=== PATIENT | female | born 1955 | race Caucasian/White ===

== ENCOUNTER 2017-05-19 14:12 | Inpatient (IN) | payer BC ==
[2017-05-19] MEDS ORDERED: Lactated Ringers 1,000 ML IV SCH ×2 (15:00→15:45)
[2017-05-19] MEDS ORDERED: Ondansetron 4 MG Tab.DIS PO PRN (15:18)
[2017-05-19] MEDS ORDERED: Glucose Gel 15 GM in 37.5 GM Tube PO PRN (15:44)
[2017-05-19] MEDS ORDERED: 50% Dextrose in Water 50 ML Syringe IV PRN (15:44)
[2017-05-19] MEDS ORDERED: Acetaminophen/oxyCODONE 325-5 MG Tab PO PRN (15:44)
--- NOTE | 2017-05-19 15:53 | PCM.HP ---
H&P History of Present Illness - General Date of Service: 05/19/17 Source of Information: Patient, Old Records, Provider, RN Notes Reviewed History Limitations: Reports: No Limitations - History of Present Illness Initial Comments - Free Text/Narative: Ms. Dumont is a 61-year-old woman who is admitted as a direct admission from urgent care and Dr. Ross with hypoxia and cough secondary to bilateral pneumonia. She has not felt well over the past 5-6 days in has developed progressive cough, shortness of breath, weakness, and anorexia. She was seen and evaluated in the urgent care clinic today, white blood cell count was modestly elevated, oxygen saturation was low at 85. Chest x-ray shows evidence of bilateral pulmonary infiltrates consistent with pneumonia. Because of respiratory compromise she is referred for hospital admission with further evaluation and management - Related Data Allergies/Adverse Reactions: Allergies Allergy/AdvReac Type Severity Reaction Status Date / Time sulfamethoxazole Allergy Severe Renal Verified 07/19/16 15:13 [From Bactrim] Insufficiency trimethoprim [From Bactrim] Allergy Severe Rash Verified 06/28/16 10:20 Gadolinium-Containing Allergy Itching Verified 06/25/16 04:25 Contrast Medi Home Medications: Home Meds Calcium Carbonate/Vitamin D3 [Calcium 600 + Vit D 200] 1 each PO DAILY 02/10/16 [History] Cholecalciferol (Vitamin D3) [Vitamin D3] 2,000 unit PO DAILY 02/10/16 [History] Furosemide 40 mg PO DAILY 02/10/16 [History] Gabapentin 300 mg PO BEDTIME 02/10/16 [History] Lisinopril 10 mg PO DAILY 02/10/16 [History] Multivitamin [Multi-Vitamin Daily] 1 each PO DAILY 02/10/16 [History] Warfarin [Coumadin] 5 mg PO SUTUWETHSA 02/10/16 [History] Warfarin [Coumadin] 7.5 mg PO MOFR 03/17/16 [History] Acetaminophen/oxyCODONE [Percocet 325-5 MG] 1 - 2 tab PO Q6HR #120 tablet [Rx] Diazepam [Valium] 5 mg PO TID PRN #15 tablet 06/28/16 [Rx] Insulin Aspart [NovoLOG] 0 units SUBCUT TID 10/25/16 [History] Insulin Degludec [Tresiba Flextouch U-100] 78 units SQ DAILY 04/28/17 [History] Past Medical History HEENT History: Reports: Cataract, Impaired Vision Cardiovascular History: Reports: Blood Clots/VTE/DVT, Hypertension Respiratory History: Reports: PE Gastrointestinal History: Reports: Cholelithiasis, Colon Polyp Genitourinary History: Reports: None [employer] History: Reports: Other OB/BYN History: Stillborn Musculoskeletal History: Reports: Arthritis, Fracture Endocrine/Metabolic History: Reports: Diabetes, Type II, Obesity/BMI 30+ Hematologic History: Reports: B12 Deficiency Oncologic (Cancer) History: Reports: Other (See Below) Other Oncologic History: endometrial cancer x2 - Infectious Disease History Infectious Disease History: Reports: Chicken Pox, Measles, Mumps - Past Surgical History HEENT Surgical History: Reports: Cataract Surgery, Tonsillectomy Respiratory Surgical History: Reports: None Female Surgical History: Reports: Section, Hysterectomy Musculoskeletal Surgical History: Reports: Knee Replacement Social & Family History - Family History Family Medical History: Noncontributory - Tobacco Use Smoking Status *Q: Never Smoker Second Hand Smoke Exposure: No - Caffeine Use Caffeine Use: Reports: Soda, Tea - Alcohol Use Days Per Week of Alcohol Use: 0 - Recreational Drug Use Recreational Drug Use: No H&P Review of Systems - Review of Systems: Review Of Systems: See Below General: Reports: Fever, Chills, Weakness HEENT: Reports: No Symptoms Pulmonary: Reports: Shortness of Breath, Cough, Sputum. Denies: Wheezing, Hemoptysis Cardiovascular: Reports: Dyspnea on Exertion. Denies: Chest Pain, Palpitations , Orthopnea, PND, Edema Gastrointestinal: Reports: No Symptoms Genitourinary: Reports: No Symptoms Musculoskeletal: Reports: No Symptoms Skin: Reports: No Symptoms Psychiatric: Reports: No Symptoms Neurological: Reports: No Symptoms Hematologic/Lymphatic: Reports: No Symptoms Immunologic: Reports: No Symptoms Exam - Exam Exam: See Below - Vital Signs Vital Signs: Last Vital Signs Temp 101.6 F H 05/19/17 14:24 Pulse 100 05/19/17 14:24 Resp 20 05/19/17 14:24 BP 149/59 H 05/19/17 14:24 Pulse Ox 85 L 05/19/17 14:24 Weight: 302 lb 7.587 oz - Exam Quality Assessment: Supplemental Oxygen, DVT Prophylaxis General: Alert, Oriented, Cooperative, Mild Distress HEENT: Conjunctiva Clear, Hearing Intact, Mucosa Moist & [place], Normal Nasal Septum, Posterior Pharynx Clear, Pupils Equal Neck: Supple, Trachea Midline, +2 Carotid Pulse wo Bruit Lungs: Rales, Rhonchi. No: Crackles, Wheezing Cardiovascular: Regular Rate, Regular Rhythm, Normal S1, Normal S2. No: Systolic Murmur, Diastolic Murmur GI/Abdominal Exam: Soft, Non-Tender, No Organomegaly, No Distention Back Exam: Normal Inspection Extremities: Non-Tender, No Pedal Edema Skin: Warm, Dry, Intact Neuro Extensive - Mental Status: Alert, Oriented x3, Normal Mood/Affect, Normal Cognition, Memory Intact - Patient Data Lab Results Last 24 hrs: Laboratory Results - last 24 hr 05/19/17 05/19/17 Range/Units 15:05 15:07 Puncture Site Lt radial ABG pH 7.434 (7.350-7.450) ABG pCO2 37.6 (35.0-42.0) mmHg ABG pO2 60.5 L (75.0-100.0) mmHg ABG HCO3 24.8 (22.0-26.0) mmol/L ABG Total CO2 22.1 (21.0-25.0) mmol/L ABG O2 Saturation 91.2 L (95.0-98.0) % ABG O2 Content 15.7 (15.0-23.0) %vol ABG Base Excess 1.2 mm/L ABG Hemoglobin 12.5 (12.0-16.0) g/dL ABG Oxyhemoglobin 89.4 % ABG Carboxyhemoglobin 1.5 (0.0-1.6) % ABG Methemoglobin 0.5 % Jean Test Pass O2 Delivery Device Nasal cannula Oxygen Flow Rate 2 L Lactic Acid 0.8 (0.4-2.0) mmol/L *Q Meaningful Use (ADM) - VTE *Q VTE Criteria *Q: VTE Pharmacological Contraindications *Q: High INR Value - VTE Risk Assess *Q Each Risk Factor Represents 1 Point: Obesity ( BMI > 25 kg/m2), Serious lung disease including pneumonia Total Score 1 Point Risk Factors: 2 Each Risk Factor Represents 2 Points: Age 60 - 74 Years Total Score 2 Point Risk Factors: 2 Each Risk Factor Represents 3 Points: None Total Score 3 Point Risk Factors: 0 Each Risk Factor Represents 5 Points: None Total Score 5 Point Risk Factors: 0 Venous Thromboembolism Risk Factor Score *Q: 4 - Stroke *Q Stroke Criteria *Q: - AMI *Q AMI Criteria *Q: Problem List Initiated/Reviewed/Updated: Yes Orders Last 24hrs: Active Orders 24 hr Category Date Time Status CULTURE BLOOD [BC] Stat Lab 05/19/17 14:50 Received CULTURE BLOOD [BC] Stat Lab 05/19/17 15:05 Received INFLUENZA A+B AG SCREEN [RM] Routine Lab 05/19/17 15:50 Ordered Lactated Ringers [Ringers, Lactated] 1,000 ml Med 05/19/17 15:00 Active IV ASDIRECTED Blood Culture x2 Reflex Set [OM.PC] Urgent Oth 05/19/17 14:48 Ordered Medication Orders Lactated Ringer's (Ringers, Lactated) 1,000 mls @ 1,000 mls/hr IV ASDIRECTED LADONNA Stop: 05/19/17 16:01 Last Admin: 05/19/17 15:48 Dose: 1,000 mls/hr Assessment/Plan Comment:: ASSESSMENT AND PLAN BILATERAL PNEUMONIA-modest elevation in white blood cell count and low-grade temperature elevation. Evidence of bilateral pulmonary infiltrates identified on chest x-ray. -Blood and sputum cultures pending -IV fluids for hydration -IV antibiotic therapy; azithromycin and ceftriaxone HYPOXIC RESPIRATORY FAILURE-likely secondary to current pneumonia -Continuous pulse oximetry -Supplemental oxygen as needed -Nebulized albuterol as needed TYPE 2 DIABETES MELLITUS -Continue usual dose of long-acting insulins -Hold NovoLog at mealtime until appetite improves -High-dose sliding scale NovoLog -4 times a day glucometers ACUTE ON CHRONIC KIDNEY DISEASE-creatinine is elevated from baseline with corresponding decrease in GFR. At baseline she has chronic kidney disease stage III, current acute kidney injury likely secondary to underlying infection and probable intravascular volume depletion. -IV fluids for hydration -Closely monitor urine output and renal function MAINTENANCE ISSUES -DVT prophylaxis; current therapy with warfarin should provide adequate DVT prophylaxis -GI prophylaxis; not indicated -August catheter; not indicated -Nutrition; consistent carb diet -Nicotine dependence; not required CODE STATUS-FULL CODE ADMISSION STATUS-patient will be admitted to inpatient status, expect at least a 2 night hospital stay for evaluation and management of problems as outlined above. At the time of this admission I do not reasonably expected evaluation and management of this problem will require more than a 96 hour hospital stay. DISPOSITION-anticipate discharge to home after the hospital stay. PRIMARY CARE PROVIDER-Dr. Merritt
[2017-05-19] MEDS ORDERED: Diazepam 5 MG Tab PO PRN (16:29)
--- NOTE | 2017-05-19 16:52 | PCM.HP ---
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 These symptoms have progressively gotten worse, despite using Tylenol and codeine to suppress her fever and cough. She has been unable to sleep well and experiences some abdominal pain while coughing. Several of her family members have experienced similar symptoms, but not as severe as hers. She does not have any history of cardiac or respiratory disease and has not had anything similar to this set of symptoms in the past. She denies nausea, vomiting, constipation, headaches out of the ordinary, chest pain, and light headedness. She did receive her flu shot this year. She has not been hospitalized recently, has not taken antibiotics recently, has not been on steroids recently. Onset of Symptoms: Reports: Gradual (Began Sat (6 days ago)) Duration of Symptoms: Reports: Getting Worse Location: Reports: Chest Quality: Reports: Other (Short of breath) Severity: Moderate Improves with: Reports: None Worsens with: Reports: None Context: Reports: Sick Contact, Exertion Associated Symptoms: Reports: Cough, Fever/Chills, Headaches, Loss of Appetite, Malaise, Shortness of Breath - Related Data Allergies/Adverse Reactions: Allergies Allergy/AdvReac Type Severity Reaction Status Date / Time sulfamethoxazole Allergy Severe Renal Verified 07/19/16 15:13 [From Bactrim] Insufficiency trimethoprim [From Bactrim] Allergy Severe Rash Verified 06/28/16 10:20 Gadolinium-Containing Allergy Itching Verified 06/25/16 04:25 Contrast Medi Home Medications: Home Meds Calcium Carbonate/Vitamin D3 [Calcium 600 + Vit D 200] 1 each PO DAILY 02/10/16 [History] Cholecalciferol (Vitamin D3) [Vitamin D3] 2,000 unit PO DAILY 02/10/16 [History] Furosemide 40 mg PO DAILY 02/10/16 [History] Gabapentin 300 mg PO BEDTIME 02/10/16 [History] Lisinopril 10 mg PO DAILY 02/10/16 [History] Multivitamin [Multi-Vitamin Daily] 1 each PO DAILY 02/10/16 [History] Warfarin [Coumadin] 5 mg PO SUTUWETHSA 02/10/16 [History] Warfarin [Coumadin] 7.5 mg PO MOFR 03/17/16 [History] Acetaminophen/oxyCODONE [Percocet 325-5 MG] 1 - 2 tab PO Q6HR #120 tablet [Rx] Diazepam [Valium] 5 mg PO TID PRN #15 tablet 06/28/16 [Rx] Insulin Aspart [NovoLOG] 0 units SUBCUT TID 10/25/16 [History] Insulin Degludec [Tresiba Flextouch U-100] 78 units SQ DAILY 04/28/17 [History] Past Medical History HEENT History: Reports: Cataract, Impaired Vision Cardiovascular History: Reports: Blood Clots/VTE/DVT, Hypertension Respiratory History: Reports: PE Gastrointestinal History: Reports: Cholelithiasis, Colon Polyp Genitourinary History: Reports: None CAT HOOKER History: Reports: Other OB/BYN History: [place] Musculoskeletal History: Reports: Arthritis, Fracture Endocrine/Metabolic History: Reports: Diabetes, Type II, Obesity/BMI 30+ Hematologic History: Reports: B12 Deficiency Oncologic (Cancer) History: Reports: Other (See Below) Other Oncologic History: endometrial cancer x2 - Infectious Disease History Infectious Disease History: Reports: Chicken Pox, Measles, Mumps - Past Surgical History HEENT Surgical History: Reports: Cataract Surgery, Tonsillectomy Respiratory Surgical History: Reports: None Female Surgical History: Reports: Section, Hysterectomy Musculoskeletal Surgical History: Reports: Knee Replacement Social & Family History - Family History Family Medical History: Noncontributory - Tobacco Use Smoking Status *Q: Never Smoker Second Hand Smoke Exposure: No - Caffeine Use Caffeine Use: Reports: Soda, Tea - Alcohol Use Days Per Week of Alcohol Use: 0 - Recreational Drug Use Recreational Drug Use: No H&P Review of Systems - Review of Systems: Review Of Systems: See Below General: Reports: Fever, Chills, Malaise, Decreased Appetite HEENT: Reports: Headaches, Post Nasal Drip Pulmonary: Reports: Shortness of Breath, Cough, Sputum. Denies: Pleuritic Chest Pain Cardiovascular: Reports: Dyspnea on Exertion. Denies: Chest Pain, Palpitations , Lightheadedness Gastrointestinal: Reports: No Symptoms Genitourinary: Reports: Incontinence (Stress urinary incontinence exacerbated by coughing) Musculoskeletal: Reports: No Symptoms Skin: Reports: No Symptoms Psychiatric: Reports: No Symptoms Neurological: Reports: No Symptoms Hematologic/Lymphatic: Reports: No Symptoms Immunologic: Reports: No Symptoms Exam - Exam Exam: See Below - Vital Signs Vital Signs: Last Vital Signs Temp 101.6 F H 05/19/17 14:24 Pulse 100 05/19/17 14:24 Resp 20 05/19/17 14:24 BP 149/59 H 05/19/17 14:24 Pulse Ox 85 L 05/19/17 14:24 Weight: 302 lb 7.587 oz - Exam Quality Assessment: Supplemental Oxygen (2LNC) General: Alert, Oriented, Cooperative HEENT: EOMI, Mucosa Moist & [place] Neck: Supple, Trachea Midline Lungs: Normal Respiratory Effort, Crackles (LLL), Rhonchi (RUL, RAQUEL) Cardiovascular: Regular Rhythm, Tachycardia GI/Abdominal Exam: Normal Bowel Sounds, Soft, Non-Tender, No Organomegaly, No Distention, No Abnormal Bruit, No Mass, Pelvis Stable Extremities: Pedal Edema (chronic lymphedema) Skin: Warm, Dry, Intact Psychiatric: Alert, Normal Affect - Patient Data Lab Results Last 24 hrs: Laboratory Results - last 24 hr 05/19/17 05/19/17 Range/Units 15:05 15:07 Puncture Site Lt radial ABG pH 7.434 (7.350-7.450) ABG pCO2 37.6 (35.0-42.0) mmHg ABG pO2 60.5 L (75.0-100.0) mmHg ABG HCO3 24.8 (22.0-26.0) mmol/L ABG Total CO2 22.1 (21.0-25.0) mmol/L ABG O2 Saturation 91.2 L (95.0-98.0) % ABG O2 Content 15.7 (15.0-23.0) %vol ABG Base Excess 1.2 mm/L ABG Hemoglobin 12.5 (12.0-16.0) g/dL ABG Oxyhemoglobin 89.4 % ABG Carboxyhemoglobin 1.5 (0.0-1.6) % ABG Methemoglobin 0.5 % Jean Test Pass O2 Delivery Device Nasal cannula Oxygen Flow Rate 2 L Lactic Acid 0.8 (0.4-2.0) mmol/L Johnson Results Last 24 hrs: Microbiology 05/19/17 15:50 Influenza Type A Antigen Screen - Final Nasopharyngeal Swab - Nare, Right NEGATIVE INFLUENZA A VIRUS AG Influenza Type B Antigen Screen - Final NEGATIVE INFLUENZA B VIRUS AG *Q Meaningful Use (ADM) - VTE *Q VTE Criteria *Q: VTE Pharmacological Contraindications *Q: High INR Value - Stroke *Q Stroke Criteria *Q: - AMI *Q AMI Criteria *Q: - Problem List (1) Pneumonia SNOMED Code(s): 670804787 ICD Code: J18.9 - PNEUMONIA, UNSPECIFIED ORGANISM Status: Acute Current Visit: Yes Qualifiers: Pneumonia type: due to unspecified organism Laterality: bilateral Lung location: unspecified part of lung Qualified Code(s): J18.9 - Pneumonia, unspecified organism (2) Chronic renal insufficiency, stage III (moderate) SNOMED Code(s): 150204842 ICD Code: N18.3 - CHRONIC KIDNEY DISEASE, STAGE 3 (MODERATE) Status: Chronic Current Visit: No (3) Diabetes mellitus SNOMED Code(s): 68387239 ICD Code: E11.9 - TYPE 2 DIABETES MELLITUS WITHOUT COMPLICATIONS Status: Chronic Current Visit: No Qualifiers: Diabetes mellitus type: type 2 Diabetes mellitus complication status: with kidney complications Diabetes mellitus complication detail: with chronic kidney disease Diabetes mellitus mcfp insulin use: with termite exterminator helper use Chronic kidney disease stage: stage 3 (moderate) Qualified Code(s): E11.22 - Type 2 diabetes mellitus with diabetic chronic kidney disease; N18.3 - Chronic kidney disease, stage 3 (moderate); N18.3 - Chronic kidney disease, stage 3 ( moderate); Z79.4 - snf (current) use of insulin; Z79.4 - termite helper ( current) use of insulin; Z79.4 - termite helper (current) use of insulin; Z79.4 - snf (current) use of insulin Problem List Initiated/Reviewed/Updated: Yes Orders Last 24hrs: Active Orders 24 hr Category Date Time Status Patient Status [ADT] Routine ADT 05/19/17 15:34 Ordered Ambulate [RC] QID Care 05/19/17 15:18 Ordered Blood Glucose Check, Bedside [RC] QIDACANDBED Care 05/19/17 15:44 Ordered Communication Order [RC] ASDIRECTED Care 05/19/17 16:25 Ordered Diabetes Education [RC] Click to Edit Care 05/19/17 15:34 Ordered Height and Weight [RC] DAILY Care 05/19/17 15:44 Ordered Intake and Output [RC] QSHIFT Care 05/19/17 15:58 Ordered Notify Provider [RC] PRN Care 05/19/17 15:50 Ordered Oxygen Therapy [RC] PRN Care 05/19/17 15:34 Ordered Pulse Oximetry [RC] CONTINUOUS Care 05/19/17 15:36 Ordered RT Aerosol Therapy [RC] ASDIRECTED Care 05/19/17 16:17 Ordered Up ad Ese [RC] ASDIRECTED Care 05/19/17 15:18 Ordered Up to Chair [RC] QID Care 05/19/17 15:18 Ordered VTE/DVT Education [RC] Per Unit Routine Care 05/19/17 15:34 Ordered Vital Signs [RC] Q4H Care 05/19/17 15:34 Ordered Consistent Carbohydrate Diet [DIET] Diet 05/19/17 Dinner Ordered BASIC METABOLIC PANEL,BMP [CHEM] AM Lab 05/20/17 05:11 Ordered CBC WITH AUTO DIFF [HEME] AM Lab 05/20/17 05:11 Ordered CULTURE BLOOD [BC] Stat Lab 05/19/17 14:50 Received CULTURE BLOOD [BC] Stat Lab 05/19/17 15:05 Received CULTURE RESPIRATORY + SMEAR [RM] Routine Lab 05/19/17 15:44 Uncollected GLUCOSE POC LAB TO COLLECT [POC] QIDACANDBED Lab 05/19/17 16:30 Ordered GLUCOSE POC LAB TO COLLECT [POC] QIDACANDBED Lab 05/19/17 21:00 Ordered GLUCOSE POC LAB TO COLLECT [POC] QIDACANDBED Lab 05/20/17 07:30 Ordered GLUCOSE POC LAB TO COLLECT [POC] QIDACANDBED Lab 05/20/17 11:30 Ordered GLUCOSE POC LAB TO COLLECT [POC] QIDACANDBED Lab 05/20/17 16:30 Ordered GLUCOSE POC LAB TO COLLECT [POC] QIDACANDBED Lab 05/20/17 21:00 Ordered GLUCOSE POC LAB TO COLLECT [POC] QIDACANDBED Lab 05/21/17 07:30 Ordered GLUCOSE POC LAB TO COLLECT [POC] QIDACANDBED Lab 05/21/17 11:30 Ordered GLUCOSE POC LAB TO COLLECT [POC] QIDACANDBED Lab 05/21/17 16:30 Ordered GLUCOSE POC LAB TO COLLECT [POC] QIDACANDBED Lab 05/21/17 21:00 Ordered GLUCOSE POC LAB TO COLLECT [POC] QIDACANDBED Lab 05/22/17 07:30 Ordered GLUCOSE POC LAB TO COLLECT [POC] QIDACANDBED Lab 05/22/17 11:30 Ordered GLUCOSE POC LAB TO COLLECT [POC] QIDACANDBED Lab 05/22/17 16:30 Ordered GLUCOSE POC LAB TO COLLECT [POC] QIDACANDBED Lab 05/22/17 21:00 Ordered GLUCOSE POC LAB TO COLLECT [POC] QIDACANDBED Lab 05/23/17 07:30 Ordered GLUCOSE POC LAB TO COLLECT [POC] QIDACANDBED Lab 05/23/17 11:30 Ordered GLUCOSE POC LAB TO COLLECT [POC] QIDACANDBED Lab 05/23/17 16:30 Ordered GLUCOSE POC LAB TO COLLECT [POC] QIDACANDBED Lab 05/23/17 21:00 Ordered GLUCOSE POC LAB TO COLLECT [POC] QIDACANDBED Lab 05/24/17 07:30 Ordered GLUCOSE POC LAB TO COLLECT [POC] QIDACANDBED Lab 05/24/17 11:30 Ordered GLUCOSE POC LAB TO COLLECT [POC] QIDACANDBED Lab 05/24/17 16:30 Ordered GLUCOSE POC LAB TO COLLECT [POC] QIDACANDBED Lab 05/24/17 21:00 Ordered GLUCOSE POC LAB TO COLLECT [POC] QIDACANDBED Lab 05/25/17 07:30 Ordered GLUCOSE POC LAB TO COLLECT [POC] QIDACANDBED Lab 05/25/17 11:30 Ordered GLUCOSE POC LAB TO COLLECT [POC] QIDACANDBED Lab 05/25/17 16:30 Ordered GLUCOSE POC LAB TO COLLECT [POC] QIDACANDBED Lab 05/25/17 21:00 Ordered GLUCOSE POC LAB TO COLLECT [POC] QIDACANDBED Lab 05/26/17 07:30 Ordered GLUCOSE POC LAB TO COLLECT [POC] QIDACANDBED Lab 05/26/17 11:30 Ordered GLUCOSE POC LAB TO COLLECT [POC] QIDACANDBED Lab 05/26/17 16:30 Ordered GLUCOSE POC LAB TO COLLECT [POC] QIDACANDBED Lab 05/26/17 21:00 Ordered GLUCOSE POC LAB TO COLLECT [POC] QIDACANDBED Lab 05/27/17 07:30 Ordered GLUCOSE POC LAB TO COLLECT [POC] QIDACANDBED Lab 05/27/17 11:30 Ordered GLUCOSE POC LAB TO COLLECT [POC] QIDACANDBED Lab 05/27/17 16:30 Ordered GLUCOSE POC LAB TO COLLECT [POC] QIDACANDBED Lab 05/27/17 21:00 Ordered GLUCOSE POC LAB TO COLLECT [POC] QIDACANDBED Lab 05/28/17 07:30 Ordered GLUCOSE POC LAB TO COLLECT [POC] QIDACANDBED Lab 05/28/17 11:30 Ordered GLUCOSE POC LAB TO COLLECT [POC] QIDACANDBED Lab 05/28/17 16:30 Ordered GLUCOSE POC LAB TO COLLECT [POC] QIDACANDBED Lab 05/28/17 21:00 Ordered GLUCOSE POC LAB TO COLLECT [POC] QIDACANDBED Lab 05/29/17 07:30 Ordered GLUCOSE POC LAB TO COLLECT [POC] QIDACANDBED Lab 05/29/17 11:30 Ordered GLUCOSE POC LAB TO COLLECT [POC] QIDACANDBED Lab 05/29/17 16:30 Ordered GLUCOSE POC LAB TO COLLECT [POC] QIDACANDBED Lab 05/29/17 21:00 Ordered GLUCOSE POC LAB TO COLLECT [POC] QIDACANDBED Lab 05/30/17 07:30 Ordered GLUCOSE POC LAB TO COLLECT [POC] QIDACANDBED Lab 05/30/17 11:30 Ordered GLUCOSE POC LAB TO COLLECT [POC] QIDACANDBED Lab 05/30/17 16:30 Ordered GLUCOSE POC LAB TO COLLECT [POC] QIDACANDBED Lab 05/30/17 21:00 Ordered GLUCOSE POC LAB TO COLLECT [POC] QIDACANDBED Lab 05/31/17 07:30 Ordered GLUCOSE POC LAB TO COLLECT [POC] QIDACANDBED Lab 05/31/17 11:30 Ordered GLUCOSE POC LAB TO COLLECT [POC] QIDACANDBED Lab 05/31/17 16:30 Ordered GLUCOSE POC LAB TO COLLECT [POC] QIDACANDBED Lab 05/31/17 21:00 Ordered GLUCOSE POC LAB TO COLLECT [POC] QIDACANDBED Lab 06/01/17 07:30 Ordered GLUCOSE POC LAB TO COLLECT [POC] QIDACANDBED Lab 06/01/17 11:30 Ordered GLUCOSE POC LAB TO COLLECT [POC] QIDACANDBED Lab 06/01/17 16:30 Ordered GLUCOSE POC LAB TO COLLECT [POC] QIDACANDBED Lab 06/01/17 21:00 Ordered GLUCOSE POC LAB TO COLLECT [POC] QIDACANDBED Lab 06/02/17 07:30 Ordered GLUCOSE POC LAB TO COLLECT [POC] QIDACANDBED Lab 06/02/17 11:30 Ordered GLUCOSE POC LAB TO COLLECT [POC] QIDACANDBED Lab 06/02/17 16:30 Ordered GLUCOSE POC LAB TO COLLECT [POC] QIDACANDBED Lab 06/02/17 21:00 Ordered GLUCOSE POC LAB TO COLLECT [POC] QIDACANDBED Lab 06/03/17 07:30 Ordered GLUCOSE POC LAB TO COLLECT [POC] QIDACANDBED Lab 06/03/17 11:30 Ordered GLUCOSE POC LAB TO COLLECT [POC] QIDACANDBED Lab 06/03/17 16:30 Ordered GLUCOSE POC LAB TO COLLECT [POC] QIDACANDBED Lab 06/03/17 21:00 Ordered GLUCOSE POC LAB TO COLLECT [POC] QIDACANDBED Lab 06/04/17 07:30 Ordered GLUCOSE POC LAB TO COLLECT [POC] QIDACANDBED Lab 06/04/17 11:30 Ordered GLUCOSE POC LAB TO COLLECT [POC] QIDACANDBED Lab 06/04/17 16:30 Ordered GLUCOSE POC LAB TO COLLECT [POC] QIDACANDBED Lab 06/04/17 21:00 Ordered GLUCOSE POC LAB TO COLLECT [POC] QIDACANDBED Lab 06/05/17 07:30 Ordered GLUCOSE POC LAB TO COLLECT [POC] QIDACANDBED Lab 06/05/17 11:30 Ordered GLUCOSE POC LAB TO COLLECT [POC] QIDACANDBED Lab 06/05/17 16:30 Ordered GLUCOSE POC LAB TO COLLECT [POC] QIDACANDBED Lab 06/05/17 21:00 Ordered GLUCOSE POC LAB TO COLLECT [POC] QIDACANDBED Lab 06/06/17 07:30 Ordered GLUCOSE POC LAB TO COLLECT [POC] QIDACANDBED Lab 06/06/17 11:30 Ordered GLUCOSE POC LAB TO COLLECT [POC] QIDACANDBED Lab 06/06/17 16:30 Ordered GLUCOSE POC LAB TO COLLECT [POC] QIDACANDBED Lab 06/06/17 21:00 Ordered GLUCOSE POC LAB TO COLLECT [POC] QIDACANDBED Lab 06/07/17 07:30 Ordered GLUCOSE POC LAB TO COLLECT [POC] QIDACANDBED Lab 06/07/17 11:30 Ordered GLUCOSE POC LAB TO COLLECT [POC] QIDACANDBED Lab 06/07/17 16:30 Ordered GLUCOSE POC LAB TO COLLECT [POC] QIDACANDBED Lab 06/07/17 21:00 Ordered GLUCOSE POC LAB TO COLLECT [POC] QIDACANDBED Lab 06/08/17 07:30 Ordered GLUCOSE POC LAB TO COLLECT [POC] QIDACANDBED Lab 06/08/17 11:30 Ordered GLUCOSE POC LAB TO COLLECT [POC] QIDACANDBED Lab 06/08/17 16:30 Ordered GLUCOSE POC LAB TO COLLECT [POC] QIDACANDBED Lab 06/08/17 21:00 Ordered GLUCOSE POC LAB TO COLLECT [POC] QIDACANDBED Lab 06/09/17 07:30 Ordered GLUCOSE POC LAB TO COLLECT [POC] QIDACANDBED Lab 06/09/17 11:30 Ordered GLUCOSE POC LAB TO COLLECT [POC] QIDACANDBED Lab 06/09/17 16:30 Ordered GLUCOSE POC LAB TO COLLECT [POC] QIDACANDBED Lab 06/09/17 21:00 Ordered GLUCOSE POC LAB TO COLLECT [POC] QIDACANDBED Lab 06/10/17 07:30 Ordered GLUCOSE POC LAB TO COLLECT [POC] QIDACANDBED Lab 06/10/17 11:30 Ordered GLUCOSE POC LAB TO COLLECT [POC] QIDACANDBED Lab 06/10/17 16:30 Ordered GLUCOSE POC LAB TO COLLECT [POC] QIDACANDBED Lab 06/10/17 21:00 Ordered GLUCOSE POC LAB TO COLLECT [POC] QIDACANDBED Lab 06/11/17 07:30 Ordered GLUCOSE POC LAB TO COLLECT [POC] QIDACANDBED Lab 06/11/17 11:30 Ordered GLUCOSE POC LAB TO COLLECT [POC] QIDACANDBED Lab 06/11/17 16:30 Ordered GLUCOSE POC LAB TO COLLECT [POC] QIDACANDBED Lab 06/11/17 21:00 Ordered GLUCOSE POC LAB TO COLLECT [POC] QIDACANDBED Lab 06/12/17 07:30 Ordered GLUCOSE POC LAB TO COLLECT [POC] QIDACANDBED Lab 06/12/17 11:30 Ordered GLUCOSE POC LAB TO COLLECT [POC] QIDACANDBED Lab 06/12/17 16:30 Ordered GLUCOSE POC LAB TO COLLECT [POC] QIDACANDBED Lab 06/12/17 21:00 Ordered GLUCOSE POC LAB TO COLLECT [POC] QIDACANDBED Lab 06/13/17 07:30 Ordered INR,PT,PROTHROMBIN TIME [COAG] DAILY Lab 05/20/17 05:11 Ordered INR,PT,PROTHROMBIN TIME [COAG] DAILY Lab 05/21/17 05:11 Ordered INR,PT,PROTHROMBIN TIME [COAG] DAILY Lab 05/22/17 05:11 Ordered INR,PT,PROTHROMBIN TIME [COAG] DAILY Lab 05/23/17 05:11 Ordered INR,PT,PROTHROMBIN TIME [COAG] DAILY Lab 05/24/17 05:11 Ordered Acetaminophen [Tylenol] Med 05/19/17 15:18 Ordered 650 mg PO Q4H PRN Acetaminophen/oxyCODONE [Percocet 325-5 MG] Med 05/19/17 15:44 Ordered 1 tab PO Q4H PRN Albuterol [Proventil Neb Soln] Med 05/19/17 15:44 Ordered 2.5 mg NEB Q4H PRN Azithromycin [Zithromax] 500 mg Med 05/19/17 16:45 Ordered Sodium Chloride 0.9% [Normal Saline] 250 ml IV Q24H Dextrose 50% in Water Med 05/19/17 15:44 Ordered 50 ml IV ONETIME PRN Dextrose [Glutose 15] Med 05/19/17 15:44 Ordered 15 gm PO ONETIME PRN Diazepam [Valium] Med 05/19/17 16:29 Ordered 5 mg PO TID PRN Furosemide [Lasix] Med 05/20/17 09:00 Ordered 40 mg PO DAILY Gabapentin [Neurontin] Med 05/19/17 21:00 Ordered 300 mg PO BEDTIME Insulin Aspart [NovoLOG] Med 05/19/17 17:00 Ordered See Protocol SUBCUT QIDACANDBED Insulin Detemir [Levemir] Med 05/20/17 09:00 Ordered 78 unit SUBCUT DAILY Lactated Ringers [Ringers, Lactated] 1,000 ml Med 05/19/17 15:45 Ordered IV ASDIRECTED Lisinopril [Prinivil] Med 05/20/17 09:00 Ordered 10 mg PO DAILY Ondansetron [Zofran ODT] Med 05/19/17 15:18 Ordered 4 mg PO Q6H PRN cefTRIAXone [Rocephin] 1 gm Med 05/19/17 16:45 Ordered Sodium Chloride 0.9% [Normal Saline] 50 ml IV Q24H Blood Culture x2 Reflex Set [OM.PC] Urgent Oth 05/19/17 14:48 Ordered Glucose Management Sub Q Reflex [OM.PC] Click to Edit Oth 05/19/17 15:18 Ordered VTE Pharmacological Contraindications [AST] Per Unit Oth 05/19/17 15:44 Ordered Routine Resuscitation Status Routine Resus Stat 05/19/17 15:18 Ordered Medication Orders Acetaminophen (Tylenol) 650 mg PO Q4H PRN PRN Reason: Pain (Mild 1-3)/fever Albuterol (Proventil Neb Soln) 2.5 mg NEB Q4H PRN PRN Reason: Shortness Of Breath/wheezing Dextrose (Glutose 15) 15 gm PO ONETIME PRN PRN Reason: Hypoglycemia Dextrose/Water (Dextrose 50% In Water) 50 ml IV ONETIME PRN PRN Reason: Hypoglycemia Diazepam (Valium.) 5 mg PO TID PRN PRN Reason: Pain Furosemide (Lasix) 40 mg PO DAILY LADONNA Gabapentin (Neurontin) 300 mg PO BEDTIME LADONNA Lactated Ringer's (Ringers, Lactated) 1,000 mls @ 125 mls/hr IV ASDIRECTED LADONNA Azithromycin 500 mg/ Sodium (Chloride) 250 mls @ 250 mls/hr IV Q24H LADONNA Ceftriaxone Sodium 1 gm/ (Sodium Chloride) 50 mls @ 100 mls/hr IV Q24H LADONNA Insulin Aspart (Novolog) 0 unit SUBCUT QIDACANDBED LADONNA PRN Reason: Protocol Insulin Detemir (Levemir) 78 unit SUBCUT DAILY LADONNA Lisinopril (Prinivil) 10 mg PO DAILY LADONNA Ondansetron HCl (Zofran Odt) 4 mg PO Q6H PRN PRN Reason: Nausea able to take PO Oxycodone/Acetaminophen (Percocet 325-5 Mg) 1 tab PO Q4H PRN PRN Reason: Pain (moderate 4-6) Assessment/Plan Comment:: COMMUNITY ACQUIRED PNEUMONIA--consistent with bilateral interstitial infiltrates seen on CXR, moderate elevation of WBC to 11.2, and increased CRP to 34; pt currently stable and satting well on 2LNC without increased respiratory effort -supplemental oxygen as needed -ceftriaxone and azithromycin -blood cultures pending -sputum culture pending -influenza A and B antigens pending -q4h vitals -continuous pulse oximetry -nebulized albuterol q4h PRN TYPE 2 DIABETES MELLITUS, COMPLICATED BY STAGE 3 CHRONIC KIDNEY DISEASE, with evidence for acute on chronic kidney injury given increase in Cr from 1.3 (Jan, 2017) to 1.95 (Apr, 2017) -d/c home insulin deglidec and aspart -78 units levemir per day -LDSSI protocol -qid glucose checks -carb consistent diet -Lactated ringers--1L bolus followed by 125ml/hr maintenance -10mg lisinopril daily HISTORY OF PE, anticoagulated with warfarin, currently slightly subtherapeutic at 1.9 -5mg PO warfarin 05/20 -modify as needed DVT Prophylaxis: on warfarin Diet: carb consistent GI prophylaxis: none Code status: full code Dispo: home pending clinical improvement Reema Marinelli, MS3
[2017-05-19] MEDS: Azithromycin 500 MG in Sodium Chloride 0.9% 250 ML IV SCH (17:18)
[2017-05-19] MEDS: Insulin Aspart 100 Units/ML 3 ML Pen SUBCUT SCH ×2 (17:22→21:13)
[2017-05-19] MEDS ORDERED: Warfarin 5 MG Tab PO ONE (17:24)
[2017-05-19] MEDS ORDERED: cefTRIAXone 1 GM in Sodium Chloride 0.9% 50 ML IV SCH (18:00)
[2017-05-19] MEDS: Acetaminophen 325 MG Tab PO PRN (18:35)
[2017-05-19] MEDS: cefTRIAXone 1 GM in Sodium Chloride 0.9% 100 ML IV SCH (18:36)
[2017-05-19] MEDS: Albuterol 0.083% 2.5 MG/3 ML Neb Soln NEB PRN (20:01)
[2017-05-19] MEDS: Gabapentin 300 MG Cap PO SCH (20:42)
[2017-05-19] MEDS: Insulin Detemir 100 Units/ML 3 ML Pen SUBCUT SCH (21:52)
[2017-05-20] MEDS: Albuterol 0.083% 2.5 MG/3 ML Neb Soln NEB PRN (00:35)
[2017-05-20] MEDS: Sodium Chloride 0.9% 1,000 ML IV SCH ×2 (02:52→11:16)
[2017-05-20] MEDS: Insulin Aspart 100 Units/ML 3 ML Pen SUBCUT SCH ×4 (08:02→21:25)
[2017-05-20] MEDS: Lisinopril 10 MG Tab PO SCH (08:15)
[2017-05-20] MEDS: Furosemide 40 MG Tab PO SCH (08:15)
[2017-05-20] MEDS ORDERED: Potassium Chloride 20 MEQ Tab.ER PO ONE (09:30)
[2017-05-20] MEDS ORDERED: Warfarin 2.5 MG Tab PO ONE (17:30)
[2017-05-20] MEDS ORDERED: Warfarin 5 MG Tab PO ONE (17:30)
[2017-05-20] MEDS: Azithromycin 500 MG in Sodium Chloride 0.9% 250 ML IV SCH (17:30)
--- NOTE | 2017-05-20 18:42 | PCM.PN ---
- General Info Date of Service: 05/20/17 Subjective Update: Ms. Dumont has had ongoing difficulty with hypoxia since admission, last night experienced an acute exacerbation that was likely secondary to mucous plug and resolved after she was able to cough up quite a bit of mucus. Vital signs have been stable and she has remained afebrile. - Review of Systems General: Reports: Weakness. Denies: Fever, Chills Pulmonary: Reports: Shortness of Breath, Cough, Sputum, Wheezing. Denies: Pleuritic Chest Pain, Hemoptysis Cardiovascular: Reports: Dyspnea on Exertion. Denies: Chest Pain, Palpitations , Orthopnea, PND, Edema, Lightheadedness Gastrointestinal: Reports: No Symptoms - Patient Data Vitals - Most Recent: Last Vital Signs Temp 98.3 F 05/20/17 15:56 Pulse 80 05/20/17 15:56 Resp 18 05/20/17 15:56 BP 106/47 L 05/20/17 15:56 Pulse Ox 95 05/20/17 15:56 Weight - Most Recent: 310 lb I&O - Last 24 Hours: Intake & Output 05/20/17 05/20/17 05/20/17 06:59 14:59 22:59 Intake Total 1334 420 120 Output Total 250 150 550 Balance 1084 270 -430 Lab Results Last 24 Hours: Laboratory Results - last 24 hr 05/20/17 05/20/17 05/20/17 Range/Units 05:40 05:40 05:40 WBC 10.4 (4.5-11.0) K/uL RBC 3.80 (3.30-5.50) M/uL Hgb 11.3 L (12.0-15.0) g/dL Hct 35.3 L (36.0-48.0) % MCV 93 (80-98) fL MCH 30 (27-31) pg MCHC 32 (32-36) % Plt Count 316 (150-400) K/uL Neut % (Auto) 79 H (36-66) % Lymph % (Auto) 8 L (24-44) % [place] % (Auto) 11 H (2-6) % Eos % (Auto) 2 (2-4) % Baso % (Auto) 0 (0-1) % PT 19.5 H (9.5-12.0) sec INR 1.78 H (0.80-1.20) Sodium 139 L (140-148) mmol/L Potassium 3.5 L (3.6-5.2) mmol/L Chloride 103 (100-108) mmol/L Carbon Dioxide 27 (21-32) mmol/L Anion Gap 12.5 (5.0-14.0) mmol/L BUN 34 H (7-18) mg/dL Creatinine 1.9 H (0.6-1.0) mg/dL Est Cr Clr Drug Dosing 29.85 mL/min Estimated GFR (MDRD) 27 L (>60) Glucose 83 (74-106) mg/dL Calcium 7.9 L (8.5-10.1) mg/dL Johnson Results Last 24 Hours: Microbiology 05/19/17 15:05 Aerobic Blood Culture - Preliminary Blood - Arm, Left NO GROWTH AFTER 1 DAY Anaerobic Blood Culture - Preliminary NO GROWTH AFTER 1 DAY 05/19/17 14:50 Aerobic Blood Culture - Preliminary Blood - Venous NO GROWTH AFTER 1 DAY Anaerobic Blood Culture - Preliminary NO GROWTH AFTER 1 DAY 05/19/17 20:42 Gram Stain - Final Sputum - Expectorated 05/19/17 15:50 Influenza Type A Antigen Screen - Final Nasopharyngeal Swab - Nare, Right NEGATIVE INFLUENZA A VIRUS AG Influenza Type B Antigen Screen - Final NEGATIVE INFLUENZA B VIRUS AG Med Orders - Current: Current Medications Acetaminophen (Tylenol) 650 mg PO Q4H PRN PRN Reason: Pain (Mild 1-3)/fever Last Admin: 05/19/17 18:35 Dose: 650 mg Albuterol (Proventil Neb Soln) 2.5 mg NEB Q4H PRN PRN Reason: Shortness Of Breath/wheezing Last Admin: 05/20/17 00:35 Dose: 2.5 mg Dextrose (Glutose 15) 15 gm PO ONETIME PRN PRN Reason: Hypoglycemia Dextrose/Water (Dextrose 50% In Water) 50 ml IV ONETIME PRN PRN Reason: Hypoglycemia Diazepam (Valium.) 5 mg PO TID PRN PRN Reason: Pain Furosemide (Lasix) 40 mg PO DAILY [facility] Last Admin: 05/20/17 08:15 Dose: 40 mg Gabapentin (Neurontin) 300 mg PO BEDTIME [facility] Last Admin: 05/19/17 20:42 Dose: 300 mg Azithromycin 500 mg/ Sodium (Chloride) 250 mls @ 250 mls/hr IV Q24H [facility] Last Admin: 05/20/17 17:30 Dose: 250 mls/hr Ceftriaxone Sodium 1 gm/ (Sodium Chloride) 100 mls @ 200 mls/hr IV Q24H [facility] Last Admin: 05/19/17 18:36 Dose: 200 mls/hr Insulin Aspart (Novolog) 0 unit SUBCUT QIDACANDBED [facility] PRN Reason: Protocol Last Admin: 05/20/17 17:29 Dose: 9 units Insulin Detemir (Levemir) 78 unit SUBCUT BEDTIME [facility] Last Admin: 05/19/17 21:52 Dose: 78 units Lisinopril (Prinivil) 10 mg PO DAILY [facility] Last Admin: 05/20/17 08:15 Dose: 10 mg Ondansetron HCl (Zofran Odt) 4 mg PO Q6H PRN PRN Reason: Nausea able to take PO Oxycodone/Acetaminophen (Percocet 325-5 Mg) 1 tab PO Q4H PRN PRN Reason: Pain (moderate 4-6) Discontinued Medications Lactated Ringer's (Ringers, Lactated) 1,000 mls @ 1,000 mls/hr IV ASDIRECTED [facility] Stop: 05/19/17 16:01 Last Admin: 05/19/17 15:48 Dose: 1,000 mls/hr Lactated Ringer's (Ringers, Lactated) 1,000 mls @ 125 mls/hr IV ASDIRECTED [facility] Sodium Chloride (Normal Saline) 1,000 mls @ 125 mls/hr IV ASDIRECTED [facility] Last Admin: 05/20/17 11:16 Dose: 125 mls/hr Insulin Detemir (Levemir) 78 unit SUBCUT BEDTIME [facility] Potassium Chloride (Klor-Con M20) 40 meq PO ONETIME ONE Stop: 05/20/17 09:31 Last Admin: 05/20/17 11:21 Dose: 40 meq Warfarin Sodium (Coumadin) 5 mg PO ONETIME ONE Stop: 05/19/17 17:25 Last Admin: 05/19/17 18:35 Dose: 5 mg Warfarin Sodium (Coumadin) 5 mg PO ONETIME ONE Stop: 05/20/17 17:31 Last Admin: 05/20/17 17:31 Dose: 5 mg Warfarin Sodium (Coumadin) 2.5 mg PO ONETIME ONE Stop: 05/20/17 17:31 Last Admin: 05/20/17 17:31 Dose: 2.5 mg - Exam Quality Assessment: Supplemental Oxygen, DVT Prophylaxis General: Alert, Oriented, Cooperative, Mild Distress Lungs: Normal Respiratory Effort, Rhonchi Cardiovascular: Regular Rate, Regular Rhythm, No Murmurs GI/Abdominal Exam: Soft, Non-Tender, No Organomegaly, No Distention Extremities: Non-Tender, No Pedal Edema Skin: Warm, Dry, Intact - Problem List Review Problem List Initiated/Reviewed/Updated: Yes - My Orders Last 24 Hours: My Active Orders 05/19/17 21:30 Insulin Detemir [Levemir] 78 unit SUBCUT BEDTIME 05/20/17 18:39 Convert IV to Saline Lock [OM.PC] Routine 05/21/17 05:00 BASIC METABOLIC PANEL,BMP [CHEM] Timed - Plan Plan:: Assessment/Plan Comment:: ASSESSMENT AND PLAN BILATERAL PNEUMONIA- stable since admission, cultures negative thus far, she has been afebrile and hemodynamically stable -Blood and sputum cultures pending -Saline lock IV -IV antibiotic therapy; azithromycin and ceftriaxone HYPOXIC RESPIRATORY FAILURE-likely secondary to current pneumonia. Is continued to experience hypoxia since admission, oxygen saturation adequate with supplemental oxygen. Increased hypoxia last night likely secondary to mucous plug and resolved with coughing and nebulizer therapy. -Continuous pulse oximetry -Supplemental oxygen as needed -Nebulized albuterol as needed TYPE 2 DIABETES MELLITUS -Continue usual dose of long-acting insulins -Hold NovoLog at mealtime until appetite improves -High-dose sliding scale NovoLog -4 times a day glucometers ACUTE ON CHRONIC KIDNEY DISEASE-creatinine creatinine remains elevated from baseline -Saline lock IV -Closely monitor urine output and renal function MAINTENANCE ISSUES -DVT prophylaxis; current therapy with warfarin should provide adequate DVT prophylaxis -GI prophylaxis; not indicated -August catheter; not indicated -Nutrition; consistent carb diet -Nicotine dependence; not required CODE STATUS-FULL CODE ADMISSION STATUS-patient will be admitted to inpatient status, expect at least a 2 night hospital stay for evaluation and management of problems as outlined above. At the time of this admission I do not reasonably expected evaluation and management of this problem will require more than a 96 hour hospital stay. DISPOSITION-anticipate discharge to home after the hospital stay. PRIMARY CARE PROVIDER-Dr. Merritt
[2017-05-20] MEDS: cefTRIAXone 1 GM in Sodium Chloride 0.9% 100 ML IV SCH (19:24)
[2017-05-20] MEDS: Gabapentin 300 MG Cap PO SCH (20:34)
[2017-05-20] MEDS ORDERED: Insulin Detemir 100 Units/ML 3 ML Pen SUBCUT SCH (21:00)
[2017-05-20] MEDS: Insulin Detemir 100 Units/ML 3 ML Pen SUBCUT SCH (21:24)
[2017-05-21] MEDS: Insulin Aspart 100 Units/ML 3 ML Pen SUBCUT SCH ×4 (08:33→21:17)
[2017-05-21] MEDS: Lisinopril 10 MG Tab PO SCH (08:40)
[2017-05-21] MEDS: Furosemide 40 MG Tab PO SCH (08:40)
--- NOTE | 2017-05-21 09:55 | PCM.PN ---
- General Info Date of Service: 05/21/17 Subjective Update: Ms. Dumont has been stable over the past 24 hours. Cough remains fairly dry with no significant sputum production. Oxygenation has improved and she is tolerating a decreased level of supplemental oxygen. Vital signs have been stable and she has remained afebrile, white blood cell count modestly elevated. Functional Status: Reports: Tolerating Diet, Urinating - Review of Systems General: Reports: Weakness. Denies: Fever, Chills Pulmonary: Reports: Shortness of Breath, Cough. Denies: Sputum, Wheezing Cardiovascular: Reports: Dyspnea on Exertion. Denies: Chest Pain, Palpitations , Orthopnea, PND, Edema Gastrointestinal: Reports: No Symptoms - Patient Data Vitals - Most Recent: Last Vital Signs Temp 97 F 05/21/17 07:01 Pulse 72 05/21/17 07:01 Resp 19 05/21/17 07:01 BP 132/68 05/21/17 08:40 Pulse Ox 92 L 05/21/17 08:00 Weight - Most Recent: 310 lb I&O - Last 24 Hours: Intake & Output 05/20/17 05/21/17 05/21/17 22:59 06:59 14:59 Intake Total 620 860 Output Total 850 700 Balance -230 160 Lab Results Last 24 Hours: Laboratory Results - last 24 hr 05/21/17 05/21/17 05/21/17 Range/Units 05:49 05:49 05:49 WBC 11.9 H (4.5-11.0) K/uL RBC 3.94 (3.30-5.50) M/uL Hgb 11.7 L (12.0-15.0) g/dL Hct 37.3 (36.0-48.0) % MCV 95 (80-98) fL MCH 30 (27-31) pg MCHC 31 L (32-36) % Plt Count 332 (150-400) K/uL PT 19.9 H (9.5-12.0) sec INR 1.81 H (0.80-1.20) Sodium 140 (140-148) mmol/L Potassium 4.0 (3.6-5.2) mmol/L Chloride 105 (100-108) mmol/L Carbon Dioxide 26 (21-32) mmol/L Anion Gap 8.6 (5.0-14.0) mmol/L BUN 32 H (7-18) mg/dL Creatinine 1.6 H (0.6-1.0) mg/dL Est Cr Clr Drug Dosing 35.36 mL/min Estimated GFR (MDRD) 33 L (>60) Glucose 98 (74-106) mg/dL Calcium 8.2 L (8.5-10.1) mg/dL Johnson Results Last 24 Hours: Microbiology 05/19/17 15:05 Aerobic Blood Culture - Preliminary Blood - Arm, Left NO GROWTH AFTER 1 DAY Anaerobic Blood Culture - Preliminary NO GROWTH AFTER 1 DAY 05/19/17 14:50 Aerobic Blood Culture - Preliminary Blood - Venous NO GROWTH AFTER 1 DAY Anaerobic Blood Culture - Preliminary NO GROWTH AFTER 1 DAY Med Orders - Current: Current Medications Acetaminophen (Tylenol) 650 mg PO Q4H PRN PRN Reason: Pain (Mild 1-3)/fever Last Admin: 05/19/17 18:35 Dose: 650 mg Albuterol (Proventil Neb Soln) 2.5 mg NEB Q4H PRN PRN Reason: Shortness Of Breath/wheezing Last Admin: 05/20/17 00:35 Dose: 2.5 mg Dextrose (Glutose 15) 15 gm PO ONETIME PRN PRN Reason: Hypoglycemia Dextrose/Water (Dextrose 50% In Water) 50 ml IV ONETIME PRN PRN Reason: Hypoglycemia Diazepam (Valium.) 5 mg PO TID PRN PRN Reason: Pain Furosemide (Lasix) 40 mg PO DAILY [facility] Last Admin: 05/21/17 08:40 Dose: 40 mg Gabapentin (Neurontin) 300 mg PO BEDTIME [facility] Last Admin: 05/20/17 20:34 Dose: 300 mg Azithromycin 500 mg/ Sodium (Chloride) 250 mls @ 250 mls/hr IV Q24H [facility] Last Admin: 05/20/17 17:30 Dose: 250 mls/hr Ceftriaxone Sodium 1 gm/ (Sodium Chloride) 100 mls @ 200 mls/hr IV Q24H [facility] Last Admin: 05/20/17 19:24 Dose: 200 mls/hr Insulin Aspart (Novolog) 0 unit SUBCUT QIDACANDBED [facility] PRN Reason: Protocol Last Admin: 05/21/17 08:33 Dose: Not Given Insulin Detemir (Levemir) 60 unit SUBCUT BEDTIME [facility] Lisinopril (Prinivil) 10 mg PO DAILY [facility] Last Admin: 05/21/17 08:40 Dose: 10 mg Ondansetron HCl (Zofran Odt) 4 mg PO Q6H PRN PRN Reason: Nausea able to take PO Oxycodone/Acetaminophen (Percocet 325-5 Mg) 1 tab PO Q4H PRN PRN Reason: Pain (moderate 4-6) Last Admin: 05/20/17 22:23 Dose: 1 tab Warfarin Sodium (Coumadin) 7.5 mg PO ONETIME ONE Stop: 05/21/17 09:50 Discontinued Medications Lactated Ringer's (Ringers, Lactated) 1,000 mls @ 1,000 mls/hr IV ASDIRECTED [facility] Stop: 05/19/17 16:01 Last Admin: 05/19/17 15:48 Dose: 1,000 mls/hr Lactated Ringer's (Ringers, Lactated) 1,000 mls @ 125 mls/hr IV ASDIRECTED [facility] Sodium Chloride (Normal Saline) 1,000 mls @ 125 mls/hr IV ASDIRECTED [facility] Last Admin: 05/20/17 11:16 Dose: 125 mls/hr Insulin Detemir (Levemir) 78 unit SUBCUT BEDTIME [facility] Insulin Detemir (Levemir) 78 unit SUBCUT BEDTIME [facility] Last Admin: 05/20/17 21:24 Dose: 78 units Potassium Chloride (Klor-Con M20) 40 meq PO ONETIME ONE Stop: 05/20/17 09:31 Last Admin: 05/20/17 11:21 Dose: 40 meq Warfarin Sodium (Coumadin) 5 mg PO ONETIME ONE Stop: 05/19/17 17:25 Last Admin: 05/19/17 18:35 Dose: 5 mg Warfarin Sodium (Coumadin) 5 mg PO ONETIME ONE Stop: 05/20/17 17:31 Last Admin: 05/20/17 17:31 Dose: 5 mg Warfarin Sodium (Coumadin) 2.5 mg PO ONETIME ONE Stop: 05/20/17 17:31 Last Admin: 05/20/17 17:31 Dose: 2.5 mg - Exam Quality Assessment: Supplemental Oxygen, DVT Prophylaxis General: Alert, Oriented, Cooperative, Mild Distress Lungs: Normal Respiratory Effort, Rales, Rhonchi. No: Rub, Stridor, Wheezing Cardiovascular: Regular Rate, Regular Rhythm, No Murmurs GI/Abdominal Exam: Soft, Non-Tender, No Organomegaly, No Distention Extremities: Non-Tender, No Pedal Edema Skin: Warm, Dry - Problem List Review Problem List Initiated/Reviewed/Updated: Yes - My Orders Last 24 Hours: My Active Orders 05/20/17 18:39 Convert IV to Saline Lock [OM.PC] Routine 05/21/17 09:49 Warfarin [Coumadin] 7.5 mg PO ONETIME ONE 05/21/17 09:51 Insulin Detemir [Levemir] 60 unit SUBCUT BEDTIME 05/22/17 05:00 BASIC METABOLIC PANEL,BMP [CHEM] Timed CBC WITH AUTO DIFF [HEME] Timed - Plan Plan:: Assessment/Plan Comment:: ASSESSMENT AND PLAN BILATERAL PNEUMONIA- stable since admission, she has been afebrile and hemodynamically stable -Blood and sputum cultures negative thus far -Saline lock IV -IV antibiotic therapy; azithromycin and ceftriaxone HYPOXIC RESPIRATORY FAILURE-likely secondary to current pneumonia. Is continued to experience hypoxia since admission, oxygen saturation adequate with supplemental oxygen. Increased hypoxia last night likely secondary to mucous plug and resolved with coughing and nebulizer therapy. -Continuous pulse oximetry -Supplemental oxygen as needed -Nebulized albuterol as needed TYPE 2 DIABETES MELLITUS-she did experience hypoglycemia this morning and we'll plan to decrease insulin dosing -Decrease Levemir to 60 units subcutaneous daily at bedtime -Hold NovoLog at mealtime until appetite improves -High-dose sliding scale NovoLog -4 times a day glucometers ACUTE ON CHRONIC KIDNEY DISEASE-creatinine has improved from admission -Saline lock IV -Closely monitor urine output and renal function MAINTENANCE ISSUES -DVT prophylaxis; current therapy with warfarin should provide adequate DVT prophylaxis -GI prophylaxis; not indicated -Auguts catheter; not indicated -Nutrition; consistent carb diet -Nicotine dependence; not required CODE STATUS-FULL CODE ADMISSION STATUS-patient will be admitted to inpatient status, expect at least a 2 night hospital stay for evaluation and management of problems as outlined above. At the time of this admission I do not reasonably expected evaluation and management of this problem will require more than a 96 hour hospital stay. DISPOSITION-anticipate discharge to home after the hospital stay. PRIMARY CARE PROVIDER-Dr. Merritt
[2017-05-21] MEDS ORDERED: Warfarin 2.5 MG Tab PO ONE (13:00)
[2017-05-21] MEDS: Azithromycin 500 MG in Sodium Chloride 0.9% 250 ML IV SCH (16:27)
[2017-05-21] MEDS: cefTRIAXone 1 GM in Sodium Chloride 0.9% 100 ML IV SCH (17:51)
[2017-05-21] MEDS: Gabapentin 300 MG Cap PO SCH (21:15)
[2017-05-21] MEDS: Insulin Detemir 100 Units/ML 3 ML Pen SUBCUT SCH (21:16)
[2017-05-22] MEDS: Insulin Aspart 100 Units/ML 3 ML Pen SUBCUT SCH ×4 (08:16→21:03)
[2017-05-22] MEDS: Furosemide 40 MG Tab PO SCH (08:16)
[2017-05-22] MEDS: Lisinopril 10 MG Tab PO SCH (08:16)
[2017-05-22] MEDS: Albuterol 0.083% 2.5 MG/3 ML Neb Soln NEB PRN (09:26)
[2017-05-22] MEDS: Codeine/guaiFENesin 100mg-10 MG/5 ML Syrup 10 ML Cup PO PRN ×3 (09:42→20:30)
--- NOTE | 2017-05-22 14:43 | PCM.PN ---
- General Info Date of Service: 05/22/17 Subjective Update: Ms. Dumont has done well since yesterday, noting further improvement in shortness of breath, cough seems to be worse with some increase in sputum production. Vital signs have been stable and she has remained afebrile. Oxygenation continues to slowly improve but she continues to require at least a small amount of supplemental oxygen. Functional Status: Reports: Tolerating Diet, Urinating - Review of Systems General: Reports: Weakness. Denies: Fever, Chills Pulmonary: Reports: Shortness of Breath, Cough, Sputum. Denies: Pleuritic Chest Pain, Hemoptysis, Wheezing Cardiovascular: Reports: Dyspnea on Exertion. Denies: Chest Pain, Palpitations , Orthopnea, PND, Edema Gastrointestinal: Reports: No Symptoms - Patient Data Vitals - Most Recent: Last Vital Signs Temp 96.8 F 05/22/17 11:07 Pulse 83 05/22/17 11:07 Resp 18 05/22/17 11:07 BP 171/69 H 05/22/17 14:27 Pulse Ox 90 L 05/22/17 13:50 Weight - Most Recent: 310 lb 9.6 oz I&O - Last 24 Hours: Intake & Output 05/21/17 05/22/17 05/22/17 22:59 06:59 14:59 Intake Total 1325 1000 1240 Output Total 1450 1500 300 Balance -125 -500 940 Lab Results Last 24 Hours: Laboratory Results - last 24 hr 05/22/17 05/22/17 05/22/17 Range/Units 06:09 06:09 06:09 WBC 10.8 (4.5-11.0) K/uL RBC 3.95 (3.30-5.50) M/uL Hgb 11.6 L (12.0-15.0) g/dL Hct 36.8 (36.0-48.0) % MCV 93 (80-98) fL MCH 29 (27-31) pg MCHC 32 (32-36) % Plt Count 346 (150-400) K/uL Neut % (Auto) 74 H (36-66) % Lymph % (Auto) 12 L (24-44) % [place] % (Auto) 10 H (2-6) % Eos % (Auto) 3 (2-4) % Baso % (Auto) 1 (0-1) % PT 23.5 H (9.5-12.0) sec INR 2.13 H (0.80-1.20) Sodium 142 (140-148) mmol/L Potassium 3.9 (3.6-5.2) mmol/L Chloride 107 (100-108) mmol/L Carbon Dioxide 27 (21-32) mmol/L Anion Gap 7.6 (5.0-14.0) mmol/L BUN 24 H (7-18) mg/dL Creatinine 1.3 H (0.6-1.0) mg/dL Est Cr Clr Drug Dosing 43.52 mL/min Estimated GFR (MDRD) 42 L (>60) Glucose 78 (74-106) mg/dL Calcium 8.4 L (8.5-10.1) mg/dL Johnson Results Last 24 Hours: Microbiology 05/19/17 20:42 Gram Stain - Final Sputum - Expectorated Respiratory Culture - Final Haemophilus Influenzae Iii 05/19/17 15:05 Aerobic Blood Culture - Preliminary Blood - Arm, Left NO GROWTH AFTER 2 DAYS Anaerobic Blood Culture - Preliminary NO GROWTH AFTER 2 DAYS 05/19/17 14:50 Aerobic Blood Culture - Preliminary Blood - Venous NO GROWTH AFTER 2 DAYS Anaerobic Blood Culture - Preliminary NO GROWTH AFTER 2 DAYS Med Orders - Current: Current Medications Acetaminophen (Tylenol) 650 mg PO Q4H PRN PRN Reason: Pain (Mild 1-3)/fever Last Admin: 05/19/17 18:35 Dose: 650 mg Albuterol (Proventil Neb Soln) 2.5 mg NEB Q4H PRN PRN Reason: Shortness Of Breath/wheezing Last Admin: 05/22/17 09:26 Dose: 2.5 mg Dextrose (Glutose 15) 15 gm PO ONETIME PRN PRN Reason: Hypoglycemia Dextrose/Water (Dextrose 50% In Water) 50 ml IV ONETIME PRN PRN Reason: Hypoglycemia Diazepam (Valium.) 5 mg PO TID PRN PRN Reason: Pain Last Admin: 05/22/17 01:32 Dose: 5 mg Furosemide (Lasix) 40 mg PO DAILY [facility] Last Admin: 05/22/17 08:16 Dose: 40 mg Gabapentin (Neurontin) 300 mg PO BEDTIME [facility] Last Admin: 05/21/17 21:15 Dose: 300 mg Guaifenesin/Codeine Phosphate (Robitussin Ac) 10 ml PO Q4H PRN PRN Reason: Cough Last Admin: 05/22/17 14:10 Dose: 10 ml Ceftriaxone Sodium 1 gm/ (Sodium Chloride) 100 mls @ 200 mls/hr IV Q24H [facility] Last Admin: 05/21/17 17:51 Dose: 200 mls/hr Insulin Aspart (Novolog) 0 unit SUBCUT QIDACANDBED [facility] PRN Reason: Protocol Last Admin: 05/22/17 14:04 Dose: 3 units Insulin Detemir (Levemir) 60 unit SUBCUT BEDTIME [facility] Last Admin: 05/21/17 21:16 Dose: 60 units Lisinopril (Prinivil) 10 mg PO DAILY [facility] Last Admin: 05/22/17 08:16 Dose: 10 mg Ondansetron HCl (Zofran Odt) 4 mg PO Q6H PRN PRN Reason: Nausea able to take PO Oxycodone/Acetaminophen (Percocet 325-5 Mg) 1 tab PO Q4H PRN PRN Reason: Pain (moderate 4-6) Last Admin: 05/20/17 22:23 Dose: 1 tab Warfarin Sodium (Coumadin) 5 mg PO ONETIME ONE Stop: 05/22/17 15:01 Discontinued Medications Lactated Ringer's (Ringers, Lactated) 1,000 mls @ 1,000 mls/hr IV ASDIRECTED [facility] Stop: 05/19/17 16:01 Last Admin: 05/19/17 15:48 Dose: 1,000 mls/hr Lactated Ringer's (Ringers, Lactated) 1,000 mls @ 125 mls/hr IV ASDIRECTED [facility] Azithromycin 500 mg/ Sodium (Chloride) 250 mls @ 250 mls/hr IV Q24H [facility] Last Admin: 05/21/17 16:27 Dose: 250 mls/hr Sodium Chloride (Normal Saline) 1,000 mls @ 125 mls/hr IV ASDIRECTED [facility] Last Admin: 05/20/17 11:16 Dose: 125 mls/hr Insulin Detemir (Levemir) 78 unit SUBCUT BEDTIME [facility] Insulin Detemir (Levemir) 78 unit SUBCUT BEDTIME [facility] Last Admin: 05/20/17 21:24 Dose: 78 units Potassium Chloride (Klor-Con M20) 40 meq PO ONETIME ONE Stop: 05/20/17 09:31 Last Admin: 05/20/17 11:21 Dose: 40 meq Warfarin Sodium (Coumadin) 5 mg PO ONETIME ONE Stop: 05/19/17 17:25 Last Admin: 05/19/17 18:35 Dose: 5 mg Warfarin Sodium (Coumadin) 5 mg PO ONETIME ONE Stop: 05/20/17 17:31 Last Admin: 05/20/17 17:31 Dose: 5 mg Warfarin Sodium (Coumadin) 2.5 mg PO ONETIME ONE Stop: 05/20/17 17:31 Last Admin: 05/20/17 17:31 Dose: 2.5 mg Warfarin Sodium (Coumadin) 7.5 mg PO ONETIME ONE Stop: 05/21/17 13:01 Last Admin: 05/21/17 12:32 Dose: 7.5 mg - Exam Quality Assessment: Supplemental Oxygen, DVT Prophylaxis General: Alert, Oriented, Cooperative, Mild Distress Lungs: Normal Respiratory Effort, Rales, Rhonchi Cardiovascular: Regular Rate, Regular Rhythm, No Murmurs GI/Abdominal Exam: Soft, Non-Tender, No Organomegaly, No Distention, No Mass Extremities: Non-Tender, No Pedal Edema Skin: Warm, Dry - Problem List Review Problem List Initiated/Reviewed/Updated: Yes - My Orders Last 24 Hours: My Active Orders 05/21/17 21:00 Insulin Detemir [Levemir] 60 unit SUBCUT BEDTIME 05/22/17 09:16 Codeine/guaiFENesin [Robitussin AC] 10 ml PO Q4H PRN 05/22/17 14:26 Warfarin [Coumadin] 5 mg PO ONETIME ONE 05/23/17 05:00 BASIC METABOLIC PANEL,BMP [CHEM] Timed CBC WITH AUTO DIFF [HEME] Timed - Plan Plan:: Assessment/Plan Comment:: ASSESSMENT AND PLAN BILATERAL PNEUMONIA- stable since admission, she has been afebrile and hemodynamically stable. Blood cultures have remained negative, sputum culture growing Haemophilus influenza -Saline lock IV -Continue IV ceftriaxone -Discontinue azithromycin HYPOXIC RESPIRATORY FAILURE-l oxygenation has improved but she continues to require low level of supplemental oxygen area -Supplemental oxygen as needed -Nebulized albuterol as needed TYPE 2 DIABETES MELLITUS -Levemir to 60 units subcutaneous daily at bedtime -Hold NovoLog at mealtime until appetite improves -High-dose sliding scale NovoLog -4 times a day glucometers ACUTE ON CHRONIC KIDNEY DISEASE-creatinine has improved from admission -Saline lock IV -Closely monitor urine output and renal function MAINTENANCE ISSUES -DVT prophylaxis; current therapy with warfarin should provide adequate DVT prophylaxis -GI prophylaxis; not indicated -August catheter; not indicated -Nutrition; consistent carb diet -Nicotine dependence; not required CODE STATUS-FULL CODE ADMISSION STATUS-patient will be admitted to inpatient status, expect at least a 2 night hospital stay for evaluation and management of problems as outlined above. At the time of this admission I do not reasonably expected evaluation and management of this problem will require more than a 96 hour hospital stay. DISPOSITION-anticipate discharge to home after the hospital stay. PRIMARY CARE PROVIDER-Dr. Merritt
[2017-05-22] MEDS ORDERED: Warfarin 5 MG Tab PO ONE (15:00)
[2017-05-22] MEDS: cefTRIAXone 1 GM in Sodium Chloride 0.9% 100 ML IV SCH (17:05)
[2017-05-22] MEDS: Acetaminophen 325 MG Tab PO PRN (20:29)
[2017-05-22] MEDS: Gabapentin 300 MG Cap PO SCH (20:30)
[2017-05-22] MEDS: Insulin Detemir 100 Units/ML 3 ML Pen SUBCUT SCH (21:05)
[2017-05-23] MEDS: Insulin Aspart 100 Units/ML 3 ML Pen SUBCUT SCH ×4 (07:27→21:23)
[2017-05-23] MEDS: Lisinopril 10 MG Tab PO SCH (08:02)
[2017-05-23] MEDS: Furosemide 40 MG Tab PO SCH (08:02)
--- NOTE | 2017-05-23 11:59 | PCM.PN ---
- General Info Date of Service: 05/23/17 Functional Status: Reports: Pain Controlled, Tolerating Diet - Review of Systems General: Reports: Weakness. Denies: Fever Pulmonary: Reports: Shortness of Breath, Cough Systems Review Comment:: No acute events overnight. Feels weak and fatigued but otherwise feels well. She does continue to require supplemental oxygen. She has not had much of a cough. Appetite and energy have been improving. Blood sugar control has been acceptable. No fevers. - Patient Data Vitals - Most Recent: Last Vital Signs Temp 36.3 C 05/23/17 11:35 Pulse 81 05/23/17 11:35 Resp 16 05/23/17 11:35 BP 110/81 05/23/17 11:35 Pulse Ox 94 L 05/23/17 11:35 Weight - Most Recent: 141.249 kg I&O - Last 24 Hours: Intake & Output 05/22/17 05/23/17 05/23/17 22:59 06:59 14:59 Intake Total 220 1000 660 Output Total 1600 1250 Balance -1380 -250 660 Lab Results Last 24 Hours: Laboratory Results - last 24 hr 05/23/17 05/23/17 05/23/17 Range/Units 05:45 05:45 05:45 WBC 10.0 (4.5-11.0) K/uL RBC 3.84 (3.30-5.50) M/uL Hgb 11.2 L (12.0-15.0) g/dL Hct 35.9 L (36.0-48.0) % MCV 94 (80-98) fL MCH 29 (27-31) pg MCHC 31 L (32-36) % Plt Count 356 (150-400) K/uL Add Manual Diff Yes Neutrophils % (Manual) 71 H (36-66) % Band Neutrophils % 5 (5-11) % Lymphocytes % (Manual) 11 L (24-44) % Monocytes % (Manual) 9 H (2-6) % Eosinophils % (Manual) 4 (2-4) % PT 24.9 H (9.5-12.0) sec INR 2.25 H (0.80-1.20) Sodium 139 L (140-148) mmol/L Potassium 3.7 (3.6-5.2) mmol/L Chloride 104 (100-108) mmol/L Carbon Dioxide 30 (21-32) mmol/L Anion Gap 8.7 (5.0-14.0) mmol/L BUN 20 H (7-18) mg/dL Creatinine 1.4 H (0.6-1.0) mg/dL Est Cr Clr Drug Dosing 40.41 mL/min Estimated GFR (MDRD) 38 L (>60) Glucose 147 H (74-106) mg/dL Calcium 8.2 L (8.5-10.1) mg/dL Johnson Results Last 24 Hours: Microbiology 05/19/17 15:05 Aerobic Blood Culture - Preliminary Blood - Arm, Left NO GROWTH AFTER 3 DAYS Anaerobic Blood Culture - Preliminary NO GROWTH AFTER 3 DAYS 05/19/17 14:50 Aerobic Blood Culture - Preliminary Blood - Venous NO GROWTH AFTER 3 DAYS Anaerobic Blood Culture - Preliminary NO GROWTH AFTER 3 DAYS 05/19/17 20:42 Gram Stain - Final Sputum - Expectorated Respiratory Culture - Final Haemophilus Influenzae Iii Med Orders - Current: Current Medications Acetaminophen (Tylenol) 650 mg PO Q4H PRN PRN Reason: Pain (Mild 1-3)/fever Last Admin: 05/22/17 20:29 Dose: 650 mg Albuterol (Proventil Neb Soln) 2.5 mg NEB Q4H PRN PRN Reason: Shortness Of Breath/wheezing Last Admin: 05/22/17 09:26 Dose: 2.5 mg Dextrose (Glutose 15) 15 gm PO ONETIME PRN PRN Reason: Hypoglycemia Dextrose/Water (Dextrose 50% In Water) 50 ml IV ONETIME PRN PRN Reason: Hypoglycemia Diazepam (Valium.) 5 mg PO TID PRN PRN Reason: Pain Last Admin: 05/22/17 01:32 Dose: 5 mg Furosemide (Lasix) 40 mg PO DAILY [facility] Last Admin: 05/23/17 08:02 Dose: 40 mg Gabapentin (Neurontin) 300 mg PO BEDTIME [facility] Last Admin: 05/22/17 20:30 Dose: 300 mg Guaifenesin/Codeine Phosphate (Robitussin Ac) 10 ml PO Q4H PRN PRN Reason: Cough Last Admin: 05/22/17 20:30 Dose: 10 ml Ceftriaxone Sodium 1 gm/ (Sodium Chloride) 100 mls @ 200 mls/hr IV Q24H [facility] Last Admin: 05/22/17 17:05 Dose: 200 mls/hr Insulin Aspart (Novolog) 0 unit SUBCUT QIDACANDBED [facility] PRN Reason: Protocol Last Admin: 05/23/17 11:48 Dose: 6 units Insulin Detemir (Levemir) 60 unit SUBCUT BEDTIME [facility] Last Admin: 05/22/17 21:05 Dose: 60 units Lisinopril (Prinivil) 10 mg PO DAILY [facility] Last Admin: 05/23/17 08:02 Dose: 10 mg Ondansetron HCl (Zofran Odt) 4 mg PO Q6H PRN PRN Reason: Nausea able to take PO Oxycodone/Acetaminophen (Percocet 325-5 Mg) 1 tab PO Q4H PRN PRN Reason: Pain (moderate 4-6) Last Admin: 05/20/17 22:23 Dose: 1 tab Discontinued Medications Lactated Ringer's (Ringers, Lactated) 1,000 mls @ 1,000 mls/hr IV ASDIRECTED [facility] Stop: 05/19/17 16:01 Last Admin: 05/19/17 15:48 Dose: 1,000 mls/hr Lactated Ringer's (Ringers, Lactated) 1,000 mls @ 125 mls/hr IV ASDIRECTED [facility] Azithromycin 500 mg/ Sodium (Chloride) 250 mls @ 250 mls/hr IV Q24H [facility] Last Admin: 05/21/17 16:27 Dose: 250 mls/hr Sodium Chloride (Normal Saline) 1,000 mls @ 125 mls/hr IV ASDIRECTED [facility] Last Admin: 05/20/17 11:16 Dose: 125 mls/hr Insulin Detemir (Levemir) 78 unit SUBCUT BEDTIME [facility] Insulin Detemir (Levemir) 78 unit SUBCUT BEDTIME [facility] Last Admin: 05/20/17 21:24 Dose: 78 units Potassium Chloride (Klor-Con M20) 40 meq PO ONETIME ONE Stop: 05/20/17 09:31 Last Admin: 05/20/17 11:21 Dose: 40 meq Warfarin Sodium (Coumadin) 5 mg PO ONETIME ONE Stop: 05/19/17 17:25 Last Admin: 05/19/17 18:35 Dose: 5 mg Warfarin Sodium (Coumadin) 5 mg PO ONETIME ONE Stop: 05/20/17 17:31 Last Admin: 05/20/17 17:31 Dose: 5 mg Warfarin Sodium (Coumadin) 2.5 mg PO ONETIME ONE Stop: 05/20/17 17:31 Last Admin: 05/20/17 17:31 Dose: 2.5 mg Warfarin Sodium (Coumadin) 7.5 mg PO ONETIME ONE Stop: 05/21/17 13:01 Last Admin: 05/21/17 12:32 Dose: 7.5 mg Warfarin Sodium (Coumadin) 5 mg PO ONETIME ONE Stop: 05/22/17 15:01 Last Admin: 05/22/17 15:49 Dose: 5 mg - Exam Quality Assessment: Supplemental Oxygen General: Alert, Oriented, Cooperative, No Acute Distress Neck: Supple Lungs: Normal Respiratory Effort, Crackles (moderate left lung base) Cardiovascular: Regular Rate, Regular Rhythm GI/Abdominal Exam: Soft, No Distention Extremities: Pedal Edema (bilatera lower legs around the ankle) Psy/Mental Status: Alert, Normal Affect - Problem List Review Problem List Initiated/Reviewed/Updated: Yes - My Orders Last 24 Hours: My Active Orders 05/23/17 13:00 Warfarin [Coumadin] 7.5 mg PO ONETIME ONE 05/23/17 21:00 Cefdinir [Omnicef] 300 mg PO BID 05/24/17 05:11 CBC W/O DIFF,HEMOGRAM [HEME] AM - Plan Plan:: Assessment/Plan Comment:: ASSESSMENT AND PLAN BILATERAL PNEUMONIA - stable since admission. Blood cultures have remained negative, sputum culture growing Haemophilus influenza. -Saline lock IV -Change antibiotics to cefdinir HYPOXIC RESPIRATORY FAILURE - oxygenation has improved but still requiring supplemental oxygen. Hopefully we can wean her off in the next 24 hours. -Supplemental oxygen as needed -Nebulized albuterol as needed TYPE 2 DIABETES MELLITUS - sugars have been acceptable. -Levemir to 60 units subcutaneous daily at bedtime -Hold NovoLog at mealtime until appetite improves -High-dose sliding scale NovoLog -4 times a day glucometers ACUTE ON CHRONIC KIDNEY DISEASE - creatinine has improved from admission and has remained stable. -Saline lock IV -Closely monitor urine output and renal function MAINTENANCE ISSUES -DVT prophylaxis; current therapy with warfarin should provide adequate DVT prophylaxis -GI prophylaxis; not indicated -August catheter; not indicated -Nutrition; consistent carb diet DISPOSITION - anticipate discharge to home after the hospital stay, hopefully in the next day or 2 Rodriguez Edwards M.D.
[2017-05-23] MEDS ORDERED: Warfarin 2.5 MG Tab PO ONE (13:00)
[2017-05-23] MEDS ORDERED: Sodium Chloride 0.65% Nasal Spray 45 ML Bottle NAS PRN (19:39)
[2017-05-23] MEDS: Cefdinir 300 MG Cap PO SCH (21:23)
[2017-05-23] MEDS: Gabapentin 300 MG Cap PO SCH (21:23)
[2017-05-23] MEDS: Insulin Detemir 100 Units/ML 3 ML Pen SUBCUT SCH (21:25)
[2017-05-23] MEDS: Codeine/guaiFENesin 100mg-10 MG/5 ML Syrup 10 ML Cup PO PRN (21:42)
[2017-05-24] MEDS: Insulin Aspart 100 Units/ML 3 ML Pen SUBCUT SCH ×4 (07:45→21:24)
[2017-05-24] MEDS: Cefdinir 300 MG Cap PO SCH ×2 (08:01→21:23)
[2017-05-24] MEDS: Furosemide 40 MG Tab PO SCH (08:01)
[2017-05-24] MEDS: Lisinopril 10 MG Tab PO SCH (08:01)
--- NOTE | 2017-05-24 13:50 | PCM.PN ---
- General Info Date of Service: 05/24/17 Functional Status: Reports: Pain Controlled, Tolerating Diet, Ambulating - Review of Systems General: Reports: Weakness Pulmonary: Reports: Shortness of Breath, Cough Systems Review Comment:: No acute events overnight. She did have a slight increase in her supplemental oxygen requirement and is now on 2 L/m. She feels less short of breath and her energy has been improving. She was able to ambulate down the [place] but did require oxygen with activity. Appetite has been good. Blood sugars have been fairly well controlled. Vital signs have been otherwise stable. - Patient Data Vitals - Most Recent: Last Vital Signs Temp 36.5 C 05/24/17 11:00 Pulse 77 05/24/17 11:00 Resp 18 05/24/17 11:00 BP 132/54 L 05/24/17 11:00 Pulse Ox 95 05/24/17 11:00 Weight - Most Recent: 140.886 kg I&O - Last 24 Hours: Intake & Output 05/23/17 05/24/17 05/24/17 22:59 06:59 14:59 Intake Total 1600 740 Output Total 1000 1450 350 Balance -1000 150 390 Lab Results Last 24 Hours: Laboratory Results - last 24 hr 05/24/17 05/24/17 Range/Units 04:40 04:40 WBC 9.4 (4.5-11.0) K/uL RBC 3.75 (3.30-5.50) M/uL Hgb 11.2 L (12.0-15.0) g/dL Hct 35.1 L (36.0-48.0) % MCV 94 (80-98) fL MCH 30 (27-31) pg MCHC 32 (32-36) % Plt Count 369 (150-400) K/uL PT 25.5 H (9.5-12.0) sec INR 2.30 H (0.80-1.20) Johnson Results Last 24 Hours: Microbiology 05/19/17 15:05 Aerobic Blood Culture - Preliminary Blood - Arm, Left NO GROWTH AFTER 4 DAYS Anaerobic Blood Culture - Preliminary NO GROWTH AFTER 4 DAYS 05/19/17 14:50 Aerobic Blood Culture - Preliminary Blood - Venous NO GROWTH AFTER 4 DAYS Anaerobic Blood Culture - Preliminary NO GROWTH AFTER 4 DAYS Med Orders - Current: Current Medications Acetaminophen (Tylenol) 650 mg PO Q4H PRN PRN Reason: Pain (Mild 1-3)/fever Last Admin: 05/22/17 20:29 Dose: 650 mg Albuterol (Proventil Neb Soln) 2.5 mg NEB Q4H PRN PRN Reason: Shortness Of Breath/wheezing Last Admin: 05/22/17 09:26 Dose: 2.5 mg Cefdinir (Omnicef) 300 mg PO BID [facility] Last Admin: 05/24/17 08:01 Dose: 300 mg Dextrose (Glutose 15) 15 gm PO ONETIME PRN PRN Reason: Hypoglycemia Dextrose/Water (Dextrose 50% In Water) 50 ml IV ONETIME PRN PRN Reason: Hypoglycemia Diazepam (Valium.) 5 mg PO TID PRN PRN Reason: Pain Last Admin: 05/22/17 01:32 Dose: 5 mg Furosemide (Lasix) 40 mg PO DAILY [facility] Last Admin: 05/24/17 08:01 Dose: 40 mg Gabapentin (Neurontin) 300 mg PO BEDTIME [facility] Last Admin: 05/23/17 21:23 Dose: 300 mg Guaifenesin/Codeine Phosphate (Robitussin Ac) 10 ml PO Q4H PRN PRN Reason: Cough Last Admin: 05/23/17 21:42 Dose: 10 ml Insulin Aspart (Novolog) 0 unit SUBCUT QIDACANDBED [facility] PRN Reason: Protocol Last Admin: 05/24/17 11:45 Dose: 6 units Insulin Detemir (Levemir) 60 unit SUBCUT BEDTIME [facility] Last Admin: 05/23/17 21:25 Dose: 60 units Lisinopril (Prinivil) 10 mg PO DAILY [facility] Last Admin: 05/24/17 08:01 Dose: 10 mg Ondansetron HCl (Zofran Odt) 4 mg PO Q6H PRN PRN Reason: Nausea able to take PO Oxycodone/Acetaminophen (Percocet 325-5 Mg) 1 tab PO Q4H PRN PRN Reason: Pain (moderate 4-6) Last Admin: 05/20/17 22:23 Dose: 1 tab Sodium Chloride (Dulac Nasal [place]) 0 ml ALDA Q2H PRN PRN Reason: Dryness Last Admin: 05/23/17 21:38 Dose: 1 squirt Discontinued Medications Lactated Ringer's (Ringers, Lactated) 1,000 mls @ 1,000 mls/hr IV ASDIRECTED [facility] Stop: 05/19/17 16:01 Last Admin: 05/19/17 15:48 Dose: 1,000 mls/hr Lactated Ringer's (Ringers, Lactated) 1,000 mls @ 125 mls/hr IV ASDIRECTED [facility] Azithromycin 500 mg/ Sodium (Chloride) 250 mls @ 250 mls/hr IV Q24H [facility] Last Admin: 05/21/17 16:27 Dose: 250 mls/hr Ceftriaxone Sodium 1 gm/ (Sodium Chloride) 100 mls @ 200 mls/hr IV Q24H [facility] Last Admin: 05/22/17 17:05 Dose: 200 mls/hr Sodium Chloride (Normal Saline) 1,000 mls @ 125 mls/hr IV ASDIRECTED [facility] Last Admin: 05/20/17 11:16 Dose: 125 mls/hr Insulin Detemir (Levemir) 78 unit SUBCUT BEDTIME [facility] Insulin Detemir (Levemir) 78 unit SUBCUT BEDTIME [facility] Last Admin: 05/20/17 21:24 Dose: 78 units Potassium Chloride (Klor-Con M20) 40 meq PO ONETIME ONE Stop: 05/20/17 09:31 Last Admin: 05/20/17 11:21 Dose: 40 meq Warfarin Sodium (Coumadin) 5 mg PO ONETIME ONE Stop: 05/19/17 17:25 Last Admin: 05/19/17 18:35 Dose: 5 mg Warfarin Sodium (Coumadin) 5 mg PO ONETIME ONE Stop: 05/20/17 17:31 Last Admin: 05/20/17 17:31 Dose: 5 mg Warfarin Sodium (Coumadin) 2.5 mg PO ONETIME ONE Stop: 05/20/17 17:31 Last Admin: 05/20/17 17:31 Dose: 2.5 mg Warfarin Sodium (Coumadin) 7.5 mg PO ONETIME ONE Stop: 05/21/17 13:01 Last Admin: 05/21/17 12:32 Dose: 7.5 mg Warfarin Sodium (Coumadin) 5 mg PO ONETIME ONE Stop: 05/22/17 15:01 Last Admin: 05/22/17 15:49 Dose: 5 mg Warfarin Sodium (Coumadin) 7.5 mg PO ONETIME ONE Stop: 05/23/17 13:01 Last Admin: 05/23/17 13:29 Dose: 7.5 mg - Exam Quality Assessment: Supplemental Oxygen General: Alert, Oriented, Cooperative, No Acute Distress Lungs: Normal Respiratory Effort, Crackles (few both bases) Cardiovascular: Regular Rate, Regular Rhythm Extremities: Pedal Edema Psy/Mental Status: Alert, Normal Affect - Problem List Review Problem List Initiated/Reviewed/Updated: Yes - My Orders Last 24 Hours: My Active Orders 05/23/17 19:39 Sodium Chloride 0.65% [Dulac Nasal [place]] See Dose Instructions ALDA Q2H PRN 05/23/17 21:00 Cefdinir [Omnicef] 300 mg PO BID 05/24/17 13:08 CXR [Chest 2V] [CR] Routine 05/24/17 13:49 Furosemide [Lasix] 40 mg IVPUSH ONETIME ONE 05/25/17 05:00 BASIC METABOLIC PANEL,BMP [CHEM] Timed CBC W/O DIFF,HEMOGRAM [HEME] Timed (1) INR,PT,PROTHROMBIN TIME [COAG] Timed - Plan Plan:: ASSESSMENT AND PLAN - BILATERAL PNEUMONIA - stable since admission. Blood cultures have remained negative, sputum culture growing Haemophilus influenza. Repeat chest x-ray shows stable findings of infection. -Saline lock IV -Continue cefdinir HYPOXIC RESPIRATORY FAILURE - oxygenation has improved but still requiring supplemental oxygen. Repeat chest x-ray today shows stable findings for infection but does appear to have prominent pulmonary vasculature concerning for some extra fluid. -Trial of furosemide -Supplemental oxygen as needed -Nebulized albuterol as needed TYPE 2 DIABETES MELLITUS - sugars have been acceptable. -Levemir to 60 units subcutaneous daily at bedtime -High-dose sliding scale NovoLog -4 times a day glucometers ACUTE ON CHRONIC KIDNEY DISEASE - creatinine has improved from admission and has remained stable. -Saline lock IV -Closely monitor urine output and renal function MAINTENANCE ISSUES -DVT prophylaxis; current therapy with warfarin should provide adequate DVT prophylaxis -GI prophylaxis; not indicated -August catheter; not indicated -Nutrition; consistent carb diet DISPOSITION - anticipate discharge to home after the hospital stay, hopefully in the next day or 2 Rodriguez Edwards M.D.
--- NOTE | 2017-05-24 13:53 | CR ---
Chest 2V INDICATION: hypoxia, f/u pneumonia COMPARISON: 05/19/2017 FINDINGS: 3 views. Heart size normal. Patchy infiltrates in the mid lower lung zones bilaterally again noted. Slight clearing at the right lung base. Otherwise unchanged bilaterally. No pleural effusions.
[2017-05-24] MEDS ORDERED: Furosemide 40 MG/4 ML VIAL IVPUSH ONE (14:30)
[2017-05-24] MEDS: Gabapentin 300 MG Cap PO SCH (21:23)
[2017-05-24] MEDS: Insulin Detemir 100 Units/ML 3 ML Pen SUBCUT SCH (21:25)
[2017-05-25] MEDS: Codeine/guaiFENesin 100mg-10 MG/5 ML Syrup 10 ML Cup PO PRN (03:00)
[2017-05-25 08:01] VITALS: BP 125/43
[2017-05-25] MEDS: Insulin Aspart 100 Units/ML 3 ML Pen SUBCUT SCH ×2 (08:05→12:04)
[2017-05-25] MEDS: Cefdinir 300 MG Cap PO SCH (08:06)
[2017-05-25] MEDS: Furosemide 40 MG Tab PO SCH (08:06)
[2017-05-25] MEDS: Lisinopril 10 MG Tab PO SCH (08:06)
[2017-05-25] MEDS ORDERED: Potassium Chloride 20 MEQ Tab.ER PO ONE (09:00)
[2017-05-25] MEDS ORDERED: Insulin Aspart 100 Units/ML 3 ML Pen SUBCUT SCH (12:00)
--- NOTE | 2017-05-25 12:48 | PCM.DCSUM1 ---
Discharge Summary - Hospital Course Brief History: 61-year-old female with history of diabetes mellitus and class II obesity who presented with fever cough and shortness of breath. She was admitted from the clinic for management of bilateral pneumonia. - Discharge Data Discharge Date: 05/25/17 Discharge Disposition: Home, Self-Care 01 Condition: Good - Discharge Diagnosis/Problem(s) (1) Pneumonia due to Haemophilus influenzae Status: Acute Current Visit: Yes Qualifiers: Laterality: bilateral Lung location: unspecified part of lung Qualified Code(s): J14 - Pneumonia due to Hemophilus influenzae (2) Chronic renal insufficiency, stage III (moderate) SNOMED Code(s): 198469173 ICD Code: N18.3 - CHRONIC KIDNEY DISEASE, STAGE 3 (MODERATE) Status: Chronic Current Visit: No (3) Type 2 diabetes mellitus SNOMED Code(s): 46742206 ICD Code: E11.9 - TYPE 2 DIABETES MELLITUS WITHOUT COMPLICATIONS Status: Chronic Current Visit: No Qualifiers: Diabetes mellitus complication status: with unspecified complications Diabetes mellitus penitentiary insulin use: with predatory animal exterminator use Qualified Code(s) : E11.8 - Type 2 diabetes mellitus with unspecified complications; Z79.4 - FDC (current) use of insulin; Z79.4 - predatory animal exterminator (current) use of insulin; Z79.4 - predatory animal exterminator (current) use of insulin; Z79.4 - predatory animal exterminator (current) use of insulin (4) Anticoagulated with warfarin SNOMED Code(s): 81816042 ICD Code: Z51.81 - ENCOUNTER FOR THERAPEUTIC DRUG LEVEL MONITORING; Z79.01 - MARKETING OPERATIONS COORDINATOR (CURRENT) USE OF ANTICOAGULANTS Status: Chronic Current Visit: No (5) Hx pulmonary embolism SNOMED Code(s): 455423833 ICD Code: Z86.711 - PERSONAL HISTORY OF PULMONARY EMBOLISM Status: Chronic Current Visit: No (6) Morbid obesity with BMI of 45.0-49.9, adult SNOMED Code(s): 876576399 ICD Code: E66.01 - MORBID (SEVERE) OBESITY DUE TO EXCESS CALORIES; Z68.42 - BODY MASS INDEX (BMI) 45.0-49.9, ADULT Status: Chronic Current Visit: No - Patient Summary/Data Hospital Course: Mora initially presented to the clinic with several days of fever, cough and shortness of breath. Workup in the clinic was concerning for bilateral pneumonia and she was hypoxic so she was sent over for direct admission. At the time of admission she was started on ceftriaxone and azithromycin. Cultures were obtained. Over the next few days she's showed slow but steady improvement in her respiratory status. She did require supplemental oxygen throughout the duration of her hospital stay and we were finally able to wean it off on the day of discharge. Her cultures did return positive for Haemophilus influenza and antibiotics were adjusted to just ceftriaxone and then to oral cefdinir. During the last 2 days of the hospitalization we did provide some extra diuresis and this seemed to help improve her respiratory status even further. I believe she may have had some mild volume overload related to initial volume resuscitation. She has not been having any fevers. Her white blood cell count has been normal. Her kidney function has been stable. We did have some difficulties with hyperglycemia but these seem to improve once her home regimen of insulin got restarted. She will be receiving antibiotics for 4 more days. I recommend that she not return to work until next Tuesday, 5 days from now. She will continue with the Coumadin clinic as previously scheduled. - Patient Instructions Diet: Diabetic Diet Activity: As Tolerated Showering/Bathing: May Shower Notify Provider of: Fever, Increased Pain, Nausea and/or Vomiting Other/Special Instructions: 1. You were in the hospital for management of bilateral pneumonia caused by Haemophilus influenzae. I recommend for additional days of antibiotic therapy with cefdinir 300 mg capsules. You should take one capsule twice daily with food. Your next dose is due tonight. 2. Because of the acute infection your strength and endurance are decreased from baseline. You should slowly return to your normal activities as tolerated by your body. If you become fatigued or short of breath you should take a break until your breathing and strength recover. You may return to work next week as tolerated. 3. Please continue your other medications as previously prescribed. 4. You should follow-up with the Coumadin clinic based on your usual schedule. 5. Please seek medical attention if you develop fever greater than 101, have sudden worsening of your shortness of breath or if you develop chest pain/pressure. - Discharge Plan Prescriptions/Med Rec: Cefdinir [IJD: Cefdinir] 300 mg PO BID #8 capsule Home Medications: Home Meds Calcium Carbonate/Vitamin D3 [Calcium 600 + Vit D 200] 1 each PO DAILY 02/10/16 [History] Cholecalciferol (Vitamin D3) [Vitamin D3] 2,000 unit PO DAILY 02/10/16 [History] Furosemide 40 mg PO DAILY 02/10/16 [History] Gabapentin 300 mg PO BEDTIME 02/10/16 [History] Lisinopril 10 mg PO DAILY 02/10/16 [History] Multivitamin [Multi-Vitamin Daily] 1 each PO DAILY 02/10/16 [History] Warfarin [Coumadin] 5 mg PO DAILY 02/10/16 [History] Warfarin [Coumadin] 7.5 mg PO DAILY 03/17/16 [History] Acetaminophen/oxyCODONE [Percocet 325-5 MG] 1 - 2 tab PO Q6HR #120 tablet [Rx] Diazepam [Valium] 5 mg PO TID PRN #15 tablet 06/28/16 [Rx] Insulin Aspart [NovoLOG] 0 units SUBCUT TID 10/25/16 [History] Insulin Degludec [Tresiba Flextouch U-100] 78 units SQ DAILY 04/28/17 [History] Cefdinir [IJD: Cefdinir] 300 mg PO BID #8 capsule 05/25/17 [Rx] Patient Handouts: Cefdinir capsules, Community-Acquired Pneumonia, Adult Referrals: Manuel Merritt MD [Primary Care Provider] - (1-2 weeks - follow-up hospital stay for pneumonia) - Discharge Summary/Plan Comment DC Time >30 min.: No (25) - Patient Data Vitals - Most Recent: Last Vital Signs Temp 36 C 05/25/17 07:57 Pulse 79 05/25/17 07:57 Resp 16 05/25/17 07:57 BP 125/43 L 05/25/17 08:06 Pulse Ox 91 L 05/25/17 10:43 Weight - Most Recent: 140.251 kg I&O - Last 24 hours: Intake & Output 05/24/17 05/25/17 05/25/17 22:59 06:59 14:59 Intake Total 1220 1500 1980 Output Total 2900 1900 200 Balance -1680 -400 1780 Lab Results - Last 24 hrs: Laboratory Results - last 24 hr 05/25/17 05/25/17 05/25/17 Range/Units 06:07 06:07 06:07 WBC 10.9 (4.5-11.0) K/uL RBC 4.05 (3.30-5.50) M/uL Hgb 12.0 (12.0-15.0) g/dL Hct 37.7 (36.0-48.0) % MCV 93 (80-98) fL MCH 30 (27-31) pg MCHC 32 (32-36) % Plt Count 399 (150-400) K/uL PT 23.1 H (9.5-12.0) sec INR 2.09 H (0.80-1.20) Sodium 141 (140-148) mmol/L Potassium 3.6 (3.6-5.2) mmol/L Chloride 103 (100-108) mmol/L Carbon Dioxide 32 (21-32) mmol/L Anion Gap 6.0 (5.0-14.0) mmol/L BUN 20 H (7-18) mg/dL Creatinine 1.4 H (0.6-1.0) mg/dL Est Cr Clr Drug Dosing 40.41 mL/min Estimated GFR (MDRD) 38 L (>60) Glucose 132 H (74-106) mg/dL Calcium 8.0 L (8.5-10.1) mg/dL GUY Results - Last 24 hrs: Microbiology 05/19/17 15:05 Aerobic Blood Culture - Final Blood - Arm, Left NO GROWTH AFTER 5 DAYS Anaerobic Blood Culture - Final NO GROWTH AFTER 5 DAYS 05/19/17 14:50 Aerobic Blood Culture - Final Blood - Venous NO GROWTH AFTER 5 DAYS Anaerobic Blood Culture - Final NO GROWTH AFTER 5 DAYS Med Orders - Current: Current Medications Acetaminophen (Tylenol) 650 mg PO Q4H PRN PRN Reason: Pain (Mild 1-3)/fever Last Admin: 05/22/17 20:29 Dose: 650 mg Albuterol (Proventil Neb Soln) 2.5 mg NEB Q4H PRN PRN Reason: Shortness Of Breath/wheezing Last Admin: 05/22/17 09:26 Dose: 2.5 mg Cefdinir (Omnicef) 300 mg PO BID LADONNA Last Admin: 05/25/17 08:06 Dose: 300 mg Dextrose (Glutose 15) 15 gm PO ONETIME PRN PRN Reason: Hypoglycemia Dextrose/Water (Dextrose 50% In Water) 50 ml IV ONETIME PRN PRN Reason: Hypoglycemia Diazepam (Valium.) 5 mg PO TID PRN PRN Reason: Pain Last Admin: 05/22/17 01:32 Dose: 5 mg Furosemide (Lasix) 40 mg PO DAILY [facility] Last Admin: 05/25/17 08:06 Dose: 40 mg Gabapentin (Neurontin) 300 mg PO BEDTIME [facility] Last Admin: 05/24/17 21:23 Dose: 300 mg Guaifenesin/Codeine Phosphate (Robitussin Ac) 10 ml PO Q4H PRN PRN Reason: Cough Last Admin: 05/25/17 03:00 Dose: 10 ml Insulin Aspart (Novolog) 0 unit SUBCUT QIDACANDBED [facility] PRN Reason: Protocol Last Admin: 05/25/17 12:04 Dose: 6 units Insulin Aspart (Novolog) 3 unit SUBCUT TIDMEALS [facility] Last Admin: 05/25/17 12:03 Dose: 3 units Insulin Detemir (Levemir) 60 unit SUBCUT BEDTIME [facility] Last Admin: 05/24/17 21:25 Dose: 60 units Lisinopril (Prinivil) 10 mg PO DAILY [facility] Last Admin: 05/25/17 08:06 Dose: 10 mg Ondansetron HCl (Zofran Odt) 4 mg PO Q6H PRN PRN Reason: Nausea able to take PO Oxycodone/Acetaminophen (Percocet 325-5 Mg) 1 tab PO Q4H PRN PRN Reason: Pain (moderate 4-6) Last Admin: 05/20/17 22:23 Dose: 1 tab Sodium Chloride ([place] Nasal [place]) 0 ml ALDA Q2H PRN PRN Reason: Dryness Last Admin: 05/23/17 21:38 Dose: 1 squirt Warfarin Sodium (Coumadin) 7.5 mg PO ONETIME ONE Stop: 05/25/17 13:01 Discontinued Medications Furosemide (Lasix) 40 mg IVPUSH ONETIME ONE Stop: 05/24/17 14:31 Last Admin: 05/24/17 15:53 Dose: 40 mg Lactated Ringer's (Ringers, Lactated) 1,000 mls @ 1,000 mls/hr IV ASDIRECTED [facility] Stop: 05/19/17 16:01 Last Admin: 05/19/17 15:48 Dose: 1,000 mls/hr Lactated Ringer's (Ringers, Lactated) 1,000 mls @ 125 mls/hr IV ASDIRECTED [facility] Azithromycin 500 mg/ Sodium (Chloride) 250 mls @ 250 mls/hr IV Q24H [facility] Last Admin: 05/21/17 16:27 Dose: 250 mls/hr Ceftriaxone Sodium 1 gm/ (Sodium Chloride) 100 mls @ 200 mls/hr IV Q24H [facility] Last Admin: 05/22/17 17:05 Dose: 200 mls/hr Sodium Chloride (Normal Saline) 1,000 mls @ 125 mls/hr IV ASDIRECTED [facility] Last Admin: 05/20/17 11:16 Dose: 125 mls/hr Insulin Detemir (Levemir) 78 unit SUBCUT BEDTIME [facility] Insulin Detemir (Levemir) 78 unit SUBCUT BEDTIME [facility] Last Admin: 05/20/17 21:24 Dose: 78 units Potassium Chloride (Klor-Con M20) 40 meq PO ONETIME ONE Stop: 05/20/17 09:31 Last Admin: 05/20/17 11:21 Dose: 40 meq Potassium Chloride (Klor-Con M20) 40 meq PO ONETIME ONE Stop: 05/25/17 09:01 Last Admin: 05/25/17 10:37 Dose: 40 meq Warfarin Sodium (Coumadin) 5 mg PO ONETIME ONE Stop: 05/19/17 17:25 Last Admin: 05/19/17 18:35 Dose: 5 mg Warfarin Sodium (Coumadin) 5 mg PO ONETIME ONE Stop: 05/20/17 17:31 Last Admin: 05/20/17 17:31 Dose: 5 mg Warfarin Sodium (Coumadin) 2.5 mg PO ONETIME ONE Stop: 05/20/17 17:31 Last Admin: 05/20/17 17:31 Dose: 2.5 mg Warfarin Sodium (Coumadin) 7.5 mg PO ONETIME ONE Stop: 05/21/17 13:01 Last Admin: 05/21/17 12:32 Dose: 7.5 mg Warfarin Sodium (Coumadin) 5 mg PO ONETIME ONE Stop: 05/22/17 15:01 Last Admin: 05/22/17 15:49 Dose: 5 mg Warfarin Sodium (Coumadin) 7.5 mg PO ONETIME ONE Stop: 05/23/17 13:01 Last Admin: 05/23/17 13:29 Dose: 7.5 mg - Exam Quality Assessment: Denies: Supplemental Oxygen General: Reports: Alert, Oriented, Cooperative, No Acute Distress Neck: Reports: Supple Lungs: Reports: Normal Respiratory Effort, Crackles (both bases). Denies: Wheezing Cardiovascular: Reports: Regular Rate, Regular Rhythm Extremities: Pedal Edema (mild edema both lower legs to near the knee) Skin: Reports: Warm, Dry. Denies: Rash Psy/Mental Status: Reports: Alert, Normal Affect *Q Meaningful Use (DIS) - VTE *Q VTE Criteria *Q: VTE Pharmacological Contraindications *Q: High INR Value - Stroke *Q Stroke Criteria *Q: - AMI *Q AMI Criteria *Q:
[2017-05-25] MEDS ORDERED: Warfarin 5 MG Tab PO ONE (13:00)
== END 2017-05-25 14:22 | disposition home or self-care (01) | DRG 137 ==
LOC: JP.MS 14:12
PROVIDERS: ADMIT Hospitalist; ATTEND Internal Medicine
DX: J14 Pneumonia due to Hemophilus influenzae (principal); J96.01 Acute respiratory failure with hypoxia; E11.21 Type 2 diabetes mellitus with diabetic nephropathy; E11.22 Type 2 diabetes mellitus with diabetic chronic kidney disease; I12.9 Hypertensive chronic kidney disease with stage 1 through stage 4 chronic kidney disease, or unspecified chronic kidney disease; N18.3 Chronic kidney disease, stage 3 (moderate); N17.9 Acute kidney failure, unspecified; Z79.4 Long term (current) use of insulin; Z86.711 Personal history of pulmonary embolism; Z86.718 Personal history of other venous thrombosis and embolism; M19.90 Unspecified osteoarthritis, unspecified site; Z85.89 Personal history of malignant neoplasm of other organs and systems; Z96.659 Presence of unspecified artificial knee joint; H54.7 Unspecified visual loss; Z51.81 Encounter for therapeutic drug level monitoring; Z79.899 Other long term (current) drug therapy; Z79.01 Long term (current) use of anticoagulants; Z88.1 Allergy status to other antibiotic agents; Z91.041 Radiographic dye allergy status; E66.01 Morbid (severe) obesity due to excess calories; Z68.42 Body mass index [BMI] 45.0-49.9, adult
CPT/HCPCS: 36415; 36600; 71020; 71020-26; 80048; 82803; 82962; 83605; 85025; 85027; 85610; 87040; 87070; 87077; 87205; 87804; 94640; 94762; A9270-GY; J0456; J0696; J1940; J7030; J7040; J7050; J7120

== ENCOUNTER 2017-09-04 19:31 | Inpatient (IN) | payer BC ==
[2017-09-04] MEDS ORDERED: Sodium Chloride 0.9% 10 ML Syringe FLUSH PRN (20:53)
[2017-09-04] MEDS ORDERED: Lactated Ringers 1,000 ML IV SCH (21:00)
[2017-09-04] MEDS ORDERED: Acetaminophen 500 MG Tab PO ONE (21:06)
--- NOTE | 2017-09-04 21:14 | EDM.PDOC ---
ED HPI GENERAL MEDICAL PROBLEM - General Chief Complaint: Skin Complaint Stated Complaint: INFECTION Time Seen by Provider: 09/04/17 20:48 Source of Information: Reports: Patient, Family History Limitations: Reports: No Limitations - History of Present Illness INITIAL COMMENTS - FREE TEXT/NARRATIVE: Caitie presents today with complaints of left thigh pain, redness and warmth with fever and chills. She states she developed chills starting this past (3 days ago) with a fever and boil Tuesday night. She states she has been taking acetaminophen for her fever. She denies any recent wounds or injuries to the area. Severity: Moderate Improves with: Reports: None Worsens with: Reports: Movement Associated Symptoms: Reports: Fever/Chills. Denies: Malaise, Nausea/Vomiting, Weakness Treatments FILTER TIP INSPECTOR: Reports: Acetaminophen left groin Pain Score (Numeric/FACES): 6 - Related Data Allergies Allergy/AdvReac Type Severity Reaction Status Date / Time sulfamethoxazole Allergy Severe Renal Verified 09/04/17 20:07 [From Bactrim] Insufficiency trimethoprim [From Bactrim] Allergy Severe Rash Verified 09/04/17 20:07 Gadolinium-Containing Allergy Itching Verified 09/04/17 20:07 Contrast Medi Home Meds: Home Meds Calcium Carbonate/Vitamin D3 [Calcium 600 + Vit D 200] 1 each PO DAILY 02/10/16 [History] Cholecalciferol (Vitamin D3) [Vitamin D3] 2,000 unit PO DAILY 02/10/16 [History] Furosemide 40 mg PO DAILY 02/10/16 [History] Gabapentin 300 mg PO BEDTIME 02/10/16 [History] Lisinopril 10 mg PO DAILY 02/10/16 [History] Multivitamin [Multi-Vitamin Daily] 1 each PO DAILY 02/10/16 [History] Warfarin [Coumadin] 5 mg PO DAILY 02/10/16 [History] Warfarin [Coumadin] 7.5 mg PO DAILY 03/17/16 [History] Acetaminophen/oxyCODONE [Percocet 325-5 MG] 1 - 2 tab PO Q6HR #120 tablet [Rx] Diazepam [Valium] 5 mg PO TID PRN #15 tablet 06/28/16 [Rx] Insulin Aspart [NovoLOG] 0 units SUBCUT TID 10/25/16 [History] Insulin Degludec [Tresiba Flextouch U-100] 78 units SQ DAILY 04/28/17 [History] Past Medical History HEENT History: Reports: Cataract, Impaired Vision Cardiovascular History: Reports: Blood Clots/VTE/DVT, Hypertension Respiratory History: Reports: PE Gastrointestinal History: Reports: Cholelithiasis, Colon Polyp Genitourinary History: Reports: None WRAPPER OFF History: Reports: Other OB/BYN History: Still[place] Musculoskeletal History: Reports: Arthritis, Fracture Endocrine/Metabolic History: Reports: Diabetes, Type II, Obesity/BMI 30+ Hematologic History: Reports: B12 Deficiency Oncologic (Cancer) History: Reports: Other (See Below) Other Oncologic History: endometrial cancer x2 - Infectious Disease History Infectious Disease History: Reports: Chicken Pox, Measles, Mumps - Past Surgical History HEENT Surgical History: Reports: Cataract Surgery, Tonsillectomy Respiratory Surgical History: Reports: None Female Surgical History: Reports: Section, Hysterectomy Musculoskeletal Surgical History: Reports: Knee Replacement Social & Family History - Family History Family Medical History: Noncontributory - Tobacco Use Smoking Status *Q: Never Smoker Second Hand Smoke Exposure: No - Caffeine Use Caffeine Use: Reports: Soda, Tea - Alcohol Use Days Per Week of Alcohol Use: 0 - Recreational Drug Use Recreational Drug Use: No ED ROS GENERAL - Review of Systems Review Of Systems: See Below Constitutional: Reports: Fever, Chills. Denies: Malaise, Weakness, Diaphoresis HEENT: Reports: No Symptoms Respiratory: Denies: Shortness of Breath, Wheezing, Cough, Sputum, Hemoptysis Cardiovascular: Denies: Chest Pain, Dyspnea on Exertion, Edema, Palpitations, PND, Syncope Endocrine: Reports: No Symptoms GI/Abdominal: Denies: Abdominal Pain, Constipation, Diarrhea, Nausea, Vomiting : Denies: Dysuria, Frequency, Hematuria, Pain, Urgency Musculoskeletal: Reports: Leg Pain, Other (left leg pain with worsening for 3 days. ). Denies: Back Pain, Joint Pain, Joint Swelling Skin: Reports: Erythema, Change in Color, Other (redness, firmness to left upper inner thigh) Neurological: Denies: Confusion, Dizziness, Headache, Numbness, Tingling, Weakness Psychiatric: Reports: No Symptoms Hematologic/Lymphatic: Reports: No Symptoms Immunologic: Reports: No Symptoms ED EXAM, SKIN/RASH Exam: See Below Text/Narrative:: Caitie is an alert, oriented and pleasant 62 year old female presenting for increase of redness, warmth and tenderness of left medial thigh for 3 days. She reports the area started like a boil under the skin and has become larger. Caitie's did look at the area and did not find a wound or pimple. Exam Limited By: No Limitations General Appearance: Alert, Moderate Distress, Other (pain to left leg, difficult for patient to become comfortable, having to rest on her right side. ) Eye Exam: Bilateral Eye: EOMI, PERRL Nose: Normal Inspection, Normal Mucosa Throat/Mouth: Normal Inspection, Normal Lips, Normal Oropharynx, Normal Voice, No Airway Compromise Head: Atraumatic, Normocephalic Neck: Normal Inspection, Supple, Non-Tender, Full Range of Motion. No: Lymphadenopathy (R), Lymphadenopathy (L) Respiratory/Chest: No Respiratory Distress, Lungs Clear, Normal Breath Sounds, No Accessory Muscle Use, Chest Non-Tender Cardiovascular: Normal Peripheral Pulses, Regular Rate, Rhythm, No Edema, No Murmur, No Rub Peripheral Pulses: 1+: Dorsalis Pedis (L), Dorsalis Pedis (R), 2+: Radial (L), Radial (R) GI/Abdominal: Normal Bowel Sounds, Soft, Non-Tender (Female) Exam: Other (No redness or erythema to labia. ). No: Vaginal Bleeding, Vaginal Discharge Rectal (Female) Exam: No: Mass, Perirectal Abscess, Tenderness Back Exam: Normal Inspection, Full Range of Motion. No: CVA Tenderness (R), CVA Tenderness (L) Extremities: Normal Inspection, Normal Range of Motion, Non-Tender, No Pedal Edema, Normal Capillary Refill Neurological: Alert, Oriented, CN II-XII Intact, Normal Cognition, Normal Gait, No Motor/Sensory Deficits Psychiatric: Normal Affect, Normal Mood Skin: Erythema, Increased Warmth Location, Skin: Lower Extremity, Left, Other (large area of erythema, tenderness and significant firmness to left medial thigh up to groin without including labia/vagina or rectum. Area firm with central firmness to more posterior left thigh. Small amount of fluctuance more central, however area is very firm and tender. ) Associated features: Tenderness, Swelling Lymphatic: No Adenopathy Course - Vital Signs Last Recorded V/S: Last Vital Signs Temp 38.1 C 09/04/17 20:17 Pulse 91 09/04/17 20:17 Resp 16 09/04/17 20:17 BP 142/60 H 09/04/17 20:17 Pulse Ox 96 09/04/17 20:17 - Orders/Labs/Meds Orders: Active Orders 24 hr Category Date Time Status Extremity Non Vascular Lt [US] Stat Exams 09/04/17 20:56 Ordered UA W/MICROSCOPIC [URIN] Stat Lab 09/04/17 20:52 Ordered Lactated Ringers [Ringers, Lactated] 1,000 ml Med 09/04/17 21:00 Active IV ASDIRECTED Sodium Chloride 0.9% [Saline Flush] Med 09/04/17 20:53 Active 10 ml FLUSH ASDIRECTED PRN Blood Culture x2 Reflex Set [OM.PC] Urgent Oth 09/04/17 20:55 Ordered Saline Lock Insert [OM.PC] Routine Oth 09/04/17 20:53 Ordered Medication Orders Lactated Ringer's (Ringers, Lactated) 1,000 mls @ 500 mls/hr IV ASDIRECTED LADONNA Last Admin: 09/04/17 21:25 Dose: 500 mls/hr Sodium Chloride (Saline Flush) 10 ml FLUSH ASDIRECTED PRN PRN Reason: Keep Vein Open Last Admin: 09/04/17 21:25 Dose: 10 ml Labs: Laboratory Tests 09/04/17 09/04/17 09/04/17 Range/Units 21:06 21:06 21:06 WBC 15.0 H (4.5-11.0) K/uL RBC 4.43 (3.30-5.50) M/uL Hgb 13.5 (12.0-15.0) g/dL Hct 40.5 (36.0-48.0) % MCV 91 (80-98) fL MCH 31 (27-31) pg MCHC 33 (32-36) % Plt Count 248 (150-400) K/uL Neut % (Auto) 84 H (36-66) % Lymph % (Auto) 5 L (24-44) % [place] % (Auto) 11 H (2-6) % Eos % (Auto) 0 L (2-4) % Baso % (Auto) 0 (0-1) % PT (9.5-12.0) sec INR (0.80-1.20) APTT (27.0-36.0) sec Sodium 137 L (140-148) mmol/L Potassium 5.1 (3.6-5.2) mmol/L Chloride 100 (100-108) mmol/L Carbon Dioxide 28 (21-32) mmol/L Anion Gap 14.1 H (5.0-14.0) mmol/L BUN 23 H (7-18) mg/dL Creatinine 1.9 H (0.6-1.0) mg/dL Est Cr Clr Drug Dosing 30.30 mL/min Estimated GFR (MDRD) 27 L (>60) Glucose 328 H (74-106) mg/dL Lactic Acid 1.3 (0.4-2.0) mmol/L Calcium 8.3 L (8.5-10.1) mg/dL Total Bilirubin 0.8 (0.2-1.0) mg/dL AST 27 D (15-37) U/L ALT 39 (12-78) U/L Alkaline Phosphatase 122 H (46-116) U/L C-Reactive Protein 35.68 H (0.0-0.3) mg/dL Total Protein 7.0 (6.4-8.2) g/dL Albumin 2.6 L (3.4-5.0) g/dL Globulin 4.4 H (2.3-3.5) g/dL Albumin/Globulin Ratio 0.6 L (1.2-2.2) 03/18/18 Range/Units 21:10 WBC (4.5-11.0) K/uL RBC (3.30-5.50) M/uL Hgb (12.0-15.0) g/dL Hct (36.0-48.0) % MCV (80-98) fL MCH (27-31) pg MCHC (32-36) % Plt Count (150-400) K/uL Neut % (Auto) (36-66) % Lymph % (Auto) (24-44) % [place] % (Auto) (2-6) % Eos % (Auto) (2-4) % Baso % (Auto) (0-1) % PT 16.5 H (9.5-12.0) sec INR 1.52 H (0.80-1.20) APTT 39.3 H (27.0-36.0) sec Sodium (140-148) mmol/L Potassium (3.6-5.2) mmol/L Chloride (100-108) mmol/L Carbon Dioxide (21-32) mmol/L Anion Gap (5.0-14.0) mmol/L BUN (7-18) mg/dL Creatinine (0.6-1.0) mg/dL Est Cr Clr Drug Dosing mL/min Estimated GFR (MDRD) (>60) Glucose (74-106) mg/dL Lactic Acid (0.4-2.0) mmol/L Calcium (8.5-10.1) mg/dL Total Bilirubin (0.2-1.0) mg/dL AST (15-37) U/L ALT (12-78) U/L Alkaline Phosphatase (46-116) U/L C-Reactive Protein (0.0-0.3) mg/dL Total Protein (6.4-8.2) g/dL Albumin (3.4-5.0) g/dL Globulin (2.3-3.5) g/dL Albumin/Globulin Ratio (1.2-2.2) Patient lab work reviewed with patient and her , all their questions answered. She will be admitted for cellulitis per Dr. Marino Meds: Medications Generic Name Dose Route Start Last Admin Trade Name Freq PRN Reason Stop Dose Admin Lactated Ringer's 1,000 mls @ 500 mls/hr 09/04/17 21:00 09/04/17 21:25 Ringers, Lactated IV 500 mls/hr ASDIRECTED LADONNA Administration Sodium Chloride 10 ml 09/04/17 20:53 09/04/17 21:25 Saline Flush FLUSH 10 ml ASDIRECTED PRN Administration Keep Vein Open Discontinued Medications Generic Name Dose Route Start Last Admin Trade Name Freq PRN Reason Stop Dose Admin Acetaminophen 1,000 mg 09/04/17 21:06 09/04/17 21:31 Tylenol Extra Strength PO 09/04/17 21:07 1,000 mg ONETIME ONE Administration Hydromorphone HCl 0.5 mg 09/04/17 22:11 09/04/17 22:16 Dilaudid IVPUSH 09/04/17 22:12 0.5 mg ONETIME ONE Administration Hydromorphone HCl 0.5 mg 09/04/17 22:11 Dilaudid IVPUSH 09/04/17 22:12 ONETIME ONE - Radiology Interpretation Free Text/Narrative:: US completed of Left medial thigh, small amount of fluid 2ml or less noted. - Re-Assessments/Exams Free Text/Narrative Re-Assessment/Exam: 09/04/17 22:15 Dr. Marino notified of patient assessment, lab work and US. He agrees to hospital admission for left upper thigh cellulitis, decreased renal function with history of warfarin use due to past DVT. Departure - Departure Time of Disposition: 22:25 Disposition: Admitted As Inpatient 65 Condition: Fair Clinical Impression: Cellulitis, History of DVT (deep vein thrombosis), Decreased renal function - Discharge Information Referrals: Manuel Merritt MD [Primary Care Provider] - Forms: ED Department Discharge - My Orders Last 24 Hours: My Active Orders 09/04/17 20:52 UA W/MICROSCOPIC [URIN] Stat 09/04/17 20:53 Sodium Chloride 0.9% [Saline Flush] 10 ml FLUSH ASDIRECTED PRN Saline Lock Insert [OM.PC] Routine 09/04/17 20:55 Blood Culture x2 Reflex Set [OM.PC] Urgent 09/04/17 20:56 Extremity Non Vascular Lt [US] Stat 09/04/17 21:00 Lactated Ringers [Ringers, Lactated] 1,000 ml IV ASDIRECTED - Assessment/Plan Last 24 Hours: My Active Orders 09/04/17 20:52 UA W/MICROSCOPIC [URIN] Stat 09/04/17 20:53 Sodium Chloride 0.9% [Saline Flush] 10 ml FLUSH ASDIRECTED PRN Saline Lock Insert [OM.PC] Routine 09/04/17 20:55 Blood Culture x2 Reflex Set [OM.PC] Urgent 09/04/17 20:56 Extremity Non Vascular Lt [US] Stat 09/04/17 21:00 Lactated Ringers [Ringers, Lactated] 1,000 ml IV ASDIRECTED Assessment:: Cellulitis left upper thigh Decreased renal function History of DVT with anticoagulation currently taking warfarin Plan: Patient will be admitted per Dr. Marino, Dr. Corral notified, she is in agreement with plan.
[2017-09-04] MEDS ORDERED: HYDROmorphone 0.5 MG/0.5 ML Syringe IVPUSH ONE ×2 (22:11)
[2017-09-04] MEDS ORDERED: ceFAZolin 1 GM in Premix Bag 1 BAG IV SCH (23:00)
[2017-09-04] MEDS ORDERED: Diazepam 5 MG Tab PO PRN (23:13)
[2017-09-04] MEDS ORDERED: ceFAZolin 1 GM Vial ONE (23:41)
[2017-09-04] MEDS ORDERED: Sodium Chloride 0.9% 50 ML ONE (23:41)
[2017-09-05] MEDS: Lactated Ringers 1,000 ML IV SCH ×2 (00:07→08:48)
[2017-09-05] MEDS ORDERED: Insulin Aspart 100 Units/ML 3 ML Pen SUBCUT ONE ×2 (01:10→09:00)
[2017-09-05] MEDS ORDERED: Acetaminophen/oxyCODONE 325-5 MG Tab PO PRN ×2 (01:21→08:00)
[2017-09-05] MEDS: Acetaminophen 325 MG Tab PO PRN ×2 (02:03→08:17)
[2017-09-05] MEDS ORDERED: Acetaminophen/oxyCODONE 325-5 MG Tab PO SCH (04:00)
[2017-09-05] MEDS ORDERED: Ondansetron 4 MG/2 ML SDV IVPUSH PRN (08:37)
[2017-09-05] MEDS: ceFAZolin 1 GM in Premix Bag 1 BAG IV SCH (08:47)
[2017-09-05] MEDS: Insulin Detemir 100 Units/ML 3 ML Pen SUBCUT SCH ×2 (08:50→21:05)
[2017-09-05] MEDS: Lisinopril 10 MG Tab PO SCH (08:51)
--- NOTE | 2017-09-05 08:58 | US ---
Ultrasound left medial thigh There is skin thickening. There is subcutaneous edema. There is a small fluid collection measuring 1. 2 x 0.8 x 2.4 cm. Impression: 1. Small fluid collection suggestive of abscess in the setting of overlying cellulitis.
[2017-09-05] MEDS ORDERED: Furosemide 40 MG Tab PO SCH (09:00)
[2017-09-05] MEDS ORDERED: Calcium Carbonate/Vitamin D3 1500 MG-400 Units Tab PO SCH (09:00)
[2017-09-05] MEDS ORDERED: Cholecalciferol (Vitamin D3) 1,000 Unit Tab PO SCH (09:00)
[2017-09-05] MEDS ORDERED: Insulin Aspart 100 Units/ML 3 ML Pen SUBCUT SCH (09:00)
[2017-09-05] MEDS ORDERED: Multivitamins with Iron/Calcium/Folic Acid/Minerals Tab PO SCH (09:00)
[2017-09-05] MEDS ORDERED: Beta-Carotene (Vitamin A) w/Vitamin C & E plus Minerals Tab PO SCH (09:00)
--- NOTE | 2017-09-05 11:56 | HP ---
CHIEF COMPLAINT: Left thigh pain. HISTORY OF PRESENT ILLNESS: A 62-year-old, who states that three days ago, she felt somewhat achy and just did not feel well. She went home from work. The next day, noticed some redness in her left thigh. She tried applying antibacterial ointment, but it did not help, and it got worse. She was having chills. No definite fever at home, but when she arrived here in the emergency room, she was noted to have a painful and erythematous left thigh consistent with cellulitis. I was asked to admit the patient for further evaluation and treatment. The patient otherwise denies any other specific complaints. PAST MEDICAL AND SURGICAL HISTORY: 1. She had endometrial carcinoma, and with treatment of this, had pulmonary embolism and a year later, had another pulmonary embolism and is on chronic anticoagulation. 2. She does have type 2 diabetes mellitus. 3. She has had left knee replacement, and she was given sulfa at that time, it looks like, and developed significant renal insufficiency, but it sounds like it has been fairly stable since then. CURRENT MEDICATIONS: 1. Percocet 5/325, 1 to 2 every six hours as needed for pain. 2. Calcium with vitamin D. 3. Diazepam 5 mg t.i.d. p.r.n. 4. Furosemide 40 mg daily. 5. Gabapentin 300 mg at bedtime. 6. NovoLog insulin t.i.d. 7. Tresiba 78 units daily. 8. Lisinopril 10 mg daily. 9. Multivitamin one daily. 10.Warfarin 5 mg along with 7.5 mg. ALLERGIES: TRIMETHOPRIM SULFA AND GADOLINIUM CONTAINING CONTRAST MATERIAL. SOCIAL HISTORY: She is a non-smoker and no alcohol use. . FAMILY HISTORY: Significant for heart disease and diabetes. REVIEW OF SYSTEMS: CONSTITUTIONAL: Fever and chills. HEENT: She denies any headaches, vision changes, or upper respiratory symptoms. CARDIORESPIRATORY: No chest pain, shortness of breath, or cough. GASTROINTESTINAL: No nausea, vomiting, diarrhea, or constipation. GENITOURINARY: No urinary problems were reported. EXTREMITIES: She does have some swelling in the proximal left thigh with pain and warmth. NEUROLOGICAL: I believe that she does have some neuropathy in her legs. PHYSICAL EXAMINATION: VITAL SIGNS: Weight is 138 kg. Temperature was 38.1, pulse was 91, blood pressure was 142/60, respirations were 16, and O2 saturation was 96% on room air. THROAT: Pharynx is clear. NECK: Supple. No adenopathy, thyromegaly, JVD, or carotid bruits. LUNGS: Clear. HEART: Regular without murmurs. ABDOMEN: Soft and nontender. No masses or organomegaly was palpated. EXTREMITIES: She does have some swelling in the left proximal thigh with erythema and discomfort with increased warmth. There are no open or draining areas. Ultrasound was performed on the area, and just 2 mL of fluid was identified. LABORATORY DATA: White count was 15,000, hemoglobin was 13.5, and platelets were 248,000 with 84% neutrophils. INR was 1.52. Sodium is 137, potassium is 5.1, BUN is 23, creatinine is 1.9, and GFR is 27. Liver functions were normal. C-reactive protein was elevated at 35. ASSESSMENT AND PLAN: Cellulitis of left thigh and underlying diabetes, on chronic anticoagulation for two episodes of pulmonary emboli. We will admit her to the hospital in inpatient status and anticipate greater than two midnight stays. Will start her on IV Ancef. Continue to monitor blood sugars with her diabetes and her INR with her anticoagulation. Transfer care to the Hospitalist Service in the morning. Blood cultures have been obtained by the Emergency Room staff. Nicolas Marino MD /[id number]
[2017-09-05] MEDS ORDERED: Naloxone 0.4 MG/ML SDV IV PRN (12:01)
[2017-09-05] MEDS ORDERED: Morphine PF 150 MG/30 ML PCA Syringe IV PRN (12:01)
[2017-09-05] MEDS ORDERED: Warfarin 5 MG Tab PO SCH (13:00)
[2017-09-05] MEDS ORDERED: Warfarin 2.5 MG, Warfarin 5 MG PO SCH ×2 (13:00)
--- NOTE | 2017-09-05 13:02 | PCM.PN ---
- General Info Date of Service: 09/05/17 Subjective Update: Ms. Dumont is a 62-year-old woman who was admitted through the emergency department last night by Dr. Marino. She developed an area of cellulitis on the inner aspect of her left thigh. Ultrasound obtained in the emergency department did documented. Fluid collection which is likely secondary to abscess. Since admission. Of cellulitis has improved but there is an indurated area on the inferior aspect of the medial thigh that does feel to be consistent with abscess formation. - Review of Systems General: Reports: Fever, Weakness, Chills Pulmonary: Reports: No Symptoms Cardiovascular: Reports: No Symptoms Gastrointestinal: Reports: No Symptoms Skin: Reports: Other (Area of cellulitis inner aspect of the left thigh with underlying abscess) - Patient Data Vitals - Most Recent: Last Vital Signs Temp 98.6 F 09/05/17 11:00 Pulse 92 09/05/17 11:00 Resp 18 09/05/17 11:00 BP 123/56 L 09/05/17 11:00 Pulse Ox 91 L 09/05/17 11:00 Weight - Most Recent: 310 lb 3.046 oz I&O - Last 24 Hours: Intake & Output 09/04/17 09/05/17 09/05/17 22:59 06:59 14:59 Intake Total 1000 290 Output Total 100 Balance 900 290 Lab Results Last 24 Hours: Laboratory Results - last 24 hr 09/05/17 09/05/17 09/05/17 Range/Units 04:20 04:20 04:20 WBC 15.3 H (4.5-11.0) K/uL RBC 4.03 (3.30-5.50) M/uL Hgb 12.2 (12.0-15.0) g/dL Hct 37.2 (36.0-48.0) % MCV 92 (80-98) fL MCH 30 (27-31) pg MCHC 33 (32-36) % Plt Count 237 (150-400) K/uL Neut % (Auto) 85 H (36-66) % Lymph % (Auto) 5 L (24-44) % [place] % (Auto) 10 H (2-6) % Eos % (Auto) 0 L (2-4) % Baso % (Auto) 0 (0-1) % PT 14.9 H (9.5-12.0) sec INR 1.37 H (0.80-1.20) Sodium 139 L (140-148) mmol/L Potassium 4.5 (3.6-5.2) mmol/L Chloride 103 (100-108) mmol/L Carbon Dioxide 28 (21-32) mmol/L Anion Gap 12.5 (5.0-14.0) mmol/L BUN 23 H (7-18) mg/dL Creatinine 1.9 H (0.6-1.0) mg/dL Est Cr Clr Drug Dosing 29.47 mL/min Estimated GFR (MDRD) 27 L (>60) Glucose 167 H (74-106) mg/dL Calcium 8.2 L (8.5-10.1) mg/dL Med Orders - Current: Current Medications Acetaminophen (Tylenol) 650 mg PO Q4H PRN PRN Reason: Pain (Mild 1-3)/fever Last Admin: 09/05/17 08:17 Dose: 650 mg Calcium Carbonate (Caltrate 600+D 1500 Mg-400 Units) 1 tab PO DAILY [facility] Last Admin: 09/05/17 08:51 Dose: 1 tab Cholecalciferol (Vitamin D3) 2,000 units PO DAILY [facility] Last Admin: 09/05/17 08:53 Dose: 2,000 units Diazepam (Valium.) 5 mg PO TID PRN PRN Reason: Pain Furosemide (Lasix) 40 mg PO DAILY [facility] Last Admin: 09/05/17 08:51 Dose: 40 mg Gabapentin (Neurontin) 300 mg PO BEDTIME [facility] Lactated Ringer's (Ringers, Lactated) 1,000 mls @ 125 mls/hr IV ASDIRECTED [facility] Last Admin: 09/05/17 08:48 Dose: 125 mls/hr Cefazolin Sodium/Dextrose 1 gm (/ Premix) 50 mls @ 100 mls/hr IV Q8H [facility] Last Admin: 09/05/17 08:47 Dose: 100 mls/hr Meropenem 500 mg/ Sodium (Chloride) 50 mls @ 100 mls/hr IV ONCALL ONE Stop: 09/05/17 14:29 Insulin Aspart (Novolog) 0 unit SUBCUT TID [facility] Insulin Detemir (Levemir) 39 unit SUBCUT BID [facility] Last Admin: 09/05/17 08:50 Dose: Not Given Lisinopril (Prinivil) 10 mg PO DAILY [facility] Last Admin: 09/05/17 08:51 Dose: 10 mg Morphine Sulfate (Morphine [employer] 150 Mg In 30 Ml) 0 mg IV ASDIRECTED PRN; Protocol PRN Reason: PAIN Last Admin: 09/05/17 12:34 Dose: 150 mg Multivitamins/Minerals (Thera M Plus) 1 tab PO DAILY [facility] Last Admin: 09/05/17 08:52 Dose: 1 tab Naloxone HCl (Narcan) 0.1 mg IV ASDIRECTED PRN PRN Reason: DECREASED RESPIRATIONS Ondansetron HCl (Zofran) 4 mg IVPUSH Q4H PRN PRN Reason: Nausea/Vomiting Last Admin: 09/05/17 09:16 Dose: 4 mg Oxycodone/Acetaminophen (Percocet 325-5 Mg) 1 - 2 tab PO Q6H PRN PRN Reason: Pain Warfarin Sodium (Coumadin) 5 mg PO [id number]@1300 [facility] Warfarin Sodium 2.5 mg/ (Warfarin Sodium 5 mg) 7.5 mg PO MoWeFr@1300 [facility] Discontinued Medications Acetaminophen (Tylenol Extra Strength) 1,000 mg PO ONETIME ONE Stop: 09/04/17 21:07 Last Admin: 09/04/17 21:31 Dose: 1,000 mg Cefazolin Sodium (Ancef) Confirm Administered Dose 1 gm .ROUTE .STK-MED ONE Stop: 09/04/17 23:42 Last Admin: 09/05/17 00:11 Dose: 1 gm Hydromorphone HCl (Dilaudid) 0.5 mg IVPUSH ONETIME ONE Stop: 09/04/17 22:12 Last Admin: 09/04/17 22:16 Dose: 0.5 mg Hydromorphone HCl (Dilaudid) 0.5 mg IVPUSH ONETIME ONE Stop: 09/04/17 22:12 Last Admin: 09/05/17 00:08 Dose: 0.5 mg Lactated Ringer's (Ringers, Lactated) 1,000 mls @ 500 mls/hr IV ASDIRECTED [facility] Last Admin: 09/04/17 21:25 Dose: 500 mls/hr Cefazolin Sodium/Dextrose 1 gm (/ Premix) 50 mls @ 100 mls/hr IV Q8H [facility] Last Admin: 09/05/17 00:12 Dose: Not Given Sodium Chloride (Normal Saline) Confirm Administered Dose 50 mls @ as directed .ROUTE .STK-MED ONE Stop: 09/04/17 23:42 Last Admin: 09/05/17 00:11 Dose: 50 ml Insulin Aspart (Novolog) 35 unit SUBCUT ONETIME ONE Stop: 09/05/17 01:11 Last Admin: 09/05/17 01:23 Dose: 35 units Insulin Aspart (Novolog) 35 unit SUBCUT ONETIME ONE Stop: 09/05/17 09:01 Last Admin: 09/05/17 08:49 Dose: 35 units Oxycodone/Acetaminophen (Percocet 325-5 Mg) 1 - 2 tab PO Q6HR [place] Oxycodone/Acetaminophen (Percocet 325-5 Mg) 1 - 2 tab PO Q6HR PRN PRN Reason: Pain Last Admin: 09/05/17 02:02 Dose: 1 tab Sodium Chloride (Saline Flush) 10 ml FLUSH ASDIRECTED PRN PRN Reason: Keep Vein Open Last Admin: 09/04/17 21:25 Dose: 10 ml - Exam Quality Assessment: DVT Prophylaxis General: Alert, Oriented, Cooperative, Moderate Distress Lungs: Clear to Auscultation, Normal Respiratory Effort Cardiovascular: Regular Rate, Regular Rhythm, No Murmurs GI/Abdominal Exam: Soft, Non-Tender, No Organomegaly, No Distention Extremities: Non-Tender, No Pedal Edema Skin: Other (Area of erythema has receded from yesterday but there is a area of marked induration in the inner thigh consistent with abscess formation) - Problem List Review Problem List Initiated/Reviewed/Updated: Yes - My Orders Last 24 Hours: My Active Orders 09/05/17 08:37 Ondansetron [Zofran] 4 mg IVPUSH Q4H PRN 09/05/17 12:55 Consult to Physician [CONS] Urgent 09/05/17 12:56 Notify Provider Consults [RC] ASDIRECTED 09/05/17 Lunch NPO Now [Nothing per Oral Now Diet] [DIET] 09/06/17 05:00 BASIC METABOLIC PANEL,BMP [CHEM] Timed CBC WITH AUTO DIFF [HEME] Timed INR,PT,PROTHROMBIN TIME [COAG] Timed - Plan Plan:: ASSESSMENT AND PLAN ABSCESS AND CELLULITIS LEFT THIGH-cellulitis is improved since admission on current antibiotic therapy but there is an obvious area of induration that feels to be consistent with abscess. Ultrasound obtained in the emergency department also shows area of probable abscess formation. -Continue IV antibiotic therapy with cefazolin -Meropenem as added by Dr. Madrid -Continue IV fluids -Consult Dr. Madrid for surgical opinion and management of abscess TYPE 2 DIABETES MELLITUS -4 times a day glucometers -Continue outpatient management CHRONIC KIDNEY DISEASE STAGE III -Closely monitor urine output and renal function HISTORY OF DVT AND PULMONARY EMBOLISM-on long-term oral anticoagulation with warfarin, INR subtherapeutic today -Continue outpatient dosing of warfarin -Reassess INR in a.m. MAINTENANCE ISSUES -DVT prophylaxis; current therapy with warfarin should provide adequate DVT prophylaxis -GI prophylaxis; not indicated -August catheter; not indicated -Nutrition; nothing by mouth until abscess has been drained -Nicotine dependence; not required CODE STATUS-FULL CODE ADMISSION STATUS-patient will be admitted to inpatient status, expect at least a 2 night hospital stay for evaluation and management of problems as outlined above. At the time of this admission I do not reasonably expected evaluation and management of this problem will require more than a 96 hour hospital stay. DISPOSITION-anticipate discharge to home after the hospital stay. PRIMARY CARE PROVIDER-Dr. Merritt
[2017-09-05] MEDS ORDERED: Bupivacaine 0.5% 50 ML MDV ONE (13:09)
[2017-09-05] MEDS ORDERED: Lidocaine 1% with EPINEPHrine 1:100,000 50 ML MDV ONE (13:09)
[2017-09-05] MEDS: Meropenem 500 MG in Sodium Chloride 0.9% 50 ML IV ONE ×2 (14:55→15:32)
[2017-09-05] MEDS ORDERED: Propofol 200 MG/20 ML SDV ONE (14:56)
[2017-09-05] MEDS ORDERED: Dexamethasone 4 MG/ML SDV ONE (14:56)
[2017-09-05] MEDS ORDERED: Rocuronium 50 MG/5 ML Vial ONE (14:56)
[2017-09-05] MEDS ORDERED: Succinylcholine 200 MG/10 ML MDV ONE (14:56)
[2017-09-05] MEDS ORDERED: fentaNYL 250 MCG/5 ML SDV ONE (14:56)
[2017-09-05] MEDS ORDERED: Glycopyrrolate 0.2 MG/ML 5 ML MDV ONE (14:56)
[2017-09-05] MEDS ORDERED: Ondansetron 4 MG/2 ML SDV ONE (14:56)
[2017-09-05] MEDS ORDERED: Neostigmine Methylsulfate 1 MG/ML 5 ML Syringe ONE (14:56)
[2017-09-05] MEDS ORDERED: Linezolid 600 MG in Premix Bag 1 BAG IV ONE (15:55)
[2017-09-05] MEDS ORDERED: fentaNYL 100 MCG/2 ML SDV ONE (15:59)
[2017-09-05] MEDS ORDERED: Albuterol/Ipratropium 3.0-0.5 MG/3 ML Neb Soln NEB ONE (16:45)
[2017-09-05] MEDS ORDERED: Aztreonam/Dextrose-Water 1 GM in Premix Bag 1 BAG IV ONE (17:00)
[2017-09-05] MEDS ORDERED: 50% Dextrose in Water 50 ML Syringe IV PRN (17:37)
[2017-09-05] MEDS ORDERED: Glucose Gel 15 GM in 37.5 GM Tube PO PRN (17:37)
--- NOTE | 2017-09-05 17:41 | PCM.SN ---
- Free Text/Narrative Note: Ms. Dumont was taken to the operating room this afternoon by Dr. Madrid for debridement of presumed abscess. On evaluation was found to have evidence of necrotizing fasciitis, during the procedure was hypotensive and did receive extra IV fluids. She was somewhat hypoxic prior to the procedure, this improved with supplemental oxygen. In the PAR after surgery was found to be hypoxic again and currently is on 6 L of oxygen via mask. Saturations have been adequate , she denies significant shortness of breath. On physical exam she does have bilateral scattered expiratory wheezes, no rales or rhonchi. On cardiac exam she has regular rate and rhythm S1-S2 normal no murmurs S3 or S4, no jugular venous distention. Likely that hypoxia secondary to hypoventilation related to pain medications. She will be monitored in the intensive care unit overnight. Chest x-ray, arterial blood gases, CBC, and BMP are pending.
[2017-09-05] MEDS ORDERED: Albuterol/Ipratropium 3.0-0.5 MG/3 ML Neb Soln INH PRN (17:42)
[2017-09-05] MEDS ORDERED: Meropenem 1 GM in Sodium Chloride 0.9% 100 ML IV SCH (17:45)
[2017-09-05] MEDS ORDERED: Dextrose 5%-Lactated Ringers 1,000 ML IV SCH (17:45)
[2017-09-05] MEDS: Acetaminophen 325 MG Tab PO SCH ×2 (18:18→23:33)
[2017-09-05] MEDS: Pantoprazole 40 MG Vial IV SCH (18:19)
[2017-09-05] MEDS ORDERED: Lactated Ringers 1,000 ML IV SCH (19:00)
[2017-09-05] MEDS: Insulin Aspart 100 Units/ML 3 ML Pen SUBCUT SCH (21:04)
[2017-09-05] MEDS: Albuterol/Ipratropium 3.0-0.5 MG/3 ML Neb Soln INH SCH (21:05)
[2017-09-05] MEDS: Meropenem 500 MG in Sodium Chloride 0.9% 50 ML IV SCH (21:05)
[2017-09-05] MEDS: Gabapentin 300 MG Cap PO SCH (21:29)
[2017-09-06] MEDS: Aztreonam/Dextrose-Water 1 GM in Premix Bag 1 BAG IV SCH ×3 (00:56→17:32)
[2017-09-06] MEDS: Linezolid 600 MG in Premix Bag 1 BAG IV SCH ×2 (01:46→14:14)
[2017-09-06] MEDS: Meropenem 500 MG in Sodium Chloride 0.9% 50 ML IV SCH ×3 (03:39→20:53)
[2017-09-06] MEDS: Acetaminophen 325 MG Tab PO SCH ×4 (06:03→23:02)
[2017-09-06] MEDS: Albuterol/Ipratropium 3.0-0.5 MG/3 ML Neb Soln INH SCH ×4 (06:41→21:14)
[2017-09-06] MEDS: Insulin Aspart 100 Units/ML 3 ML Pen SUBCUT SCH ×4 (06:45→21:04)
[2017-09-06] MEDS ORDERED: Lidocaine 1% with EPINEPHrine 1:100,000 50 ML MDV ONE (06:54)
[2017-09-06] MEDS ORDERED: Bupivacaine 0.5% 50 ML MDV ONE (06:54)
[2017-09-06] MEDS ORDERED: Ondansetron 4 MG/2 ML SDV ONE (07:01)
[2017-09-06] MEDS ORDERED: Rocuronium 50 MG/5 ML Vial ONE (07:01)
[2017-09-06] MEDS ORDERED: Dexamethasone 4 MG/ML SDV ONE (07:01)
[2017-09-06] MEDS ORDERED: Succinylcholine 200 MG/10 ML MDV ONE (07:01)
[2017-09-06] MEDS ORDERED: Propofol 200 MG/20 ML SDV ONE (07:01)
[2017-09-06] MEDS ORDERED: fentaNYL 250 MCG/5 ML SDV ONE (07:01)
[2017-09-06] MEDS ORDERED: Lactated Ringers 1,000 ML ONE (07:11)
--- NOTE | 2017-09-06 09:08 | CR ---
Portable chest Comparison: 24 May 2017. There is borderline cardiac enlargement. There is mild vascular engorgement. There is mild prominence of the interstitial markings. There are no significant effusions. Impression: 1. Findings most consistent with CHF with mild interstitial edema. Clinical correlation recommended.
[2017-09-06] MEDS ORDERED: Dextrose 5%-Lactated Ringers 1,000 ML IV SCH (09:15)
[2017-09-06] MEDS: Furosemide 40 MG Tab PO SCH (09:22)
[2017-09-06] MEDS ORDERED: Enoxaparin 60 MG/0.6 ML Syringe SUBCUT SCH (10:00)
--- NOTE | 2017-09-06 10:07 | PCM.PN ---
- General Info Date of Service: 09/06/17 Subjective Update: Ms. Dumont has been stable since surgery yesterday and has already been back to the operating room this morning for further debridement. Oxygenation has improved, she still requires supplemental oxygen. Overall blood pressures have been more stable and urine output has been adequate. White blood cell count has improved from yesterday. - Review of Systems General: Reports: Weakness. Denies: Fever, Chills Pulmonary: Reports: No Symptoms Cardiovascular: Reports: No Symptoms Gastrointestinal: Reports: No Symptoms Skin: Reports: Other ([address]) - Patient Data Vitals - Most Recent: Last Vital Signs Temp 96.6 F 09/06/17 08:14 Pulse 77 09/06/17 08:14 Resp 23 H 09/06/17 08:14 BP 98/37 L 09/06/17 08:14 Pulse Ox 96 09/06/17 08:14 Weight - Most Recent: 310 lb 3.046 oz I&O - Last 24 Hours: Intake & Output 09/05/17 09/06/17 09/06/17 22:59 06:59 14:59 Intake Total 3300 Output Total 325 305 Balance -325 2995 Lab Results Last 24 Hours: Laboratory Results - last 24 hr 09/05/17 09/05/17 09/05/17 Range/Units 17:55 17:55 17:55 WBC 16.6 H (4.5-11.0) K/uL RBC 4.11 (3.30-5.50) M/uL Hgb 12.3 (12.0-15.0) g/dL Hct 37.8 (36.0-48.0) % MCV 92 (80-98) fL MCH 30 (27-31) pg MCHC 33 (32-36) % Plt Count 267 (150-400) K/uL Neut % (Auto) 91 H (36-66) % Lymph % (Auto) 3 L (24-44) % Addison % (Auto) 7 H (2-6) % Eos % (Auto) 0 L (2-4) % Baso % (Auto) 0 (0-1) % PT (9.5-12.0) sec INR (0.80-1.20) Puncture Site Rt radial ABG pH 7.374 (7.350-7.450) ABG pCO2 44.4 H (35.0-42.0) mmHg ABG pO2 82.7 (75.0-100.0) mmHg ABG HCO3 25.3 (22.0-26.0) mmol/L ABG Total CO2 23.0 (21.0-25.0) mmol/L ABG O2 Saturation 96.2 (95.0-98.0) % ABG O2 Content 16.0 (15.0-23.0) %vol ABG Base Excess 0.4 mm/L ABG Hemoglobin 12.1 (12.0-16.0) g/dL ABG Oxyhemoglobin 94.1 % ABG Carboxyhemoglobin 1.7 H (0.0-1.6) % ABG Methemoglobin 0.5 % Jean Test Pass O2 Delivery Device Nasal cannula Oxygen Flow Rate 6 L Sodium 137 L (140-148) mmol/L Potassium 4.4 (3.6-5.2) mmol/L Chloride 101 (100-108) mmol/L Carbon Dioxide 26 (21-32) mmol/L Anion Gap 14.4 H (5.0-14.0) mmol/L BUN 25 H (7-18) mg/dL Creatinine 2.1 H (0.6-1.0) mg/dL Est Cr Clr Drug Dosing 26.59 mL/min Estimated GFR (MDRD) 24 L (>60) Glucose 218 H (74-106) mg/dL Calcium 8.0 L (8.5-10.1) mg/dL Phosphorus (2.5-4.9) mg/dL Magnesium (1.8-2.4) mg/dL Total Bilirubin (0.2-1.0) mg/dL AST (15-37) U/L ALT (12-78) U/L Alkaline Phosphatase (46-116) U/L Total Protein (6.4-8.2) g/dL Albumin (3.4-5.0) g/dL Globulin (2.3-3.5) g/dL Albumin/Globulin Ratio (1.2-2.2) 09/06/17 09/06/17 09/06/17 Range/Units 05:02 05:02 05:02 WBC 13.8 H (4.5-11.0) K/uL RBC 3.68 (3.30-5.50) M/uL Hgb 10.9 L (12.0-15.0) g/dL Hct 34.5 L (36.0-48.0) % MCV 94 (80-98) fL MCH 30 (27-31) pg MCHC 32 (32-36) % Plt Count 260 (150-400) K/uL Neut % (Auto) 89 H (36-66) % Lymph % (Auto) 4 L (24-44) % Addison % (Auto) 7 H (2-6) % Eos % (Auto) 0 L (2-4) % Baso % (Auto) 0 (0-1) % PT 13.2 H (9.5-12.0) sec INR 1.22 H (0.80-1.20) Puncture Site ABG pH (7.350-7.450) ABG pCO2 (35.0-42.0) mmHg ABG pO2 (75.0-100.0) mmHg ABG HCO3 (22.0-26.0) mmol/L ABG Total CO2 (21.0-25.0) mmol/L ABG O2 Saturation (95.0-98.0) % ABG O2 Content (15.0-23.0) %vol ABG Base Excess mm/L ABG Hemoglobin (12.0-16.0) g/dL ABG Oxyhemoglobin % ABG Carboxyhemoglobin (0.0-1.6) % ABG Methemoglobin % Jean Test O2 Delivery Device Oxygen Flow Rate L Sodium 137 L (140-148) mmol/L Potassium 4.9 (3.6-5.2) mmol/L Chloride 102 (100-108) mmol/L Carbon Dioxide 27 (21-32) mmol/L Anion Gap 12.9 (5.0-14.0) mmol/L BUN 31 H (7-18) mg/dL Creatinine 2.3 H (0.6-1.0) mg/dL Est Cr Clr Drug Dosing 24.28 mL/min Estimated GFR (MDRD) 21 L (>60) Glucose 375 H (74-106) mg/dL Calcium 7.8 L (8.5-10.1) mg/dL Phosphorus 4.8 (2.5-4.9) mg/dL Magnesium 1.9 (1.8-2.4) mg/dL Total Bilirubin 0.3 D (0.2-1.0) mg/dL AST 26 (15-37) U/L ALT 37 (12-78) U/L Alkaline Phosphatase 140 H (46-116) U/L Total Protein 6.0 L (6.4-8.2) g/dL Albumin 1.9 L (3.4-5.0) g/dL Globulin 4.1 H (2.3-3.5) g/dL Albumin/Globulin Ratio 0.5 L (1.2-2.2) Johnson Results Last 24 Hours: Microbiology 09/05/17 15:29 Gram Stain - Final Perineum 09/05/17 15:34 Gram Stain - Final Perineum Med Orders - Current: Current Medications Acetaminophen (Tylenol) 650 mg PO Q6H [facility] Last Admin: 09/06/17 06:03 Dose: Not Given Albuterol/Ipratropium (Duoneb 3.0-0.5 Mg/3 Ml) 3 ml INH QIDRT [facility] Last Admin: 09/06/17 06:41 Dose: 3 ml Albuterol/Ipratropium (Duoneb 3.0-0.5 Mg/3 Ml) 3 ml INH ASDIRECTED PRN PRN Reason: * Dextrose (Glutose 15) 15 gm PO ONETIME PRN PRN Reason: Hypoglycemia Dextrose/Water (Dextrose 50% In Water) 50 ml IV ONETIME PRN PRN Reason: Hypoglycemia Diazepam (Valium.) 5 mg PO TID PRN PRN Reason: Pain Enoxaparin Sodium (Lovenox) 60 mg SUBCUT Q24H [facility] Furosemide (Lasix) 40 mg PO DAILY [facility] Last Admin: 09/06/17 09:22 Dose: 40 mg Gabapentin (Neurontin) 300 mg PO BEDTIME [facility] Last Admin: 09/05/17 21:29 Dose: 300 mg Aztreonam/Dextrose 1 gm/ (Premix) 50 mls @ 100 mls/hr IV Q8H [facility] Last Admin: 09/06/17 09:26 Dose: 100 mls/hr Linezolid 600 mg/ Premix 300 mls @ 300 mls/hr IV Q12H [facility] Last Admin: 09/06/17 01:46 Dose: 300 mls/hr Meropenem 500 mg/ Sodium (Chloride) 50 mls @ 100 mls/hr IV Q12H [facility] Dextrose/Lactated Ringer's (Dextrose 5%-Lactated Ringers) 1,000 mls @ 100 mls/ hr IV ASDIRECTED [facility] Insulin Aspart (Novolog) 0 unit SUBCUT QIDACANDBED [facility] PRN Reason: Protocol Last Admin: 09/06/17 06:45 Dose: 15 units Insulin Detemir (Levemir) 39 unit SUBCUT BID [facility] Last Admin: 09/05/17 21:05 Dose: 39 units Lisinopril (Prinivil) 10 mg PO DAILY [facility] Last Admin: 09/05/17 08:51 Dose: 10 mg Morphine Sulfate (Morphine Button Tacker 150 Mg In 30 Ml) 0 mg IV ASDIRECTED PRN; Protocol PRN Reason: PAIN Last Admin: 09/05/17 12:34 Dose: 150 mg Naloxone HCl (Narcan) 0.1 mg IV ASDIRECTED PRN PRN Reason: DECREASED RESPIRATIONS Ondansetron HCl (Zofran) 4 mg IVPUSH Q4H PRN PRN Reason: Nausea/Vomiting Last Admin: 09/05/17 09:16 Dose: 4 mg Pantoprazole Sodium (Protonix Iv) 40 mg IV Q24H [facility] Last Admin: 09/05/17 18:19 Dose: 40 mg Discontinued Medications Acetaminophen (Tylenol Extra Strength) 1,000 mg PO ONETIME ONE Stop: 09/04/17 21:07 Last Admin: 09/04/17 21:31 Dose: 1,000 mg Acetaminophen (Tylenol) 650 mg PO Q4H PRN PRN Reason: Pain (Mild 1-3)/fever Last Admin: 09/05/17 08:17 Dose: 650 mg Albuterol/Ipratropium (Duoneb 3.0-0.5 Mg/3 Ml) 3 ml NEB ONETIME ONE Stop: 09/05/17 16:46 Last Admin: 09/05/17 16:42 Dose: 3 ml Bupivacaine HCl (Marcaine 0.5%) Confirm Administered Dose 50 ml .ROUTE .STK-MED ONE Stop: 09/05/17 13:10 Last Admin: 09/05/17 16:18 Dose: 50 ml Bupivacaine HCl (Marcaine 0.5%) Confirm Administered Dose 50 ml .ROUTE .STK-MED ONE Stop: 09/06/17 06:55 Calcium Carbonate (Caltrate 600+D 1500 Mg-400 Units) 1 tab PO DAILY [facility] Last Admin: 09/05/17 08:51 Dose: 1 tab Cefazolin Sodium (Ancef) Confirm Administered Dose 1 gm .ROUTE .STK-MED ONE Stop: 09/04/17 23:42 Last Admin: 09/05/17 00:11 Dose: 1 gm Cholecalciferol (Vitamin D3) 2,000 units PO DAILY [facility] Last Admin: 09/05/17 08:53 Dose: 2,000 units Dexamethasone (Dexamethasone) Confirm Administered Dose 4 mg .ROUTE .STK-MED ONE Stop: 09/05/17 14:57 Dexamethasone (Dexamethasone) Confirm Administered Dose 4 mg .ROUTE .STK-MED ONE Stop: 09/06/17 07:02 Fentanyl (Sublimaze) Confirm Administered Dose 250 mcg .ROUTE .STK-MED ONE Stop: 09/05/17 14:57 Fentanyl (Sublimaze) Confirm Administered Dose 100 mcg .ROUTE .STK-MED ONE Stop: 09/05/17 16:00 Fentanyl (Sublimaze) Confirm Administered Dose 250 mcg .ROUTE .STK-MED ONE Stop: 09/06/17 07:02 Furosemide (Lasix) 40 mg PO DAILY [facility] Last Admin: 09/05/17 08:51 Dose: 40 mg Glycopyrrolate (Robinul) Confirm Administered Dose 1 mg .ROUTE .STK-MED ONE Stop: 09/05/17 14:57 Hydromorphone HCl (Dilaudid) 0.5 mg IVPUSH ONETIME ONE Stop: 09/04/17 22:12 Last Admin: 09/04/17 22:16 Dose: 0.5 mg Hydromorphone HCl (Dilaudid) 0.5 mg IVPUSH ONETIME ONE Stop: 09/04/17 22:12 Last Admin: 09/05/17 00:08 Dose: 0.5 mg Lactated Ringer's (Ringers, Lactated) 1,000 mls @ 500 mls/hr IV ASDIRECTED [facility] Last Admin: 09/04/17 21:25 Dose: 500 mls/hr Lactated Ringer's (Ringers, Lactated) 1,000 mls @ 125 mls/hr IV ASDIRECTED [facility] Last Admin: 09/05/17 08:48 Dose: 125 mls/hr Cefazolin Sodium/Dextrose 1 gm (/ Premix) 50 mls @ 100 mls/hr IV Q8H [facility] Last Admin: 09/05/17 00:12 Dose: Not Given Sodium Chloride (Normal Saline) Confirm Administered Dose 50 mls @ as directed .ROUTE .STK-MED ONE Stop: 09/04/17 23:42 Last Admin: 09/05/17 00:11 Dose: 50 ml Cefazolin Sodium/Dextrose 1 gm (/ Premix) 50 mls @ 100 mls/hr IV Q8H [facility] Last Admin: 09/05/17 08:47 Dose: 100 mls/hr Meropenem 500 mg/ Sodium (Chloride) 50 mls @ 100 mls/hr IV ONCALL ONE Stop: 09/05/17 14:29 Last Admin: 09/05/17 15:32 Dose: Not Given Linezolid 600 mg/ Premix 300 mls @ 300 mls/hr IV ONETIME ONE Stop: 09/05/17 16:54 Last Admin: 09/05/17 15:55 Dose: 300 mls/hr Aztreonam/Dextrose 1 gm/ (Premix) 50 mls @ 100 mls/hr IV ONETIME ONE Stop: 09/05/17 17:29 Last Admin: 09/05/17 16:58 Dose: 100 mls/hr Meropenem 500 mg/ Sodium (Chloride) 50 mls @ 100 mls/hr IV Q6H [facility] Last Admin: 09/06/17 08:43 Dose: 100 mls/hr Dextrose/Lactated Ringer's (Dextrose 5%-Lactated Ringers) 1,000 mls @ 150 mls/ hr IV ASDIRECTED [facility] Last Admin: 09/05/17 23:43 Dose: 150 mls/hr Lactated Ringer's (Ringers, Lactated) 1,000 mls @ 250 mls/hr IV ASDIRECTED [facility] Stop: 09/05/17 23:01 Lactated Ringer's (Ringers, Lactated) Confirm Administered Dose 1,000 mls @ as directed .ROUTE .STK-MED ONE Stop: 09/06/17 07:12 Insulin Aspart (Novolog) 35 unit SUBCUT ONETIME ONE Stop: 09/05/17 01:11 Last Admin: 09/05/17 01:23 Dose: 35 units Insulin Aspart (Novolog) 35 unit SUBCUT ONETIME ONE Stop: 09/05/17 09:01 Last Admin: 09/05/17 08:49 Dose: 35 units Lidocaine/Epinephrine (Xylocaine 1% With Epinephrine 1:100,000) Confirm Administered Dose 50 ml .ROUTE .STK-MED ONE Stop: 09/05/17 13:10 Last Admin: 09/05/17 16:18 Dose: 50 ml Lidocaine/Epinephrine (Xylocaine 1% With Epinephrine 1:100,000) Confirm Administered Dose 50 ml .ROUTE .STK-MED ONE Stop: 09/06/17 06:55 Multivitamins/Minerals (Thera M Plus) 1 tab PO DAILY [facility] Last Admin: 09/05/17 08:52 Dose: 1 tab Neostigmine Methylsulfate (Neostigmine) Confirm Administered Dose 5 mg .ROUTE .STK-MED ONE Stop: 09/05/17 14:57 Ondansetron HCl (Zofran) Confirm Administered Dose 4 mg .ROUTE .STK-MED ONE Stop: 09/05/17 14:57 Ondansetron HCl (Zofran) Confirm Administered Dose 4 mg .ROUTE .STK-MED ONE Stop: 09/06/17 07:02 Oxycodone/Acetaminophen (Percocet 325-5 Mg) 1 - 2 tab PO Q6HR [facility] Oxycodone/Acetaminophen (Percocet 325-5 Mg) 1 - 2 tab PO Q6HR PRN PRN Reason: Pain Last Admin: 09/05/17 02:02 Dose: 1 tab Oxycodone/Acetaminophen (Percocet 325-5 Mg) 1 - 2 tab PO Q6H PRN PRN Reason: Pain Propofol (Diprivan 20 Ml) Confirm Administered Dose 200 mg .ROUTE .STK-MED ONE Stop: 09/05/17 14:57 Propofol (Diprivan 20 Ml) Confirm Administered Dose 200 mg .ROUTE .STK-MED ONE Stop: 09/06/17 07:02 Rocuronium [place] (Zemuron) Confirm Administered Dose 50 mg .ROUTE .STK-MED ONE Stop: 09/05/17 14:57 Rocuronium [place] (Zemuron) Confirm Administered Dose 50 mg .ROUTE .STK-MED ONE Stop: 09/06/17 07:02 Sodium Chloride (Saline Flush) 10 ml FLUSH ASDIRECTED PRN PRN Reason: Keep Vein Open Last Admin: 09/04/17 21:25 Dose: 10 ml Succinylcholine Chloride (Quelicin) Confirm Administered Dose 200 mg .ROUTE .STK -MED ONE Stop: 09/05/17 14:57 Succinylcholine Chloride (Quelicin) Confirm Administered Dose 200 mg .ROUTE .STK -MED ONE Stop: 09/06/17 07:02 Warfarin Sodium (Coumadin) 5 mg PO SuTuThSa@1300 [facility] Warfarin Sodium 2.5 mg/ (Warfarin Sodium 5 mg) 7.5 mg PO MoWeFr@1300 [facility] Last Admin: 09/05/17 15:33 Dose: Not Given - Exam Quality Assessment: Supplemental Oxygen, Urine Catheter, DVT Prophylaxis General: Alert, Oriented, Cooperative, Mild Distress Lungs: Clear to Auscultation, Normal Respiratory Effort Cardiovascular: Regular Rate, Regular Rhythm, No Murmurs GI/Abdominal Exam: Soft, Non-Tender, No Organomegaly, No Distention Extremities: Non-Tender, Pedal Edema Skin: Warm, Dry - Problem List Review Problem List Initiated/Reviewed/Updated: Yes - My Orders Last 24 Hours: My Active Orders 09/05/17 12:55 Consult to Physician [CONS] Urgent 09/05/17 12:56 Notify Provider Consults [RC] ASDIRECTED 09/05/17 17:37 Communication Order [RC] ASDIRECTED Dextrose 50% in Water 50 ml IV ONETIME PRN Dextrose [Glutose 15] 15 gm PO ONETIME PRN 09/05/17 20:00 Insulin Aspart [NovoLOG] See Protocol SUBCUT QIDACANDBED 09/07/17 05:00 BASIC METABOLIC PANEL,BMP [CHEM] Timed CBC WITH AUTO DIFF [HEME] Timed INR,PT,PROTHROMBIN TIME [COAG] Timed - Plan Plan:: ASSESSMENT AND PLAN NECROTIZING FASCIITIS AND CELLULITIS LEFT THIGH WITH SEPSIS-on surgical exploration yesterday found to have necrotizing fasciitis, stable status post debridement now 2 -Continue current antibiotic therapy with Zyvox, meropenem, and Azactam, pending culture results -Continue IV fluids -Surgical follow-up per Dr. Madrid TYPE 2 DIABETES MELLITUS -4 times a day glucometers -Continue outpatient management HYPOXIA-likely multifactorial related to hypoventilation secondary to medication effect -Continue supplemental oxygen CHRONIC KIDNEY DISEASE STAGE III-renal function has worsened since admission likely secondary to sepsis with intravascular volume depletion, blood pressures have been better over the past 12 hours. -Closely monitor urine output and renal function HISTORY OF DVT AND PULMONARY warfarin has been held and reversed -Continue Lovenox as ordered by Dr. Madrid -Reassess INR in a.m. MAINTENANCE ISSUES -DVT prophylaxis; current therapy with warfarin should provide adequate DVT prophylaxis -GI prophylaxis; not indicated -August catheter; not indicated -Nutrition; nothing by mouth until abscess has been drained -Nicotine dependence; not required CODE STATUS-FULL CODE ADMISSION STATUS-patient will be admitted to inpatient status, expect at least a 2 night hospital stay for evaluation and management of problems as outlined above. At the time of this admission I do not reasonably expected evaluation and management of this problem will require more than a 96 hour hospital stay. DISPOSITION-anticipate discharge to home after the hospital stay. PRIMARY CARE PROVIDER-Dr. Merritt
[2017-09-06] MEDS: Lisinopril 10 MG Tab PO SCH (10:09)
[2017-09-06] MEDS: Enoxaparin 60 MG/0.6 ML Syringe SUBCUT SCH (10:09)
[2017-09-06] MEDS: Insulin Detemir 100 Units/ML 3 ML Pen SUBCUT SCH (10:15)
[2017-09-06] MEDS ORDERED: Warfarin 5 MG Tab PO SCH (13:00)
[2017-09-06] MEDS ORDERED: Lactated Ringers 1,000 ML IV SCH (15:45)
[2017-09-06] MEDS ORDERED: Insulin Aspart 100 Units/ML 3 ML Pen SUBCUT ONE (17:19)
[2017-09-06] MEDS: Pantoprazole 40 MG Vial IV SCH (17:34)
[2017-09-06] MEDS: TRESIBA 200 UNIT/ML SUBCUT SCH (20:56)
[2017-09-06] MEDS: Gabapentin 300 MG Cap PO SCH (21:12)
[2017-09-07] MEDS: Aztreonam/Dextrose-Water 1 GM in Premix Bag 1 BAG IV SCH ×3 (00:15→16:55)
[2017-09-07] MEDS: Linezolid 600 MG in Premix Bag 1 BAG IV SCH ×2 (01:24→13:24)
[2017-09-07] MEDS: Acetaminophen 325 MG Tab PO SCH ×3 (05:18→15:16)
[2017-09-07] MEDS: Albuterol/Ipratropium 3.0-0.5 MG/3 ML Neb Soln INH SCH ×4 (06:35→21:04)
[2017-09-07] MEDS: Insulin Aspart 100 Units/ML 3 ML Pen SUBCUT SCH ×6 (07:40→21:05)
[2017-09-07] MEDS ORDERED: fentaNYL 250 MCG/5 ML SDV ONE (07:41)
[2017-09-07] MEDS ORDERED: Ondansetron 4 MG/2 ML SDV ONE (07:41)
[2017-09-07] MEDS ORDERED: Dexamethasone 4 MG/ML SDV ONE (07:41)
[2017-09-07] MEDS ORDERED: Rocuronium 50 MG/5 ML Vial ONE (07:41)
[2017-09-07] MEDS ORDERED: Propofol 200 MG/20 ML SDV ONE (07:41)
[2017-09-07] MEDS ORDERED: Midazolam 1 MG/ML 2 ML SDV ONE (07:41)
[2017-09-07] MEDS ORDERED: Succinylcholine 200 MG/10 ML MDV ONE (07:41)
[2017-09-07] MEDS ORDERED: Lactated Ringers 1,000 ML ONE (08:07)
[2017-09-07] MEDS: Meropenem 500 MG in Sodium Chloride 0.9% 50 ML IV SCH ×2 (09:18→21:24)
[2017-09-07] MEDS: Lisinopril 10 MG Tab PO SCH (09:55)
[2017-09-07] MEDS: Furosemide 40 MG Tab PO SCH (09:55)
--- NOTE | 2017-09-07 09:55 | PCM.PN ---
- General Info Date of Service: 09/07/17 Subjective Update: Ms. Dumont has been stable over the past 24 hours, no significant temperature elevations and vital signs have been within the desired range. She was back to the operating room again this morning for further debridement. Cultures have remained negative thus far and there has been further improvement in white blood cell count. Blood sugars have been running high, will plan to be more aggressive with supplemental insulin. - Review of Systems General: Reports: Weakness. Denies: Fever, Chills Pulmonary: Reports: No Symptoms Cardiovascular: Reports: No Symptoms Gastrointestinal: Reports: No Symptoms - Patient Data Vitals - Most Recent: Last Vital Signs Temp 96.4 F 09/07/17 09:15 Pulse 71 09/07/17 09:15 Resp 24 H 09/07/17 09:15 BP 138/79 09/07/17 09:15 Pulse Ox 95 09/07/17 09:15 Weight - Most Recent: 310 lb 3.046 oz I&O - Last 24 Hours: Intake & Output 09/06/17 09/07/17 09/07/17 22:59 06:59 14:59 Intake Total 1800 1492 Output Total 650 635 Balance 1150 857 Lab Results Last 24 Hours: Laboratory Results - last 24 hr 09/07/17 09/07/17 09/07/17 Range/Units 04:29 04:29 04:29 WBC 12.6 H (4.5-11.0) K/uL RBC 3.64 (3.30-5.50) M/uL Hgb 10.9 L (12.0-15.0) g/dL Hct 33.8 L (36.0-48.0) % MCV 93 (80-98) fL MCH 30 (27-31) pg MCHC 32 (32-36) % Plt Count 274 (150-400) K/uL Neut % (Auto) 87 H (36-66) % Lymph % (Auto) 6 L (24-44) % [place] % (Auto) 7 H (2-6) % Eos % (Auto) 0 L (2-4) % Baso % (Auto) 0 (0-1) % PT 13.3 H (9.5-12.0) sec INR 1.23 H (0.80-1.20) Sodium 136 L (140-148) mmol/L Potassium 4.6 (3.6-5.2) mmol/L Chloride 101 (100-108) mmol/L Carbon Dioxide 27 (21-32) mmol/L Anion Gap 12.6 (5.0-14.0) mmol/L BUN 38 H (7-18) mg/dL Creatinine 2.2 H (0.6-1.0) mg/dL Est Cr Clr Drug Dosing 25.39 mL/min Estimated GFR (MDRD) 23 L (>60) Glucose 364 H (74-106) mg/dL Calcium 7.9 L (8.5-10.1) mg/dL Johnson Results Last 24 Hours: Microbiology 09/05/17 15:29 Gram Stain - Final Perineum Wound Culture - Preliminary Gram Positive Rods Anaerobic Culture - Preliminary NO GROWTH AFTER 1 DAY 09/05/17 15:34 Gram Stain - Final Perineum Wound Culture - Preliminary Gram Positive Rods Anaerobic Culture - Preliminary NO GROWTH AFTER 1 DAY Med Orders - Current: Current Medications Acetaminophen (Tylenol) 650 mg PO Q6H [facility] Last Admin: 09/07/17 05:18 Dose: Not Given Albuterol/Ipratropium (Duoneb 3.0-0.5 Mg/3 Ml) 3 ml INH QIDRT [facility] Last Admin: 09/07/17 06:35 Dose: 3 ml Albuterol/Ipratropium (Duoneb 3.0-0.5 Mg/3 Ml) 3 ml INH ASDIRECTED PRN PRN Reason: * Dextrose (Glutose 15) 15 gm PO ONETIME PRN PRN Reason: Hypoglycemia Dextrose/Water (Dextrose 50% In Water) 50 ml IV ONETIME PRN PRN Reason: Hypoglycemia Diazepam (Valium.) 5 mg PO TID PRN PRN Reason: Pain Enoxaparin Sodium (Lovenox) 60 mg SUBCUT Q24H [facility] Last Admin: 09/06/17 10:09 Dose: 60 mg Furosemide (Lasix) 40 mg PO DAILY [facility] Last Admin: 09/06/17 09:22 Dose: 40 mg Gabapentin (Neurontin) 300 mg PO BEDTIME [facility] Last Admin: 09/06/17 21:12 Dose: 300 mg Aztreonam/Dextrose 1 gm/ (Premix) 50 mls @ 100 mls/hr IV Q8H [facility] Last Admin: 09/07/17 00:15 Dose: 100 mls/hr Linezolid 600 mg/ Premix 300 mls @ 300 mls/hr IV Q12H [facility] Last Admin: 09/07/17 01:24 Dose: 300 mls/hr Meropenem 500 mg/ Sodium (Chloride) 50 mls @ 100 mls/hr IV Q12H [facility] Last Admin: 09/07/17 09:18 Dose: 100 mls/hr Insulin Aspart (Novolog) 0 unit SUBCUT QIDACANDBED [facility] PRN Reason: Protocol Last Admin: 09/07/17 07:40 Dose: 15 units Lisinopril (Prinivil) 10 mg PO DAILY [facility] Last Admin: 09/06/17 10:09 Dose: 10 mg Morphine Sulfate (Morphine Accelerator Technician 150 Mg In 30 Ml) 0 mg IV ASDIRECTED PRN; Protocol PRN Reason: PAIN Last Admin: 09/05/17 12:34 Dose: 150 mg Naloxone HCl (Narcan) 0.1 mg IV ASDIRECTED PRN PRN Reason: DECREASED RESPIRATIONS Ondansetron HCl (Zofran) 4 mg IVPUSH Q4H PRN PRN Reason: Nausea/Vomiting Last Admin: 09/05/17 09:16 Dose: 4 mg Pantoprazole Sodium (Protonix Iv) 40 mg IV Q24H [facility] Last Admin: 09/06/17 17:34 Dose: 40 mg Tresiba Pen 200 (Units/Ml (Ptom)) 0 each SUBCUT Q24H [facility] Last Admin: 09/06/17 20:56 Dose: 1 each Discontinued Medications Acetaminophen (Tylenol Extra Strength) 1,000 mg PO ONETIME ONE Stop: 09/04/17 21:07 Last Admin: 09/04/17 21:31 Dose: 1,000 mg Acetaminophen (Tylenol) 650 mg PO Q4H PRN PRN Reason: Pain (Mild 1-3)/fever Last Admin: 09/05/17 08:17 Dose: 650 mg Albuterol/Ipratropium (Duoneb 3.0-0.5 Mg/3 Ml) 3 ml NEB ONETIME ONE Stop: 09/05/17 16:46 Last Admin: 09/05/17 16:42 Dose: 3 ml Bupivacaine HCl (Marcaine 0.5%) Confirm Administered Dose 50 ml .ROUTE .STK-MED ONE Stop: 09/05/17 13:10 Last Admin: 09/05/17 16:18 Dose: 50 ml Bupivacaine HCl (Marcaine 0.5%) Confirm Administered Dose 50 ml .ROUTE .STK-MED ONE Stop: 09/06/17 06:55 Calcium Carbonate (Caltrate 600+D 1500 Mg-400 Units) 1 tab PO DAILY [facility] Last Admin: 09/05/17 08:51 Dose: 1 tab Cefazolin Sodium (Ancef) Confirm Administered Dose 1 gm .ROUTE .STK-MED ONE Stop: 09/04/17 23:42 Last Admin: 09/05/17 00:11 Dose: 1 gm Cholecalciferol (Vitamin D3) 2,000 units PO DAILY [facility] Last Admin: 09/05/17 08:53 Dose: 2,000 units Dexamethasone (Dexamethasone) Confirm Administered Dose 4 mg .ROUTE .STK-MED ONE Stop: 09/05/17 14:57 Dexamethasone (Dexamethasone) Confirm Administered Dose 4 mg .ROUTE .ST-MED ONE Stop: 09/06/17 07:02 Dexamethasone (Dexamethasone) Confirm Administered Dose 4 mg .ROUTE .ST-MED ONE Stop: 09/07/17 07:42 Fentanyl (Sublimaze) Confirm Administered Dose 250 mcg .ROUTE .STK-MED ONE Stop: 09/05/17 14:57 Fentanyl (Sublimaze) Confirm Administered Dose 100 mcg .ROUTE .STK-MED ONE Stop: 09/05/17 16:00 Fentanyl (Sublimaze) Confirm Administered Dose 250 mcg .ROUTE .STK-MED ONE Stop: 09/06/17 07:02 Fentanyl (Sublimaze) Confirm Administered Dose 250 mcg .ROUTE .STK-MED ONE Stop: 09/07/17 07:42 Furosemide (Lasix) 40 mg PO DAILY [facility] Last Admin: 09/05/17 08:51 Dose: 40 mg Glycopyrrolate (Robinul) Confirm Administered Dose 1 mg .ROUTE .STK-MED ONE Stop: 09/05/17 14:57 Hydromorphone HCl (Dilaudid) 0.5 mg IVPUSH ONETIME ONE Stop: 09/04/17 22:12 Last Admin: 09/04/17 22:16 Dose: 0.5 mg Hydromorphone HCl (Dilaudid) 0.5 mg IVPUSH ONETIME ONE Stop: 09/04/17 22:12 Last Admin: 09/05/17 00:08 Dose: 0.5 mg Lactated Ringer's (Ringers, Lactated) 1,000 mls @ 500 mls/hr IV ASDIRECTED [facility] Last Admin: 09/04/17 21:25 Dose: 500 mls/hr Lactated Ringer's (Ringers, Lactated) 1,000 mls @ 125 mls/hr IV ASDIRECTED [facility] Last Admin: 09/05/17 08:48 Dose: 125 mls/hr Cefazolin Sodium/Dextrose 1 gm (/ Premix) 50 mls @ 100 mls/hr IV Q8H [facility] Last Admin: 09/05/17 00:12 Dose: Not Given Sodium Chloride (Normal Saline) Confirm Administered Dose 50 mls @ as directed .ROUTE .[facility]-MED ONE Stop: 09/04/17 23:42 Last Admin: 09/05/17 00:11 Dose: 50 ml Cefazolin Sodium/Dextrose 1 gm (/ Premix) 50 mls @ 100 mls/hr IV Q8H [facility] Last Admin: 09/05/17 08:47 Dose: 100 mls/hr Meropenem 500 mg/ Sodium (Chloride) 50 mls @ 100 mls/hr IV ONCALL ONE Stop: 09/05/17 14:29 Last Admin: 09/05/17 15:32 Dose: Not Given Linezolid 600 mg/ Premix 300 mls @ 300 mls/hr IV ONETIME ONE Stop: 09/05/17 16:54 Last Admin: 09/05/17 15:55 Dose: 300 mls/hr Aztreonam/Dextrose 1 gm/ (Premix) 50 mls @ 100 mls/hr IV ONETIME ONE Stop: 09/05/17 17:29 Last Admin: 09/05/17 16:58 Dose: 100 mls/hr Meropenem 500 mg/ Sodium (Chloride) 50 mls @ 100 mls/hr IV Q6H [facility] Last Admin: 09/06/17 08:43 Dose: 100 mls/hr Dextrose/Lactated Ringer's (Dextrose 5%-Lactated Ringers) 1,000 mls @ 150 mls/ hr IV ASDIRECTED [facility] Last Admin: 09/05/17 23:43 Dose: 150 mls/hr Lactated Ringer's (Ringers, Lactated) 1,000 mls @ 250 mls/hr IV ASDIRECTED [facility] Stop: 09/05/17 23:01 Lactated Ringer's (Ringers, Lactated) Confirm Administered Dose 1,000 mls @ as directed .ROUTE .STK-MED ONE Stop: 09/06/17 07:12 Dextrose/Lactated Ringer's (Dextrose 5%-Lactated Ringers) 1,000 mls @ 100 mls/ hr IV ASDIRECTED [place] Lactated Ringer's (Ringers, Lactated) 1,000 mls @ 50 mls/hr IV ASDIRECTED [facility] Last Admin: 09/06/17 15:40 Dose: 50 mls/hr Lactated Ringer's (Ringers, Lactated) Confirm Administered Dose 1,000 mls @ as directed .ROUTE .STK-MED ONE Stop: 09/07/17 08:08 Insulin Aspart (Novolog) 35 unit SUBCUT ONETIME ONE Stop: 09/05/17 01:11 Last Admin: 09/05/17 01:23 Dose: 35 units Insulin Aspart (Novolog) 35 unit SUBCUT ONETIME ONE Stop: 09/05/17 09:01 Last Admin: 09/05/17 08:49 Dose: 35 units Insulin Aspart (Novolog) 20 unit SUBCUT ONETIME ONE Stop: 09/06/17 17:20 Last Admin: 09/06/17 17:32 Dose: 20 unit Insulin Detemir (Levemir) 39 unit SUBCUT BID [facility] Stop: 09/06/17 12:00 Last Admin: 09/06/17 10:15 Dose: 39 units Lidocaine/Epinephrine (Xylocaine 1% With Epinephrine 1:100,000) Confirm Administered Dose 50 ml .ROUTE .STK-MED ONE Stop: 09/05/17 13:10 Last Admin: 09/05/17 16:18 Dose: 50 ml Lidocaine/Epinephrine (Xylocaine 1% With Epinephrine 1:100,000) Confirm Administered Dose 50 ml .ROUTE .STK-MED ONE Stop: 09/06/17 06:55 Midazolam HCl (Versed 1 Mg/Ml) Confirm Administered Dose 2 mg .ROUTE .STK-MED ONE Stop: 09/07/17 07:42 Multivitamins/Minerals (Thera M Plus) 1 tab PO DAILY [facility] Last Admin: 09/05/17 08:52 Dose: 1 tab Neostigmine Methylsulfate (Neostigmine) Confirm Administered Dose 5 mg .ROUTE .STK-MED ONE Stop: 09/05/17 14:57 Ondansetron HCl (Zofran) Confirm Administered Dose 4 mg .ROUTE .STK-MED ONE Stop: 09/05/17 14:57 Ondansetron HCl (Zofran) Confirm Administered Dose 4 mg .ROUTE .STK-MED ONE Stop: 09/06/17 07:02 Ondansetron HCl (Zofran) Confirm Administered Dose 4 mg .ROUTE .STK-MED ONE Stop: 09/07/17 07:42 Oxycodone/Acetaminophen (Percocet 325-5 Mg) 1 - 2 tab PO Q6HR [facility] Oxycodone/Acetaminophen (Percocet 325-5 Mg) 1 - 2 tab PO Q6HR PRN PRN Reason: Pain Last Admin: 09/05/17 02:02 Dose: 1 tab Oxycodone/Acetaminophen (Percocet 325-5 Mg) 1 - 2 tab PO Q6H PRN PRN Reason: Pain Propofol (Diprivan 20 Ml) Confirm Administered Dose 200 mg .ROUTE .STK-MED ONE Stop: 09/05/17 14:57 Propofol (Diprivan 20 Ml) Confirm Administered Dose 200 mg .ROUTE .STK-MED ONE Stop: 09/06/17 07:02 Propofol (Diprivan 20 Ml) Confirm Administered Dose 200 mg .ROUTE .STK-MED ONE Stop: 09/07/17 07:42 Rocuronium [place] (Zemuron) Confirm Administered Dose 50 mg .ROUTE .STK-MED ONE Stop: 09/05/17 14:57 Rocuronium [place] (Zemuron) Confirm Administered Dose 50 mg .ROUTE .STK-MED ONE Stop: 09/06/17 07:02 Rocuronium [place] (Zemuron) Confirm Administered Dose 50 mg .ROUTE .STK-MED ONE Stop: 09/07/17 07:42 Sodium Chloride (Saline Flush) 10 ml FLUSH ASDIRECTED PRN PRN Reason: Keep Vein Open Last Admin: 09/04/17 21:25 Dose: 10 ml Succinylcholine Chloride (Quelicin) Confirm Administered Dose 200 mg .ROUTE .STK -MED ONE Stop: 09/05/17 14:57 Succinylcholine Chloride (Quelicin) Confirm Administered Dose 200 mg .ROUTE .STK -MED ONE Stop: 09/06/17 07:02 Succinylcholine Chloride (Quelicin) Confirm Administered Dose 200 mg .ROUTE .STK -MED ONE Stop: 09/07/17 07:42 Warfarin Sodium (Coumadin) 5 mg PO SuTuThSa@1300 [place] Warfarin Sodium 2.5 mg/ (Warfarin Sodium 5 mg) 7.5 mg PO MoWeFr@1300 [place] Last Admin: 09/05/17 15:33 Dose: Not Given - Exam Quality Assessment: DVT Prophylaxis General: Alert, Oriented, Cooperative Lungs: Clear to Auscultation, Normal Respiratory Effort Cardiovascular: Regular Rate, Regular Rhythm, No Murmurs GI/Abdominal Exam: Soft, Non-Tender, No Organomegaly, No Distention Extremities: Non-Tender, Pedal Edema - Problem List Review Problem List Initiated/Reviewed/Updated: Yes - My Orders Last 24 Hours: My Active Orders 09/07/17 09:50 Convert IV to Saline Lock [OM.PC] Routine 09/08/17 05:00 BASIC METABOLIC PANEL,BMP [CHEM] Timed CBC WITH AUTO DIFF [HEME] Timed MAGNESIUM [CHEM] Timed - Plan Plan:: ASSESSMENT AND PLAN NECROTIZING FASCIITIS AND CELLULITIS LEFT THIGH WITH SEPSIS-stable and doing well, cultures remain negative -Continue current antibiotic therapy with Zyvox, meropenem, and Azactam, pending culture results -Saline lock IV -Surgical follow-up per Dr. Madrid TYPE 2 DIABETES MELLITUS -4 times a day glucometers -Continue outpatient management, including patient's usual sliding scale HYPOXIA-resolved -Continue supplemental oxygen as needed CHRONIC KIDNEY DISEASE STAGE III-renal function stable over the past 24 hours with improved urine output -Closely monitor urine output and renal function HISTORY OF DVT AND PULMONARY EMBOLI- warfarin has been held and reversed -Continue Lovenox as ordered by Dr. Madrid -Reassess INR in a.m. MAINTENANCE ISSUES -DVT prophylaxis; current therapy with warfarin should provide adequate DVT prophylaxis -GI prophylaxis; not indicated -August catheter; not indicated -Nutrition; nothing by mouth until abscess has been drained -Nicotine dependence; not required CODE STATUS-FULL CODE ADMISSION STATUS-patient will be admitted to inpatient status, expect at least a 2 night hospital stay for evaluation and management of problems as outlined above. At the time of this admission I do not reasonably expected evaluation and management of this problem will require more than a 96 hour hospital stay. DISPOSITION-anticipate discharge to home after the hospital stay. PRIMARY CARE PROVIDER-Dr. Merritt
[2017-09-07] MEDS: Enoxaparin 60 MG/0.6 ML Syringe SUBCUT SCH (10:46)
[2017-09-07] MEDS: Acetaminophen/oxyCODONE 325-5 MG Tab PO PRN (15:16)
[2017-09-07] MEDS ORDERED: Acetaminophen 325 MG Tab PO PRN (15:35)
[2017-09-07] MEDS: Pantoprazole 40 MG Vial IV SCH (17:44)
[2017-09-07] MEDS: TRESIBA 200 UNIT/ML SUBCUT SCH (21:01)
[2017-09-07] MEDS: Melatonin 3 MG Tab PO SCH (21:07)
[2017-09-07] MEDS: Gabapentin 300 MG Cap PO SCH (21:07)
[2017-09-07] MEDS: ceFAZolin 1 GM in Premix Bag 1 BAG IV SCH (22:10)
[2017-09-08] MEDS: Aztreonam/Dextrose-Water 1 GM in Premix Bag 1 BAG IV SCH ×2 (01:11→08:31)
[2017-09-08] MEDS: Linezolid 600 MG in Premix Bag 1 BAG IV SCH ×2 (01:44→14:22)
[2017-09-08] MEDS: Albuterol/Ipratropium 3.0-0.5 MG/3 ML Neb Soln INH SCH ×4 (07:09→20:15)
[2017-09-08] MEDS: Insulin Aspart 100 Units/ML 3 ML Pen SUBCUT SCH ×4 (07:41→20:15)
--- NOTE | 2017-09-08 08:06 | OR ---
DATE OF PROCEDURE: 09/04/2017 PREOPERATIVE DIAGNOSIS: Necrotizing fasciitis, left peroneal area. POSTOPERATIVE DIAGNOSIS: Necrotizing fasciitis, left peroneal area. OPERATIVE PROCEDURE: Debridement of necrotizing fasciitis, left peroneal area (43990). ANESTHESIA: General. INDICATION FOR PROCEDURE: The patient once again to undergo an inspection and ensure treatment of the necrotizing fasciitis involving the left peroneal area. Plan is to proceed with a general anesthetic with inspection of wound and debridement as necessary. Potential risks including bleeding and further infection were reviewed, and the patient wishes to proceed. DETAILS OF PROCEDURE: The patient was taken to the operating room and placed in a supine position. After general endotracheal anesthesia was induced, she was converted to a lithotomy position and a dressing taken down. The wound inspected and was found to only have a small amount of area of additional necrotic subcutaneous tissue at this point, as well as tiny rim of necrotic muscle. At this point, was clearly no additional spreading infection. Those areas were debrided and packing placed. The patient was taken to the recovery room in satisfactory condition. At this point, we will begin dressing changes at the bedside tomorrow. Adam Madrid MD /[id number]
[2017-09-08] MEDS: Furosemide 40 MG Tab PO SCH (08:32)
[2017-09-08] MEDS: Lisinopril 10 MG Tab PO SCH (08:32)
--- NOTE | 2017-09-08 09:16 | PN ---
DATE OF SERVICE: 09/08/2017 SUBJECTIVE: Caitie is postop day #3, her pain has been managed. She has been up ambulating. Hemoglobin this morning was 10.9, INR was 1.23, creatinine 1.9, GFR 27. REVIEW OF SYSTEMS: Remainder of review of systems is negative for any pertinent positives and negatives. OBJECTIVE: GENERAL: Caitie Dumont is a 62-year-old female. She is alert and orientated, color pale. VITAL SIGNS: TPR, 96.2, 63, 18, blood pressure 125/75. HEENT: Negative. NECK: Supple. HEART: Regular rate and rhythm. LUNGS: Clear. ABDOMEN: Soft and nontender. EXTREMITIES: SCDs are on. Incision examined by Adam Madrid M.D. ASSESSMENT: Necrotizing fasciitis, left perineal area, and debridement of necrotizing fasciitis. Date of procedure 09/05/2017. PLAN: Continue to check blood sugars. DC August catheter. Dressing change with 4x4's and perineal pads, to be changed q.12 hours, one time after on shower. Coumadin 10 mg one time today. To have communication order written to have incision intact and ready for Dr. Madrid to examine the wound at the time of rounds on 09/09/2017 at 0630 hours. Good pulmonary toilet. We will evaluate p.r.n. or in a.m. Kimmy Tran PA-C /[id number]
[2017-09-08] MEDS: Meropenem 500 MG in Sodium Chloride 0.9% 50 ML IV SCH ×2 (09:20→20:24)
[2017-09-08] MEDS: Enoxaparin 60 MG/0.6 ML Syringe SUBCUT SCH (10:00)
--- NOTE | 2017-09-08 10:44 | PCM.PN ---
- General Info Date of Service: 09/08/17 Subjective Update: Ms. Dumont has been stable since yesterday, urine output has remained good and renal function has shown further improvement. Blood sugars are under better control and she has remained afebrile with good vital signs. Pain seems to be improved and she has been able to move about somewhat more freely. Functional Status: Reports: Pain Controlled, Tolerating Diet, Ambulating - Review of Systems General: Denies: Fever, Chills Pulmonary: Reports: No Symptoms Cardiovascular: Reports: No Symptoms Gastrointestinal: Reports: No Symptoms - Patient Data Vitals - Most Recent: Last Vital Signs Temp 96.1 F 09/08/17 10:38 Pulse 69 09/08/17 10:38 Resp 18 09/08/17 10:38 BP 125/75 09/08/17 08:32 Pulse Ox 95 09/08/17 10:38 Weight - Most Recent: 310 lb 3.046 oz I&O - Last 24 Hours: Intake & Output 09/07/17 09/08/17 09/08/17 22:59 06:59 14:59 Intake Total 1890 1250 Output Total 1950 1450 725 Balance -60 -200 -725 Lab Results Last 24 Hours: Laboratory Results - last 24 hr 09/08/17 09/08/17 09/08/17 Range/Units 05:00 05:00 05:00 WBC 9.5 (4.5-11.0) K/uL RBC 3.70 (3.30-5.50) M/uL Hgb 10.9 L (12.0-15.0) g/dL Hct 34.5 L (36.0-48.0) % MCV 93 (80-98) fL MCH 30 (27-31) pg MCHC 32 (32-36) % Plt Count 296 (150-400) K/uL Neut % (Auto) 84 H (36-66) % Lymph % (Auto) 9 L (24-44) % [place] % (Auto) 7 H (2-6) % Eos % (Auto) 1 L (2-4) % Baso % (Auto) 0 (0-1) % PT 13.3 H (9.5-12.0) sec INR 1.23 H (0.80-1.20) Sodium 141 (140-148) mmol/L Potassium 4.0 (3.6-5.2) mmol/L Chloride 105 (100-108) mmol/L Carbon Dioxide 27 (21-32) mmol/L Anion Gap 9.4 (5.0-14.0) mmol/L BUN 38 H (7-18) mg/dL Creatinine 1.9 H (0.6-1.0) mg/dL Est Cr Clr Drug Dosing 29.39 mL/min Estimated GFR (MDRD) 27 L (>60) Glucose 198 H (74-106) mg/dL Calcium 7.6 L (8.5-10.1) mg/dL Magnesium 1.8 (1.8-2.4) mg/dL Johnson Results Last 24 Hours: Microbiology 09/05/17 15:34 Gram Stain - Final Perineum Wound Culture - Final Gram Positive Rods Anaerobic Culture - Preliminary NO GROWTH AFTER 2 DAYS 09/05/17 15:29 Gram Stain - Final Perineum Wound Culture - Final Gram Positive Rods Anaerobic Culture - Preliminary NO GROWTH AFTER 2 DAYS Med Orders - Current: Current Medications Acetaminophen (Tylenol) 325 - 650 mg PO Q4H PRN PRN Reason: Pain Albuterol/Ipratropium (Duoneb 3.0-0.5 Mg/3 Ml) 3 ml INH QIDRT [facility] Last Admin: 09/08/17 07:09 Dose: 3 ml Albuterol/Ipratropium (Duoneb 3.0-0.5 Mg/3 Ml) 3 ml INH ASDIRECTED PRN PRN Reason: * Dextrose (Glutose 15) 15 gm PO ONETIME PRN PRN Reason: Hypoglycemia Dextrose/Water (Dextrose 50% In Water) 50 ml IV ONETIME PRN PRN Reason: Hypoglycemia Diazepam (Valium.) 5 mg PO TID PRN PRN Reason: Pain Enoxaparin Sodium (Lovenox) 60 mg SUBCUT Q24H [facility] Last Admin: 09/08/17 10:00 Dose: 60 mg Furosemide (Lasix) 40 mg PO DAILY [facility] Last Admin: 09/08/17 08:32 Dose: 40 mg Gabapentin (Neurontin) 300 mg PO BEDTIME [facility] Last Admin: 09/07/17 21:07 Dose: 300 mg Linezolid 600 mg/ Premix 300 mls @ 300 mls/hr IV Q12H [facility] Last Admin: 09/08/17 01:44 Dose: 300 mls/hr Meropenem 500 mg/ Sodium (Chloride) 50 mls @ 100 mls/hr IV Q12H [facility] Last Admin: 09/08/17 09:20 Dose: 100 mls/hr Insulin Aspart (Novolog) 0 unit SUBCUT QIDACANDBED [facility] PRN Reason: Protocol Last Admin: 09/08/17 07:41 Dose: 46 units Lactobacillus Rhamnosus (Culturelle) 2 cap PO BID [facility] Lisinopril (Prinivil) 10 mg PO DAILY [facility] Last Admin: 09/08/17 08:32 Dose: 10 mg Melatonin (Melatonin) 9 mg PO BEDTIME [facility] Last Admin: 09/07/17 21:07 Dose: 9 mg Ondansetron HCl (Zofran) 4 mg IVPUSH Q4H PRN PRN Reason: Nausea/Vomiting Last Admin: 09/05/17 09:16 Dose: 4 mg Oxycodone/Acetaminophen (Percocet 325-5 Mg) 1 - 2 tab PO Q4H PRN PRN Reason: Pain Last Admin: 09/07/17 15:16 Dose: 1 tab Pantoprazole Sodium (Protonix) 40 mg PO Q24H [facility] Tresiba Pen 200 (Units/Ml (Ptom)) 0 each SUBCUT Q24H [facility] Last Admin: 09/07/17 21:01 Dose: 1 each Warfarin Sodium (Coumadin) 10 mg PO ONETIME ONE Stop: 09/08/17 13:01 Discontinued Medications Acetaminophen (Tylenol Extra Strength) 1,000 mg PO ONETIME ONE Stop: 09/04/17 21:07 Last Admin: 09/04/17 21:31 Dose: 1,000 mg Acetaminophen (Tylenol) 650 mg PO Q4H PRN PRN Reason: Pain (Mild 1-3)/fever Last Admin: 09/05/17 08:17 Dose: 650 mg Acetaminophen (Tylenol) 650 mg PO Q6H [facility] Last Admin: 09/07/17 15:16 Dose: 325 mg Albuterol/Ipratropium (Duoneb 3.0-0.5 Mg/3 Ml) 3 ml NEB ONETIME ONE Stop: 09/05/17 16:46 Last Admin: 09/05/17 16:42 Dose: 3 ml Bupivacaine HCl (Marcaine 0.5%) Confirm Administered Dose 50 ml .ROUTE .STK-MED ONE Stop: 09/05/17 13:10 Last Admin: 09/05/17 16:18 Dose: 50 ml Bupivacaine HCl (Marcaine 0.5%) Confirm Administered Dose 50 ml .ROUTE .STK-MED ONE Stop: 09/06/17 06:55 Calcium Carbonate (Caltrate 600+D 1500 Mg-400 Units) 1 tab PO DAILY [facility] Last Admin: 09/05/17 08:51 Dose: 1 tab Cefazolin Sodium (Ancef) Confirm Administered Dose 1 gm .ROUTE .STK-MED ONE Stop: 09/04/17 23:42 Last Admin: 09/05/17 00:11 Dose: 1 gm Cholecalciferol (Vitamin D3) 2,000 units PO DAILY [facility] Last Admin: 09/05/17 08:53 Dose: 2,000 units Dexamethasone (Dexamethasone) Confirm Administered Dose 4 mg .ROUTE .STK-MED ONE Stop: 09/05/17 14:57 Dexamethasone (Dexamethasone) Confirm Administered Dose 4 mg .ROUTE .ST-MED ONE Stop: 09/06/17 07:02 Dexamethasone (Dexamethasone) Confirm Administered Dose 4 mg .ROUTE .ST-MED ONE Stop: 09/07/17 07:42 Fentanyl (Sublimaze) Confirm Administered Dose 250 mcg .ROUTE .ST-MED ONE Stop: 09/05/17 14:57 Fentanyl (Sublimaze) Confirm Administered Dose 100 mcg .ROUTE .STK-MED ONE Stop: 09/05/17 16:00 Fentanyl (Sublimaze) Confirm Administered Dose 250 mcg .ROUTE .STK-MED ONE Stop: 09/06/17 07:02 Fentanyl (Sublimaze) Confirm Administered Dose 250 mcg .ROUTE .STK-MED ONE Stop: 09/07/17 07:42 Furosemide (Lasix) 40 mg PO DAILY [facility] Last Admin: 09/05/17 08:51 Dose: 40 mg Glycopyrrolate (Robinul) Confirm Administered Dose 1 mg .ROUTE .STK-MED ONE Stop: 09/05/17 14:57 Hydromorphone HCl (Dilaudid) 0.5 mg IVPUSH ONETIME ONE Stop: 09/04/17 22:12 Last Admin: 09/04/17 22:16 Dose: 0.5 mg Hydromorphone HCl (Dilaudid) 0.5 mg IVPUSH ONETIME ONE Stop: 09/04/17 22:12 Last Admin: 09/05/17 00:08 Dose: 0.5 mg Lactated Ringer's (Ringers, Lactated) 1,000 mls @ 500 mls/hr IV ASDIRECTED [facility] Last Admin: 09/04/17 21:25 Dose: 500 mls/hr Lactated Ringer's (Ringers, Lactated) 1,000 mls @ 125 mls/hr IV ASDIRECTED [facility] Last Admin: 09/05/17 08:48 Dose: 125 mls/hr Cefazolin Sodium/Dextrose 1 gm (/ Premix) 50 mls @ 100 mls/hr IV Q8H [facility] Last Admin: 09/05/17 00:12 Dose: Not Given Sodium Chloride (Normal Saline) Confirm Administered Dose 50 mls @ as directed .ROUTE .STK-MED ONE Stop: 09/04/17 23:42 Last Admin: 09/05/17 00:11 Dose: 50 ml Cefazolin Sodium/Dextrose 1 gm (/ Premix) 50 mls @ 100 mls/hr IV Q8H [facility] Last Admin: 09/07/17 22:10 Dose: Not Given Meropenem 500 mg/ Sodium (Chloride) 50 mls @ 100 mls/hr IV ONCALL ONE Stop: 09/05/17 14:29 Last Admin: 09/05/17 15:32 Dose: Not Given Linezolid 600 mg/ Premix 300 mls @ 300 mls/hr IV ONETIME ONE Stop: 09/05/17 16:54 Last Admin: 09/05/17 15:55 Dose: 300 mls/hr Aztreonam/Dextrose 1 gm/ (Premix) 50 mls @ 100 mls/hr IV ONETIME ONE Stop: 09/05/17 17:29 Last Admin: 09/05/17 16:58 Dose: 100 mls/hr Meropenem 500 mg/ Sodium (Chloride) 50 mls @ 100 mls/hr IV Q6H [facility] Last Admin: 09/06/17 08:43 Dose: 100 mls/hr Aztreonam/Dextrose 1 gm/ (Premix) 50 mls @ 100 mls/hr IV Q8H [facility] Last Admin: 09/08/17 08:31 Dose: 100 mls/hr Dextrose/Lactated Ringer's (Dextrose 5%-Lactated Ringers) 1,000 mls @ 150 mls/ hr IV ASDIRECTED [facility] Last Admin: 09/05/17 23:43 Dose: 150 mls/hr Lactated Ringer's (Ringers, Lactated) 1,000 mls @ 250 mls/hr IV ASDIRECTED [facility] Stop: 09/05/17 23:01 Lactated Ringer's (Ringers, Lactated) Confirm Administered Dose 1,000 mls @ as directed .ROUTE .STK-MED ONE Stop: 09/06/17 07:12 Dextrose/Lactated Ringer's (Dextrose 5%-Lactated Ringers) 1,000 mls @ 100 mls/ hr IV ASDIRECTED [place] Lactated Ringer's (Ringers, Lactated) 1,000 mls @ 50 mls/hr IV ASDIRECTED [facility] Last Admin: 09/06/17 15:40 Dose: 50 mls/hr Lactated Ringer's (Ringers, Lactated) Confirm Administered Dose 1,000 mls @ as directed .ROUTE .STK-MED ONE Stop: 09/07/17 08:08 Insulin Aspart (Novolog) 35 unit SUBCUT ONETIME ONE Stop: 09/05/17 01:11 Last Admin: 09/05/17 01:23 Dose: 35 units Insulin Aspart (Novolog) 35 unit SUBCUT ONETIME ONE Stop: 09/05/17 09:01 Last Admin: 09/05/17 08:49 Dose: 35 units Insulin Aspart (Novolog) 20 unit SUBCUT ONETIME ONE Stop: 09/06/17 17:20 Last Admin: 09/06/17 17:32 Dose: 20 unit Insulin Detemir (Levemir) 39 unit SUBCUT BID [facility] Stop: 09/06/17 12:00 Last Admin: 09/06/17 10:15 Dose: 39 units Lidocaine/Epinephrine (Xylocaine 1% With Epinephrine 1:100,000) Confirm Administered Dose 50 ml .ROUTE .STK-MED ONE Stop: 09/05/17 13:10 Last Admin: 09/05/17 16:18 Dose: 50 ml Lidocaine/Epinephrine (Xylocaine 1% With Epinephrine 1:100,000) Confirm Administered Dose 50 ml .ROUTE .STK-MED ONE Stop: 09/06/17 06:55 Midazolam HCl (Versed 1 Mg/Ml) Confirm Administered Dose 2 mg .ROUTE .STK-MED ONE Stop: 09/07/17 07:42 Morphine Sulfate (Morphine Microphone Boom Operator 150 Mg In 30 Ml) 0 mg IV ASDIRECTED PRN; Protocol PRN Reason: PAIN Last Admin: 09/05/17 12:34 Dose: 150 mg Multivitamins/Minerals (Thera M Plus) 1 tab PO DAILY [facility] Last Admin: 09/05/17 08:52 Dose: 1 tab Naloxone HCl (Narcan) 0.1 mg IV ASDIRECTED PRN PRN Reason: DECREASED RESPIRATIONS Neostigmine Methylsulfate (Neostigmine) Confirm Administered Dose 5 mg .ROUTE .STK-MED ONE Stop: 09/05/17 14:57 Ondansetron HCl (Zofran) Confirm Administered Dose 4 mg .ROUTE .STK-MED ONE Stop: 09/05/17 14:57 Ondansetron HCl (Zofran) Confirm Administered Dose 4 mg .ROUTE .STK-MED ONE Stop: 09/06/17 07:02 Ondansetron HCl (Zofran) Confirm Administered Dose 4 mg .ROUTE .STK-MED ONE Stop: 09/07/17 07:42 Oxycodone/Acetaminophen (Percocet 325-5 Mg) 1 - 2 tab PO Q6HR [facility] Oxycodone/Acetaminophen (Percocet 325-5 Mg) 1 - 2 tab PO Q6HR PRN PRN Reason: Pain Last Admin: 09/05/17 02:02 Dose: 1 tab Oxycodone/Acetaminophen (Percocet 325-5 Mg) 1 - 2 tab PO Q6H PRN PRN Reason: Pain Pantoprazole Sodium (Protonix Iv) 40 mg IV Q24H [facility] Last Admin: 09/07/17 17:44 Dose: 40 mg Propofol (Diprivan 20 Ml) Confirm Administered Dose 200 mg .ROUTE .STK-MED ONE Stop: 09/05/17 14:57 Propofol (Diprivan 20 Ml) Confirm Administered Dose 200 mg .ROUTE .STK-MED ONE Stop: 09/06/17 07:02 Propofol (Diprivan 20 Ml) Confirm Administered Dose 200 mg .ROUTE .STK-MED ONE Stop: 09/07/17 07:42 Rocuronium [place] (Zemuron) Confirm Administered Dose 50 mg .ROUTE .STK-MED ONE Stop: 09/05/17 14:57 Rocuronium [place] (Zemuron) Confirm Administered Dose 50 mg .ROUTE .STK-MED ONE Stop: 09/06/17 07:02 Rocuronium [place] (Zemuron) Confirm Administered Dose 50 mg .ROUTE .STK-MED ONE Stop: 09/07/17 07:42 Sodium Chloride (Saline Flush) 10 ml FLUSH ASDIRECTED PRN PRN Reason: Keep Vein Open Last Admin: 09/04/17 21:25 Dose: 10 ml Succinylcholine Chloride (Quelicin) Confirm Administered Dose 200 mg .ROUTE .STK -MED ONE Stop: 09/05/17 14:57 Succinylcholine Chloride (Quelicin) Confirm Administered Dose 200 mg .ROUTE .STK -MED ONE Stop: 09/06/17 07:02 Succinylcholine Chloride (Quelicin) Confirm Administered Dose 200 mg .ROUTE .STK -MED ONE Stop: 09/07/17 07:42 Warfarin Sodium (Coumadin) 5 mg PO [id number]@1300 [facility] Warfarin Sodium 2.5 mg/ (Warfarin Sodium 5 mg) 7.5 mg PO MoWeFr@1300 [facility] Last Admin: 09/05/17 15:33 Dose: Not Given - Exam Quality Assessment: DVT Prophylaxis General: Alert, Oriented, Cooperative, No Acute Distress Lungs: Clear to Auscultation, Normal Respiratory Effort Cardiovascular: Regular Rate, Regular Rhythm, No Murmurs GI/Abdominal Exam: Soft, Non-Tender, No Organomegaly, No Distention Extremities: Non-Tender, Pedal Edema Skin: Warm, Dry - Problem List Review Problem List Initiated/Reviewed/Updated: Yes - My Orders Last 24 Hours: My Active Orders 09/07/17 09:50 Convert IV to Saline Lock [OM.PC] Routine 09/07/17 11:49 Acetaminophen/oxyCODONE [Percocet 325-5 MG] 1 - 2 tab PO Q4H PRN 09/07/17 15:35 Acetaminophen [Tylenol] 325 - 650 mg PO Q4H PRN 09/07/17 21:00 Melatonin 9 mg PO BEDTIME 09/08/17 10:45 Lactobacillus Rhamnosus GG [Culturelle] 2 cap PO BID 09/09/17 05:00 BASIC METABOLIC PANEL,BMP [CHEM] Timed INR,PT,PROTHROMBIN TIME [COAG] Timed MAGNESIUM [CHEM] Timed - Plan Plan:: ASSESSMENT AND PLAN NECROTIZING FASCIITIS AND CELLULITIS LEFT THIGH WITH SEPSIS-stable and doing well, cultures remain negative. Pain well controlled and she has started ambulating. -Discontinue as Azactam -Continue current antibiotic therapy with Zyvox, and meropenem, pending culture results -Saline lock IV -Surgical follow-up per Dr. Madrid TYPE 2 DIABETES MELLITUS -4 times a day glucometers -Continue outpatient management, including patient's usual sliding scale HYPOXIA-resolved -Continue supplemental oxygen as needed CHRONIC KIDNEY DISEASE STAGE III-renal function improved over the past few days , urine output has been good -Closely monitor urine output and renal function HISTORY OF DVT AND PULMONARY EMBOLI -Continue Lovenox as ordered by Dr. Madrid -Resume warfarin therapy as ordered by Dr. Madrid -Reassess INR in a.m. MAINTENANCE ISSUES -DVT prophylaxis; current therapy with warfarin should provide adequate DVT prophylaxis -GI prophylaxis; not indicated -August catheter; not indicated -Nutrition; nothing by mouth until abscess has been drained -Nicotine dependence; not required CODE STATUS-FULL CODE ADMISSION STATUS-patient will be admitted to inpatient status, expect at least a 2 night hospital stay for evaluation and management of problems as outlined above. At the time of this admission I do not reasonably expected evaluation and management of this problem will require more than a 96 hour hospital stay. DISPOSITION-anticipate discharge to home after the hospital stay. PRIMARY CARE PROVIDER-Dr. Merritt
--- NOTE | 2017-09-08 11:07 | PN ---
DATE OF SERVICE: 09/06/2017 The patient has been clinically stable overnight. Respiratory status seemed to have improved quite a bit. She is having some chills once in a while and some sweating, but no overt fever. The cultures are still pending meropenem, Azactam, and Zyvox. I think it should be fairly well covered. At the time of debridement today, she did have a small amount of additional necrotic material. We will debride it once again tomorrow. I suspect, after that, we will be able to begin dressing changes at the bedside. With her history of DVT, we will give her some Lovenox 60 mg subcu q.12 hours, as I do not think we will run into significant bleeding problems with this, but certainly would like to avoid risk of recurrent DVT and pulmonary embolism. The patient would like to switch to her own Tresiba as this gives her a little bit more stable blood sugar coverage, and we will therefore discontinue the Levemir. Adam Madrid MD /[id number]
--- NOTE | 2017-09-08 11:37 | PN ---
DATE OF SERVICE: 09/07/2017 The patient has been afebrile with stable vital signs. Blood sugar has been quite elevated, and Dr. Duval is addressing that issue. Otherwise, clinically, she appears to be stabilized. Her wound had only small amount of necrotic tissue without any evidence of having additional infection at this point, after the debridement today. We will begin dressing changes at the bedside likely tomorrow. Otherwise, continue with the present antibiotics. The amount of cellulitis in appears to gradually be decreasing. The culture and sensitivities are not yet available on the organisms. So, we will continue the present antibiotics. Adam Madrid MD /[id number]
[2017-09-08] MEDS: Lactobacillus Rhamnosus GG (Probiotic) Cap PO SCH ×2 (12:53→20:15)
[2017-09-08] MEDS: Acetaminophen/oxyCODONE 325-5 MG Tab PO PRN ×2 (12:53→20:23)
[2017-09-08] MEDS ORDERED: Warfarin 5 MG Tab PO ONE (13:00)
[2017-09-08] MEDS: Pantoprazole 40 MG Tab.CR PO SCH (16:32)
[2017-09-08] MEDS: TRESIBA 200 UNIT/ML SUBCUT SCH (20:13)
[2017-09-08] MEDS: Melatonin 3 MG Tab PO SCH (20:18)
[2017-09-08] MEDS: Gabapentin 300 MG Cap PO SCH (20:19)
[2017-09-09] MEDS: Acetaminophen/oxyCODONE 325-5 MG Tab PO PRN (00:36)
[2017-09-09] MEDS: Linezolid 600 MG in Premix Bag 1 BAG IV SCH ×2 (01:31→14:50)
[2017-09-09] MEDS: Albuterol/Ipratropium 3.0-0.5 MG/3 ML Neb Soln INH SCH ×4 (07:19→21:45)
[2017-09-09] MEDS: Lactobacillus Rhamnosus GG (Probiotic) Cap PO SCH ×2 (08:19→21:40)
[2017-09-09] MEDS: Insulin Aspart 100 Units/ML 3 ML Pen SUBCUT SCH ×4 (08:22→21:41)
[2017-09-09] MEDS: Furosemide 40 MG Tab PO SCH (08:25)
[2017-09-09] MEDS: Lisinopril 10 MG Tab PO SCH (08:27)
--- NOTE | 2017-09-09 08:56 | PN ---
DATE OF SERVICE: 09/09/2017 SUBJECTIVE: Caitie's open wound was examined this morning by Adam Madrid MD. She is having frequent loose stools. Sensitivity report is not back yet. Blood sugars have been running, this morning she had a 63. Prior to that was 192, 171 and 139. REVIEW OF SYSTEMS: Remainder of review of systems negative for any pertinent positives and negatives. OBJECTIVE: GENERAL: Caitie Dumont is a 62-year-old female. She is alert and oriented. Color pale. VITAL SIGNS: TPR 96.1, 75, 18. Blood pressure 134/55. HEENT: Negative. NECK: Supple. HEART: Regular rate and rhythm. LUNGS: Clear. ABDOMEN: Soft, nontender. Left perineal wound is healing, quite large and deep. EXTREMITIES: Without peripheral edema. ASSESSMENT: Necrotizing fasciitis left perineal area and debridement of necrotizing fasciitis. Date of surgery, 09/05/2017. PLAN: Teach how to pack wound b.i.d. Discharge consult to discuss home care. When sensitivity report is back to bring to Dr. Madrid in OR and to call with results of C difficile. We will evaluate p.r.n. or in a.. Kimmy Tran PA-C /[id number]
[2017-09-09] MEDS: Meropenem 500 MG in Sodium Chloride 0.9% 50 ML IV SCH ×2 (09:40→21:46)
[2017-09-09] MEDS: Enoxaparin 60 MG/0.6 ML Syringe SUBCUT SCH (09:58)
--- NOTE | 2017-09-09 12:11 | PCM.PN ---
- General Info Date of Service: 09/09/17 Subjective Update: Mr. Dumont has been stable since yesterday, no significant temperature elevation and vital signs have been stable. She reports of current pain control has been adequate. Tolerating current diet and becoming somewhat more active. Functional Status: Reports: Pain Controlled, Tolerating Diet, Urinating - Review of Systems General: Reports: Weakness. Denies: Fever, Chills Cardiovascular: Reports: No Symptoms Gastrointestinal: Reports: No Symptoms Genitourinary: Reports: No Symptoms - Patient Data Vitals - Most Recent: Last Vital Signs Temp 96.1 F 09/09/17 07:00 Pulse 78 09/09/17 10:53 Resp 18 09/09/17 07:00 BP 141/56 H 09/09/17 08:27 Pulse Ox 95 09/09/17 07:00 Weight - Most Recent: 310 lb 3.046 oz I&O - Last 24 Hours: Intake & Output 09/08/17 09/09/17 09/09/17 22:59 06:59 14:59 Intake Total 350 1050 Output Total 700 1300 Balance -350 -250 Lab Results Last 24 Hours: Laboratory Results - last 24 hr 09/09/17 09/09/17 Range/Units 04:50 04:50 PT 13.6 H (9.5-12.0) sec INR 1.26 H (0.80-1.20) Sodium 140 (140-148) mmol/L Potassium 3.8 (3.6-5.2) mmol/L Chloride 106 (100-108) mmol/L Carbon Dioxide 30 (21-32) mmol/L Anion Gap 3.9 L (5.0-14.0) mmol/L BUN 37 H (7-18) mg/dL Creatinine 1.7 H (0.6-1.0) mg/dL Est Cr Clr Drug Dosing 32.85 mL/min Estimated GFR (MDRD) 30 L (>60) Glucose 58 L (74-106) mg/dL Calcium 7.6 L (8.5-10.1) mg/dL Magnesium 1.7 L (1.8-2.4) mg/dL Johnson Results Last 24 Hours: Microbiology 09/05/17 15:34 Gram Stain - Final Perineum Wound Culture - Final Gram Positive Rods Anaerobic Culture - Final NO GROWTH AFTER 3 DAYS 09/05/17 15:29 Gram Stain - Final Perineum Wound Culture - Final Gram Positive Rods Anaerobic Culture - Final NO GROWTH AFTER 3 DAYS Med Orders - Current: Current Medications Acetaminophen (Tylenol) 325 - 650 mg PO Q4H PRN PRN Reason: Pain Albuterol/Ipratropium (Duoneb 3.0-0.5 Mg/3 Ml) 3 ml INH QIDRT [facility] Last Admin: 09/09/17 10:54 Dose: 3 ml Albuterol/Ipratropium (Duoneb 3.0-0.5 Mg/3 Ml) 3 ml INH ASDIRECTED PRN PRN Reason: * Dextrose (Glutose 15) 15 gm PO ONETIME PRN PRN Reason: Hypoglycemia Dextrose/Water (Dextrose 50% In Water) 50 ml IV ONETIME PRN PRN Reason: Hypoglycemia Diazepam (Valium.) 5 mg PO TID PRN PRN Reason: Pain Enoxaparin Sodium (Lovenox) 60 mg SUBCUT Q24H [facility] Last Admin: 09/09/17 09:58 Dose: 60 mg Furosemide (Lasix) 40 mg PO DAILY [facility] Last Admin: 09/09/17 08:25 Dose: 40 mg Gabapentin (Neurontin) 300 mg PO BEDTIME [facility] Last Admin: 09/08/17 20:19 Dose: 300 mg Linezolid 600 mg/ Premix 300 mls @ 300 mls/hr IV Q12H [facility] Last Admin: 09/09/17 01:31 Dose: 300 mls/hr Meropenem 500 mg/ Sodium (Chloride) 50 mls @ 100 mls/hr IV Q12H [facility] Last Admin: 09/09/17 09:40 Dose: 100 mls/hr Insulin Aspart (Novolog) 0 unit SUBCUT QIDACANDBED [facility] PRN Reason: Protocol Last Admin: 09/09/17 08:22 Dose: 38 units Lactobacillus Rhamnosus (Culturelle) 2 cap PO BID [facility] Last Admin: 09/09/17 08:19 Dose: 2 cap Lisinopril (Prinivil) 10 mg PO DAILY [facility] Last Admin: 09/09/17 08:27 Dose: 10 mg Melatonin (Melatonin) 9 mg PO BEDTIME [facility] Last Admin: 09/08/17 20:18 Dose: Not Given Ondansetron HCl (Zofran) 4 mg IVPUSH Q4H PRN PRN Reason: Nausea/Vomiting Last Admin: 09/05/17 09:16 Dose: 4 mg Oxycodone/Acetaminophen (Percocet 325-5 Mg) 1 - 2 tab PO Q4H PRN PRN Reason: Pain Last Admin: 09/09/17 00:36 Dose: 1 tab Pantoprazole Sodium (Protonix) 40 mg PO Q24H [facility] Last Admin: 09/08/17 16:32 Dose: 40 mg Tresiba Pen 200 (Units/Ml (Ptom)) 0 each SUBCUT Q24H [facility] Last Admin: 09/08/17 20:13 Dose: 1 each Warfarin Sodium (Coumadin) 10 mg PO ONETIME ONE Stop: 09/09/17 12:08 Discontinued Medications Acetaminophen (Tylenol Extra Strength) 1,000 mg PO ONETIME ONE Stop: 09/04/17 21:07 Last Admin: 09/04/17 21:31 Dose: 1,000 mg Acetaminophen (Tylenol) 650 mg PO Q4H PRN PRN Reason: Pain (Mild 1-3)/fever Last Admin: 09/05/17 08:17 Dose: 650 mg Acetaminophen (Tylenol) 650 mg PO Q6H [facility] Last Admin: 09/07/17 15:16 Dose: 325 mg Albuterol/Ipratropium (Duoneb 3.0-0.5 Mg/3 Ml) 3 ml NEB ONETIME ONE Stop: 09/05/17 16:46 Last Admin: 09/05/17 16:42 Dose: 3 ml Bupivacaine HCl (Marcaine 0.5%) Confirm Administered Dose 50 ml .ROUTE .STK-MED ONE Stop: 09/05/17 13:10 Last Admin: 09/05/17 16:18 Dose: 50 ml Bupivacaine HCl (Marcaine 0.5%) Confirm Administered Dose 50 ml .ROUTE .STK-MED ONE Stop: 09/06/17 06:55 Calcium Carbonate (Caltrate 600+D 1500 Mg-400 Units) 1 tab PO DAILY [facility] Last Admin: 09/05/17 08:51 Dose: 1 tab Cefazolin Sodium (Ancef) Confirm Administered Dose 1 gm .ROUTE .STK-MED ONE Stop: 09/04/17 23:42 Last Admin: 09/05/17 00:11 Dose: 1 gm Cholecalciferol (Vitamin D3) 2,000 units PO DAILY [facility] Last Admin: 09/05/17 08:53 Dose: 2,000 units Dexamethasone (Dexamethasone) Confirm Administered Dose 4 mg .ROUTE .STK-MED ONE Stop: 09/05/17 14:57 Dexamethasone (Dexamethasone) Confirm Administered Dose 4 mg .ROUTE .STK-MED ONE Stop: 09/06/17 07:02 Dexamethasone (Dexamethasone) Confirm Administered Dose 4 mg .ROUTE .STK-MED ONE Stop: 09/07/17 07:42 Fentanyl (Sublimaze) Confirm Administered Dose 250 mcg .ROUTE .STK-MED ONE Stop: 09/05/17 14:57 Fentanyl (Sublimaze) Confirm Administered Dose 100 mcg .ROUTE .STK-MED ONE Stop: 09/05/17 16:00 Fentanyl (Sublimaze) Confirm Administered Dose 250 mcg .ROUTE .STK-MED ONE Stop: 09/06/17 07:02 Fentanyl (Sublimaze) Confirm Administered Dose 250 mcg .ROUTE .STK-MED ONE Stop: 09/07/17 07:42 Furosemide (Lasix) 40 mg PO DAILY [facility] Last Admin: 09/05/17 08:51 Dose: 40 mg Glycopyrrolate (Robinul) Confirm Administered Dose 1 mg .ROUTE .STK-MED ONE Stop: 09/05/17 14:57 Hydromorphone HCl (Dilaudid) 0.5 mg IVPUSH ONETIME ONE Stop: 09/04/17 22:12 Last Admin: 09/04/17 22:16 Dose: 0.5 mg Hydromorphone HCl (Dilaudid) 0.5 mg IVPUSH ONETIME ONE Stop: 09/04/17 22:12 Last Admin: 09/05/17 00:08 Dose: 0.5 mg Lactated Ringer's (Ringers, Lactated) 1,000 mls @ 500 mls/hr IV ASDIRECTED [facility] Last Admin: 09/04/17 21:25 Dose: 500 mls/hr Lactated Ringer's (Ringers, Lactated) 1,000 mls @ 125 mls/hr IV ASDIRECTED [facility] Last Admin: 09/05/17 08:48 Dose: 125 mls/hr Cefazolin Sodium/Dextrose 1 gm (/ Premix) 50 mls @ 100 mls/hr IV Q8H [facility] Last Admin: 09/05/17 00:12 Dose: Not Given Sodium Chloride (Normal Saline) Confirm Administered Dose 50 mls @ as directed .ROUTE .[facility] ONE Stop: 09/04/17 23:42 Last Admin: 09/05/17 00:11 Dose: 50 ml Cefazolin Sodium/Dextrose 1 gm (/ Premix) 50 mls @ 100 mls/hr IV Q8H [facility] Last Admin: 09/07/17 22:10 Dose: Not Given Meropenem 500 mg/ Sodium (Chloride) 50 mls @ 100 mls/hr IV ONCALL ONE Stop: 09/05/17 14:29 Last Admin: 09/05/17 15:32 Dose: Not Given Linezolid 600 mg/ Premix 300 mls @ 300 mls/hr IV ONETIME ONE Stop: 09/05/17 16:54 Last Admin: 09/05/17 15:55 Dose: 300 mls/hr Aztreonam/Dextrose 1 gm/ (Premix) 50 mls @ 100 mls/hr IV ONETIME ONE Stop: 09/05/17 17:29 Last Admin: 09/05/17 16:58 Dose: 100 mls/hr Meropenem 500 mg/ Sodium (Chloride) 50 mls @ 100 mls/hr IV Q6H [facility] Last Admin: 09/06/17 08:43 Dose: 100 mls/hr Aztreonam/Dextrose 1 gm/ (Premix) 50 mls @ 100 mls/hr IV Q8H [facility] Last Admin: 09/08/17 08:31 Dose: 100 mls/hr Dextrose/Lactated Ringer's (Dextrose 5%-Lactated Ringers) 1,000 mls @ 150 mls/ hr IV ASDIRECTED [facility] Last Admin: 09/05/17 23:43 Dose: 150 mls/hr Lactated Ringer's (Ringers, Lactated) 1,000 mls @ 250 mls/hr IV ASDIRECTED [facility] Stop: 09/05/17 23:01 Lactated Ringer's (Ringers, Lactated) Confirm Administered Dose 1,000 mls @ as directed .ROUTE .K-MED ONE Stop: 09/06/17 07:12 Dextrose/Lactated Ringer's (Dextrose 5%-Lactated Ringers) 1,000 mls @ 100 mls/ hr IV ASDIRECTED [facility] Lactated Ringer's (Ringers, Lactated) 1,000 mls @ 50 mls/hr IV ASDIRECTED [facility] Last Admin: 09/06/17 15:40 Dose: 50 mls/hr Lactated Ringer's (Ringers, Lactated) Confirm Administered Dose 1,000 mls @ as directed .ROUTE .STK-MED ONE Stop: 09/07/17 08:08 Insulin Aspart (Novolog) 35 unit SUBCUT ONETIME ONE Stop: 09/05/17 01:11 Last Admin: 09/05/17 01:23 Dose: 35 units Insulin Aspart (Novolog) 35 unit SUBCUT ONETIME ONE Stop: 09/05/17 09:01 Last Admin: 09/05/17 08:49 Dose: 35 units Insulin Aspart (Novolog) 20 unit SUBCUT ONETIME ONE Stop: 09/06/17 17:20 Last Admin: 09/06/17 17:32 Dose: 20 unit Insulin Detemir (Levemir) 39 unit SUBCUT BID [facility] Stop: 09/06/17 12:00 Last Admin: 09/06/17 10:15 Dose: 39 units Lidocaine/Epinephrine (Xylocaine 1% With Epinephrine 1:100,000) Confirm Administered Dose 50 ml .ROUTE .STK-MED ONE Stop: 09/05/17 13:10 Last Admin: 09/05/17 16:18 Dose: 50 ml Lidocaine/Epinephrine (Xylocaine 1% With Epinephrine 1:100,000) Confirm Administered Dose 50 ml .ROUTE .STK-MED ONE Stop: 09/06/17 06:55 Midazolam HCl (Versed 1 Mg/Ml) Confirm Administered Dose 2 mg .ROUTE .STK-MED ONE Stop: 09/07/17 07:42 Morphine Sulfate (Morphine Medical Authorization Specialist 150 Mg In 30 Ml) 0 mg IV ASDIRECTED PRN; Protocol PRN Reason: PAIN Last Admin: 09/05/17 12:34 Dose: 150 mg Multivitamins/Minerals (Thera M Plus) 1 tab PO DAILY [facility] Last Admin: 09/05/17 08:52 Dose: 1 tab Naloxone HCl (Narcan) 0.1 mg IV ASDIRECTED PRN PRN Reason: DECREASED RESPIRATIONS Neostigmine Methylsulfate (Neostigmine) Confirm Administered Dose 5 mg .ROUTE .STK-MED ONE Stop: 09/05/17 14:57 Ondansetron HCl (Zofran) Confirm Administered Dose 4 mg .ROUTE .STK-MED ONE Stop: 09/05/17 14:57 Ondansetron HCl (Zofran) Confirm Administered Dose 4 mg .ROUTE .STK-MED ONE Stop: 09/06/17 07:02 Ondansetron HCl (Zofran) Confirm Administered Dose 4 mg .ROUTE .STK-MED ONE Stop: 09/07/17 07:42 Oxycodone/Acetaminophen (Percocet 325-5 Mg) 1 - 2 tab PO Q6HR [facility] Oxycodone/Acetaminophen (Percocet 325-5 Mg) 1 - 2 tab PO Q6HR PRN PRN Reason: Pain Last Admin: 09/05/17 02:02 Dose: 1 tab Oxycodone/Acetaminophen (Percocet 325-5 Mg) 1 - 2 tab PO Q6H PRN PRN Reason: Pain Pantoprazole Sodium (Protonix Iv) 40 mg IV Q24H [facility] Last Admin: 09/07/17 17:44 Dose: 40 mg Propofol (Diprivan 20 Ml) Confirm Administered Dose 200 mg .ROUTE .STK-MED ONE Stop: 09/05/17 14:57 Propofol (Diprivan 20 Ml) Confirm Administered Dose 200 mg .ROUTE .STK-MED ONE Stop: 09/06/17 07:02 Propofol (Diprivan 20 Ml) Confirm Administered Dose 200 mg .ROUTE .STK-MED ONE Stop: 09/07/17 07:42 Rocuronium [place]berg (Zemuron) Confirm Administered Dose 50 mg .ROUTE .STK-MED ONE Stop: 09/05/17 14:57 Rocuronium [place] (Zemuron) Confirm Administered Dose 50 mg .ROUTE .STK-MED ONE Stop: 09/06/17 07:02 Rocuronium [place] (Zemuron) Confirm Administered Dose 50 mg .ROUTE .STK-MED ONE Stop: 09/07/17 07:42 Sodium Chloride (Saline Flush) 10 ml FLUSH ASDIRECTED PRN PRN Reason: Keep Vein Open Last Admin: 09/04/17 21:25 Dose: 10 ml Succinylcholine Chloride (Quelicin) Confirm Administered Dose 200 mg .ROUTE .STK -MED ONE Stop: 09/05/17 14:57 Succinylcholine Chloride (Quelicin) Confirm Administered Dose 200 mg .ROUTE .STK -MED ONE Stop: 09/06/17 07:02 Succinylcholine Chloride (Quelicin) Confirm Administered Dose 200 mg .ROUTE .STK -MED ONE Stop: 09/07/17 07:42 Warfarin Sodium (Coumadin) 5 mg PO SuTuThSa@1300 [facility] Warfarin Sodium 2.5 mg/ (Warfarin Sodium 5 mg) 7.5 mg PO MoWeFr@1300 [facility] Last Admin: 09/05/17 15:33 Dose: Not Given Warfarin Sodium (Coumadin) 10 mg PO ONETIME ONE Stop: 09/08/17 13:01 Last Admin: 09/08/17 12:53 Dose: 10 mg - Exam Quality Assessment: DVT Prophylaxis General: Alert, Oriented, Cooperative Lungs: Clear to Auscultation, Normal Respiratory Effort Cardiovascular: Regular Rate, Regular Rhythm, No Murmurs GI/Abdominal Exam: Soft, Non-Tender, No Organomegaly, No Distention Extremities: Non-Tender, No Pedal Edema Skin: Warm, Dry - Problem List Review Problem List Initiated/Reviewed/Updated: Yes - My Orders Last 24 Hours: My Active Orders 09/09/17 12:07 Warfarin [Coumadin] 10 mg PO ONETIME ONE 09/09/17 12:08 Magnesium Sulfate/Water [Magnesium Sulfate 2 GM in Water 50 ML] 2 gm Premix Bag 1 bag IV ONETIME 09/09/17 12:15 INR,PT,PROTHROMBIN TIME [COAG] DAILY Magnesium Oxide 400 mg PO BID 09/10/17 12:15 INR,PT,PROTHROMBIN TIME [COAG] DAILY 09/11/17 12:15 INR,PT,PROTHROMBIN TIME [COAG] DAILY 09/12/17 12:15 INR,PT,PROTHROMBIN TIME [COAG] DAILY - Plan Plan:: ASSESSMENT AND PLAN NECROTIZING FASCIITIS AND CELLULITIS LEFT THIGH WITH SEPSIS-stable and doing well, cultures remain negative. Pain well controlled and she has started ambulating, tolerating current diet -Continue current antibiotic therapy with Zyvox, and meropenem, pending culture results -Saline lock IV -Surgical follow-up per Dr. Madrid TYPE 2 DIABETES MELLITUS -4 times a day glucometers -Continue outpatient management, including patient's usual sliding scale HYPOXIA-resolved -Continue supplemental oxygen as needed CHRONIC KIDNEY DISEASE STAGE III-renal function improved over the past few days , urine output has been good -Closely monitor urine output and renal function HISTORY OF DVT AND PULMONARY EMBOLI -Continue Lovenox as ordered by Dr. Madrid -Warfarin 10 mg by mouth today -Reassess INR in a.m. MAINTENANCE ISSUES -DVT prophylaxis; current therapy with warfarin should provide adequate DVT prophylaxis -GI prophylaxis; not indicated -August catheter; not indicated -Nutrition; nothing by mouth until abscess has been drained -Nicotine dependence; not required CODE STATUS-FULL CODE ADMISSION STATUS-patient will be admitted to inpatient status, expect at least a 2 night hospital stay for evaluation and management of problems as outlined above. At the time of this admission I do not reasonably expected evaluation and management of this problem will require more than a 96 hour hospital stay. DISPOSITION-anticipate discharge to home after the hospital stay. PRIMARY CARE PROVIDER-Dr. Merritt
[2017-09-09] MEDS: Magnesium Oxide 400 MG Tab PO SCH ×2 (12:27→21:42)
[2017-09-09] MEDS ORDERED: Magnesium Sulfate/Water 2 GM in Premix Bag 1 BAG IV ONE (13:00)
[2017-09-09] MEDS ORDERED: Warfarin 5 MG Tab PO ONE (13:00)
[2017-09-09] MEDS: Pantoprazole 40 MG Tab.CR PO SCH (15:55)
[2017-09-09] MEDS: TRESIBA 200 UNIT/ML SUBCUT SCH ×2 (21:41→22:41)
[2017-09-09] MEDS: Melatonin 3 MG Tab PO SCH (21:42)
[2017-09-09] MEDS: Gabapentin 300 MG Cap PO SCH (21:43)
[2017-09-10] MEDS: Linezolid 600 MG in Premix Bag 1 BAG IV SCH ×2 (02:21→13:06)
[2017-09-10] MEDS: Albuterol/Ipratropium 3.0-0.5 MG/3 ML Neb Soln INH SCH ×4 (07:25→20:36)
[2017-09-10] MEDS: Insulin Aspart 100 Units/ML 3 ML Pen SUBCUT SCH ×4 (07:51→20:43)
[2017-09-10] MEDS: Magnesium Oxide 400 MG Tab PO SCH ×2 (09:30→20:45)
[2017-09-10] MEDS: Meropenem 500 MG in Sodium Chloride 0.9% 50 ML IV SCH ×2 (09:30→20:59)
[2017-09-10] MEDS: Furosemide 40 MG Tab PO SCH (09:30)
[2017-09-10] MEDS: Lactobacillus Rhamnosus GG (Probiotic) Cap PO SCH ×2 (09:30→20:44)
[2017-09-10] MEDS: Lisinopril 10 MG Tab PO SCH (09:30)
[2017-09-10] MEDS: Enoxaparin 60 MG/0.6 ML Syringe SUBCUT SCH (09:31)
--- NOTE | 2017-09-10 12:24 | PCM.PN ---
- General Info Date of Service: 09/10/17 Subjective Update: Ms. Dumont has done well since yesterday, vital signs have been stable and she has remained afebrile. Denies significant pain and she has been able to be somewhat more active. Functional Status: Reports: Tolerating Diet, Ambulating, Urinating - Review of Systems General: Denies: Fever, Chills Cardiovascular: Reports: No Symptoms Gastrointestinal: Reports: No Symptoms Genitourinary: Reports: No Symptoms - Patient Data Vitals - Most Recent: Last Vital Signs Temp 97.1 F 09/10/17 10:20 Pulse 78 09/10/17 10:38 Resp 18 09/10/17 10:20 BP 165/50 H 09/10/17 10:20 Pulse Ox 93 L 09/10/17 10:20 Weight - Most Recent: 310 lb 3.046 oz I&O - Last 24 Hours: Intake & Output 09/09/17 09/10/17 09/10/17 22:59 06:59 14:59 Intake Total 1400 700 Output Total 800 800 Balance -800 600 700 Lab Results Last 24 Hours: Laboratory Results - last 24 hr 09/10/17 Range/Units 05:55 PT 16.7 H (9.5-12.0) sec INR 1.53 H (0.80-1.20) Med Orders - Current: Current Medications Acetaminophen (Tylenol) 325 - 650 mg PO Q4H PRN PRN Reason: Pain Albuterol/Ipratropium (Duoneb 3.0-0.5 Mg/3 Ml) 3 ml INH QIDRT [facility] Last Admin: 09/10/17 10:37 Dose: 3 ml Albuterol/Ipratropium (Duoneb 3.0-0.5 Mg/3 Ml) 3 ml INH ASDIRECTED PRN PRN Reason: * Dextrose (Glutose 15) 15 gm PO ONETIME PRN PRN Reason: Hypoglycemia Dextrose/Water (Dextrose 50% In Water) 50 ml IV ONETIME PRN PRN Reason: Hypoglycemia Diazepam (Valium.) 5 mg PO TID PRN PRN Reason: Pain Enoxaparin Sodium (Lovenox) 60 mg SUBCUT Q24H [facility] Last Admin: 09/10/17 09:31 Dose: 60 mg Furosemide (Lasix) 40 mg PO DAILY [facility] Last Admin: 09/10/17 09:30 Dose: 40 mg Gabapentin (Neurontin) 300 mg PO BEDTIME [facility] Last Admin: 09/09/17 21:43 Dose: 300 mg Linezolid 600 mg/ Premix 300 mls @ 300 mls/hr IV Q12H [facility] Last Admin: 09/10/17 02:21 Dose: 300 mls/hr Meropenem 500 mg/ Sodium (Chloride) 50 mls @ 100 mls/hr IV Q12H [facility] Last Admin: 09/10/17 09:30 Dose: 100 mls/hr Insulin Aspart (Novolog) 0 unit SUBCUT QIDACANDBED [facility] PRN Reason: Protocol Last Admin: 09/10/17 07:51 Dose: 38 units Lactobacillus Rhamnosus (Culturelle) 2 cap PO BID [facility] Last Admin: 09/10/17 09:30 Dose: 2 cap Lisinopril (Prinivil) 10 mg PO DAILY [facility] Last Admin: 09/10/17 09:30 Dose: 10 mg Magnesium Oxide (Magnesium Oxide) 400 mg PO BID [facility] Last Admin: 09/10/17 09:30 Dose: 400 mg Melatonin (Melatonin) 9 mg PO BEDTIME [facility] Last Admin: 09/09/17 21:42 Dose: 9 mg Ondansetron HCl (Zofran) 4 mg IVPUSH Q4H PRN PRN Reason: Nausea/Vomiting Last Admin: 09/05/17 09:16 Dose: 4 mg Oxycodone/Acetaminophen (Percocet 325-5 Mg) 1 - 2 tab PO Q4H PRN PRN Reason: Pain Last Admin: 09/09/17 00:36 Dose: 1 tab Pantoprazole Sodium (Protonix) 40 mg PO Q24H [facility] Last Admin: 09/09/17 15:55 Dose: 40 mg Tresiba Pen 200 (Units/Ml (Ptom)) 0 each SUBCUT Q24H [facility] Last Admin: 09/09/17 22:41 Dose: 76 each Discontinued Medications Acetaminophen (Tylenol Extra Strength) 1,000 mg PO ONETIME ONE Stop: 09/04/17 21:07 Last Admin: 09/04/17 21:31 Dose: 1,000 mg Acetaminophen (Tylenol) 650 mg PO Q4H PRN PRN Reason: Pain (Mild 1-3)/fever Last Admin: 09/05/17 08:17 Dose: 650 mg Acetaminophen (Tylenol) 650 mg PO Q6H [facility] Last Admin: 09/07/17 15:16 Dose: 325 mg Albuterol/Ipratropium (Duoneb 3.0-0.5 Mg/3 Ml) 3 ml NEB ONETIME ONE Stop: 09/05/17 16:46 Last Admin: 09/05/17 16:42 Dose: 3 ml Bupivacaine HCl (Marcaine 0.5%) Confirm Administered Dose 50 ml .ROUTE .STK-MED ONE Stop: 09/05/17 13:10 Last Admin: 09/05/17 16:18 Dose: 50 ml Bupivacaine HCl (Marcaine 0.5%) Confirm Administered Dose 50 ml .ROUTE .STK-MED ONE Stop: 09/06/17 06:55 Calcium Carbonate (Caltrate 600+D 1500 Mg-400 Units) 1 tab PO DAILY [facility] Last Admin: 09/05/17 08:51 Dose: 1 tab Cefazolin Sodium (Ancef) Confirm Administered Dose 1 gm .ROUTE .STK-MED ONE Stop: 09/04/17 23:42 Last Admin: 09/05/17 00:11 Dose: 1 gm Cholecalciferol (Vitamin D3) 2,000 units PO DAILY [facility] Last Admin: 09/05/17 08:53 Dose: 2,000 units Dexamethasone (Dexamethasone) Confirm Administered Dose 4 mg .ROUTE .STK-MED ONE Stop: 09/05/17 14:57 Dexamethasone (Dexamethasone) Confirm Administered Dose 4 mg .ROUTE .STK-MED ONE Stop: 09/06/17 07:02 Dexamethasone (Dexamethasone) Confirm Administered Dose 4 mg .ROUTE .STK-MED ONE Stop: 09/07/17 07:42 Fentanyl (Sublimaze) Confirm Administered Dose 250 mcg .ROUTE .STK-MED ONE Stop: 09/05/17 14:57 Fentanyl (Sublimaze) Confirm Administered Dose 100 mcg .ROUTE .STK-MED ONE Stop: 09/05/17 16:00 Fentanyl (Sublimaze) Confirm Administered Dose 250 mcg .ROUTE .STK-MED ONE Stop: 09/06/17 07:02 Fentanyl (Sublimaze) Confirm Administered Dose 250 mcg .ROUTE .STK-MED ONE Stop: 09/07/17 07:42 Furosemide (Lasix) 40 mg PO DAILY [facility] Last Admin: 09/05/17 08:51 Dose: 40 mg Glycopyrrolate (Robinul) Confirm Administered Dose 1 mg .ROUTE .STK-MED ONE Stop: 09/05/17 14:57 Hydromorphone HCl (Dilaudid) 0.5 mg IVPUSH ONETIME ONE Stop: 09/04/17 22:12 Last Admin: 09/04/17 22:16 Dose: 0.5 mg Hydromorphone HCl (Dilaudid) 0.5 mg IVPUSH ONETIME ONE Stop: 09/04/17 22:12 Last Admin: 09/05/17 00:08 Dose: 0.5 mg Lactated Ringer's (Ringers, Lactated) 1,000 mls @ 500 mls/hr IV ASDIRECTED [facility] Last Admin: 09/04/17 21:25 Dose: 500 mls/hr Lactated Ringer's (Ringers, Lactated) 1,000 mls @ 125 mls/hr IV ASDIRECTED [facility] Last Admin: 09/05/17 08:48 Dose: 125 mls/hr Cefazolin Sodium/Dextrose 1 gm (/ Premix) 50 mls @ 100 mls/hr IV Q8H [facility] Last Admin: 09/05/17 00:12 Dose: Not Given Sodium Chloride (Normal Saline) Confirm Administered Dose 50 mls @ as directed .ROUTE .K-MED ONE Stop: 09/04/17 23:42 Last Admin: 09/05/17 00:11 Dose: 50 ml Cefazolin Sodium/Dextrose 1 gm (/ Premix) 50 mls @ 100 mls/hr IV Q8H [facility] Last Admin: 09/07/17 22:10 Dose: Not Given Meropenem 500 mg/ Sodium (Chloride) 50 mls @ 100 mls/hr IV ONCALL ONE Stop: 09/05/17 14:29 Last Admin: 09/05/17 15:32 Dose: Not Given Linezolid 600 mg/ Premix 300 mls @ 300 mls/hr IV ONETIME ONE Stop: 09/05/17 16:54 Last Admin: 09/05/17 15:55 Dose: 300 mls/hr Aztreonam/Dextrose 1 gm/ (Premix) 50 mls @ 100 mls/hr IV ONETIME ONE Stop: 09/05/17 17:29 Last Admin: 09/05/17 16:58 Dose: 100 mls/hr Meropenem 500 mg/ Sodium (Chloride) 50 mls @ 100 mls/hr IV Q6H [facility] Last Admin: 09/06/17 08:43 Dose: 100 mls/hr Aztreonam/Dextrose 1 gm/ (Premix) 50 mls @ 100 mls/hr IV Q8H [facility] Last Admin: 09/08/17 08:31 Dose: 100 mls/hr Dextrose/Lactated Ringer's (Dextrose 5%-Lactated Ringers) 1,000 mls @ 150 mls/ hr IV ASDIRECTED [facility] Last Admin: 09/05/17 23:43 Dose: 150 mls/hr Lactated Ringer's (Ringers, Lactated) 1,000 mls @ 250 mls/hr IV ASDIRECTED [facility] Stop: 09/05/17 23:01 Lactated Ringer's (Ringers, Lactated) Confirm Administered Dose 1,000 mls @ as directed .ROUTE .STK-MED ONE Stop: 09/06/17 07:12 Dextrose/Lactated Ringer's (Dextrose 5%-Lactated Ringers) 1,000 mls @ 100 mls/ hr IV ASDIRECTED [facility] Lactated Ringer's (Ringers, Lactated) 1,000 mls @ 50 mls/hr IV ASDIRECTED [facility] Last Admin: 09/06/17 15:40 Dose: 50 mls/hr Lactated Ringer's (Ringers, Lactated) Confirm Administered Dose 1,000 mls @ as directed .ROUTE .STK-MED ONE Stop: 09/07/17 08:08 Magnesium Sulfate 2 gm/ Premix 50 mls @ 25 mls/hr IV ONETIME ONE Stop: 09/09/17 14:59 Last Admin: 09/09/17 12:40 Dose: 25 mls/hr Insulin Aspart (Novolog) 35 unit SUBCUT ONETIME ONE Stop: 09/05/17 01:11 Last Admin: 09/05/17 01:23 Dose: 35 units Insulin Aspart (Novolog) 35 unit SUBCUT ONETIME ONE Stop: 09/05/17 09:01 Last Admin: 09/05/17 08:49 Dose: 35 units Insulin Aspart (Novolog) 20 unit SUBCUT ONETIME ONE Stop: 09/06/17 17:20 Last Admin: 09/06/17 17:32 Dose: 20 unit Insulin Detemir (Levemir) 39 unit SUBCUT BID [facility] Stop: 09/06/17 12:00 Last Admin: 09/06/17 10:15 Dose: 39 units Lidocaine/Epinephrine (Xylocaine 1% With Epinephrine 1:100,000) Confirm Administered Dose 50 ml .ROUTE .STK-MED ONE Stop: 09/05/17 13:10 Last Admin: 09/05/17 16:18 Dose: 50 ml Lidocaine/Epinephrine (Xylocaine 1% With Epinephrine 1:100,000) Confirm Administered Dose 50 ml .ROUTE .STK-MED ONE Stop: 09/06/17 06:55 Midazolam HCl (Versed 1 Mg/Ml) Confirm Administered Dose 2 mg .ROUTE .STK-MED ONE Stop: 09/07/17 07:42 Morphine Sulfate (Morphine Finished Yarn Examiner 150 Mg In 30 Ml) 0 mg IV ASDIRECTED PRN; Protocol PRN Reason: PAIN Last Admin: 09/05/17 12:34 Dose: 150 mg Multivitamins/Minerals (Thera M Plus) 1 tab PO DAILY [facility] Last Admin: 09/05/17 08:52 Dose: 1 tab Naloxone HCl (Narcan) 0.1 mg IV ASDIRECTED PRN PRN Reason: DECREASED RESPIRATIONS Neostigmine Methylsulfate (Neostigmine) Confirm Administered Dose 5 mg .ROUTE .STK-MED ONE Stop: 09/05/17 14:57 Ondansetron HCl (Zofran) Confirm Administered Dose 4 mg .ROUTE .STK-MED ONE Stop: 09/05/17 14:57 Ondansetron HCl (Zofran) Confirm Administered Dose 4 mg .ROUTE .STK-MED ONE Stop: 09/06/17 07:02 Ondansetron HCl (Zofran) Confirm Administered Dose 4 mg .ROUTE .STK-MED ONE Stop: 09/07/17 07:42 Oxycodone/Acetaminophen (Percocet 325-5 Mg) 1 - 2 tab PO Q6HR [facility] Oxycodone/Acetaminophen (Percocet 325-5 Mg) 1 - 2 tab PO Q6HR PRN PRN Reason: Pain Last Admin: 09/05/17 02:02 Dose: 1 tab Oxycodone/Acetaminophen (Percocet 325-5 Mg) 1 - 2 tab PO Q6H PRN PRN Reason: Pain Pantoprazole Sodium (Protonix Iv) 40 mg IV Q24H [facility] Last Admin: 09/07/17 17:44 Dose: 40 mg Propofol (Diprivan 20 Ml) Confirm Administered Dose 200 mg .ROUTE .STK-MED ONE Stop: 09/05/17 14:57 Propofol (Diprivan 20 Ml) Confirm Administered Dose 200 mg .ROUTE .STK-MED ONE Stop: 09/06/17 07:02 Propofol (Diprivan 20 Ml) Confirm Administered Dose 200 mg .ROUTE .STK-MED ONE Stop: 09/07/17 07:42 Rocuronium [place] (Zemuron) Confirm Administered Dose 50 mg .ROUTE .STK-MED ONE Stop: 09/05/17 14:57 Rocuronium [place] (Zemuron) Confirm Administered Dose 50 mg .ROUTE .STK-MED ONE Stop: 09/06/17 07:02 Rocuronium [place] (Zemuron) Confirm Administered Dose 50 mg .ROUTE .STK-MED ONE Stop: 09/07/17 07:42 Sodium Chloride (Saline Flush) 10 ml FLUSH ASDIRECTED PRN PRN Reason: Keep Vein Open Last Admin: 09/04/17 21:25 Dose: 10 ml Succinylcholine Chloride (Quelicin) Confirm Administered Dose 200 mg .ROUTE .STK -MED ONE Stop: 09/05/17 14:57 Succinylcholine Chloride (Quelicin) Confirm Administered Dose 200 mg .ROUTE .STK -MED ONE Stop: 09/06/17 07:02 Succinylcholine Chloride (Quelicin) Confirm Administered Dose 200 mg .ROUTE .STK -MED ONE Stop: 09/07/17 07:42 Warfarin Sodium (Coumadin) 5 mg PO [id number] [facility] Warfarin Sodium 2.5 mg/ (Warfarin Sodium 5 mg) 7.5 mg PO [id number] [facility] Last Admin: 09/05/17 15:33 Dose: Not Given Warfarin Sodium (Coumadin) 10 mg PO ONETIME ONE Stop: 09/08/17 13:01 Last Admin: 09/08/17 12:53 Dose: 10 mg Warfarin Sodium (Coumadin) 10 mg PO ONETIME ONE Stop: 09/09/17 13:01 Last Admin: 09/09/17 12:28 Dose: 10 mg - Exam Quality Assessment: DVT Prophylaxis General: Alert, Oriented, Cooperative, No Acute Distress Lungs: Clear to Auscultation, Normal Respiratory Effort Cardiovascular: Regular Rate, Regular Rhythm, No Murmurs GI/Abdominal Exam: Soft, Non-Tender, No Organomegaly, No Distention Extremities: Non-Tender, No Pedal Edema - Problem List Review Problem List Initiated/Reviewed/Updated: Yes - My Orders Last 24 Hours: My Active Orders 09/09/17 12:15 Magnesium Oxide 400 mg PO BID 09/10/17 12:22 Warfarin [Coumadin] 10 mg PO ONETIME ONE 09/11/17 05:00 INR,PT,PROTHROMBIN TIME [COAG] DAILY 09/12/17 05:00 INR,PT,PROTHROMBIN TIME [COAG] DAILY - Plan Plan:: ASSESSMENT AND PLAN NECROTIZING FASCIITIS AND CELLULITIS LEFT THIGH WITH SEPSIS-stable and doing well, cultures remain negative. Pain well controlled and she has started ambulating, tolerating current diet -Continue current antibiotic therapy with Zyvox, and meropenem, pending culture results -Saline lock IV -Surgical follow-up per Dr. Madrid TYPE 2 DIABETES MELLITUS -4 times a day glucometers -Continue outpatient management, including patient's usual sliding scale HYPOXIA-resolved -Continue supplemental oxygen as needed CHRONIC KIDNEY DISEASE STAGE III-renal function improved over the past few days , urine output has been good -Closely monitor urine output and renal function HISTORY OF DVT AND PULMONARY EMBOLI -Continue Lovenox as ordered by Dr. Madrid -Warfarin 10 mg by mouth today -Reassess INR in a.m. MAINTENANCE ISSUES -DVT prophylaxis; current therapy with warfarin should provide adequate DVT prophylaxis -GI prophylaxis; not indicated -August catheter; not indicated -Nutrition; nothing by mouth until abscess has been drained -Nicotine dependence; not required CODE STATUS-FULL CODE ADMISSION STATUS-patient will be admitted to inpatient status, expect at least a 2 night hospital stay for evaluation and management of problems as outlined above. At the time of this admission I do not reasonably expected evaluation and management of this problem will require more than a 96 hour hospital stay. DISPOSITION-anticipate discharge to home after the hospital stay. PRIMARY CARE PROVIDER-Dr. Merritt
[2017-09-10] MEDS ORDERED: Warfarin 5 MG Tab PO ONE (13:00)
[2017-09-10] MEDS: Pantoprazole 40 MG Tab.CR PO SCH (15:53)
[2017-09-10] MEDS: TRESIBA 200 UNIT/ML SUBCUT SCH (20:42)
[2017-09-10] MEDS: Gabapentin 300 MG Cap PO SCH (20:46)
[2017-09-10] MEDS: Acetaminophen/oxyCODONE 325-5 MG Tab PO PRN (20:49)
--- NOTE | 2017-09-10 21:46 | OR ---
DATE OF PROCEDURE: 09/05/2017 PREOPERATIVE DIAGNOSIS: Cellulitis and probable abscess, left perineal area. POSTOPERATIVE DIAGNOSIS: Necrotizing fasciitis involving subcutaneous tissue, fascia, and muscle of left perineal area. PROCEDURE PERFORMED: Debridement of necrotizing fasciitis involving subcutaneous tissue, fascia and muscular layer of left perineal area ([id number]). ANESTHESIA: General. INDICATION FOR PROCEDURE: This is a 62-year-old female admitted over the weekend with cellulites in the left thigh and perineal area. Ultrasound obtained yesterday showed what appeared to be fluid collection. Plan is to proceed with drainage and debridement of this area. Potential risks including bleeding and infection as well as possibility of cardiopulmonary, septic, or hemorrhagic complications leading to were all discussed, and the patient wishes to proceed. DETAILS OF PROCEDURE: The patient was taken to the operating room and placed in a supine position. After general endotracheal anesthesia was induced, she was converted to a lithotomy position and at the end of the procedure, August catheter was also inserted. The firm indurated area on the medial aspect of the area of cellulitis was then incised and upon entering the subcutaneous tissue, it became evident that this was more of a necrotizing fasciitis and extensive debridement of the skin and subcutaneous tissue and fascia and underlying muscle was then undertaken. This included a roughly a baseball sized area of tissue being removed and this was taken down to a point where there appeared to be viable tissue in all directions and at that point, the wound was packed with iodoform gauze and a dressing applied. The patient was taken to the recovery room in satisfactory condition. Multiple cultures were obtained and initial Gram stain showed a mixed braxton in addition with a typical large perineal area of necrotizing fasciitis. The patient was taken to the recovery room in satisfactory condition. Plan will be to proceed with inspection of the wound early tomorrow morning and additional debridement as necessary. Adam Madrid MD /[id number]
--- NOTE | 2017-09-10 21:51 | OR ---
DATE OF PROCEDURE: 09/06/2017 PREOPERATIVE DIAGNOSIS: Necrotizing fasciitis, left peroneal area. POSTOPERATIVE DIAGNOSIS: Necrotizing fasciitis, left peroneal area. OPERATIVE PROCEDURE: Debridement of necrotizing fasciitis, left peroneal area ([id number]). ANESTHESIA: General. INDICATION FOR PROCEDURE: The patient is status post debridement of a large area of necrotizing fasciitis involving the left peroneal area last evening. She is to undergo reinspection and debridement as necessary at this time. Potential risks including bleeding and infection were reviewed, and the patient wishes to proceed. DETAILS OF PROCEDURE: The patient was taken to the operating room and placed in a supine position. After general endotracheal anesthesia was induced, she was converted to a lithotomy position, and the area of debridement was then exposed with removal of the packing. There was noted, after being prepped and draped, to be some limited areas of additional necrosis, and this involved the subcutaneous tissue, some skin as well as underlying fascia and muscle. These were all debrided and, at that point, all areas appeared to be viable. The procedure concluded with a packing once again placed. The plan will be to reinspect this wound tomorrow morning once again and debridement as indicated. The patient was taken to the recovery room in a satisfactory condition. Adam Madrid MD /[id number]
[2017-09-10] MEDS: Melatonin 3 MG Tab PO SCH (22:36)
[2017-09-11] MEDS: Linezolid 600 MG in Premix Bag 1 BAG IV SCH (01:40)
[2017-09-11] MEDS: Melatonin 3 MG Tab PO SCH (05:37)
[2017-09-11] MEDS: Insulin Aspart 100 Units/ML 3 ML Pen SUBCUT SCH ×2 (07:20→11:09)
[2017-09-11] MEDS: Albuterol/Ipratropium 3.0-0.5 MG/3 ML Neb Soln INH SCH ×2 (07:35→10:37)
[2017-09-11] MEDS: Lactobacillus Rhamnosus GG (Probiotic) Cap PO SCH (08:04)
[2017-09-11] MEDS: Magnesium Oxide 400 MG Tab PO SCH (08:04)
[2017-09-11] MEDS: Furosemide 40 MG Tab PO SCH (08:04)
[2017-09-11] MEDS: Acetaminophen/oxyCODONE 325-5 MG Tab PO PRN (08:06)
[2017-09-11] MEDS: Lisinopril 10 MG Tab PO SCH (08:08)
[2017-09-11 08:09] VITALS: BP 184/63
[2017-09-11] MEDS: Meropenem 500 MG in Sodium Chloride 0.9% 50 ML IV SCH (08:09)
[2017-09-11] MEDS: Enoxaparin 60 MG/0.6 ML Syringe SUBCUT SCH (10:41)
--- NOTE | 2017-09-12 10:36 | PN ---
DATE OF SERVICE: 09/10/2017 The patient has been afebrile with stable vital signs. Her wound is stable. Cellulitis continues to decrease. We will continue the IV antibiotics today, teaching her how to take care of the dressing, and the patient will likely be discharged home tomorrow with/without home care. Adam Madrid MD /[id number]
--- NOTE | 2017-09-12 11:06 | DISCH ---
FINAL DIAGNOSIS: Necrotizing fasciitis involving left peroneal area. SECONDARY DIAGNOSES: 1. History of deep vein thrombosis. 2. History of renal insufficiency. 3. Status post left knee replacement. 4. Type 2 diabetes mellitus. 5. Hyperlipidemia. 6. Obesity. OPERATIVE PROCEDURE: Debridement of necrotizing fasciitis on 09/05/2017, 09/06/2017, and 09/07/2017. HOSPITAL COURSE: This is a 62-year-old presenting with an area of cellulitis involving the left thigh. Initially, this was treated with antibiotics, but it appeared to be developing in an abscess-type picture. At the time of exploration, the patient was noted to have necrotizing fasciitis involving the skin and subcutaneous tissue, fascia and muscle in the right peroneal area. This was debrided on 3 sequential days. At this point, the wounds are clean. She is having twice-a-day dressing changes. The Gram stain showed mixed braxton, but only anaerobe rule out. She will be discharged home on doxycycline 100 mg p.o. b.i.d. x10 days and then Percocet 5/325 mg 1 to 2 tabs q.4 hours p.r.n. pain, #40. She will resume her usual Coumadin dose. Her pro-time today is therapeutic. The plan will be to follow up with Dr. Madrid along with a gas station cashier on 09/14/2017. She is to make sure to bring the list of blood sugars from previous few days to address diabetic management with gas station cashier. , at this point, feels comfortable with the dressing changes, and these will be done twice a day with his assistance. We will check a pro-time at the time of followup appointment on Tuesday.
== END 2017-09-11 11:05 | disposition home or self-care (01) | DRG 364 ==
LOC: JP.ED 19:31 → JP.MS 23:16 → JP.ICU 09-05 17:53 → JP.2SS 09-07 15:26
PROVIDERS: ADMIT Family Medicine; ATTEND Hospitalist
PROC: 0HD9XZZ Extraction of Perineum Skin, External Approach (ICD-10-PCS; principal; 2017-09-04)
PROC: 0KBM0ZZ Excision of Perineum Muscle, Open Approach (ICD-10-PCS; 2017-09-05)
PROC: 0KDM0ZZ Extraction of Perineum Muscle, Open Approach (ICD-10-PCS; 2017-09-06)
DX: L03.116 Cellulitis of left lower limb (principal); M72.6 Necrotizing fasciitis; L03.315 Cellulitis of perineum; L02.818 Cutaneous abscess of other sites; I12.9 Hypertensive chronic kidney disease with stage 1 through stage 4 chronic kidney disease, or unspecified chronic kidney disease; E11.22 Type 2 diabetes mellitus with diabetic chronic kidney disease; N18.3 Chronic kidney disease, stage 3 (moderate); Z79.4 Long term (current) use of insulin; Z86.718 Personal history of other venous thrombosis and embolism; Z86.711 Personal history of pulmonary embolism; M19.90 Unspecified osteoarthritis, unspecified site; Z85.89 Personal history of malignant neoplasm of other organs and systems; Z96.652 Presence of left artificial knee joint; H54.7 Unspecified visual loss; Z79.01 Long term (current) use of anticoagulants; Z88.1 Allergy status to other antibiotic agents; Z91.041 Radiographic dye allergy status; E66.9 Obesity, unspecified; Z68.42 Body mass index [BMI] 45.0-49.9, adult; R09.02 Hypoxemia; Z79.2 Long term (current) use of antibiotics; Z79.899 Other long term (current) drug therapy; Z51.81 Encounter for therapeutic drug level monitoring; E78.5 Hyperlipidemia, unspecified
CPT/HCPCS: 36415; 36600; 71045; 71045-26; 76881-26; 76881-LT; 80048; 80053; 81001; 82803; 82962; 83605; 83735; 84100; 85025; 85610; 85730; 86140; 87070; 87075; 87077; 87205; 88304; 94640; 94762; 96361; 96374; 99285-25; A9270-GY; C9113; J0330; J0690; J1100; J1170; J1650; J2020; J2185; J2250; J2270; J2405; J2704; J2710; J3010; J3475; J3490; J7042; J7050; J7120; J7620

== ENCOUNTER 2017-09-11 13:02 | Emergency (ER) | payer BC ==
[2017-09-11] MEDS ORDERED: HYDROmorphone 0.5 MG/0.5 ML Syringe IVPUSH ONE (14:31)
--- NOTE | 2017-09-11 14:35 | EDM.PDOC ---
ED HPI GENERAL MEDICAL PROBLEM - General Chief Complaint: General Stated Complaint: BACK PAIN Time Seen by Provider: 09/11/17 14:21 Source of Information: Reports: Patient, Family, Old Records, RN Notes Reviewed History Limitations: Reports: No Limitations - History of Present Illness INITIAL COMMENTS - FREE TEXT/NARRATIVE: 62-year-old female presents to the emergency department today complaint of abdominal pain, she was just recently released from the hospital this morning prescription written for antibiotics and Percocet she was in the hospital for local incision and drainage with cellulitis. She states she has filled the antibiotics but did not fill the narcotic pain medication as the pharmacy that she usually goes to is out. back Pain Score (Numeric/FACES): 10 - Related Data Allergies Allergy/AdvReac Type Severity Reaction Status Date / Time sulfamethoxazole Allergy Severe Renal Verified 09/11/17 13:45 [From Bactrim] Insufficiency trimethoprim [From Bactrim] Allergy Severe Rash Verified 09/11/17 13:45 Gadolinium-Containing Allergy Itching Verified 09/11/17 13:45 Contrast Medi Home Meds: Home Meds Calcium Carbonate/Vitamin D3 [Calcium 600 + Vit D 200] 1 each PO DAILY 02/10/16 [History] Cholecalciferol (Vitamin D3) [Vitamin D3] 2,000 unit PO DAILY 02/10/16 [History] Furosemide 40 mg PO DAILY 02/10/16 [History] Gabapentin 300 mg PO BEDTIME 02/10/16 [History] Lisinopril 10 mg PO DAILY 02/10/16 [History] Multivitamin [Multi-Vitamin Daily] 1 each PO DAILY 02/10/16 [History] Warfarin [Coumadin] 5 mg PO DAILY 02/10/16 [History] Warfarin [Coumadin] 7.5 mg PO DAILY 03/17/16 [History] Acetaminophen/oxyCODONE [Percocet 325-5 MG] 1 - 2 tab PO Q6HR #120 tablet [Rx] Diazepam [Valium] 5 mg PO TID PRN #15 tablet 06/28/16 [Rx] Insulin Aspart [NovoLOG] 0 units SUBCUT TID 10/25/16 [History] Insulin Degludec [Tresiba Flextouch U-100] 78 units SQ DAILY 04/28/17 [History] Doxycycline [Vibramycin] 100 mg PO BID #20 cap 09/11/17 [Rx] oxyCODONE HCl/Acetaminophen [Percocet 5-325 mg Tablet] 1 - 2 tab PO Q4H PRN #40 tablet 09/11/17 [Rx] Past Medical History HEENT History: Reports: Cataract, Impaired Vision Cardiovascular History: Reports: Blood Clots/VTE/DVT, Hypertension Respiratory History: Reports: PE Gastrointestinal History: Reports: Cholelithiasis, Colon Polyp 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 OB/BYN History: Stillborn Musculoskeletal History: Reports: Arthritis, Fracture Endocrine/Metabolic History: Reports: Diabetes, Type II, Obesity/BMI 30+ Hematologic History: Reports: B12 Deficiency Oncologic (Cancer) History: Reports: Other (See Below) Other Oncologic History: endometrial cancer x2 Dermatologic History: Reports: Cellulitis - Infectious Disease History Infectious Disease History: Reports: Chicken Pox, Measles, Mumps - Past Surgical History HEENT Surgical History: Reports: Cataract Surgery, Tonsillectomy Cardiovascular Surgical History: Reports: None Respiratory Surgical History: Reports: None GI Surgical History: Reports: Appendectomy, Cholecystectomy Female Surgical History: Reports: Section, Hysterectomy Endocrine Surgical History: Reports: None Neurological Surgical History: Reports: None Musculoskeletal Surgical History: Reports: Knee Replacement Oncologic Surgical History: Reports: None Dermatological Surgical History: Reports: None Social & Family History - Family History Family Medical History: Noncontributory - Tobacco Use Smoking Status *Q: Never Smoker Second Hand Smoke Exposure: No - Caffeine Use Caffeine Use: Reports: Soda - Alcohol Use Days Per Week of Alcohol Use: 0 - Recreational Drug Use Recreational Drug Use: No ED ROS GENERAL - Review of Systems Review Of Systems: See Below Constitutional: Reports: No Symptoms HEENT: Reports: No Symptoms Respiratory: Reports: No Symptoms Cardiovascular: Reports: No Symptoms GI/Abdominal: Reports: Abdominal Pain, Nausea, Vomiting Musculoskeletal: Reports: Back Pain Skin: Reports: No Symptoms ED EXAM, GENERAL - Physical Exam Exam: See Below Exam Limited By: No Limitations General Appearance: Alert, WD/WN, No Apparent Distress Respiratory/Chest: No Respiratory Distress GI/Abdominal: Soft, Non-Tender, Other (Obese) Course - Vital Signs Last Recorded V/S: Last Vital Signs Temp 96.0 F 09/11/17 13:41 Pulse 58 L 09/11/17 15:14 Resp 15 09/11/17 15:14 BP 191/74 H 09/11/17 15:14 Pulse Ox 95 09/11/17 15:14 - Orders/Labs/Meds Orders: Active Orders 24 hr Category Date Time Status Abdomen 1V Flat [CR] Stat Exams 09/11/17 14:31 Taken Meds: Medications Discontinued Medications Generic Name Dose Route Start Last Admin Trade Name Lashanda PRN Reason Stop Dose Admin Hydromorphone HCl 0.5 mg 09/11/17 14:31 09/11/17 14:37 Dilaudid IVPUSH 09/11/17 14:32 0.5 mg ONETIME ONE Administration Hydromorphone HCl 1 mg 09/11/17 15:34 09/11/17 15:42 Dilaudid IVPUSH 09/11/17 15:35 1 mg ONETIME ONE Administration Simethicone 160 mg 09/11/17 15:34 09/11/17 15:41 Simethicone PO 09/11/17 15:35 160 mg ONETIME ONE Administration Departure - Departure Time of Disposition: 16:13 Disposition: Home, Self-Care 01 Condition: Fair Clinical Impression: Generalized abdominal pain - Discharge Information Referrals: Manuel Merritt MD [Primary Care Provider] - Forms: ED Department Discharge Additional Instructions: Try the second methadone or Gas-X to help breakup gas bubbles, prescription written for Percocet to use for pain control until you can fill your normal prescription, please keep your follow-up appointment with general surgery, call return to the emergency department worsening of symptoms - My Orders Last 24 Hours: My Active Orders 09/11/17 14:31 Abdomen 1V Flat [CR] Stat - Assessment/Plan Last 24 Hours: My Active Orders 09/11/17 14:31 Abdomen 1V Flat [CR] Stat Plan: Assessment Acuity = acute Site and laterality = abdominal pain with large amount of gas Etiology = unclear etiology Manifestations = none Location of injury = Home Lab values = plain film shows large amount of gas in the colon and stomach Plan She was able to have a bowel movement while in the ED was able to belch some which provided some relief she was received Dilaudid and simethicone also provided some relief. Prescription is written for Percocet she continues at home until she can feel her regular prescription also wrote for some Zofran 1 tab by mouth 3 times a day when necessary 4 mg ODT keep her regular follow-up appointment with surgery This note was dictated using [employer] voice recognition software please call with any questions on syntax or erick.
[2017-09-11 15:14] VITALS: BP 191/74
[2017-09-11] MEDS ORDERED: Simethicone 80 MG Tab.Chew PO ONE (15:34)
[2017-09-11] MEDS ORDERED: HYDROmorphone 1 MG/ML Syringe IVPUSH ONE (15:34)
--- NOTE | 2017-09-12 09:54 | CR ---
Air bubble centrally within the abdomen which may be gaseous distention of the stomach. Scattered sma ll bowel loops are nondilated. No dilated loops of colon.
== END 2017-09-11 16:31 | disposition home or self-care (01) ==
LOC: JP.ED 13:02
DX: R10.84 Generalized abdominal pain (principal); I10 Essential (primary) hypertension; E11.9 Type 2 diabetes mellitus without complications; E66.9 Obesity, unspecified; Z90.49 Acquired absence of other specified parts of digestive tract; Z88.2 Allergy status to sulfonamides; Z88.8 Allergy status to other drugs, medicaments and biological substances; Z79.899 Other long term (current) drug therapy; Z79.01 Long term (current) use of anticoagulants; Z79.4 Long term (current) use of insulin; Z68.42 Body mass index [BMI] 45.0-49.9, adult
CPT/HCPCS: 74018; 82962; 96374; 96376; 99284; A9270; J1170

== ENCOUNTER 2017-09-12 20:54 | Inpatient (IN) | payer BC ==
[2017-09-12] MEDS ORDERED: Labetalol 20 MG/4 ML Syringe IVPUSH ONE (21:27)
[2017-09-12] MEDS ORDERED: Acetaminophen 1,000 MG in Premix Bag 1 BAG IV ONE (21:28)
[2017-09-12] MEDS ORDERED: Lactated Ringers 1,000 ML IV ONE (21:32)
[2017-09-12] MEDS ORDERED: Sodium Chloride 0.9% 80 ML IV SCH (22:00)
[2017-09-12] MEDS ORDERED: Iopamidol 612 MG/ML 100 ML Bottle IV SCH (22:00)
[2017-09-12] MEDS: Sodium Chloride 0.9% 10 ML Syringe FLUSH PRN ×2 (22:00→23:25)
--- NOTE | 2017-09-12 22:01 | EDM.PDOC ---
ED HPI GENERAL MEDICAL PROBLEM - General Chief Complaint: Back Pain or Injury Stated Complaint: BACK PAIN CRAMPING IN LEFT LEG Time Seen by Provider: 09/12/17 21:40 Source of Information: Reports: Patient, Old Records, RN History Limitations: Reports: No Limitations - History of Present Illness INITIAL COMMENTS - FREE TEXT/NARRATIVE: 62 yo female here with a complaint of mid back pain. Pain began yesterday and she was seen in the ER then with the determination that it was from a gas bubble that was noted on X-ray. She had recently been in the hospital for a cellulitis of the R thigh that is getting better since she was started on antibiotics. Had a bedolla at one point while in the hospital. Had a BM yesterday , but not today. Denies vomiting. Is not aware of a fever. Denies any injury to her back or prior issues with her back. BP much higher than normal yesterday in the ER, and is higher yet today. Did not miss any of her lisinopril doses. High BP not referenced in her ER note yesterday. During her hospitalization she had an elevated Trop ? presumably from her sepsis. She had some acute renal failure that has since improved. Onset Date: 09/11/17 Duration: Day(s): (1.5 days), Constant Location: Reports: Back (mid back) Quality: Reports: Ache Severity: Moderate Improves with: Reports: Medication (Hasn't taken any of her prescribed opiates, does get some relief from them when taken. ) Worsens with: Reports: Movement Context: Reports: Other (Recent necrotizing fasciitis) Associated Symptoms: Reports: No Other Symptoms Treatments SYSTEMS SOFTWARE SPECIALIST: Reports: Other (see below) (antibiotics only.) - Related Data Allergies Allergy/AdvReac Type Severity Reaction Status Date / Time sulfamethoxazole Allergy Severe Renal Verified 09/11/17 13:45 [From Bactrim] Insufficiency trimethoprim [From Bactrim] Allergy Severe Rash Verified 09/11/17 13:45 Gadolinium-Containing Allergy Itching Verified 09/11/17 13:45 Contrast Medi Home Meds: Home Meds Calcium Carbonate/Vitamin D3 [Calcium 600 + Vit D 200] 1 each PO DAILY 02/10/16 [History] Cholecalciferol (Vitamin D3) [Vitamin D3] 2,000 unit PO DAILY 02/10/16 [History] Furosemide 40 mg PO DAILY 02/10/16 [History] Gabapentin 300 mg PO BEDTIME 02/10/16 [History] Lisinopril 10 mg PO DAILY 02/10/16 [History] Multivitamin [Multi-Vitamin Daily] 1 each PO DAILY 02/10/16 [History] Warfarin [Coumadin] 5 mg PO DAILY 02/10/16 [History] Warfarin [Coumadin] 7.5 mg PO DAILY 03/17/16 [History] Acetaminophen/oxyCODONE [Percocet 325-5 MG] 1 - 2 tab PO Q6HR #120 tablet [Rx] Insulin Aspart [NovoLOG] 0 units SUBCUT TID 10/25/16 [History] Insulin Degludec [Tresiba Flextouch U-100] 78 units SQ DAILY 04/28/17 [History] Doxycycline [Vibramycin] 100 mg PO BID #20 cap 09/11/17 [Rx] oxyCODONE HCl/Acetaminophen [Percocet 5-325 mg Tablet] 1 - 2 tab PO Q4H PRN #40 tablet 09/11/17 [Rx] Past Medical History HEENT History: Reports: Cataract, Impaired Vision Cardiovascular History: Reports: Blood Clots/VTE/DVT, Hypertension Respiratory History: Reports: PE Gastrointestinal History: Reports: Cholelithiasis, Colon Polyp Genitourinary History: Reports: None CLINIC PHYSICIAN DIRECTOR History: Reports: Other OB/BYN History: Stillborn Musculoskeletal History: Reports: Arthritis, Fracture Neurological History: Reports: None Psychiatric History: Reports: None Endocrine/Metabolic History: Reports: Diabetes, Type II, Obesity/BMI 30+ Hematologic History: Reports: B12 Deficiency Oncologic (Cancer) History: Reports: Other (See Below) Other Oncologic History: endometrial cancer x2 Dermatologic History: Reports: Cellulitis - Infectious Disease History Infectious Disease History: Reports: Chicken Pox, Measles, Mumps - Past Surgical History HEENT Surgical History: Reports: Cataract Surgery, Tonsillectomy Cardiovascular Surgical History: Reports: None Respiratory Surgical History: Reports: None GI Surgical History: Reports: Appendectomy, Cholecystectomy Female Surgical History: Reports: Section, Hysterectomy Endocrine Surgical History: Reports: None Neurological Surgical History: Reports: None Musculoskeletal Surgical History: Reports: Knee Replacement Oncologic Surgical History: Reports: None Dermatological Surgical History: Reports: None Social & Family History - Family History Family Medical History: Noncontributory - Tobacco Use Smoking Status *Q: Never Smoker Second Hand Smoke Exposure: No - Caffeine Use Caffeine Use: Reports: Soda - Alcohol Use Days Per Week of Alcohol Use: 0 - Recreational Drug Use Recreational Drug Use: No ED ROS GENERAL - Review of Systems Review Of Systems: See Below Constitutional: Denies: Fever, Chills HEENT: Reports: No Symptoms Respiratory: Reports: No Symptoms Cardiovascular: Reports: No Symptoms Endocrine: Reports: No Symptoms GI/Abdominal: Reports: Constipation (last BM yesterday.). Denies: Abdominal Pain, Black Stool, Bloody Stool, Diarrhea, Hematemesis, Hematochezia, Melena, Nausea, Vomiting : Reports: No Symptoms Musculoskeletal: Reports: No Symptoms Skin: Reports: No Symptoms (Leg redness much better.) Neurological: Reports: No Symptoms Psychiatric: Reports: No Symptoms ED EXAM, UPPER BACK/NECK PAIN - Physical Exam Exam: See Below Exam Limited By: No Limitations General Appearance: Alert, WD/WN, No Apparent Distress, Obese Eye Exam: Bilateral Eye: Normal Inspection Ears Exam: Normal External Exam, Normal Canal, Hearing Grossly Normal, Normal TMs Nose Exam: Normal Inspection, Normal Mucousa, No Blood Throat/Mouth Exam: Normal Inspection, Normal Lips, Normal Oropharynx, Normal Voice, No Airway Compromise Head Exam: Atraumatic, Normocephalic Neck Exam: Non-Tender Cardiovascular/Respiratory: Regular Rate, Rhythm, Normal Breath Sounds, No Respiratory Distress GI/Abdominal: Normal Bowel Sounds, Soft, Non-Tender, No Distention, Other (Obese ) Back Exam: Normal Inspection, Vertebral Tenderness (T12 region, tender with palpation. ). No: CVA Tenderness (R), CVA Tenderness (L), Paraspinal Tenderness Extremities: Other (lymphedema both LE's). No: Limited Range of Motion, Redness Neurologic: personal injury law specialist II-XII nml As Tested, No Motor/Sensory Deficits, Alert, Normal Mood/Affect, Oriented x 3 Psychiatric: Normal Affect, Normal Mood Skin Exam: Normal Color, Warm/Dry Lymphatic: No Adenopathy EKG INTERPRETATION EKG Date: 09/12/17 Time: 22:10 Rhythm: NSR Rate (Beats/Min): 66 [place]: Normal P-Wave: Present QRS: Normal ST-T: Normal QT: Normal Comparison: No Change (Rate reduction from EKG of 06/25/16, otherwise no change.) Course - Vital Signs Text/Narrative:: Labetolol 20 mg IV-BP down to 155, no change in her pain Acetaminophen 1000 mg IV- Last Recorded V/S: Last Vital Signs Temp 36.8 C 09/12/17 21:09 Pulse 71 09/12/17 22:54 Resp 14 09/12/17 22:18 BP 163/67 H 09/12/17 22:54 Pulse Ox 88 L 09/12/17 22:54 - Orders/Labs/Meds Orders: Active Orders 24 hr Category Date Time Status EKG Documentation Completion [RC] ASDIRECTED Care 09/12/17 22:05 Active Ang Chest [CT] Stat Exams 09/12/17 21:33 Taken UA W/MICROSCOPIC [URIN] Stat Lab 09/12/17 21:32 Ordered Iopamidol [Isovue-370 (76%)] Med 09/12/17 23:15 Active 100 ml IV . DIRECTED Lactated Ringers [Ringers, Lactated] 1,000 ml Med 09/12/17 23:15 Active IV ASDIRECTED Sodium Chloride 0.9% [Normal Saline] 80 ml Med 09/12/17 22:00 Active IV ASDIRECTED Sodium Chloride 0.9% [Saline Flush] Med 09/12/17 21:27 Active 10 ml FLUSH ASDIRECTED PRN Saline Lock Insert [OM.PC] Routine Oth 09/12/17 21:27 Ordered EKG 12 Lead [EK] Routine Ther 09/12/17 22:04 Ordered Medication Orders Sodium Chloride (Normal Saline) 80 mls @ 3 mls/sec IV ASDIRECTED [facility] Last Admin: 09/12/17 23:25 Dose: 3 mls/sec Lactated Ringer's (Ringers, Lactated) 1,000 mls @ 75 mls/hr IV ASDIRECTED LADONNA Last Admin: 09/12/17 23:23 Dose: 75 mls/hr Iopamidol (Isovue-370 (76%)) 100 ml IV . DIRECTED [facility] Last Admin: 09/12/17 23:26 Dose: 100 ml Sodium Chloride (Saline Flush) 10 ml FLUSH ASDIRECTED PRN PRN Reason: Keep Vein Open Last Admin: 09/12/17 23:25 Dose: 10 ml Admin: 09/12/17 22:00 Dose: 10 ml Labs: Laboratory Tests 09/12/17 09/12/17 09/12/17 Range/Units 21:40 21:40 22:01 ESR 94 H (0-25) mm/hr D-Dimer, Quantitative (0.0-400.0) ng/mL Sodium 138 L (140-148) mmol/L Potassium 4.5 (3.6-5.2) mmol/L Chloride 101 (100-108) mmol/L Carbon Dioxide 31 (21-32) mmol/L Anion Gap 10.5 (5.0-14.0) mmol/L BUN 21 H (7-18) mg/dL Creatinine 1.4 H (0.6-1.0) mg/dL Est Cr Clr Drug Dosing 41.49 mL/min Estimated GFR (MDRD) 38 L (>60) Glucose 184 H (74-106) mg/dL Calcium 8.4 L (8.5-10.1) mg/dL C-Reactive Protein 9.34 H (0.0-0.3) mg/dL NT-Pro-B Natriuret Pep (5-125) pg/mL 09/12/17 09/12/17 Range/Units 22:24 22:25 ESR (0-25) mm/hr D-Dimer, Quantitative 1400 H (0.0-400.0) ng/mL Sodium (140-148) mmol/L Potassium (3.6-5.2) mmol/L Chloride (100-108) mmol/L Carbon Dioxide (21-32) mmol/L Anion Gap (5.0-14.0) mmol/L BUN (7-18) mg/dL Creatinine (0.6-1.0) mg/dL Est Cr Clr Drug Dosing mL/min Estimated GFR (MDRD) (>60) Glucose (74-106) mg/dL Calcium (8.5-10.1) mg/dL C-Reactive Protein (0.0-0.3) mg/dL NT-Pro-B Natriuret Pep 5428 H (5-125) pg/mL Meds: Medications Generic Name Dose Route Start Last Admin Trade Name Freq PRN Reason Stop Dose Admin Sodium Chloride 80 mls @ 3 mls/sec 09/12/17 22:00 09/12/17 23:25 Normal Saline IV 3 mls/sec ASDIRECTED LADNONA Administration Lactated Ringer's 1,000 mls @ 75 mls/hr 09/12/17 23:15 09/12/17 23:23 Ringers, Lactated IV 75 mls/hr ASDIRECTED LADONNA Administration Iopamidol 100 ml 09/12/17 23:15 09/12/17 23:26 Isovue-370 (76%) IV 100 ml . DIRECTED LADONNA Administration Sodium Chloride 10 ml 09/12/17 21:27 09/12/17 23:25 Saline Flush FLUSH 10 ml ASDIRECTED PRN Administration Keep Vein Open Discontinued Medications Generic Name Dose Route Start Last Admin Trade Name Freq PRN Reason Stop Dose Admin Hydralazine HCl 20 mg 09/12/17 22:57 09/12/17 23:13 Apresoline IVPUSH 09/12/17 22:58 20 mg ONETIME ONE Administration Hydromorphone HCl 0.5 mg 09/12/17 23:08 09/12/17 23:22 Dilaudid IVPUSH 09/12/17 23:09 0.5 mg ONETIME ONE Administration Hydromorphone HCl 1 mg 09/12/17 23:41 09/12/17 23:45 Dilaudid IVPUSH 09/12/17 23:42 1 mg ONETIME ONE Administration Acetaminophen 1,000 mg/ Premix 100 mls @ 400 mls/hr 09/12/17 21:28 09/12/17 22:01 IV 09/12/17 21:42 400 mls/hr NOW ONE Administration Lactated Ringer's 1,000 mls @ 1,000 mls/hr 09/12/17 21:32 09/12/17 22:02 Ringers, Lactated IV 09/12/17 22:31 1,000 mls/hr BOLUS ONE Administration Labetalol HCl 20 mg 09/12/17 21:27 09/12/17 21:42 Normodyne IVPUSH 09/12/17 21:28 20 mg NOW ONE Administration Protocol - Radiology Interpretation Free Text/Narrative:: No PE or other significant findings on Chest CT with PE study. CT Results Date: 09/12/17 CT Results Time: 00:44 Departure - Departure Time of Disposition: 13:20 Disposition: Refer to Observation Condition: Fair Clinical Impression: Back pain Qualifiers: Back pain location: thoracic back pain Chronicity: acute Back pain laterality: midline Qualified Code(s): M54.6 - Pain in thoracic spine HTN (hypertension) Qualifiers: Hypertension type: unspecified Qualified Code(s): I10 - Essential (primary) hypertension CHF (congestive heart failure) Qualifiers: Heart failure type: unspecified Heart failure chronicity: unspecified Qualified Code(s): I50.9 - Heart failure, unspecified - Discharge Information Referrals: Manuel Merritt MD [Primary Care Provider] - Forms: ED Department Discharge - My Orders Last 24 Hours: My Active Orders 09/12/17 21:27 Sodium Chloride 0.9% [Saline Flush] 10 ml FLUSH ASDIRECTED PRN Saline Lock Insert [OM.PC] Routine 09/12/17 21:32 UA W/MICROSCOPIC [URIN] Stat 09/12/17 21:33 Ang Chest [CT] Stat 09/12/17 22:00 Sodium Chloride 0.9% [Normal Saline] 80 ml IV ASDIRECTED 09/12/17 22:04 EKG 12 Lead [EK] Routine 09/12/17 22:05 EKG Documentation Completion [RC] ASDIRECTED 09/12/17 23:15 Iopamidol [Isovue-370 (76%)] 100 ml IV . DIRECTED Lactated Ringers [Ringers, Lactated] 1,000 ml IV ASDIRECTED - Assessment/Plan Last 24 Hours: My Active Orders 09/12/17 21:27 Sodium Chloride 0.9% [Saline Flush] 10 ml FLUSH ASDIRECTED PRN Saline Lock Insert [OM.PC] Routine 09/12/17 21:32 UA W/MICROSCOPIC [URIN] Stat 09/12/17 21:33 Ang Chest [CT] Stat 09/12/17 22:00 Sodium Chloride 0.9% [Normal Saline] 80 ml IV ASDIRECTED 09/12/17 22:04 EKG 12 Lead [EK] Routine 09/12/17 22:05 EKG Documentation Completion [RC] ASDIRECTED 09/12/17 23:15 Iopamidol [Isovue-370 (76%)] 100 ml IV . DIRECTED Lactated Ringers [Ringers, Lactated] 1,000 ml IV ASDIRECTED
[2017-09-12] MEDS ORDERED: hydrALAZINE 20 MG/ML SDV IVPUSH ONE (22:57)
[2017-09-12] MEDS ORDERED: HYDROmorphone 0.5 MG/0.5 ML Syringe IVPUSH ONE (23:08)
[2017-09-12] MEDS ORDERED: Iopamidol 755 Mg/ML 100 ML Bottle IV SCH (23:15)
[2017-09-12] MEDS: Lactated Ringers 1,000 ML IV SCH (23:23)
[2017-09-12] MEDS ORDERED: HYDROmorphone 1 MG/ML Syringe IVPUSH ONE (23:41)
[2017-09-13] MEDS ORDERED: Furosemide 40 MG/4 ML VIAL IVPUSH ONE (00:57)
[2017-09-13] MEDS ORDERED: HYDROmorphone 1 MG/ML Syringe IVPUSH ONE (01:37)
[2017-09-13] MEDS ORDERED: Sodium Chloride 0.9% 10 ML Syringe FLUSH PRN (01:40)
[2017-09-13] MEDS ORDERED: Ondansetron 4 MG/2 ML SDV IV PRN (01:40)
[2017-09-13] MEDS ORDERED: Acetaminophen 325 MG Tab PO PRN (01:40)
[2017-09-13] MEDS ORDERED: Doxycycline 100 MG in Sodium Chloride 0.9% 100 ML IV SCH (02:00)
[2017-09-13] MEDS: HYDROmorphone/Normal Saline 15 MG/30 ML PCA IV SCH (02:47)
[2017-09-13] MEDS ORDERED: Acetaminophen/oxyCODONE 325-5 MG Tab ONE (05:32)
[2017-09-13] MEDS: Lisinopril 10 MG Tab PO SCH (09:00)
[2017-09-13] MEDS: Acetaminophen/oxyCODONE 325-5 MG Tab PO PRN ×3 (09:15→19:32)
[2017-09-13] MEDS ORDERED: Polyethylene Glycol 3350 Powder 17 GM Packet PO PRN (09:54)
[2017-09-13] MEDS ORDERED: INSULIN DEGLUDEC SQ SCH (10:00)
--- NOTE | 2017-09-13 10:01 | PCM.PN ---
- General Info Date of Service: 09/13/17 Functional Status: Reports: Pain Controlled - Review of Systems General: Denies: Fever Gastrointestinal: Reports: Nausea Musculoskeletal: Reports: Back Pain, Leg Pain Systems Review Comment:: no acute events since admission. She has ongoing mild nausea but has not had vomiting. Still complaining of moderately severe mid back pain which is most intense in the midline but does radiate to both paraspinal muscles. She did not have any fevers. She had some spasms in her left proximal thigh but these seem to be getting better. - Patient Data Vitals - Most Recent: Last Vital Signs Temp 36.8 C 09/13/17 02:59 Pulse 76 09/13/17 02:59 Resp 18 09/13/17 02:59 BP 163/69 H 09/13/17 02:59 Pulse Ox 92 L 09/13/17 02:59 Weight - Most Recent: 136.078 kg I&O - Last 24 Hours: Intake & Output 09/12/17 09/13/17 09/13/17 22:59 06:59 14:59 Output Total 300 Balance -300 Lab Results Last 24 Hours: Laboratory Results - last 24 hr 09/12/17 09/12/17 09/12/17 Range/Units 21:40 21:40 22:01 WBC (4.5-11.0) K/uL RBC (3.30-5.50) M/uL Hgb (12.0-15.0) g/dL Hct (36.0-48.0) % MCV (80-98) fL MCH (27-31) pg MCHC (32-36) % Plt Count (150-400) K/uL Neut % (Auto) (36-66) % Lymph % (Auto) (24-44) % Clare % (Auto) (2-6) % Eos % (Auto) (2-4) % Baso % (Auto) (0-1) % ESR 94 H (0-25) mm/hr D-Dimer, Quantitative (0.0-400.0) ng/mL Sodium 138 L (140-148) mmol/L Potassium 4.5 (3.6-5.2) mmol/L Chloride 101 (100-108) mmol/L Carbon Dioxide 31 (21-32) mmol/L Anion Gap 10.5 (5.0-14.0) mmol/L BUN 21 H (7-18) mg/dL Creatinine 1.4 H (0.6-1.0) mg/dL Est Cr Clr Drug Dosing 41.49 mL/min Estimated GFR (MDRD) 38 L (>60) Glucose 184 H (74-106) mg/dL Calcium 8.4 L (8.5-10.1) mg/dL C-Reactive Protein 9.34 H (0.0-0.3) mg/dL NT-Pro-B Natriuret Pep (5-125) pg/mL Urine Color Urine Appearance Urine pH (4.5-8.0) Ur Specific [place] (1.008-1.030) Urine Protein (NEGATIVE) mg/dL Urine Glucose (UA) (NEGATIVE) mg/dL Urine Ketones (NEGATIVE) mg/dL Urine Occult Blood (NEGATIVE) Urine Nitrite (NEGATIVE) Urine Bilirubin (NEGATIVE) Urine Urobilinogen (NORMAL) mg/dL Ur Leukocyte Esterase (NEGATIVE) Urine RBC (0-5) Urine WBC (0-5) Ur Epithelial Cells Amorphous Sediment Urine Bacteria Urine Mucus 09/12/17 09/12/17 09/13/17 Range/Units 22:24 22:25 01:25 WBC (4.5-11.0) K/uL RBC (3.30-5.50) M/uL Hgb (12.0-15.0) g/dL Hct (36.0-48.0) % MCV (80-98) fL MCH (27-31) pg MCHC (32-36) % Plt Count (150-400) K/uL Neut % (Auto) (36-66) % Lymph % (Auto) (24-44) % Clare % (Auto) (2-6) % Eos % (Auto) (2-4) % Baso % (Auto) (0-1) % ESR (0-25) mm/hr D-Dimer, Quantitative 1400 H (0.0-400.0) ng/mL Sodium (140-148) mmol/L Potassium (3.6-5.2) mmol/L Chloride (100-108) mmol/L Carbon Dioxide (21-32) mmol/L Anion Gap (5.0-14.0) mmol/L BUN (7-18) mg/dL Creatinine (0.6-1.0) mg/dL Est Cr Clr Drug Dosing mL/min Estimated GFR (MDRD) (>60) Glucose (74-106) mg/dL Calcium (8.5-10.1) mg/dL C-Reactive Protein (0.0-0.3) mg/dL NT-Pro-B Natriuret Pep 5428 H (5-125) pg/mL Urine Color Yellow Urine Appearance Slightly cloudy Urine pH 6.0 (4.5-8.0) Ur Specific [place] 1.010 (1.008-1.030) Urine Protein 500 H (NEGATIVE) mg/dL Urine Glucose (UA) 50 H (NEGATIVE) mg/dL Urine Ketones Negative (NEGATIVE) mg/dL Urine Occult Blood Moderate (NEGATIVE) Urine Nitrite Negative (NEGATIVE) Urine Bilirubin Negative (NEGATIVE) Urine Urobilinogen Normal (NORMAL) mg/dL Ur Leukocyte Esterase Moderate (NEGATIVE) Urine RBC 10-20 H (0-5) Urine WBC 10-20 H (0-5) Ur Epithelial Cells Many Amorphous Sediment Not seen Urine Bacteria Not seen Urine Mucus Not seen 09/13/17 09/13/17 Range/Units 05:11 05:11 WBC 14.4 H (4.5-11.0) K/uL RBC 4.33 (3.30-5.50) M/uL Hgb 12.5 (12.0-15.0) g/dL Hct 39.8 (36.0-48.0) % MCV 92 (80-98) fL MCH 29 (27-31) pg MCHC 31 L (32-36) % Plt Count 393 (150-400) K/uL Neut % (Auto) 84 H (36-66) % Lymph % (Auto) 5 L (24-44) % Clare % (Auto) 10 H (2-6) % Eos % (Auto) 1 L (2-4) % Baso % (Auto) 0 (0-1) % ESR (0-25) mm/hr D-Dimer, Quantitative (0.0-400.0) ng/mL Sodium 138 L (140-148) mmol/L Potassium 3.9 (3.6-5.2) mmol/L Chloride 98 L (100-108) mmol/L Carbon Dioxide 33 H (21-32) mmol/L Anion Gap 10.9 (5.0-14.0) mmol/L BUN 21 H (7-18) mg/dL Creatinine 1.5 H (0.6-1.0) mg/dL Est Cr Clr Drug Dosing 38.38 mL/min Estimated GFR (MDRD) 35 L (>60) Glucose 168 H (74-106) mg/dL Calcium 8.4 L (8.5-10.1) mg/dL C-Reactive Protein (0.0-0.3) mg/dL NT-Pro-B Natriuret Pep (5-125) pg/mL Urine Color Urine Appearance Urine pH (4.5-8.0) Ur Specific [place] (1.008-1.030) Urine Protein (NEGATIVE) mg/dL Urine Glucose (UA) (NEGATIVE) mg/dL Urine Ketones (NEGATIVE) mg/dL Urine Occult Blood (NEGATIVE) Urine Nitrite (NEGATIVE) Urine Bilirubin (NEGATIVE) Urine Urobilinogen (NORMAL) mg/dL Ur Leukocyte Esterase (NEGATIVE) Urine RBC (0-5) Urine WBC (0-5) Ur Epithelial Cells Amorphous Sediment Urine Bacteria Urine Mucus Med Orders - Current: Current Medications Acetaminophen (Tylenol) 650 mg PO Q4H PRN PRN Reason: Pain (Mild 1-3)/fever Hydromorphone HCl (Dilaudid Packing Floor Worker 15 Mg In Ns 30 Ml) 15 mg IV ASDIRECTED [facility]; Protocol Last Admin: 09/13/17 02:47 Dose: 15 mg Lactated Ringer's (Ringers, Lactated) 1,000 mls @ 75 mls/hr IV ASDIRECTED [facility] Last Admin: 09/12/17 23:23 Dose: 75 mls/hr Lisinopril (Prinivil) 10 mg PO DAILY [facility] Ondansetron HCl (Zofran) 4 mg IV Q4H PRN PRN Reason: Nausea/Vomiting Oxycodone/Acetaminophen (Percocet 325-5 Mg) 1 - 2 tab PO Q4H PRN PRN Reason: Pain Sodium Chloride (Saline Flush) 10 ml FLUSH ASDIRECTED PRN PRN Reason: Keep Vein Open Warfarin Sodium (Coumadin) 5 mg PO SuTuThSa@1300 [facility] Warfarin Sodium (Coumadin) 7.5 mg PO MoWeFr@1300 [facility] Discontinued Medications Doxycycline Hyclate (Vibramycin) 100 mg PO BID [facility] Furosemide (Lasix) 40 mg IVPUSH ONETIME ONE Stop: 09/13/17 00:58 Last Admin: 09/13/17 01:13 Dose: 40 mg Hydralazine HCl (Apresoline) 20 mg IVPUSH ONETIME ONE Stop: 09/12/17 22:58 Last Admin: 09/12/17 23:13 Dose: 20 mg Hydromorphone HCl (Dilaudid) 0.5 mg IVPUSH ONETIME ONE Stop: 09/12/17 23:09 Last Admin: 09/12/17 23:22 Dose: 0.5 mg Hydromorphone HCl (Dilaudid) 1 mg IVPUSH ONETIME ONE Stop: 09/12/17 23:42 Last Admin: 09/12/17 23:45 Dose: 1 mg Hydromorphone HCl (Dilaudid) 1 mg IVPUSH ONETIME ONE Stop: 09/13/17 01:38 Last Admin: 09/13/17 01:41 Dose: 1 mg Acetaminophen 1,000 mg/ Premix 100 mls @ 400 mls/hr IV NOW ONE Stop: 09/12/17 21:42 Last Admin: 09/12/17 22:01 Dose: 400 mls/hr Lactated Ringer's (Ringers, Lactated) 1,000 mls @ 1,000 mls/hr IV BOLUS ONE Stop: 09/12/17 22:31 Last Admin: 09/12/17 22:02 Dose: 1,000 mls/hr Sodium Chloride (Normal Saline) 80 mls @ 3 mls/sec IV ASDIRECTED [facility] Last Admin: 09/12/17 23:25 Dose: 3 mls/sec Doxycycline Hyclate 100 mg/ (Sodium Chloride) 100 mls @ 100 mls/hr IV Q12H [facility] Last Admin: 09/13/17 02:49 Dose: 100 mls/hr Iopamidol (Isovue-370 (76%)) 100 ml IV . DIRECTED [facility] Last Admin: 09/12/17 23:26 Dose: 100 ml Labetalol HCl (Normodyne) 20 mg IVPUSH NOW ONE; Protocol Stop: 09/12/17 21:28 Last Admin: 09/12/17 21:42 Dose: 20 mg Oxycodone/Acetaminophen (Percocet 325-5 Mg) Confirm Administered Dose 2 tab .ROUTE .STK-MED ONE Stop: 09/13/17 05:33 Sodium Chloride (Saline Flush) 10 ml FLUSH ASDIRECTED PRN PRN Reason: Keep Vein Open Last Admin: 09/12/17 23:25 Dose: 10 ml - Exam Quality Assessment: No: Supplemental Oxygen General: Alert, Oriented, Cooperative, No Acute Distress Neck: Supple Lungs: Normal Respiratory Effort Cardiovascular: Regular Rate, Regular Rhythm GI/Abdominal Exam: Soft, No Distention, Tender (mild epigastric pain) Back Exam: Normal Inspection, Muscle Spasm (lumbar and thoracic paraspinal muscles, left greater than right), Vertebral Tenderness (midthoracic spine). No : Full Range of Motion Extremities: No Pedal Edema Skin: Warm, Dry Wound/Incisions: Healing Well (left thigh wound healing well, no erythema) Psy/Mental Status: Alert, Normal Affect - Problem List & Annotations (1) Back pain SNOMED Code(s): 516156306 Code(s): M54.9 - DORSALGIA, UNSPECIFIED Status: Acute Current Visit: Yes Qualifiers: Back pain location: thoracic back pain Chronicity: acute Back pain laterality: midline Qualified Code(s): M54.6 - Pain in thoracic spine (2) Generalized abdominal pain SNOMED Code(s): 847305306 Code(s): R10.84 - GENERALIZED ABDOMINAL PAIN Status: Acute Current Visit : No (3) Cellulitis SNOMED Code(s): 480491680 Code(s): L03.90 - CELLULITIS, UNSPECIFIED Status: Acute Current Visit: No Qualifiers: Site of cellulitis: unspecified site Qualified Code(s): L03.90 - Cellulitis , unspecified Annotation/Comment:: left proximal thigh (4) Type 2 diabetes mellitus SNOMED Code(s): 36996849 Code(s): E11.9 - TYPE 2 DIABETES MELLITUS WITHOUT COMPLICATIONS Status: Chronic Current Visit: No Qualifiers: Diabetes mellitus termite exterminator helper insulin use: with termite exterminator helper use Diabetes mellitus complication status: with unspecified complications Qualified Code(s) : E11.8 - Type 2 diabetes mellitus with unspecified complications; Z79.4 - intermediate manager (current) use of insulin; Z79.4 - intermediate manager (current) use of insulin; Z79.4 - intermediate manager (current) use of insulin; Z79.4 - intermediate manager (current) use of insulin (5) Chronic renal insufficiency, stage III (moderate) SNOMED Code(s): 779507485 Code(s): N18.3 - CHRONIC KIDNEY DISEASE, STAGE 3 (MODERATE) Status: Chronic Current Visit: No (6) Hx pulmonary embolism SNOMED Code(s): 585874744 Code(s): Z86.711 - PERSONAL HISTORY OF PULMONARY EMBOLISM Status: Chronic Current Visit: No - Problem List Review Problem List Initiated/Reviewed/Updated: Yes - My Orders Last 24 Hours: My Active Orders 09/13/17 09:51 LIPASE [CHEM] Routine 09/13/17 09:53 Cooling Warming Measures [RC] ASDIRECTED Heat Therapy [OM.PC] Routine 09/13/17 09:54 Magnesium Hydroxide [Milk of Magnesia] 30 ml PO BID PRN Polyethylene Glycol 3350 [MiraLAX] 17 gm PO DAILY PRN 09/13/17 09:55 Communication Order [RC] PRN Communication Order [RC] PRN Diabetes Education [RC] Click to Edit Notify Provider [RC] PRN 09/13/17 09:56 Trolamine Salicylate/Aloe Vera [Aspercreme 10%] 1 gm TOP Q1H PRN 09/13/17 09:57 tiZANidine [Zanaflex] 2 mg PO Q6H PRN 09/13/17 10:00 Clindamycin HCl [Cleocin] 600 mg PO Q8H Insulin Degludec [Tresiba Flextouch U-100] 78 units SQ DAILY Lactobacillus Rhamnosus GG [Culturelle] 1 cap PO BID 09/13/17 11:00 Insulin Aspart [NovoLOG] See Protocol SUBCUT QIDACANDBED 09/13/17 11:30 GLUCOSE POC LAB TO COLLECT [POC] QIDACANDBED 09/13/17 16:30 GLUCOSE POC LAB TO COLLECT [POC] QIDACANDBED 09/13/17 21:00 GLUCOSE POC LAB TO COLLECT [POC] QIDACANDBED Gabapentin [Neurontin] 300 mg PO BEDTIME 09/13/17 Lunch Consistent Carbohydrate Diet [DIET] 09/14/17 05:00 BASIC METABOLIC PANEL,BMP [CHEM] Timed CBC W/O DIFF,HEMOGRAM [HEME] Timed (1) INR,PT,PROTHROMBIN TIME [COAG] Timed 09/14/17 07:30 GLUCOSE POC LAB TO COLLECT [POC] QIDACANDBED 09/14/17 09:00 Furosemide [Lasix] 40 mg PO DAILY 09/14/17 11:30 GLUCOSE POC LAB TO COLLECT [POC] QIDACANDBED 09/14/17 16:30 GLUCOSE POC LAB TO COLLECT [POC] QIDACANDBED 09/14/17 21:00 GLUCOSE POC LAB TO COLLECT [POC] QIDACANDBED 09/15/17 07:30 GLUCOSE POC LAB TO COLLECT [POC] QIDACANDBED 09/15/17 11:30 GLUCOSE POC LAB TO COLLECT [POC] QIDACANDBED 09/15/17 16:30 GLUCOSE POC LAB TO COLLECT [POC] QIDACANDBED 09/15/17 21:00 GLUCOSE POC LAB TO COLLECT [POC] QIDACANDBED 09/16/17 07:30 GLUCOSE POC LAB TO COLLECT [POC] QIDACANDBED 09/16/17 11:30 GLUCOSE POC LAB TO COLLECT [POC] QIDACANDBED 09/16/17 16:30 GLUCOSE POC LAB TO COLLECT [POC] QIDACANDBED 09/16/17 21:00 GLUCOSE POC LAB TO COLLECT [POC] QIDACANDBED 09/17/17 07:30 GLUCOSE POC LAB TO COLLECT [POC] QIDACANDBED 09/17/17 11:30 GLUCOSE POC LAB TO COLLECT [POC] QIDACANDBED 09/17/17 16:30 GLUCOSE POC LAB TO COLLECT [POC] QIDACANDBED 09/17/17 21:00 GLUCOSE POC LAB TO COLLECT [POC] QIDACANDBED 09/18/17 07:30 GLUCOSE POC LAB TO COLLECT [POC] QIDACANDBED 09/18/17 11:30 GLUCOSE POC LAB TO COLLECT [POC] QIDACANDBED 09/18/17 16:30 GLUCOSE POC LAB TO COLLECT [POC] QIDACANDBED - Plan Plan:: ASSESSMENT AND PLAN - Midthoracic back pain - no abnormalities noted on CT scan. Examination consistent with significant paraspinal muscle spasm. She has not had any fevers or significant red flags to raise significant concern for developing discitis area intra-abdominal pathology is considered but her lipase is normal so pancreatitis can be ruled out. Reaction to doxycycline could be considered if it 's causing gastric irritation. -Pain control with pain meds, Aspercreme, heating pad and muscle relaxers -Discontinue doxycycline as below -Physical therapy -Consider MRI if not improving or if she develops fever Recent left proximal thigh cellulitis/necrotizing fasciitis - clinically area looks well and she's not having fevers. CRP is still significantly elevated but improving. I'm concerned she is having side effects from the doxycycline. -change antibiotics to doxycycline -Probiotics Insulin-dependent diabetes mellitus - recent control has been acceptable. 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 INR is slightly subtherapeutic today. -Continue daily warfarin -Daily INR Maintenance issues - - DVT prophylaxis - warfarin - GI prophylaxis - PPI - Nutrition - diabetic diet - August catheter - not indicated Disposition - anticipate discharge home after the hospital stay Rodriguez Edwards M.D.
--- NOTE | 2017-09-13 10:16 | HP ---
CHIEF COMPLAINT: Back pain. HISTORY OF PRESENT ILLNESS: This 62-year-old, whom I have put in, over a week ago with cellulitis to her left proximal thigh, which she was in the hospital about a week, on IV antibiotics, it was transitioned to oral and discharged yesterday, but upon going home, she started having significant pain in her mid back. Came back to the emergency room. They did an x-ray which showed increased gas in her stomach and intestines. They thought it was related to gas, they gave her Gas-X, but it did not help and has not really passed a whole lot of gas. She had a loose stool yesterday, but has not had any since then. Her back pain has gotten more severe, which she has not had a history of in the past. She came back to the emergency room, was evaluated by emergency room physician. She did have elevated sedimentation rate and CRP, although it sounds like her CRP is actually improved from when she was in the hospital. She had elevated D-dimer. CT scan showed no evidence of pulmonary embolism. It did not show any abnormalities with the bones in her thoracic spine. Had elevated BNP, so they did give her IV Lasix in the emergency room, and she started to diurese. They have been treating her pain with Dilaudid with the severity of her pain and just getting some relief with the Dilaudid, which wears off. I was asked to admit the patient for further evaluation and treatment. The patient states that her left leg has gotten better. They did I and D it, so they have been changing regular dressing changes. She does have oral doxycycline that has been prescribed, but she has not been able to take it because of nausea and vomiting. PAST MEDICAL HISTORY: 1. Recent admission for cellulitis with necrotizing fasciitis to her left thigh. 2. Endometrial carcinoma. She did have pulmonary embolism during the treatment and had another pulmonary embolism and has been on chronic anticoagulation. 3. Type 2 diabetes mellitus, on insulin. 4. Left knee replacement. 5. Sulfa given with her left knee replacement, developed significant renal insufficiency from this. MEDICATIONS: Percocet p.r.n. for pain, calcium with vitamin D, furosemide 40 mg daily, gabapentin 300 mg at bedtime, NovoLog insulin t.i.d., Tresiba 78 units daily, lisinopril 10 mg daily, multivitamin daily, warfarin. ALLERGIES: TRIMETHOPRIM SULFA AND GADOLINIUM CONTAINING CONTRAST MATERIAL. SOCIAL HISTORY: She is a nonsmoker. No alcohol use. . FAMILY HISTORY: Significant for heart disease and diabetes. REVIEW OF SYSTEMS: Denies fever, chills like she had last week. She denies headaches, vision changes, upper respiratory symptoms. No chest pain, shortness of breath, cough. She does have the nausea and vomiting. She has had loose stools, but has not had a bowel movement since yesterday morning. Denies any urinary problems. Apparently, she had a August catheter in place last week. She states her left leg pain has gotten better, still is draining some, and they have been changing routine dressing changes. No neurologic complaints other than the back pain. OBJECTIVE: VITAL SIGNS: Pulse 67, blood pressure 155/62, initially was high when she came in. I do not have temp ordered. Respiratory rate 14, O2 saturation 88% on room air. HEENT: Ears clear. Pharynx clear. NECK: Supple. No adenopathy or thyromegaly. LUNGS: Clear. HEART: Regular without murmurs. ABDOMEN: Soft. She had mild to moderate diffuse discomfort. No significant distention, but felt a little bit bloated. No mass or organomegaly palpated. EXTREMITIES: The redness that she had in her proximal left thigh is much better. She does have a dressing over the drainage site. BACK: She did have discomfort in mid to lower thoracic area, although her pain is better because of IV Dilaudid that she had received in the ER compared to when she 1st came in. Skin of her back was unremarkable. DIAGNOSTIC STUDIES: CT scan showed no pulmonary emboli. Bones were okay. Otherwise, it was unremarkable. EKG showed sinus rhythm, ventricular rate of 66 beats per minute. Atrial premature complex was seen. Otherwise unremarkable. LABORATORY DATA: ESR 94. D-dimer was 1400. CRP 9.34. Sodium 138, potassium 4.5, chloride 101, BUN is 21, creatinine 1.4, glucose 184. Urinalysis did show 10 to 20 red cells, 10 to 20 white cells. Cultures pending. ASSESSMENT: 1. Back pain after admission for a week with cellulitis with necrotizing fasciitis to her left thigh. We will admit her inpatient. Anticipate more than 2 midnight stays. Transfer care back to the Hospitalist Service in the morning. Start her on a Dilaudid CATHETER FINISHER AND INSPECTOR which has provided some pain relief in the ER. Exact etiology for back pain at this time is unknown. 2. Necrotizing fasciitis with cellulitis to her left thigh. Has not been able to take oral doxycycline, which we will switch to IV. 3. Abdominal bloating with increased gas. 4. Diabetes mellitus. We will hold off on her insulin tonight because she is not taking orally at this time. 5. Elevated BNP. Has received IV Lasix. Nicolas Marino MD /[id number]
[2017-09-13] MEDS ORDERED: Doxycycline 100 MG Cap PO SCH (11:00)
[2017-09-13] MEDS: Clindamycin HCl 150 MG Cap PO SCH ×2 (12:01→18:11)
[2017-09-13] MEDS: Lactobacillus Rhamnosus GG (Probiotic) Cap PO SCH ×2 (12:01→21:20)
[2017-09-13] MEDS: Insulin Aspart 100 Units/ML 3 ML Pen SUBCUT SCH ×3 (12:24→21:47)
[2017-09-13] MEDS ORDERED: Warfarin 5 MG Tab PO SCH (13:00)
[2017-09-13] MEDS: tiZANidine 2 MG Tab PO PRN ×2 (13:33→21:24)
[2017-09-13] MEDS: Lactated Ringers 1,000 ML IV SCH (15:30)
[2017-09-13] MEDS ORDERED: Insulin Detemir 100 Units/ML 3 ML Pen SUBCUT SCH (21:00)
[2017-09-13] MEDS ORDERED: Gabapentin 300 MG Cap PO SCH (21:00)
[2017-09-13] MEDS: TRESIBA 200 UNIT/ML SUBCUT SCH (21:24)
[2017-09-13] MEDS: Magnesium Hydroxide 400 MG/5 ML Susp 30 ML Cup PO PRN (21:38)
[2017-09-14] MEDS: Acetaminophen/oxyCODONE 325-5 MG Tab PO PRN ×5 (00:03→22:04)
[2017-09-14] MEDS: Clindamycin HCl 150 MG Cap PO SCH ×3 (02:21→19:40)
[2017-09-14] MEDS: Lactated Ringers 1,000 ML IV SCH (04:19)
[2017-09-14] MEDS: tiZANidine 2 MG Tab PO PRN ×3 (06:01→19:38)
[2017-09-14] MEDS: HYDROmorphone/Normal Saline 15 MG/30 ML PCA IV SCH (07:00)
[2017-09-14] MEDS ORDERED: diphenhydrAMINE 25 MG Cap PO PRN (07:25)
[2017-09-14] MEDS: Magnesium Hydroxide 400 MG/5 ML Susp 30 ML Cup PO PRN (07:57)
[2017-09-14] MEDS: Insulin Aspart 100 Units/ML 3 ML Pen SUBCUT SCH ×4 (07:58→21:40)
[2017-09-14] MEDS: Lactobacillus Rhamnosus GG (Probiotic) Cap PO SCH ×2 (08:00→21:41)
[2017-09-14] MEDS: Furosemide 40 MG Tab PO SCH (08:00)
[2017-09-14] MEDS: Lisinopril 10 MG Tab PO SCH (08:01)
[2017-09-14] MEDS ORDERED: Warfarin 2.5 MG Tab PO SCH (13:00)
--- NOTE | 2017-09-14 15:23 | PCM.PN ---
- General Info Date of Service: 09/14/17 Functional Status: Reports: Tolerating Diet. Denies: Pain Controlled - Review of Systems General: Denies: Fever Musculoskeletal: Reports: Back Pain Systems Review Comment:: No acute events overnight. Pain control suboptimal but patient has been relatively comfortable and falls asleep very easily. She has not had any fevers. Vital signs have been stable and her white count is stable as well. Ongoing mid thoracic back pain that the patient rates as severe. Worse with any activity. Blood sugars have been well-controlled. Minimal nausea at this time. - Patient Data Vitals - Most Recent: Last Vital Signs Temp 37.0 C 09/14/17 14:22 Pulse 74 09/14/17 14:22 Resp 18 09/14/17 14:22 BP 157/72 H 09/14/17 14:22 Pulse Ox 97 09/14/17 14:22 Weight - Most Recent: 136.078 kg I&O - Last 24 Hours: Intake & Output 09/14/17 09/14/17 09/14/17 06:59 14:59 22:59 Intake Total 812 1692 Output Total 150 200 Balance 662 1492 Lab Results Last 24 Hours: Laboratory Results - last 24 hr 09/14/17 09/14/17 09/14/17 Range/Units 06:05 06:05 06:05 WBC 14.3 H (4.5-11.0) K/uL RBC 4.17 (3.30-5.50) M/uL Hgb 12.2 (12.0-15.0) g/dL Hct 38.6 (36.0-48.0) % MCV 93 (80-98) fL MCH 29 (27-31) pg MCHC 32 (32-36) % Plt Count 381 (150-400) K/uL PT 20.3 H (9.5-12.0) sec INR 1.85 H (0.80-1.20) Sodium 137 L (140-148) mmol/L Potassium 3.7 (3.6-5.2) mmol/L Chloride 98 L (100-108) mmol/L Carbon Dioxide 32 (21-32) mmol/L Anion Gap 10.7 (5.0-14.0) mmol/L BUN 21 H (7-18) mg/dL Creatinine 1.3 H (0.6-1.0) mg/dL Est Cr Clr Drug Dosing TNP Estimated GFR (MDRD) 41 L (>60) Glucose 101 (74-106) mg/dL Calcium 8.3 L (8.5-10.1) mg/dL Johnson Results Last 24 Hours: Microbiology 09/13/17 01:40 Urine Culture - Preliminary Urine, Clean Catch YEAST Med Orders - Current: Current Medications Acetaminophen (Tylenol) 650 mg PO Q4H PRN PRN Reason: Pain (Mild 1-3)/fever Clindamycin HCl (Cleocin) 600 mg PO Q8H [facility] Last Admin: 09/14/17 09:08 Dose: 600 mg Diphenhydramine HCl (Benadryl) 25 - 50 mg PO Q4H PRN PRN Reason: Itching Last Admin: 09/14/17 07:57 Dose: 25 mg Furosemide (Lasix) 40 mg PO DAILY [facility] Last Admin: 09/14/17 08:00 Dose: 40 mg Gabapentin (Neurontin) 300 mg PO BID [facility] Insulin Aspart (Novolog) 0 unit SUBCUT QIDACANDBED [facility]; Protocol Last Admin: 09/14/17 13:06 Dose: Not Given Lactobacillus Rhamnosus (Culturelle) 1 cap PO BID [facility] Last Admin: 09/14/17 08:00 Dose: 1 cap Lisinopril (Prinivil) 10 mg PO DAILY [facility] Last Admin: 09/14/17 08:01 Dose: 10 mg Magnesium Hydroxide (Milk Of Magnesia) 30 ml PO BID PRN PRN Reason: Constipation Last Admin: 09/14/17 07:57 Dose: 30 ml Ondansetron HCl (Zofran) 4 mg IV Q4H PRN PRN Reason: Nausea/Vomiting Oxycodone/Acetaminophen (Percocet 325-5 Mg) 1 - 2 tab PO Q4H PRN PRN Reason: Pain Last Admin: 09/14/17 14:18 Dose: 2 tab Tresiba 200units/Ml (Pen (Ptom)) 0 each SUBCUT BEDTIME [facility] Last Admin: 09/13/17 21:24 Dose: 76 each Polyethylene Glycol (Miralax) 17 gm PO DAILY PRN PRN Reason: Constipation Last Admin: 09/14/17 07:57 Dose: 17 gm Sodium Chloride (Saline Flush) 10 ml FLUSH ASDIRECTED PRN PRN Reason: Keep Vein Open Tizanidine HCl (Zanaflex) 2 mg PO Q6H PRN PRN Reason: Muscle Spasm Last Admin: 09/14/17 11:55 Dose: 2 mg Trolamine Salicylate (Aspercreme 10%) 0 gm TOP Q1H PRN PRN Reason: back pain Warfarin Sodium (Coumadin) 5 mg PO SuTuThSa@1300 [facility] Last Admin: 09/13/17 12:25 Dose: 5 mg Warfarin Sodium (Coumadin) 7.5 mg PO MoWeFr@1300 [facility] Last Admin: 09/14/17 13:04 Dose: 7.5 mg Discontinued Medications Doxycycline Hyclate (Vibramycin) 100 mg PO BID [facility] Furosemide (Lasix) 40 mg IVPUSH ONETIME ONE Stop: 09/13/17 00:58 Last Admin: 09/13/17 01:13 Dose: 40 mg Gabapentin (Neurontin) 300 mg PO BEDTIME [facility] Last Admin: 09/13/17 21:20 Dose: 300 mg Hydralazine HCl (Apresoline) 20 mg IVPUSH ONETIME ONE Stop: 09/12/17 22:58 Last Admin: 09/12/17 23:13 Dose: 20 mg Hydromorphone HCl (Dilaudid) 0.5 mg IVPUSH ONETIME ONE Stop: 09/12/17 23:09 Last Admin: 09/12/17 23:22 Dose: 0.5 mg Hydromorphone HCl (Dilaudid) 1 mg IVPUSH ONETIME ONE Stop: 09/12/17 23:42 Last Admin: 09/12/17 23:45 Dose: 1 mg Hydromorphone HCl (Dilaudid) 1 mg IVPUSH ONETIME ONE Stop: 09/13/17 01:38 Last Admin: 09/13/17 01:41 Dose: 1 mg Hydromorphone HCl (Dilaudid Secretary Bookkeeper 15 Mg In Ns 30 Ml) 15 mg IV ASDIRECTED [facility]; Protocol Last Admin: 09/14/17 07:00 Dose: 15 mg Acetaminophen 1,000 mg/ Premix 100 mls @ 400 mls/hr IV NOW ONE Stop: 09/12/17 21:42 Last Admin: 09/12/17 22:01 Dose: 400 mls/hr Lactated Ringer's (Ringers, Lactated) 1,000 mls @ 1,000 mls/hr IV BOLUS ONE Stop: 09/12/17 22:31 Last Admin: 09/12/17 22:02 Dose: 1,000 mls/hr Sodium Chloride (Normal Saline) 80 mls @ 3 mls/sec IV ASDIRECTED [facility] Last Admin: 09/12/17 23:25 Dose: 3 mls/sec Lactated Ringer's (Ringers, Lactated) 1,000 mls @ 75 mls/hr IV ASDIRECTED [facility] Last Admin: 09/14/17 04:19 Dose: 75 mls/hr Doxycycline Hyclate 100 mg/ (Sodium Chloride) 100 mls @ 100 mls/hr IV Q12H [facility] Last Admin: 09/13/17 02:49 Dose: 100 mls/hr Iopamidol (Isovue-370 (76%)) 100 ml IV . DIRECTED [facility] Last Admin: 09/12/17 23:26 Dose: 100 ml Labetalol HCl (Normodyne) 20 mg IVPUSH NOW ONE; Protocol Stop: 09/12/17 21:28 Last Admin: 09/12/17 21:42 Dose: 20 mg Oxycodone/Acetaminophen (Percocet 325-5 Mg) Confirm Administered Dose 2 tab .ROUTE .STK-MED ONE Stop: 09/13/17 05:33 Last Admin: 09/13/17 12:38 Dose: Not Given Sodium Chloride (Saline Flush) 10 ml FLUSH ASDIRECTED PRN PRN Reason: Keep Vein Open Last Admin: 09/12/17 23:25 Dose: 10 ml - Exam Quality Assessment: No: Supplemental Oxygen General: Alert, Oriented, Cooperative, No Acute Distress, Sedated HEENT: Pupils Equal Lungs: Clear to Auscultation, Normal Respiratory Effort Cardiovascular: Regular Rate, Regular Rhythm GI/Abdominal Exam: Soft, No Distention Extremities: No Pedal Edema Psy/Mental Status: Alert, Normal Affect - Problem List & Annotations (1) Back pain SNOMED Code(s): 673730002 Code(s): M54.9 - DORSALGIA, UNSPECIFIED Status: Acute Current Visit: Yes Qualifiers: Back pain location: thoracic back pain Chronicity: acute Back pain laterality: midline Qualified Code(s): M54.6 - Pain in thoracic spine (2) Generalized abdominal pain SNOMED Code(s): 473881551 Code(s): R10.84 - GENERALIZED ABDOMINAL PAIN Status: Acute Current Visit : No (3) Cellulitis SNOMED Code(s): 904378068 Code(s): L03.90 - CELLULITIS, UNSPECIFIED Status: Acute Current Visit: No Qualifiers: Site of cellulitis: unspecified site Qualified Code(s): L03.90 - Cellulitis , unspecified Annotation/Comment:: left proximal thigh (4) Type 2 diabetes mellitus SNOMED Code(s): 42528489 Code(s): E11.9 - TYPE 2 DIABETES MELLITUS WITHOUT COMPLICATIONS Status: Chronic Current Visit: No Qualifiers: Diabetes mellitus termite control servicer insulin use: with termite control servicer use Diabetes mellitus complication status: with unspecified complications Qualified Code(s) : E11.8 - Type 2 diabetes mellitus with unspecified complications; Z79.4 - skilled nursing (current) use of insulin; Z79.4 - exterminator helper (current) use of insulin; Z79.4 - exterminator helper (current) use of insulin; Z79.4 - skilled nursing (current) use of insulin (5) Chronic renal insufficiency, stage III (moderate) SNOMED Code(s): 286235474 Code(s): N18.3 - CHRONIC KIDNEY DISEASE, STAGE 3 (MODERATE) Status: Chronic Current Visit: No (6) Hx pulmonary embolism SNOMED Code(s): 452350249 Code(s): Z86.711 - PERSONAL HISTORY OF PULMONARY EMBOLISM Status: Chronic Current Visit: No - Problem List Review Problem List Initiated/Reviewed/Updated: Yes - My Orders Last 24 Hours: My Active Orders 09/13/17 21:00 Patient's Own Medication [Ptom] 0 each SUBCUT BEDTIME 09/14/17 07:25 diphenhydrAMINE [Benadryl] 25 - 50 mg PO Q4H PRN 09/14/17 07:30 GLUCOSE POC LAB TO COLLECT [POC] QIDACANDBED 09/14/17 09:00 Furosemide [Lasix] 40 mg PO DAILY 09/14/17 09:39 Thoracic Spine Comp wo Cont [MR] Routine 09/14/17 14:04 Convert IV to Saline Lock [OM.PC] Routine 09/14/17 16:30 GLUCOSE POC LAB TO COLLECT [POC] QIDACANDBED 09/14/17 21:00 GLUCOSE POC LAB TO COLLECT [POC] QIDACANDBED Gabapentin [Neurontin] 300 mg PO BID 09/15/17 05:00 BASIC METABOLIC PANEL,BMP [CHEM] Timed CBC W/O DIFF,HEMOGRAM [HEME] Timed (1) INR,PT,PROTHROMBIN TIME [COAG] Timed 09/15/17 07:30 GLUCOSE POC LAB TO COLLECT [POC] QIDACANDBED 09/15/17 11:30 GLUCOSE POC LAB TO COLLECT [POC] QIDACANDBED 09/15/17 16:30 GLUCOSE POC LAB TO COLLECT [POC] QIDACANDBED 09/15/17 21:00 GLUCOSE POC LAB TO COLLECT [POC] QIDACANDBED 09/16/17 07:30 GLUCOSE POC LAB TO COLLECT [POC] QIDACANDBED 09/16/17 11:30 GLUCOSE POC LAB TO COLLECT [POC] QIDACANDBED 09/16/17 16:30 GLUCOSE POC LAB TO COLLECT [POC] QIDACANDBED 09/16/17 21:00 GLUCOSE POC LAB TO COLLECT [POC] QIDACANDBED 09/17/17 07:30 GLUCOSE POC LAB TO COLLECT [POC] QIDACANDBED 09/17/17 11:30 GLUCOSE POC LAB TO COLLECT [POC] QIDACANDBED 09/17/17 16:30 GLUCOSE POC LAB TO COLLECT [POC] QIDACANDBED 09/17/17 21:00 GLUCOSE POC LAB TO COLLECT [POC] QIDACANDBED 09/18/17 07:30 GLUCOSE POC LAB TO COLLECT [POC] QIDACANDBED 09/18/17 11:30 GLUCOSE POC LAB TO COLLECT [POC] QIDACANDBED 09/18/17 16:30 GLUCOSE POC LAB TO COLLECT [POC] QIDACANDBED - Plan Plan:: ASSESSMENT AND PLAN - Midthoracic back pain - no abnormalities noted on CT scan. Examination consistent with significant paraspinal muscle spasm. Pain control suboptimal at this time. No fevers but still some concern for possible discitis. -Pain control with pain meds, Aspercreme, heating pad and muscle relaxers -Physical therapy -MRI of the thoracic spine Recent left proximal thigh cellulitis/necrotizing fasciitis - clinically area looks well and she's not having fevers. CRP is still significantly elevated but improving. -change antibiotics to clindamycin -Probiotics Insulin-dependent diabetes mellitus - blood sugar control has been good. 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 INR is still slightly subtherapeutic. -Continue daily warfarin -Daily INR Maintenance issues - - DVT prophylaxis - warfarin - GI prophylaxis - PPI - Nutrition - diabetic diet - August catheter - not indicated Disposition - anticipate discharge home after the hospital stay Rodriguez Edwards M.D.
[2017-09-14] MEDS: Gabapentin 300 MG Cap PO SCH (21:41)
[2017-09-14] MEDS: TRESIBA 200 UNIT/ML SUBCUT SCH (21:41)
[2017-09-15] MEDS: HYDROmorphone 1 MG/ML Syringe IVPUSH PRN (00:45)
[2017-09-15] MEDS: tiZANidine 2 MG Tab PO PRN ×4 (01:21→23:12)
[2017-09-15] MEDS: Clindamycin HCl 150 MG Cap PO SCH ×3 (01:21→17:29)
[2017-09-15] MEDS: Acetaminophen/oxyCODONE 325-5 MG Tab PO PRN ×5 (01:59→21:57)
[2017-09-15] MEDS: Insulin Aspart 100 Units/ML 3 ML Pen SUBCUT SCH ×4 (07:46→21:08)
--- NOTE | 2017-09-15 08:11 | PN ---
DATE OF SERVICE: 09/13/2017 The patient is status post debridement of necrotizing fasciitis in the left thigh area last week. She was discharged home and now re-presents with back pain; the latter being managed per Dr. Marino. Otherwise, we will continue doxycycline and then b.i.d. dressing changes. The wound, at this point, looks good, and we will examine it once again tomorrow. She can get in the shower when her back situation gets significantly improved to the point that she would be comfortable with that. Adam Madrid MD /[id number]
[2017-09-15] MEDS: Lactobacillus Rhamnosus GG (Probiotic) Cap PO SCH ×2 (08:30→21:26)
[2017-09-15] MEDS: Gabapentin 300 MG Cap PO SCH ×2 (08:30→21:27)
[2017-09-15] MEDS: Lisinopril 10 MG Tab PO SCH (08:30)
[2017-09-15] MEDS: Furosemide 40 MG Tab PO SCH (08:30)
--- NOTE | 2017-09-15 08:38 | PN ---
DATE OF SERVICE: 09/15/2017 SUBJECTIVE: Caitie is doing well with her b.i.d. dressing changes. She did have a low blood sugar of 30. Pain increased during the night. For her back pain, she was given IV Dilaudid, and she gets some relief. REVIEW OF SYSTEMS: GENERAL: Denies any fever, chills, night sweats, or fatigue. EYES: Negative. HENT: No headache, dizziness, or loss of coordination. NECK: Negative. CHEST: No chest pain, shortness of breath, fast or irregular heart beats. LUNGS: No cough. ABDOMEN: No abdominal pain. Voiding without difficulty. Last BM unknown. EXTREMITIES: Revealed increased pain with any type of movement and lower back continues to be very painful. Remainder of review of systems negative for any pertinent positives and negatives. OBJECTIVE: GENERAL: Caitie Dumont is a 62-year-old female, alert and orientated. VITAL SIGNS: TPR 96.4, 67, 16. Blood pressure 117/55. HEENT: Negative. NECK: Supple. HEART: Regular rate and rhythm. LUNGS: Clear. ABDOMEN: Negative. Perineal dressing from necrotizing fasciitis. Dressing is dry and intact; has been changed twice daily. EXTREMITIES: Revealed trace peripheral edema. ASSESSMENT: 1. Necrotizing fasciitis, open incision, left perineal area. 2. Back and leg pain. 3. Diabetes type 2 with hypoglycemic episode during the night of 30. 4. Chronic renal insufficiency, stage III. 5. History of pulmonary embolism. PLAN: 1. Continue to change dressings, left perineal area b.i.d. 2. When discharged to follow up with Adam Madrid M.D., at [facility] on 09/21/2017. Kimmy Tran PA-C /[id number]
--- NOTE | 2017-09-15 10:26 | PCM.PN ---
- General Info Date of Service: 09/15/17 Functional Status: Reports: Tolerating Diet. Denies: Pain Controlled - Review of Systems General: Denies: Fever Musculoskeletal: Reports: Back Pain Systems Review Comment:: Difficulty with hypoglycemia overnight and the lowest blood sugar reading was 30. She had some associated shaking and diaphoresis with this low sugar. Blood sugars are improving with food this morning. Ongoing moderately severe mid back pain. MRI last night did not show any acute pathology in the thoracic spine. Vital signs have been stable. She thinks the pain is slightly better today. - Patient Data Vitals - Most Recent: Last Vital Signs Temp 35.6 C 09/15/17 08:33 Pulse 73 09/15/17 07:22 Resp 14 09/15/17 07:22 BP 135/54 L 09/15/17 08:30 Pulse Ox 92 L 09/15/17 07:30 Weight - Most Recent: 136.078 kg I&O - Last 24 Hours: Intake & Output 09/14/17 09/15/17 09/15/17 22:59 06:59 14:59 Intake Total 840 200 Output Total 600 500 Balance -600 340 200 Lab Results Last 24 Hours: Laboratory Results - last 24 hr 09/15/17 09/15/17 09/15/17 Range/Units 06:00 06:00 06:05 WBC 15.1 H (4.5-11.0) K/uL RBC 3.86 (3.30-5.50) M/uL Hgb 11.5 L (12.0-15.0) g/dL Hct 35.7 L (36.0-48.0) % MCV 93 (80-98) fL MCH 30 (27-31) pg MCHC 32 (32-36) % Plt Count 359 (150-400) K/uL PT 22.4 H (9.5-12.0) sec INR 2.03 H (0.80-1.20) Sodium 138 L (140-148) mmol/L Potassium 3.5 L (3.6-5.2) mmol/L Chloride 100 (100-108) mmol/L Carbon Dioxide 32 (21-32) mmol/L Anion Gap 9.5 (5.0-14.0) mmol/L BUN 26 H (7-18) mg/dL Creatinine 1.5 H (0.6-1.0) mg/dL Est Cr Clr Drug Dosing 38.72 mL/min Estimated GFR (MDRD) 35 L (>60) Glucose 38 L* (74-106) mg/dL Calcium 8.4 L (8.5-10.1) mg/dL Johnson Results Last 24 Hours: Microbiology 09/13/17 01:40 Urine Culture - Final Urine, Clean Catch [facility] Med Orders - Current: Current Medications Acetaminophen (Tylenol) 650 mg PO Q4H PRN PRN Reason: Pain (Mild 1-3)/fever Clindamycin HCl (Cleocin) 600 mg PO Q8H [facility] Last Admin: 09/15/17 09:54 Dose: 600 mg Diphenhydramine HCl (Benadryl) 25 - 50 mg PO Q4H PRN PRN Reason: Itching Last Admin: 09/14/17 07:57 Dose: 25 mg Furosemide (Lasix) 40 mg PO DAILY [facility] Last Admin: 09/15/17 08:30 Dose: 40 mg Gabapentin (Neurontin) 300 mg PO BID [facility] Last Admin: 09/15/17 08:30 Dose: 300 mg Hydromorphone HCl (Dilaudid) 1 mg IVPUSH Q4H PRN PRN Reason: Pain Last Admin: 09/15/17 00:45 Dose: 1 mg Insulin Aspart (Novolog) 0 unit SUBCUT QIDACANDBED [facility]; Protocol Last Admin: 09/15/17 07:46 Dose: Not Given Lactobacillus Rhamnosus (Culturelle) 1 cap PO BID [facility] Last Admin: 09/15/17 08:30 Dose: 1 cap Lisinopril (Prinivil) 10 mg PO DAILY [facility] Last Admin: 09/15/17 08:30 Dose: 10 mg Magnesium Hydroxide (Milk Of Magnesia) 30 ml PO BID PRN PRN Reason: Constipation Last Admin: 09/14/17 07:57 Dose: 30 ml Ondansetron HCl (Zofran) 4 mg IV Q4H PRN PRN Reason: Nausea/Vomiting Oxycodone/Acetaminophen (Percocet 325-5 Mg) 1 - 2 tab PO Q4H PRN PRN Reason: Pain Last Admin: 09/15/17 09:14 Dose: 2 tab Tresiba 200units/Ml (Pen (Ptom)) 0 each SUBCUT BEDTIME [facility] Polyethylene Glycol (Miralax) 17 gm PO DAILY PRN PRN Reason: Constipation Last Admin: 09/14/17 07:57 Dose: 17 gm Potassium Chloride (Klor-Con M20) 40 meq PO ONETIME ONE Stop: 09/15/17 10:26 Sodium Chloride (Saline Flush) 10 ml FLUSH ASDIRECTED PRN PRN Reason: Keep Vein Open Last Admin: 09/14/17 22:14 Dose: 10 ml Tizanidine HCl (Zanaflex) 2 mg PO Q6H PRN PRN Reason: Muscle Spasm Last Admin: 09/15/17 09:57 Dose: 2 mg Trolamine Salicylate (Aspercreme 10%) 0 gm TOP Q1H PRN PRN Reason: back pain Warfarin Sodium (Coumadin) 5 mg PO DAILY@1300 [facility] Discontinued Medications Doxycycline Hyclate (Vibramycin) 100 mg PO BID [facility] Furosemide (Lasix) 40 mg IVPUSH ONETIME ONE Stop: 09/13/17 00:58 Last Admin: 09/13/17 01:13 Dose: 40 mg Gabapentin (Neurontin) 300 mg PO BEDTIME [facility] Last Admin: 09/13/17 21:20 Dose: 300 mg Hydralazine HCl (Apresoline) 20 mg IVPUSH ONETIME ONE Stop: 09/12/17 22:58 Last Admin: 09/12/17 23:13 Dose: 20 mg Hydromorphone HCl (Dilaudid) 0.5 mg IVPUSH ONETIME ONE Stop: 09/12/17 23:09 Last Admin: 09/12/17 23:22 Dose: 0.5 mg Hydromorphone HCl (Dilaudid) 1 mg IVPUSH ONETIME ONE Stop: 09/12/17 23:42 Last Admin: 09/12/17 23:45 Dose: 1 mg Hydromorphone HCl (Dilaudid) 1 mg IVPUSH ONETIME ONE Stop: 09/13/17 01:38 Last Admin: 09/13/17 01:41 Dose: 1 mg Hydromorphone HCl (Dilaudid Vp Client Services 15 Mg In Ns 30 Ml) 15 mg IV ASDIRECTED [facility]; Protocol Last Admin: 09/14/17 07:00 Dose: 15 mg Acetaminophen 1,000 mg/ Premix 100 mls @ 400 mls/hr IV NOW ONE Stop: 09/12/17 21:42 Last Admin: 09/12/17 22:01 Dose: 400 mls/hr Lactated Ringer's (Ringers, Lactated) 1,000 mls @ 1,000 mls/hr IV BOLUS ONE Stop: 09/12/17 22:31 Last Admin: 09/12/17 22:02 Dose: 1,000 mls/hr Sodium Chloride (Normal Saline) 80 mls @ 3 mls/sec IV ASDIRECTED [facility] Last Admin: 09/12/17 23:25 Dose: 3 mls/sec Lactated Ringer's (Ringers, Lactated) 1,000 mls @ 75 mls/hr IV ASDIRECTED [facility] Last Admin: 09/14/17 04:19 Dose: 75 mls/hr Doxycycline Hyclate 100 mg/ (Sodium Chloride) 100 mls @ 100 mls/hr IV Q12H [facility] Last Admin: 09/13/17 02:49 Dose: 100 mls/hr Iopamidol (Isovue-370 (76%)) 100 ml IV . DIRECTED [facility] Last Admin: 09/12/17 23:26 Dose: 100 ml Labetalol HCl (Normodyne) 20 mg IVPUSH NOW ONE; Protocol Stop: 09/12/17 21:28 Last Admin: 09/12/17 21:42 Dose: 20 mg Oxycodone/Acetaminophen (Percocet 325-5 Mg) Confirm Administered Dose 2 tab .ROUTE .STK-MED ONE Stop: 09/13/17 05:33 Last Admin: 09/13/17 12:38 Dose: Not Given Tresiba 200units/Ml (Pen (Ptom)) 0 each SUBCUT BEDTIME [facility] Last Admin: 09/14/17 21:41 Dose: 76 each Sodium Chloride (Saline Flush) 10 ml FLUSH ASDIRECTED PRN PRN Reason: Keep Vein Open Last Admin: 09/12/17 23:25 Dose: 10 ml Warfarin Sodium (Coumadin) 5 mg PO SuTuThSa@1300 [facility] Last Admin: 09/13/17 12:25 Dose: 5 mg Warfarin Sodium (Coumadin) 7.5 mg PO MoWeFr@1300 [facility] Last Admin: 09/14/17 13:04 Dose: 7.5 mg - Exam Quality Assessment: No: Supplemental Oxygen General: Alert, Oriented, Cooperative, No Acute Distress Neck: Supple Lungs: Normal Respiratory Effort GI/Abdominal Exam: Soft, No Distention Back Exam: No: Full Range of Motion Psy/Mental Status: Alert, Normal Affect - Problem List & Annotations (1) Back pain SNOMED Code(s): 500984461 Code(s): M54.9 - DORSALGIA, UNSPECIFIED Status: Acute Current Visit: Yes Qualifiers: Back pain location: thoracic back pain Chronicity: acute Back pain laterality: midline Qualified Code(s): M54.6 - Pain in thoracic spine (2) Generalized abdominal pain SNOMED Code(s): 721306368 Code(s): R10.84 - GENERALIZED ABDOMINAL PAIN Status: Acute Current Visit : No (3) Cellulitis SNOMED Code(s): 323613004 Code(s): L03.90 - CELLULITIS, UNSPECIFIED Status: Acute Current Visit: No Qualifiers: Site of cellulitis: unspecified site Qualified Code(s): L03.90 - Cellulitis , unspecified Annotation/Comment:: left proximal thigh (4) Type 2 diabetes mellitus SNOMED Code(s): 14443882 Code(s): E11.9 - TYPE 2 DIABETES MELLITUS WITHOUT COMPLICATIONS Status: Chronic Current Visit: No Qualifiers: Diabetes mellitus bed bug exterminator insulin use: with jail use Diabetes mellitus complication status: with unspecified complications Qualified Code(s) : E11.8 - Type 2 diabetes mellitus with unspecified complications; Z79.4 - care home (current) use of insulin; Z79.4 - buttermaker (current) use of insulin; Z79.4 - care home (current) use of insulin; Z79.4 - care home (current) use of insulin (5) Chronic renal insufficiency, stage III (moderate) SNOMED Code(s): 943707131 Code(s): N18.3 - CHRONIC KIDNEY DISEASE, STAGE 3 (MODERATE) Status: Chronic Current Visit: No (6) Hx pulmonary embolism SNOMED Code(s): 119994939 Code(s): Z86.711 - PERSONAL HISTORY OF PULMONARY EMBOLISM Status: Chronic Current Visit: No - Problem List Review Problem List Initiated/Reviewed/Updated: Yes - My Orders Last 24 Hours: My Active Orders 09/14/17 09:39 Thoracic Spine Comp wo Cont [MR] Routine 09/14/17 14:04 Convert IV to Saline Lock [OM.PC] Routine 09/14/17 21:00 Gabapentin [Neurontin] 300 mg PO BID 09/15/17 08:00 GLUCOSE POC LAB TO COLLECT [POC] Stat 09/15/17 09:16 Incentive Spirometry [RT Incentive Spirometry] [RC] ASDIRECTED 09/15/17 10:23 PT Evaluation and Treatment [CONS] Routine 09/15/17 10:25 Potassium Chloride [Klor-Con M20] 40 meq PO ONETIME ONE 09/15/17 11:30 GLUCOSE POC LAB TO COLLECT [POC] QIDACANDBED 09/15/17 13:00 Warfarin [Coumadin] 5 mg PO DAILY@1300 09/15/17 16:30 GLUCOSE POC LAB TO COLLECT [POC] QIDACANDBED 09/15/17 21:00 GLUCOSE POC LAB TO COLLECT [POC] QIDACANDBED Patient's Own Medication [Ptom] 0 each SUBCUT BEDTIME 09/16/17 05:00 BASIC METABOLIC PANEL,BMP [CHEM] Timed CBC W/O DIFF,HEMOGRAM [HEME] Timed (1) 09/16/17 07:30 GLUCOSE POC LAB TO COLLECT [POC] QIDACANDBED 09/16/17 11:30 GLUCOSE POC LAB TO COLLECT [POC] QIDACANDBED 09/16/17 16:30 GLUCOSE POC LAB TO COLLECT [POC] QIDACANDBED 09/16/17 21:00 GLUCOSE POC LAB TO COLLECT [POC] QIDACANDBED 09/17/17 07:30 GLUCOSE POC LAB TO COLLECT [POC] QIDACANDBED 09/17/17 11:30 GLUCOSE POC LAB TO COLLECT [POC] QIDACANDBED 09/17/17 16:30 GLUCOSE POC LAB TO COLLECT [POC] QIDACANDBED 09/17/17 21:00 GLUCOSE POC LAB TO COLLECT [POC] QIDACANDBED 09/18/17 07:30 GLUCOSE POC LAB TO COLLECT [POC] QIDACANDBED 09/18/17 11:30 GLUCOSE POC LAB TO COLLECT [POC] QIDACANDBED 09/18/17 16:30 GLUCOSE POC LAB TO COLLECT [POC] QIDACANDBED - Plan Plan:: ASSESSMENT AND PLAN - Midthoracic back pain - no abnormalities noted on CT scan and MRI did not show significant pathology. Exam and history most consistent with severe muscular spasm. -Pain control with pain meds, Aspercreme, heating pad and muscle relaxers -Physical therapy for consideration of ultrasound and/or TENS Advance activity as tolerated- Recent left proximal thigh cellulitis/necrotizing fasciitis - clinically doing well. -Continue clindamycin -Dressing changes -Probiotics Insulin-dependent diabetes mellitus - blood sugars were low overnight and this morning. Seem to be on the upswing now. 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 INR therapeutic. -Continue daily warfarin -Daily INR Maintenance issues - - DVT prophylaxis - warfarin - GI prophylaxis - PPI - Nutrition - diabetic diet - August catheter - not indicated Disposition - anticipate discharge home after the hospital stay, hopefully in the next day or 2 Rodriguez Edwards M.D.
[2017-09-15] MEDS ORDERED: Potassium Chloride 20 MEQ Tab.ER PO ONE (11:00)
[2017-09-15] MEDS: Warfarin 5 MG Tab PO SCH (12:30)
[2017-09-15] MEDS: Trolamine Salicylate/Aloe Vera 10% Crm 85 GM Tube TOP PRN (12:30)
[2017-09-15] MEDS ORDERED: TRESIBA 200 UNIT/ML SUBCUT SCH (21:00)
[2017-09-16] MEDS: Acetaminophen/oxyCODONE 325-5 MG Tab PO PRN ×4 (02:35→22:35)
[2017-09-16] MEDS: Clindamycin HCl 150 MG Cap PO SCH ×3 (02:38→17:24)
[2017-09-16] MEDS: Furosemide 40 MG Tab PO SCH (08:35)
[2017-09-16] MEDS: Insulin Aspart 100 Units/ML 3 ML Pen SUBCUT SCH ×4 (08:35→21:14)
[2017-09-16] MEDS: Lactobacillus Rhamnosus GG (Probiotic) Cap PO SCH ×2 (08:35→21:15)
[2017-09-16] MEDS: Lisinopril 10 MG Tab PO SCH (08:36)
[2017-09-16] MEDS: Gabapentin 300 MG Cap PO SCH ×2 (08:36→21:15)
[2017-09-16] MEDS: Trolamine Salicylate/Aloe Vera 10% Crm 85 GM Tube TOP PRN (09:43)
[2017-09-16] MEDS ORDERED: methylPREDNISolone Sodium Succinate 125 MG/2 ML SDV IVPUSH ONE (10:15)
[2017-09-16] MEDS: HYDROmorphone 1 MG/ML Syringe IVPUSH PRN (10:56)
--- NOTE | 2017-09-16 11:51 | PN ---
DATE OF SERVICE: 09/16/2017 SUBJECTIVE: Caitie reports that she is unable to sleep in bed due to back pain. Blood sugar was 84. Her Tresiba was held drain. Dressing has been changed twice a day, she is having very little drainage from that, and is improving per nursing staff. All 12 systems were reviewed and negative for any other pertinent positives and negatives. OBJECTIVE: GENERAL: Caitie is a 62-year-old female, alert and orientated, color pale, sitting up in chair. VITAL SIGNS: TPR is 98.1, 72, 18. Blood pressure 157/58. HEENT: Negative. NECK: Supple. HEART: Regular rate and rhythm. LUNGS: Clear. ABDOMEN: Negative. EXTREMITIES: Negative. NEUROLOGIC: Intact. ASSESSMENT: 1. Necrotizing fasciitis, open incision, left perineal area. 2. Back and leg pain. 3. Diabetes type 2. 4. Chronic renal insufficiency. 5. History of pulmonary embolism. PLAN: 1. Continue to change dressing in the left perineal area b.i.d. 2. Change beds with a thicker mattress. 3. mattress or air mattress to help with back pain. 4. We will evaluate p.r.n. or in a.m. Kimmy Tran PA-C /[id number]
[2017-09-16] MEDS: tiZANidine 2 MG Tab PO PRN (13:20)
[2017-09-16] MEDS: Warfarin 5 MG Tab PO SCH (13:21)
--- NOTE | 2017-09-16 15:15 | PCM.PN ---
- General Info Date of Service: 09/16/17 Functional Status: Reports: Tolerating Diet, Ambulating. Denies: Pain Controlled - Review of Systems General: Reports: Weakness Musculoskeletal: Reports: Back Pain Systems Review Comment:: No acute events overnight. Back pain is marginally better today. Still having difficulty getting comfortable. Is able to walk short distances. She has not had any fevers. White blood cell count trending down. - Patient Data Vitals - Most Recent: Last Vital Signs Temp 36.9 C 09/16/17 11:07 Pulse 79 09/16/17 11:07 Resp 16 09/16/17 11:07 BP 175/54 H 09/16/17 11:07 Pulse Ox 98 09/16/17 11:07 Weight - Most Recent: 136.078 kg I&O - Last 24 Hours: Intake & Output 09/16/17 09/16/17 09/16/17 06:59 14:59 22:59 Intake Total 720 75 Output Total 250 600 Balance 470 -525 Lab Results Last 24 Hours: Laboratory Results - last 24 hr 09/16/17 09/16/17 Range/Units 05:28 05:28 WBC 11.5 H (4.5-11.0) K/uL RBC 3.68 (3.30-5.50) M/uL Hgb 10.8 L (12.0-15.0) g/dL Hct 34.4 L (36.0-48.0) % MCV 94 (80-98) fL MCH 29 (27-31) pg MCHC 31 L (32-36) % Plt Count 393 (150-400) K/uL Sodium 138 L (140-148) mmol/L Potassium 4.6 (3.6-5.2) mmol/L Chloride 101 (100-108) mmol/L Carbon Dioxide 33 H (21-32) mmol/L Anion Gap 8.6 (5.0-14.0) mmol/L BUN 27 H (7-18) mg/dL Creatinine 1.6 H (0.6-1.0) mg/dL Est Cr Clr Drug Dosing 36.30 mL/min Estimated GFR (MDRD) 33 L (>60) Glucose 85 (74-106) mg/dL Calcium 8.1 L (8.5-10.1) mg/dL Med Orders - Current: Current Medications Acetaminophen (Tylenol) 650 mg PO Q4H PRN PRN Reason: Pain (Mild 1-3)/fever Clindamycin HCl (Cleocin) 600 mg PO Q8H [facility] Last Admin: 09/16/17 09:43 Dose: 600 mg Diphenhydramine HCl (Benadryl) 25 - 50 mg PO Q4H PRN PRN Reason: Itching Last Admin: 09/14/17 07:57 Dose: 25 mg Furosemide (Lasix) 40 mg PO DAILY [facility] Last Admin: 09/16/17 08:35 Dose: 40 mg Gabapentin (Neurontin) 300 mg PO BID [facility] Last Admin: 09/16/17 08:36 Dose: 300 mg Hydromorphone HCl (Dilaudid) 1 mg IVPUSH Q4H PRN PRN Reason: Pain Last Admin: 09/16/17 10:56 Dose: 1 mg Insulin Aspart (Novolog) 0 unit SUBCUT QIDACANDBED [facility]; Protocol Last Admin: 09/16/17 13:14 Dose: Not Given Lactobacillus Rhamnosus (Culturelle) 1 cap PO BID [facility] Last Admin: 09/16/17 08:35 Dose: 1 cap Lisinopril (Prinivil) 10 mg PO DAILY [facility] Last Admin: 09/16/17 08:36 Dose: 10 mg Magnesium Hydroxide (Milk Of Magnesia) 30 ml PO BID PRN PRN Reason: Constipation Last Admin: 09/14/17 07:57 Dose: 30 ml Ondansetron HCl (Zofran) 4 mg IV Q4H PRN PRN Reason: Nausea/Vomiting Oxycodone/Acetaminophen (Percocet 325-5 Mg) 1 - 2 tab PO Q4H PRN PRN Reason: Pain Last Admin: 09/16/17 07:25 Dose: 2 tab Tresiba 200units/Ml (Pen (Ptom)) 0 each SUBCUT BEDTIME [facility] Last Admin: 09/15/17 21:24 Dose: Not Given Polyethylene Glycol (Miralax) 17 gm PO DAILY PRN PRN Reason: Constipation Last Admin: 09/14/17 07:57 Dose: 17 gm Sodium Chloride (Saline Flush) 10 ml FLUSH ASDIRECTED PRN PRN Reason: Keep Vein Open Last Admin: 09/14/17 22:14 Dose: 10 ml Tizanidine HCl (Zanaflex) 2 mg PO Q6H PRN PRN Reason: Muscle Spasm Last Admin: 09/16/17 13:20 Dose: 2 mg Trolamine Salicylate (Aspercreme 10%) 0 gm TOP Q1H PRN PRN Reason: back pain Last Admin: 09/16/17 09:43 Dose: 1 applic Warfarin Sodium (Coumadin) 5 mg PO DAILY@1300 [facility] Last Admin: 09/16/17 13:21 Dose: 5 mg Discontinued Medications Doxycycline Hyclate (Vibramycin) 100 mg PO BID [facility] Furosemide (Lasix) 40 mg IVPUSH ONETIME ONE Stop: 09/13/17 00:58 Last Admin: 09/13/17 01:13 Dose: 40 mg Gabapentin (Neurontin) 300 mg PO BEDTIME [facility] Last Admin: 09/13/17 21:20 Dose: 300 mg Hydralazine HCl (Apresoline) 20 mg IVPUSH ONETIME ONE Stop: 09/12/17 22:58 Last Admin: 09/12/17 23:13 Dose: 20 mg Hydromorphone HCl (Dilaudid) 0.5 mg IVPUSH ONETIME ONE Stop: 09/12/17 23:09 Last Admin: 09/12/17 23:22 Dose: 0.5 mg Hydromorphone HCl (Dilaudid) 1 mg IVPUSH ONETIME ONE Stop: 09/12/17 23:42 Last Admin: 09/12/17 23:45 Dose: 1 mg Hydromorphone HCl (Dilaudid) 1 mg IVPUSH ONETIME ONE Stop: 09/13/17 01:38 Last Admin: 09/13/17 01:41 Dose: 1 mg Hydromorphone HCl (Dilaudid Expert Witness 15 Mg In Ns 30 Ml) 15 mg IV ASDIRECTED [facility]; Protocol Last Admin: 09/14/17 07:00 Dose: 15 mg Acetaminophen 1,000 mg/ Premix 100 mls @ 400 mls/hr IV NOW ONE Stop: 09/12/17 21:42 Last Admin: 09/12/17 22:01 Dose: 400 mls/hr Lactated Ringer's (Ringers, Lactated) 1,000 mls @ 1,000 mls/hr IV BOLUS ONE Stop: 09/12/17 22:31 Last Admin: 09/12/17 22:02 Dose: 1,000 mls/hr Sodium Chloride (Normal Saline) 80 mls @ 3 mls/sec IV ASDIRECTED [facility] Last Admin: 09/12/17 23:25 Dose: 3 mls/sec Lactated Ringer's (Ringers, Lactated) 1,000 mls @ 75 mls/hr IV ASDIRECTED [facility] Last Admin: 09/14/17 04:19 Dose: 75 mls/hr Doxycycline Hyclate 100 mg/ (Sodium Chloride) 100 mls @ 100 mls/hr IV Q12H [facility] Last Admin: 09/13/17 02:49 Dose: 100 mls/hr Iopamidol (Isovue-370 (76%)) 100 ml IV . DIRECTED [facility] Last Admin: 09/12/17 23:26 Dose: 100 ml Labetalol HCl (Normodyne) 20 mg IVPUSH NOW ONE; Protocol Stop: 09/12/17 21:28 Last Admin: 09/12/17 21:42 Dose: 20 mg Methylprednisolone Sodium Succinate (Solu-Medrol) 125 mg IVPUSH ONETIME ONE Stop: 09/16/17 10:16 Last Admin: 09/16/17 10:49 Dose: 125 mg Oxycodone/Acetaminophen (Percocet 325-5 Mg) Confirm Administered Dose 2 tab .ROUTE .STK-MED ONE Stop: 09/13/17 05:33 Last Admin: 09/13/17 12:38 Dose: Not Given Tresiba 200units/Ml (Pen (Ptom)) 0 each SUBCUT BEDTIME [facility] Last Admin: 09/14/17 21:41 Dose: 76 each Potassium Chloride (Klor-Con M20) 40 meq PO ONETIME ONE Stop: 09/15/17 11:01 Last Admin: 09/15/17 12:29 Dose: 40 meq Sodium Chloride (Saline Flush) 10 ml FLUSH ASDIRECTED PRN PRN Reason: Keep Vein Open Last Admin: 09/12/17 23:25 Dose: 10 ml Warfarin Sodium (Coumadin) 5 mg PO SuTuThSa@1300 [facility] Last Admin: 09/13/17 12:25 Dose: 5 mg Warfarin Sodium (Coumadin) 7.5 mg PO MoWeFr@1300 [facility] Last Admin: 09/14/17 13:04 Dose: 7.5 mg - Exam Quality Assessment: No: Supplemental Oxygen General: Alert, Oriented, Cooperative, No Acute Distress Neck: Supple Lungs: Normal Respiratory Effort GI/Abdominal Exam: No Distention Back Exam: No: Full Range of Motion Extremities: Pedal Edema Psy/Mental Status: Alert, Normal Affect - Problem List & Annotations (1) Back pain SNOMED Code(s): 141953479 Code(s): M54.9 - DORSALGIA, UNSPECIFIED Status: Acute Current Visit: Yes Qualifiers: Back pain location: thoracic back pain Chronicity: acute Back pain laterality: midline Qualified Code(s): M54.6 - Pain in thoracic spine (2) Generalized abdominal pain SNOMED Code(s): 649187533 Code(s): R10.84 - GENERALIZED ABDOMINAL PAIN Status: Acute Current Visit : No (3) Cellulitis SNOMED Code(s): 633350898 Code(s): L03.90 - CELLULITIS, UNSPECIFIED Status: Acute Current Visit: No Qualifiers: Site of cellulitis: unspecified site Qualified Code(s): L03.90 - Cellulitis , unspecified Annotation/Comment:: left proximal thigh (4) Type 2 diabetes mellitus SNOMED Code(s): 15084077 Code(s): E11.9 - TYPE 2 DIABETES MELLITUS WITHOUT COMPLICATIONS Status: Chronic Current Visit: No Qualifiers: Diabetes mellitus terminal gauger insulin use: with terminal gauger use Diabetes mellitus complication status: with unspecified complications Qualified Code(s) : E11.8 - Type 2 diabetes mellitus with unspecified complications; Z79.4 - ferry terminal agent (current) use of insulin; Z79.4 - ferry terminal agent (current) use of insulin; Z79.4 - ferry terminal agent (current) use of insulin; Z79.4 - [facility] (current) use of insulin (5) Chronic renal insufficiency, stage III (moderate) SNOMED Code(s): 952488829 Code(s): N18.3 - CHRONIC KIDNEY DISEASE, STAGE 3 (MODERATE) Status: Chronic Current Visit: No (6) Hx pulmonary embolism SNOMED Code(s): 409261009 Code(s): Z86.711 - PERSONAL HISTORY OF PULMONARY EMBOLISM Status: Chronic Current Visit: No - Problem List Review Problem List Initiated/Reviewed/Updated: Yes - My Orders Last 24 Hours: My Active Orders 09/15/17 21:00 Patient's Own Medication [Ptom] 0 each SUBCUT BEDTIME 09/16/17 16:30 GLUCOSE POC LAB TO COLLECT [POC] QIDACANDBED 09/16/17 21:00 GLUCOSE POC LAB TO COLLECT [POC] QIDACANDBED 09/17/17 07:30 GLUCOSE POC LAB TO COLLECT [POC] QIDACANDBED 09/17/17 11:30 GLUCOSE POC LAB TO COLLECT [POC] QIDACANDBED 09/17/17 16:30 GLUCOSE POC LAB TO COLLECT [POC] QIDACANDBED 09/17/17 21:00 GLUCOSE POC LAB TO COLLECT [POC] QIDACANDBED 09/18/17 07:30 GLUCOSE POC LAB TO COLLECT [POC] QIDACANDBED 09/18/17 11:30 GLUCOSE POC LAB TO COLLECT [POC] QIDACANDBED 09/18/17 16:30 GLUCOSE POC LAB TO COLLECT [POC] QIDACANDBED - Plan Plan:: ASSESSMENT AND PLAN - Midthoracic back pain - no abnormalities noted on CT scan and MRI did not show significant pathology. Exam and history most consistent with severe muscular spasm. Still having severe pain. Not having much luck reducing muscle spasm. -Trial of steroids -Pain control with pain meds, Aspercreme, heating pad and muscle relaxers -Physical therapy for consideration of ultrasound and/or TENS -Advance activity as tolerated Recent left proximal thigh cellulitis/necrotizing fasciitis - clinically doing well. -Continue clindamycin -Dressing changes -Probiotics Insulin-dependent diabetes mellitus - blood sugars were low again this morning. Plan to decrease long-acting insulin further tonight. 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 INR therapeutic. -Continue daily warfarin -Daily INR Maintenance issues - - DVT prophylaxis - warfarin - GI prophylaxis - PPI - Nutrition - diabetic diet - August catheter - not indicated Disposition - anticipate discharge home after the hospital stay, hopefully in the next day or 2. Hospital stay has been prolonged by much slower than expected improvement in her severe midthoracic back pain. Rodriguez Edwards M.D.
[2017-09-16] MEDS ORDERED: TRESIBA 200 UNIT/ML SUBCUT SCH (21:00)
[2017-09-17] MEDS: tiZANidine 2 MG Tab PO PRN ×2 (00:18→10:10)
[2017-09-17] MEDS: Acetaminophen/oxyCODONE 325-5 MG Tab PO PRN ×2 (02:33→06:09)
[2017-09-17] MEDS: Clindamycin HCl 150 MG Cap PO SCH ×2 (02:34→09:11)
[2017-09-17] MEDS ORDERED: Ketorolac 60 MG/2 ML SDV IM ONE (07:30)
[2017-09-17] MEDS: Insulin Aspart 100 Units/ML 3 ML Pen SUBCUT SCH ×2 (07:35→12:06)
[2017-09-17] MEDS: Lactobacillus Rhamnosus GG (Probiotic) Cap PO SCH (09:10)
[2017-09-17] MEDS: Furosemide 40 MG Tab PO SCH (09:12)
[2017-09-17] MEDS: Gabapentin 300 MG Cap PO SCH (09:13)
[2017-09-17] MEDS: Lisinopril 10 MG Tab PO SCH (09:15)
[2017-09-17] MEDS: Trolamine Salicylate/Aloe Vera 10% Crm 85 GM Tube TOP PRN (09:18)
--- NOTE | 2017-09-17 09:55 | PN ---
DATE OF SERVICE: 09/17/2017 SUBJECTIVE: Mora states that her back pain is somewhat better; has no pain from her perineal wound. Reports having a severe headache, which is not common for her. States she had to sleep in the chair most of the night due to severe leg cramps. Dressing for perineal wound has been changed twice a day, dressing has been very minimal. This morning, creatinine was 1.8 and GFR was 28. REVIEW OF SYSTEMS: Remainder of review of systems negative for any pertinent positives and negatives. OBJECTIVE: GENERAL: Caitie Dumont is a pleasant 62-year-old female. VITAL SIGNS: TPR is 98.3, 80, 16. Blood pressures are 180/78 and 187/76. HEENT: Negative. NECK: Supple. HEART: Regular rate and rhythm. LUNGS: Clear. EXTREMITIES: Without peripheral edema. ASSESSMENT: 1. Necrotizing fasciitis, open incision, left perineal area. 2. Acute headache. 3. Diabetes type 2. 4. Back and leg pain. 5. Chronic renal insufficiency. 6. History of pulmonary embolism. PLAN: 1. Toradol 60 mg IM now. 2. Creatinine and GFR were reviewed. The patient normally does not take any Aleve or Advil at home. 3. Continue same dressing changes. 4. We will evaluate p.r.n. or in the a.m. Kimmy Tran PA-C /[id number]
--- NOTE | 2017-09-17 10:47 | PCM.DCSUM1 ---
Discharge Summary - Hospital Course Brief History: 62-year-old female with insulin-dependent diabetes mellitus, recent necrotizing fasciitis who presented with acute thoracic back pain and was admitted for further workup and management. - Discharge Data Discharge Date: 09/17/17 Discharge Disposition: Home, Self-Care 01 Condition: Good - Discharge Diagnosis/Problem(s) (1) Back pain SNOMED Code(s): 159265459 ICD Code: M54.9 - DORSALGIA, UNSPECIFIED Status: Acute Current Visit: Yes Qualifiers: Back pain location: thoracic back pain Chronicity: acute Back pain laterality: midline Qualified Code(s): M54.6 - Pain in thoracic spine (2) Generalized abdominal pain SNOMED Code(s): 301545168 ICD Code: R10.84 - GENERALIZED ABDOMINAL PAIN Status: Acute Current Visit : No (3) Cellulitis SNOMED Code(s): 534029689 ICD Code: L03.90 - CELLULITIS, UNSPECIFIED Status: Acute Current Visit: No Problem Details: left proximal thigh Qualifiers: Site of cellulitis: unspecified site Qualified Code(s): L03.90 - Cellulitis , unspecified (4) Type 2 diabetes mellitus SNOMED Code(s): 94183863 ICD Code: E11.9 - TYPE 2 DIABETES MELLITUS WITHOUT COMPLICATIONS Status: Chronic Current Visit: No Qualifiers: Diabetes mellitus intermediate insulin use: with termite control representative use Diabetes mellitus complication status: with unspecified complications Qualified Code(s) : E11.8 - Type 2 diabetes mellitus with unspecified complications; Z79.4 - extermination supervisor (current) use of insulin; Z79.4 - care home (current) use of insulin; Z79.4 - care home (current) use of insulin; Z79.4 - care home (current) use of insulin (5) Chronic renal insufficiency, stage III (moderate) SNOMED Code(s): 191313253 ICD Code: N18.3 - CHRONIC KIDNEY DISEASE, STAGE 3 (MODERATE) Status: Chronic Current Visit: No (6) Hx pulmonary embolism SNOMED Code(s): 153245917 ICD Code: Z86.711 - PERSONAL HISTORY OF PULMONARY EMBOLISM Status: Chronic Current Visit: No - Patient Summary/Data Consults: Consultations 09/15/17 10:23 PT Evaluation and Treatment [CONS] Routine Please Evaluate and Treat. PT Reason for Consult: Other (Type Response) Special Instructions: mid thoracic back pain - US and or TENS? This query below is only for informational purposes and is not editable. Admission Diagnosis/Problem: Back pain Hospital Course: Mora presented to the ER with severe mid back pain, nausea and generalized abdominal pain. Work up in the ER included a CT of the thoracic spine which did not show any acute pathology. She did not have a fever and abdominal exam was thought to be benign so there was no aggressive workup. She was admitted to the hospital and started on a SOAKER HELPER for her back pain. The morning after admission she continues to have severe back pain. She has ongoing nausea but no vomiting. Nausea and abdominal pain sounded consistent with a side effect from her doxycycline so antibiotics were changed to clindamycin. Examination of her back was consistent with muscular strain and muscle relaxers as well as a heating pad and analgesic balm were added to her treatment regimen. Over the next 24 hours there were no significant changes in her back pain but fortunately her nausea and abdominal pain had improved. We were able to advance her diet by the second day in the hospital. Because her back pain had not improved we elected to perform a thoracic MRI which did not show any acute pathology. The radiologist felt there was possibly a band of abnormal signal at T9 and recommended a follow-up MRI in 6 months. We continue down the path of treating her back pain as a muscle strain and did have slow improvement throughout the hospital stay though it took much longer than expected to improve her back pain. Back pain was also complicated by intermittent muscle spasms in her legs. The day before discharge she did receive a dose of IV Solu-Medrol because of the lack of improvement with other treatment modalities. Eventually with the help of physical therapy we were able to improve her back pain to the point that she feels safe going home. She will be using narcotic pain medications as well as muscle relaxers, analgesic balm and home physical therapy exercises. She will also be receiving outpatient physical therapy. Regarding the recent necrotizing fasciitis of the left thigh, there were no significant issues. Dressing changes were completed without significant difficulty. There has been no evidence for infection recurring in the thigh. She has completed 2 weeks of antibiotic therapy and these were discontinued at the time of discharge. She will continue the dressing changes at home with her 's assistance. She does have surgical follow-up planned in 4 days. Regarding her diabetes, initially her control is good but we did have some difficulty with hypoglycemia during the middle portion of the hospital stay. We decreased her long-acting insulin from 76 down to 65 and then down to 55. Blood sugars have improved and there has not been hypoglycemia in the past 24 hours. She feels confident with managing her insulin at home. She reports a different diet at home and thinks she should be safe returning to her previous regimen of 76 units nightly. She will be contacting her family living educator earlier in the week to review blood sugars after she returns home to see if any adjustments are necessary. - Patient Instructions Diet: Diabetic Diet Activity: As Tolerated Driving: Do Not Drive (if taking pain pills) Showering/Bathing: May Shower Notify Provider of: Fever, Increased Pain, Nausea and/or Vomiting Other/Special Instructions: 1. You were in the hospital for management of acute thoracic back pain. There was no evidence for fracture, dislocation or infection based on CT or MRI imaging. You have a severe strain of your thoracic paraspinal muscles. Fortunately this has been improving with our treatments. This condition may persist for several days or possibly up to a couple more weeks or more. I would recommend that you continue to use oxycodone for severe pain, muscle relaxers for your muscle spasms and regularly use your heating pad to help relieve the muscle spasm. Massaging in creams such as Aspercreme can also provide relief. Outpatient physical therapy has been scheduled to provide additional benefit as well. 2. You have completed adequate antibiotic therapy. Please stop taking all antibiotics at this time. 3. Continue your usual home medications as previously prescribed. 4. Please seek medical attention if you develop fever greater than 101, you have severe back pain not controlled by your home medications or if you develop persistent vomiting or diarrhea. - Discharge Plan Prescriptions/Med Rec: tiZANidine [Zanaflex] 2 mg PO Q6H PRN #20 tablet PRN Reason: Muscle Spasm Home Medications: Home Meds Calcium Carbonate/Vitamin D3 [Calcium 600 + Vit D 200] 1 each PO DAILY 02/10/16 [History] Cholecalciferol (Vitamin D3) [Vitamin D3] 2,000 unit PO DAILY 02/10/16 [History] Furosemide 40 mg PO DAILY 02/10/16 [History] Gabapentin 300 mg PO BEDTIME 02/10/16 [History] Lisinopril 10 mg PO DAILY 02/10/16 [History] Multivitamin [Multi-Vitamin Daily] 1 each PO DAILY 02/10/16 [History] Warfarin [Coumadin] 5 mg PO DAILY 02/10/16 [History] Warfarin [Coumadin] 7.5 mg PO DAILY 03/17/16 [History] Acetaminophen/oxyCODONE [Percocet 325-5 MG] 1 - 2 tab PO Q6HR #120 tablet [Rx] Insulin Aspart [NovoLOG] 0 units SUBCUT TID 10/25/16 [History] Insulin Degludec [Tresiba Flextouch U-100] 78 units SQ DAILY 04/28/17 [History] tiZANidine [Zanaflex] 2 mg PO Q6H PRN #20 tablet 09/17/17 [Rx] Patient Handouts: Thoracic Strain, Back Exercises, Tizanidine tablets or capsules Referrals: Manuel Merritt MD [Primary Care Provider] - 09/21/17 1:00 pm Kimmy Tran PA-C [Physician Flight Engineer Instructor] - 09/21/17 1:45 pm Cindi Leija PT [Physical Therapist] - 09/20/17 8:30 am - Discharge Summary/Plan Comment DC Time >30 min.: Yes (35 - extensive counseling regarding back pain management and coordinating ) - Patient Data Vitals - Most Recent: Last Vital Signs Temp 36.9 C 09/17/17 07:08 Pulse 72 09/17/17 07:08 Resp 18 09/17/17 07:08 BP 187/76 H 09/17/17 09:15 Pulse Ox 95 09/17/17 07:08 Weight - Most Recent: 136.078 kg I&O - Last 24 hours: Intake & Output 09/16/17 09/17/17 09/17/17 22:59 06:59 14:59 Intake Total 850 Output Total 400 2 Balance -400 848 Lab Results - Last 24 hrs: Laboratory Results - last 24 hr 09/17/17 09/17/17 09/17/17 Range/Units 05:32 05:32 05:32 WBC 11.8 H (4.5-11.0) K/uL RBC 3.76 (3.30-5.50) M/uL Hgb 10.9 L (12.0-15.0) g/dL Hct 34.5 L (36.0-48.0) % MCV 92 (80-98) fL MCH 29 (27-31) pg MCHC 32 (32-36) % Plt Count 425 H (150-400) K/uL PT 21.3 H (9.5-12.0) sec INR 1.94 H (0.80-1.20) Sodium 133 L (140-148) mmol/L Potassium 5.3 H (3.6-5.2) mmol/L Chloride 98 L (100-108) mmol/L Carbon Dioxide 29 (21-32) mmol/L Anion Gap 11.3 (5.0-14.0) mmol/L BUN 28 H (7-18) mg/dL Creatinine 1.8 H (0.6-1.0) mg/dL Est Cr Clr Drug Dosing 32.27 mL/min Estimated GFR (MDRD) 28 L (>60) Glucose 280 H (74-106) mg/dL Calcium 8.1 L (8.5-10.1) mg/dL Med Orders - Current: Current Medications Acetaminophen (Tylenol) 650 mg PO Q4H PRN PRN Reason: Pain (Mild 1-3)/fever Last Admin: 09/16/17 16:12 Dose: 650 mg Diphenhydramine HCl (Benadryl) 25 - 50 mg PO Q4H PRN PRN Reason: Itching Last Admin: 09/14/17 07:57 Dose: 25 mg Furosemide (Lasix) 40 mg PO DAILY [facility] Last Admin: 09/17/17 09:12 Dose: 40 mg Gabapentin (Neurontin) 300 mg PO BID [facility] Last Admin: 09/17/17 09:13 Dose: 300 mg Hydromorphone HCl (Dilaudid) 1 mg IVPUSH Q4H PRN PRN Reason: Pain Last Admin: 09/16/17 10:56 Dose: 1 mg Insulin Aspart (Novolog) 0 unit SUBCUT QIDACANDBED [facility]; Protocol Last Admin: 09/17/17 07:35 Dose: 6 units Lactobacillus Rhamnosus (Culturelle) 1 cap PO BID [facility] Last Admin: 09/17/17 09:10 Dose: 1 cap Lisinopril (Prinivil) 10 mg PO DAILY [facility] Last Admin: 09/17/17 09:15 Dose: 10 mg Magnesium Hydroxide (Milk Of Magnesia) 30 ml PO BID PRN PRN Reason: Constipation Last Admin: 09/14/17 07:57 Dose: 30 ml Ondansetron HCl (Zofran) 4 mg IV Q4H PRN PRN Reason: Nausea/Vomiting Oxycodone/Acetaminophen (Percocet 325-5 Mg) 1 - 2 tab PO Q4H PRN PRN Reason: Pain Last Admin: 09/17/17 06:09 Dose: 2 tab Tresiba 200units/Ml (Pen (Ptom)) 0 each SUBCUT BEDTIME [facility] Last Admin: 09/16/17 21:14 Dose: 55 each Polyethylene Glycol (Miralax) 17 gm PO DAILY PRN PRN Reason: Constipation Last Admin: 09/14/17 07:57 Dose: 17 gm Sodium Chloride (Saline Flush) 10 ml FLUSH ASDIRECTED PRN PRN Reason: Keep Vein Open Last Admin: 09/14/17 22:14 Dose: 10 ml Tizanidine HCl (Zanaflex) 2 mg PO Q6H PRN PRN Reason: Muscle Spasm Last Admin: 09/17/17 10:10 Dose: 2 mg Trolamine Salicylate (Aspercreme 10%) 0 gm TOP Q1H PRN PRN Reason: back pain Last Admin: 09/17/17 09:18 Dose: 1 applic Warfarin Sodium (Coumadin) 5 mg PO DAILY@1300 [facility] Last Admin: 09/16/17 13:21 Dose: 5 mg Discontinued Medications Clindamycin HCl (Cleocin) 600 mg PO Q8H [facility] Last Admin: 09/17/17 09:11 Dose: 600 mg Doxycycline Hyclate (Vibramycin) 100 mg PO BID [facility] Furosemide (Lasix) 40 mg IVPUSH ONETIME ONE Stop: 09/13/17 00:58 Last Admin: 09/13/17 01:13 Dose: 40 mg Gabapentin (Neurontin) 300 mg PO BEDTIME [facility] Last Admin: 09/13/17 21:20 Dose: 300 mg Hydralazine HCl (Apresoline) 20 mg IVPUSH ONETIME ONE Stop: 09/12/17 22:58 Last Admin: 09/12/17 23:13 Dose: 20 mg Hydromorphone HCl (Dilaudid) 0.5 mg IVPUSH ONETIME ONE Stop: 09/12/17 23:09 Last Admin: 09/12/17 23:22 Dose: 0.5 mg Hydromorphone HCl (Dilaudid) 1 mg IVPUSH ONETIME ONE Stop: 09/12/17 23:42 Last Admin: 09/12/17 23:45 Dose: 1 mg Hydromorphone HCl (Dilaudid) 1 mg IVPUSH ONETIME ONE Stop: 09/13/17 01:38 Last Admin: 09/13/17 01:41 Dose: 1 mg Hydromorphone HCl (Dilaudid Pin Ball Machine Mechanic 15 Mg In Ns 30 Ml) 15 mg IV ASDIRECTED [facility]; Protocol Last Admin: 09/14/17 07:00 Dose: 15 mg Acetaminophen 1,000 mg/ Premix 100 mls @ 400 mls/hr IV NOW ONE Stop: 09/12/17 21:42 Last Admin: 09/12/17 22:01 Dose: 400 mls/hr Lactated Ringer's (Ringers, Lactated) 1,000 mls @ 1,000 mls/hr IV BOLUS ONE Stop: 09/12/17 22:31 Last Admin: 09/12/17 22:02 Dose: 1,000 mls/hr Sodium Chloride (Normal Saline) 80 mls @ 3 mls/sec IV ASDIRECTED [facility] Last Admin: 09/12/17 23:25 Dose: 3 mls/sec Lactated Ringer's (Ringers, Lactated) 1,000 mls @ 75 mls/hr IV ASDIRECTED [facility] Last Admin: 09/14/17 04:19 Dose: 75 mls/hr Doxycycline Hyclate 100 mg/ (Sodium Chloride) 100 mls @ 100 mls/hr IV Q12H [facility] Last Admin: 09/13/17 02:49 Dose: 100 mls/hr Iopamidol (Isovue-370 (76%)) 100 ml IV . DIRECTED [facility] Last Admin: 09/12/17 23:26 Dose: 100 ml Ketorolac Tromethamine (Toradol) 60 mg IM ONETIME ONE Stop: 09/17/17 07:31 Last Admin: 09/17/17 07:37 Dose: 60 mg Labetalol HCl (Normodyne) 20 mg IVPUSH NOW ONE; Protocol Stop: 09/12/17 21:28 Last Admin: 09/12/17 21:42 Dose: 20 mg Methylprednisolone Sodium Succinate (Solu-Medrol) 125 mg IVPUSH ONETIME ONE Stop: 09/16/17 10:16 Last Admin: 09/16/17 10:49 Dose: 125 mg Oxycodone/Acetaminophen (Percocet 325-5 Mg) Confirm Administered Dose 2 tab .ROUTE .STK-MED ONE Stop: 09/13/17 05:33 Last Admin: 09/13/17 12:38 Dose: Not Given Tresiba 200units/Ml (Pen (Ptom)) 0 each SUBCUT BEDTIME [facility] Last Admin: 09/14/17 21:41 Dose: 76 each Tresiba 200units/Ml (Pen (Ptom)) 0 each SUBCUT BEDTIME [facility] Last Admin: 09/15/17 21:24 Dose: Not Given Potassium Chloride (Klor-Con M20) 40 meq PO ONETIME ONE Stop: 09/15/17 11:01 Last Admin: 09/15/17 12:29 Dose: 40 meq Sodium Chloride (Saline Flush) 10 ml FLUSH ASDIRECTED PRN PRN Reason: Keep Vein Open Last Admin: 09/12/17 23:25 Dose: 10 ml Warfarin Sodium (Coumadin) 5 mg PO SuTuThSa@1300 [facility] Last Admin: 09/13/17 12:25 Dose: 5 mg Warfarin Sodium (Coumadin) 7.5 mg PO MoWeFr@1300 [facility] Last Admin: 09/14/17 13:04 Dose: 7.5 mg - Exam Quality Assessment: Denies: Supplemental Oxygen General: Reports: Alert, Oriented, Cooperative, No Acute Distress Neck: Reports: Supple Lungs: Reports: Normal Respiratory Effort GI/Abdominal Exam: No Distention Extremities: Pedal Edema Psy/Mental Status: Reports: Alert, Normal Affect
[2017-09-17 10:57] VITALS: BP 159/57
[2017-09-17] MEDS: Warfarin 5 MG Tab PO SCH (12:05)
== END 2017-09-17 14:02 | disposition home or self-care (01) | DRG 347 ==
LOC: JP.ED 20:54 → JP.MS 09-13 01:41
PROVIDERS: ADMIT Family Medicine; ATTEND Surgery
DX: M54.6 Pain in thoracic spine (principal); M62.830 Muscle spasm of back; M72.6 Necrotizing fasciitis; I50.9 Heart failure, unspecified; I13.0 Hypertensive heart and chronic kidney disease with heart failure and stage 1 through stage 4 chronic kidney disease, or unspecified chronic kidney disease; E11.22 Type 2 diabetes mellitus with diabetic chronic kidney disease; L03.116 Cellulitis of left lower limb; E53.8 Deficiency of other specified B group vitamins; Z68.42 Body mass index [BMI] 45.0-49.9, adult; N18.3 Chronic kidney disease, stage 3 (moderate); E66.9 Obesity, unspecified; E11.649 Type 2 diabetes mellitus with hypoglycemia without coma; K59.00 Constipation, unspecified; H54.7 Unspecified visual loss; M19.90 Unspecified osteoarthritis, unspecified site; T36.4X5A Adverse effect of tetracyclines, initial encounter; S29.012A Strain of muscle and tendon of back wall of thorax, initial encounter; X58.XXXA Exposure to other specified factors, initial encounter; Y93.9 Activity, unspecified; Y92.9 Unspecified place or not applicable; Z90.49 Acquired absence of other specified parts of digestive tract; Z85.89 Personal history of malignant neoplasm of other organs and systems; Z90.710 Acquired absence of both cervix and uterus; Z88.2 Allergy status to sulfonamides; Z88.1 Allergy status to other antibiotic agents; Z91.041 Radiographic dye allergy status; Z79.01 Long term (current) use of anticoagulants; Z86.718 Personal history of other venous thrombosis and embolism; Z86.711 Personal history of pulmonary embolism; Z87.442 Personal history of urinary calculi; Z86.010 Personal history of colon polyps; Z79.4 Long term (current) use of insulin; Z79.899 Other long term (current) drug therapy; Z96.652 Presence of left artificial knee joint; R10.9 Unspecified abdominal pain; R11.0 Nausea
CPT/HCPCS: 36415; 71275; 72146; 80048; 81001; 82962; 83690; 83880; 85025; 85027; 85379; 85610; 85651; 86140; 87086; 87088; 93005; 94762; 96361; 96365; 96375; 97035-GP; 97140-GP; 97161-GP; 97530-GP; 97535-GP; 99285-25; A9270-GY; J0131; J0360; J1170; J1885; J1940; J2930; J7030; J7050; J7120; Q9967

== ENCOUNTER 2019-07-27 06:46 | Day surgery (SDC) | payer BC, MEDICARE ==
[2019-07-27] MEDS ORDERED: Dextrose 5%-Lactated Ringers 1,000 ML IV SCH (07:15)
[2019-07-27] MEDS ORDERED: fentaNYL 100 MCG/2 ML SDV ONE (07:21)
[2019-07-27] MEDS ORDERED: Midazolam 1 MG/ML 2 ML SDV ONE (07:22)
[2019-07-27] MEDS ORDERED: Propofol 200 MG/20 ML SDV ONE (07:22)
[2019-07-27 10:14] VITALS: BP 117/68; PULSE 70
--- NOTE | 2019-08-05 14:03 | OR ---
DATE OF PROCEDURE: 07/27/2019 SURGEON: Adam Madrid MD PREOPERATIVE DIAGNOSIS: Indications for screening colonoscopy. POSTOPERATIVE DIAGNOSIS: Colon polyps x2 (cecum and ascending colon). OPERATIVE PROCEDURE: Flexible colonoscopy with polypectomy x2 with snare technique ([id number]). ANESTHESIA: IV sedation. INDICATION FOR PROCEDURE: This is a 64-year-old female presenting for a screening colonoscopy. Plan is to proceed with colonoscopy with biopsies and polypectomy as indicated. Potential risks including bleeding and perforation were discussed, and the patient wishes to proceed. DETAILS OF PROCEDURE: The patient was taken to the operating room and placed in a left lateral decubitus position. IV sedation was administered, after which the initial digital rectal exam was performed, was unremarkable. Colonoscope was then passed into the rectum with retroflexion revealing uncomplicated hemorrhoidal columns. The scope was eventually passed to the level of the cecum, the prep was quite good with only a small amount of liquid stool being present. The patient was noted to have two polyps, both of these were quite small, in the range of 3 to 4 mm at most; one in the cecum and one in the ascending colon, both of these were encircled at their base with a snare and cauterized and then sent for pathologic examination. Good hemostasis was noted at the polypectomy site. Remainder of the examination showed no additional polyps, no areas of diverticular disease or colitis. Scope was then withdrawn and the procedure was then concluded. The patient will be contacted regarding the path report and assuming these are adenomatous polyps of some sort, a followup colonoscopy should be arranged in 2 years. Adam Madrid MD /[id number]
== END 2019-07-27 10:00 | disposition home or self-care (01) ==
LOC: JP.SDS 06:46
PROVIDERS: ATTEND Surgery
DX: Z12.11 Encounter for screening for malignant neoplasm of colon (principal); D12.0 Benign neoplasm of cecum; D12.2 Benign neoplasm of ascending colon; K64.9 Unspecified hemorrhoids; E78.5 Hyperlipidemia, unspecified; E11.9 Type 2 diabetes mellitus without complications; E66.01 Morbid (severe) obesity due to excess calories; Z88.2 Allergy status to sulfonamides; Z88.1 Allergy status to other antibiotic agents; Z91.041 Radiographic dye allergy status; Z68.42 Body mass index [BMI] 45.0-49.9, adult
CPT/HCPCS: 36415; 45385; 85610; 88305; J2250; J2704; J3010; J7121

== ENCOUNTER 2021-04-13 05:52 | Day surgery (SDC) | payer MEDICARE, BC ==
[2021-04-13] MEDS ORDERED: Nozin Nasal Sanitizer NASBOTH ONE (06:15)
[2021-04-13] MEDS ORDERED: Bupivacaine 0.5% 30 ML SDV ONE (06:55)
[2021-04-13] MEDS ORDERED: Lactated Ringers 1,000 ML IV SCH (07:00)
[2021-04-13] MEDS ORDERED: Propofol 200 MG/20 ML SDV ONE (07:10)
[2021-04-13] MEDS ORDERED: Lidocaine 0.5% 50 ML SDV ONE (07:10)
[2021-04-13] MEDS ORDERED: fentaNYL 100 MCG/2 ML SDV ONE (07:11)
[2021-04-13] MEDS ORDERED: Midazolam 1 MG/ML 2 ML SDV ONE (07:11)
[2021-04-13] MEDS ORDERED: ceFAZolin 1 GM in Premix Bag 1 BAG IV ONE (07:30)
[2021-04-13 09:12] VITALS: BP 131/61; PULSE 67
--- NOTE | 2021-04-15 22:17 | OR ---
DATE OF PROCEDURE: 04/13/2021 SURGEON: Segun Boswell MD PREOPERATIVE DIAGNOSIS: Stenosing tenosynovitis, left ring finger, trigger finger. POSTOPERATIVE DIAGNOSIS: Stenosing tenosynovitis, left ring finger, trigger finger. PROCEDURE: Release of A1 jonny, left ring finger. ANESTHESIA: Local infiltration with sedation. INDICATIONS: Caitie is a 65-year-old female with a history of progressive pain, catching and locking in the ring finger of her left hand. It has gotten to the point where the finger will lock in flexion, requiring manual extension with her other hand. She now presents for release of trigger finger. Risks, benefits, and potential complications were discussed. DESCRIPTION OF PROCEDURE: After light sedation was accomplished, a tourniquet was placed about the forearm on the left hand and arm were prepped and draped in a sterile fashion. The arm was exsanguinated and tourniquet inflated to 200 mmHg pressure. Prior to prep the skin and soft tissues over the A1 jonny and the distal flexion crease were infiltrated with 0.5% Marcaine. A small transverse incision was made within the flexion crease, carried down through the subcutaneous tissues and blunt dissection carried down over the flexor tendon and A1 jonny. Retractors were placed and the jonny was divided under direct visualization. A complete release proximally and distally was confirmed both visually and by palpation. The flexor tendons were evaluated and no significant abnormalities were identified. The skin was then closed with 4-0 nylon in interrupted mattress fashion. Sterile dressing was applied. The patient tolerated procedure well. There were no complications. Taken from the operating room in stable condition. Segun Boswell MD /[id number]
== END 2021-04-13 09:25 | disposition home or self-care (01) ==
LOC: JP.SDS 05:52
PROVIDERS: ATTEND Specialist
DX: M65.342 Trigger finger, left ring finger (principal); M65.842 Other synovitis and tenosynovitis, left hand; E11.9 Type 2 diabetes mellitus without complications; I10 Essential (primary) hypertension; Z88.8 Allergy status to other drugs, medicaments and biological substances; Z98.890 Other specified postprocedural states; Z91.041 Radiographic dye allergy status
CPT/HCPCS: 26055; 36415; 80048; 85027; 85610; A9270; J0690; J2250; J2704; J3010; J3490; J7120

== ENCOUNTER 2022-05-31 06:44 | Day surgery (SDC) | payer MEDICARE, BC ==
[2022-05-31] MEDS ORDERED: Midazolam 1 MG/ML 2 ML SDV ONE (07:04)
[2022-05-31] MEDS ORDERED: fentaNYL 50 MCG/ML SDV ONE (07:05)
[2022-05-31] MEDS ORDERED: Propofol 200 MG/20 ML SDV ONE ×2 (07:06→09:21)
[2022-05-31] MEDS ORDERED: Dextrose 5%-Lactated Ringers 1,000 ML IV SCH (07:15)
[2022-05-31] MEDS ORDERED: Lactated Ringers 1,000 ML IV SCH (07:30)
[2022-05-31 10:33] VITALS: BP 111/63; PULSE 66
== END 2022-05-31 10:42 | disposition home or self-care (01) ==
LOC: JP.SDS 06:44
PROVIDERS: ATTEND Surgery
DX: Z12.11 Encounter for screening for malignant neoplasm of colon (principal); D12.7 Benign neoplasm of rectosigmoid junction; D12.3 Benign neoplasm of transverse colon; K64.8 Other hemorrhoids; E78.5 Hyperlipidemia, unspecified; N18.30 Chronic kidney disease, stage 3 unspecified; E11.22 Type 2 diabetes mellitus with diabetic chronic kidney disease; E66.9 Obesity, unspecified; Z86.010 Personal history of colon polyps; Z79.899 Other long term (current) drug therapy; Z91.041 Radiographic dye allergy status; Z88.2 Allergy status to sulfonamides; Z88.8 Allergy status to other drugs, medicaments and biological substances
CPT/HCPCS: 45381; 45385; 88305; J2250; J2704; J3010; J7120

== ENCOUNTER 2024-03-04 10:36 | Inpatient (IN) | payer MEDICARE, BC ==
[2024-03-04 11:20] LABS: BASE EXCESS VENOUS 0.3 mm/L; BASOPHILS PERCENT AUTO 0.2 % (0.1-1.3); BICARBONATE,VENOUS 25.4 mmol/L; CARBOXYHEMOGLOBIN 1.9 % (0.0-1.6); EOSINOPHILS ABSOLUTE AUTO 0.03 K/uL (0.00-0.40); EOSINOPHILS PERCENT AUTO 0.2 % (0.0-5.4); HEMATOCRIT 36.6 % (34.3-46.0); HEMOGLOBIN 12.4 g/dL (11.2-15.5); IMMATURE GRAN ABSOLUTE AUTO 0.06 K/uL (0.00-0.23); IMMATURE GRAN PERCENT AUTO 0.5 % (0.0-0.7); LYMPHOCYTES ABSOLUTE AUTO 0.62 K/uL (0.8-3.3); MEAN CORPUSCULAR HEMOGLOBIN 31.4 pg (31.6-35.5); MEAN CORPUSCULAR HGB CONC 33.9 g/dL (31.6-35.5); MEAN CORPUSCULAR VOLUME 92.7 fL (81.4-99.0); METHEMOGLOBIN 0.7 %; MONOCYTES ABSOLUTE AUTO 0.88 K/uL (0.20-0.90); MONOCYTES PERCENT AUTO 7.1 % (3.3-12.6); NEUTROPHILS ABSOLUTE AUTO 10.74 K/uL (1.0-7.6); O2 SATURATION VENOUS 43.2; OXYHEMOGLOBIN 42.1 %; PCO2 VENOUS 45.4 mm/Hg; PH,VENOUS 7.367 (7.350-7.450); PLATELET COUNT,PLT 156 K/uL (130-375); RED BLOOD CELL COUNT 3.95 M/uL (3.77-5.24); WHITE BLOOD CELL COUNT,WBC 12.4 K/uL (3.2-11.0)
[2024-03-04 11:22] LABS: BASOPHILS ABSOLUTE AUTO 0.02 K/uL (0.00-0.10); PO2 VENOUS 25.7 mm/Hg
[2024-03-04] MEDS: Sodium Chloride 0.9% 1,000 ML IV SCH ×4 (11:26→21:53)
[2024-03-04 11:39] LABS: INR 1.5; PROTHROMBIN TIME 15.3 sec (9.2-10.6)
[2024-03-04 11:48] LABS: A/G RATIO 0.7 (1.2-2.2); ALANINE AMINOTRANSFERASE,ALT 32 U/L (12-78); ALBUMIN 2.6 g/dL (3.4-5.0); ALKALINE PHOSPHATASE 69 U/L (46-116); ANION GAP 11.9 mmol/L (5.0-14.0); ASPARTATE AMNIOTRANSFERASE,AST 31 U/L (15-37); BILIRUBIN TOTAL 0.4 mg/dL (0.2-1.0); BLOOD UREA NITROGEN,BUN 35 mg/dL (7-18); CALCIUM 8.6 mg/dL (8.5-10.1); CARBON DIOXIDE,CO2 25 mmol/L (21-32); CHLORIDE,CL 106 mmol/L (100-108); CREATININE 2.3 mg/dL (0.6-1.0); EST CRCL DRUG DOSING (CG) 22.39 mL/min; ESTIMATED GFR 22 mL/min (>60); GLUCOSE RANDOM 82 mg/dL (74-106); POTASSIUM,K 3.9 mmol/L (3.6-5.2); PROTEIN TOTAL,TP 6.4 g/dL (6.4-8.2); SODIUM,NA 139 mmol/L (140-148)
[2024-03-04 11:53] LABS: APPEARANCE,URINE SLIGHTLY CLOUDY (CLEAR); BILIRUBIN,URINE SMALL (NEGATIVE); COLOR,URINE YELLOW (YELLOW); GLUCOSE,URINE NEGATIVE (NEGATIVE); KETONES,URINE NEGATIVE (NEGATIVE); LEUKOCYTE ESTERASE,URINE NEGATIVE (NEGATIVE); NITRITE,URINE NEGATIVE (NEGATIVE); OCCULT BLOOD,URINE MODERATE (NEGATIVE); PROTEIN,URINE 100 mg/dL (NEGATIVE); UROBILINOGEN,URINE 0.2 EU/dL (0.2-1.0)
[2024-03-04 12:01] LABS: BACTERIA,URINE MODERATE; EPITHELIAL CELLS,URINE MODERATE; WBC,URINE 0-5 (0-5)
[2024-03-04 12:02] LABS: AMPHETAMINES SCREEN, URINE NEGATIVE (NEGATIVE); BARBITURATE SCREEN,URINE NEGATIVE (NEGATIVE); BENZODIAZEPINES SCREEN,URINE NEGATIVE (NEGATIVE); METHADONE SCREEN, URINE NEGATIVE (NEGATIVE); METHAMPHETAMINES SCREEN, URINE NEGATIVE (NEGATIVE); OXYCODONE SCREEN,URINE NEGATIVE (NEGATIVE); PROPOXYPHENE SCREEN,URINE NEGATIVE (NEGATIVE); THC SCREEN,URINE 50 NG/ML NEGATIVE (NEGATIVE)
[2024-03-04 12:02] LABS: AMORPHOUS SEDIMENT,URINE MANY; MUCUS,URINE NOT SEEN
[2024-03-04 12:27] LABS: CORONAVIRUS COVID-19 NAA NEGATIVE (NEGATIVE); INFLUENZA A NAA NEGATIVE (NEGATIVE); INFLUENZA B NAA NEGATIVE (NEGATIVE); RESPIRATORY SYNCYTIAL VIR NAA NEGATIVE (NEGATIVE)
[2024-03-04] MEDS: cefTRIAXone 2 GM in Sodium Chloride 0.9% 50 ML IV ONE (12:38)
[2024-03-04] MEDS: Aspirin 81 MG Tab.Chew PO ONE (14:52)
[2024-03-04] MEDS: Nitroglycerin 0.4 MG Tab.SL SL ONE (14:53)
[2024-03-04] MEDS ORDERED: Albuterol 0.083% 2.5 MG/3 ML Neb Soln NEB PRN (15:52)
[2024-03-04] MEDS ORDERED: LORazepam 2 MG/ML SDV IVPUSH PRN (15:52)
[2024-03-04] MEDS ORDERED: Ondansetron 4 MG/2 ML SDV IV PRN (15:52)
[2024-03-04] MEDS ORDERED: Acetaminophen/HYDROcodone 325-5 MG Tab PO PRN (15:52)
[2024-03-04] MEDS ORDERED: Magnesium Hydroxide 400 MG/5 ML Susp 30 ML Cup PO PRN (15:52)
[2024-03-04] MEDS ORDERED: Sennosides/Docusate Sodium 50-8.6 MG Tab PO PRN (15:52)
[2024-03-04] MEDS ORDERED: Ondansetron 4 MG Tab.DIS PO PRN (15:52)
[2024-03-04] MEDS ORDERED: Insulin Lispro 100 Unit/ML 3 ML KwikPen SUBCUT SCH (16:00)
[2024-03-04] MEDS: Acetaminophen 325 MG Tab PO PRN (16:26)
[2024-03-04] MEDS: Enoxaparin 120 MG/0.8 ML Syringe SUBCUT SCH (16:26)
[2024-03-04] MEDS ORDERED: Dimethicone 20%/Zinc Oxide 25% 56 GM Spray Bottle TOP PRN (16:48)
[2024-03-04] MEDS ORDERED: hydrALAZINE 20 MG/ML SDV IVPUSH PRN (16:58)
[2024-03-04] MEDS: Gabapentin 300 MG Cap PO SCH (20:57)
[2024-03-04] MEDS: Pravastatin 20 MG Tab PO SCH (20:57)
[2024-03-04] MEDS: Warfarin 2.5 MG Tab PO SCH (20:58)
[2024-03-04 21:10] VITALS: BP 96/60; PULSE 62
[2024-03-05] MEDS ORDERED: cefTRIAXone 1 GM in Sodium Chloride 0.9% 50 ML IV SCH (09:00)
[2024-03-05] MEDS ORDERED: Acetaminophen/oxyCODONE 325-5 MG Tab PO SCH (09:00)
[2024-03-05] MEDS ORDERED: Non-Formulary Medication 1 Each (Insulin Aspart [Novolog] 100 UNIT/ML Pen) SQ SCH (09:00)
== END 2024-03-04 23:00 | DRG 682 ==
LOC: JP.ED 10:36 → UNDOADMIN 15:11 → JP.MS 15:11
PROVIDERS: ADMIT Hospitalist; ATTEND Hospitalist
PROC: 4A033R1 Measurement of Arterial Saturation, Peripheral, Percutaneous Approach (ICD-10-PCS; principal; 2024-03-04)
DX: N17.9 Acute kidney failure, unspecified (principal); J96.01 Acute respiratory failure with hypoxia; I10 Essential (primary) hypertension; E11.9 Type 2 diabetes mellitus without complications; Z68.42 Body mass index [BMI] 45.0-49.9, adult; Z79.4 Long term (current) use of insulin; R65.10 Systemic inflammatory response syndrome (SIRS) of non-infectious origin without acute organ dysfunction; Z91.041 Radiographic dye allergy status; I95.9 Hypotension, unspecified; E86.0 Dehydration; R79.89 Other specified abnormal findings of blood chemistry; L89.329 Pressure ulcer of left buttock, unspecified stage; I12.9 Hypertensive chronic kidney disease with stage 1 through stage 4 chronic kidney disease, or unspecified chronic kidney disease; N18.9 Chronic kidney disease, unspecified; E11.22 Type 2 diabetes mellitus with diabetic chronic kidney disease; E66.01 Morbid (severe) obesity due to excess calories; Z86.711 Personal history of pulmonary embolism; Z88.2 Allergy status to sulfonamides; Z88.8 Allergy status to other drugs, medicaments and biological substances; Z79.01 Long term (current) use of anticoagulants; Z79.899 Other long term (current) drug therapy; Z90.49 Acquired absence of other specified parts of digestive tract; Z98.49 Cataract extraction status, unspecified eye; Z90.710 Acquired absence of both cervix and uterus; Z90.721 Acquired absence of ovaries, unilateral; Z98.890 Other specified postprocedural states; Z86.010 Personal history of colon polyps
CPT/HCPCS: 0241U; 36415; 71045; 80053; 80305; 80307; 81001; 82803; 83605; 84145; 84484; 85025; 85610; 87040; 93005; 96374; 99236; A9270-GY; J0696; J1650; J1815; J2405; J3490; J7030

== ENCOUNTER 2025-03-01 07:52 | Day surgery (SDC) | payer MEDICARE, BC ==
[2025-03-01] MEDS: Lactated Ringers 1,000 ML IV SCH (08:52)
[2025-03-01] MEDS ORDERED: Propofol 200 MG/20 ML SDV ONE (09:24)
[2025-03-01] MEDS ORDERED: fentaNYL 100 MCG/2 ML SDV ONE (09:24)
[2025-03-01 10:49] VITALS: BP 130/52; PULSE 62
== END 2025-03-01 11:07 | disposition home or self-care (01) ==
LOC: JP.SDS 07:52
PROVIDERS: ATTEND Surgery
DX: Z12.11 Encounter for screening for malignant neoplasm of colon (principal); D12.2 Benign neoplasm of ascending colon; D12.3 Benign neoplasm of transverse colon
CPT/HCPCS: 00811; 45380; 45385; J2704; J3010; J7120